=== PATIENT | female | born 1955 | race Caucasian/White ===

== ENCOUNTER → 2016-10-04 | Outpatient (CLI) | payer MEDICARE ==
[~2016-10-04] MED LIST: /LOR25TA OR; CALCTAB22 PO; COLA100C2 OR; ESTR0.5T OR; FERR325T3 PO; FLOV50AE; Fish Oil PO; GABA300C2 PO; K-TA10TA2 PO; MULTIVIT PO; NAPR500T OR; OMEP20TA7 OR; PREG50CA OR; TRAM100T13 PO; TYLE-18 PO; VITA400C OR; VITA400C PO; VITA500C OR; VITA500T53 PO; VITAD1000T PO; melatonin PO
--- NOTE | 2016-10-04 10:42 | REPMRS ---
Patient History The patient states she had a clinical breast exam in 09/2016. Patient is postmenopausal. Family history of breast cancer in niece. Took estrogen for 30 years. Digital Woman Screen Mammo: October 04, 2016 - Exam #: [id number] Bilateral CC and MLO view(s) were taken. Technologist: Estelita Varner, Technologist Prior study comparison: August 27, 2015, digital woman screen mammo performed at [facility]. August 25, 2014, digital woman screen mammo performed at [facility]. August 25, 2013, digital woman screen mammo performed at [facility]. FINDINGS: The breast tissue is heterogeneously dense. This may lower the sensitivity of mammography. There is a moderate amount of heterogeneously dense fibroglandular tissue which is fairly symmetric. There is no interval development of dominant mass, architectural distortion, or clustered microcalcification typical of malignancy. There has been no change in the appearance of the mammogram from the prior studies. ASSESSMENT: BI-RADS/ACR category 1 mammogram. Negative. Recommendation Routine screening mammogram of both breasts in 1 year (for women over age 40). This mammogram was interpreted with the aid of an FDA-approved computer-aided dectection system. Electronically Signed By: Mohamud Jj MD 10/04/16 [id number]
== END ==
LOC: M WHC 09:18
PROVIDERS: ATTEND Nurse Practitioner Family
DX: Z01.419 Encounter for gynecological examination (general) (routine) without abnormal findings (principal); Z12.31 Encounter for screening mammogram for malignant neoplasm of breast; Z78.0 Asymptomatic menopausal state; Z12.12 Encounter for screening for malignant neoplasm of rectum; Z79.818 Long term (current) use of other agents affecting estrogen receptors and estrogen levels
CPT/HCPCS: 82270; G0101; G0202

== ENCOUNTER → 2017-09-25 | Outpatient (CLI) | payer MEDICARE ==
[~2017-09-25] MED LIST changes: -/LOR25TA OR; -CALCTAB22 PO; -COLA100C2 OR; -ESTR0.5T OR; -FERR325T3 PO; -FLOV50AE; -Fish Oil PO; -GABA300C2 PO; +ISOVUE-370 76% 100ML VIAL (Q9967) As Ordered; -K-TA10TA2 PO; -MULTIVIT PO; -NAPR500T OR; -OMEP20TA7 OR; -PREG50CA OR; -TRAM100T13 PO; -TYLE-18 PO; -VITA400C OR; -VITA400C PO; -VITA500C OR; -VITA500T53 PO; -VITAD1000T PO; -melatonin PO
== END ==
LOC: M RAD 17:14
DX: R22.1 Localized swelling, mass and lump, neck (principal)
CPT/HCPCS: Q9967

== ENCOUNTER → 2017-09-27 | Outpatient (REF) | payer MEDICARE | LOC: M SFHCPLAZ 09:29 | DX: Z11.59 Encounter for screening for other viral diseases (principal) ==

== ENCOUNTER → 2017-09-27 | Outpatient (REF) | payer MEDICARE ==
[2017-09-27 11:29] LABS: INR 0.98; PROTHROMBIN TIME 13.1 SECONDS (12.4-14.5)
[2017-09-27 11:30] LABS: PARTIAL THROMBOPLASTIN TIME 28.1 SECONDS (26.8-37.9)
== END ==
LOC: M LABDRWAD 11:11
DX: R22.1 Localized swelling, mass and lump, neck (principal); Z79.01 Long term (current) use of anticoagulants
CPT/HCPCS: 85610

== ENCOUNTER → 2017-09-28 | Outpatient (CLI) | payer MEDICARE | LOC: M RAD 15:57 | DX: R22.1 Localized swelling, mass and lump, neck (principal) | CPT/HCPCS: Q9967 ==

== ENCOUNTER → 2017-10-08 | Outpatient (CLI) | payer MEDICARE ==
[~2017-10-08] MED LIST changes: -ISOVUE-370 76% 100ML VIAL (Q9967) As Ordered; +LIDOCAINE 2% MDV 20 ML VIAL As Ordered
== END ==
LOC: M RADPRO 12:17
DX: R22.1 Localized swelling, mass and lump, neck (principal); Z88.0 Allergy status to penicillin; Z91.018 Allergy to other foods; Z91.011 Allergy to milk products; Z79.899 Other long term (current) drug therapy
CPT/HCPCS: 10022

== ENCOUNTER → 2017-10-15 | Outpatient (REF) | payer MEDICARE ==
[2017-10-15 13:57] LABS: REASON FOR REVIEW COMPREHENSIVE REVIEW; SLIDE REVIEW Report; SOURCE PERIPHERAL SMEAR
[2017-10-15 14:19] LABS: URIC ACID 3.4 MG/DL (2.6-6.0)
[2017-10-15 14:59] LABS: HEPATITIS B SURFACE ANTIGEN NEGATIVE (NEGATIVE)
[2017-10-15 15:26] LABS: HEPATITIS C VIRUS ABY INDEX 0.1 INDEX (<0.8)
[2017-10-15 15:27] LABS: HEPATITIS B CORE ANTIBODY IGM NEGATIVE (NEGATIVE); HIV 1&2 SCREEN CENTAUR NEGATIVE (NEGATIVE)
[2017-10-16 14:15] LABS: BETA 2 MICROGLOBULIN 1.6 mg/L (0.6-2.4)
== END ==
LOC: M LAB REF 13:29
DX: R22.1 Localized swelling, mass and lump, neck (principal); D64.9 Anemia, unspecified
CPT/HCPCS: 84550

== ENCOUNTER → 2017-11-09 | Outpatient (CLI) | payer MEDICARE | LOC: M WHC 09:09 | DX: Z12.31 Encounter for screening mammogram for malignant neoplasm of breast (principal); N95.9 Unspecified menopausal and perimenopausal disorder; Z78.0 Asymptomatic menopausal state; Z92.23 Personal history of estrogen therapy; Z12.12 Encounter for screening for malignant neoplasm of rectum | CPT/HCPCS: 77067 ==

== ENCOUNTER → 2017-12-18 | Outpatient (CLI) | payer MEDICARE | LOC: M EKG 07:54 | DX: Z01.818 Encounter for other preprocedural examination (principal); I45.10 Unspecified right bundle-branch block | CPT/HCPCS: 93005 ==

== ENCOUNTER 2017-12-21 09:25 | Day surgery (SDC) | payer MEDICARE ==
[2017-12-21] MEDS: LR 1,000 ML IV (10:45)
[2017-12-21] MEDS ORDERED: ROCURONIUM BROMIDE 50 MG/5 ML VIAL As Ordered (12:07)
[2017-12-21] MEDS ORDERED: PROPOFOL 200 MG/20 ML VIAL As Ordered (12:07)
[2017-12-21] MEDS ORDERED: LIDOCAINE 2% INJ 100 MG/5 ML SDV (FOR ANES.) As Ordered (12:07)
[2017-12-21] MEDS ORDERED: ONDANSETRON 4MG/2ML VIAL (J2405) As Ordered (12:10)
[2017-12-21] MEDS ORDERED: NEOSTIGMINE 10 MG/10 ML VIAL (J2710) As Ordered (12:10)
[2017-12-21] MEDS ORDERED: KETOROLAC 60 MG/2 ML VIAL (J1885) As Ordered (12:10)
[2017-12-21] MEDS ORDERED: fentaNYL 250 MCG/5 ML INJECTION (J3010) As Ordered (12:10)
[2017-12-21] MEDS ORDERED: dexameTHASONE 4 MG/ML 1ML VIAL (J1100) As Ordered (12:10)
[2017-12-21] MEDS ORDERED: GLYCOPYRROLATE INJ 0.2 MG/ML 2 ML VIAL As Ordered (12:10)
[2017-12-21] MEDS ORDERED: MIDAZOLAM INJ 2 MG/2 ML VIAL (J2250) As Ordered (12:11)
[2017-12-21] MEDS: EPINEPHrine 1MG/ML INJ 30ML MD-VIAL As Ordered (13:06)
[2017-12-21] MEDS: LIDOCAINE W/EPINEPHRINE 1% 20ML VIAL As Ordered (13:06)
[2017-12-21] MEDS: OXYMETAZOLINE NASAL SPRAY (AFRIN) As Ordered (14:00)
[2017-12-21] MEDS: METHYLENE BLUE 0.5% (5MG/ML) 10 ML AMP (PROVAYBLUE)(Q9968 PER 1MG) As Ordered (14:00)
[2017-12-21] MEDS ORDERED: ONDANSETRON 4MG/2ML VIAL (J2405) IV (14:45)
[2017-12-21] MEDS ORDERED: MEPERIDINE INJ 25 MG/ML VIAL (J2175) IV (14:45)
[2017-12-21] MEDS ORDERED: IBUPROFEN 600 MG TAB PO (14:45)
[2017-12-21] MEDS ORDERED: PERCOCET 5MG/325MG TAB PO (14:45)
[2017-12-21] MEDS ORDERED: METOCLOPRAMIDE INJ 10MG/2ML VIAL (J2765) IV (14:45)
[2017-12-21] MEDS ORDERED: fentaNYL 100 MCG/2 ML INJECTION (J3010) IV (14:45)
[2017-12-21] MEDS ORDERED: LR 1,000 ML IV (14:45)
== END 2017-12-21 16:05 | disposition home or self-care (01) ==
LOC: M SDC 09:25
DX: R59.0 Localized enlarged lymph nodes (principal); Z80.7 Family history of other malignant neoplasms of lymphoid, hematopoietic and related tissues; G24.9 Dystonia, unspecified; G47.33 Obstructive sleep apnea (adult) (pediatric); K21.9 Gastro-esophageal reflux disease without esophagitis; M12.9 Arthropathy, unspecified; M54.9 Dorsalgia, unspecified; M79.7 Fibromyalgia; J45.909 Unspecified asthma, uncomplicated; Z88.0 Allergy status to penicillin; Z91.018 Allergy to other foods; Z79.899 Other long term (current) drug therapy; Z90.710 Acquired absence of both cervix and uterus; Z96.1 Presence of intraocular lens; Z96.643 Presence of artificial hip joint, bilateral
CPT/HCPCS: 31575

== ENCOUNTER → 2017-12-27 | Outpatient (REF) | payer MEDICARE ==
[2017-12-28 09:43] LABS: HEPATITIS C VIRUS ABY INDEX 0.1 INDEX (<0.8)
== END ==
LOC: M LABDRWAD 12:44
DX: Z11.59 Encounter for screening for other viral diseases (principal)
CPT/HCPCS: 86803

== ENCOUNTER → 2018-07-22 | Outpatient (REF) | payer MEDICARE ==
[2018-07-22 12:47] LABS: PLATELET COUNT, AUTOMATED 217 10^3/uL (150-450)
[2018-07-22 13:01] LABS: INR 0.98; PROTHROMBIN TIME 13.1 SECONDS (12.1-14.4)
[2018-07-22 13:02] LABS: PARTIAL THROMBOPLASTIN TIME 28.6 SECONDS (25.4-37.6)
== END ==
LOC: M LABDRWAD 12:36
DX: D69.1 Qualitative platelet defects (principal); Z79.01 Long term (current) use of anticoagulants
CPT/HCPCS: 85049

== ENCOUNTER → 2018-08-16 | Outpatient (REF) | payer MEDICARE ==
[2018-08-16 12:46] LABS: BASO % 0.7 % (0.0-1.0); EOS # 0.2 10^3/uL (0.0-0.50); EOS % 4.6 % (0.0-3.0); HEMATOCRIT 33.3 % (36.0-47.0); IMMATURE GRANULOCYTE % 0.5 % (0-3.0); LYMPH # 1.5 10^3/uL (1.5-4.5); LYMPH % 34.7 % (24.0-44.0); MEAN CORPUSCULAR HEMOGLOBIN 30.6 pg (27.0-33.0); MEAN CORPUSCULAR VOLUME 92.8 fl (80.0-96.0); MONO # 0.4 10^3/uL (0.0-0.8); MONO % 8.3 % (0.0-5.0); NEUTROPHILS # 2.2 10^3/uL (1.8-7.7); NEUTROPHILS % 51.2 % (36.0-66.0); PLATELET COUNT, AUTOMATED 258 10^3/uL (150-450); RED BLOOD COUNT 3.59 10^6/uL (4.00-5.40); RED CELL DISTRIBUTION WIDTH 12.6 % (11.5-14.5); WHITE BLOOD COUNT 4.4 10^3/uL (4.0-10.0)
[2018-08-16 12:51] LABS: C REACTIVE PROTEIN QUANTITATIV < 0.30 MG/DL (0.00-0.30); RHEUMATOID FACTOR QUANT 26.6 IU/ML (<15.0)
[2018-08-16 12:51] LABS: URIC ACID 3.3 MG/DL (2.6-6.0)
[2018-08-16 15:02] LABS: ERYTHROCYTE SEDIMENTATION RATE 16 mm/hr (0-30)
[2018-08-21 00:06] LABS: ANTINUCLEAR ANTIBODIES DIRECT Negative (Negative); HLA-B27 Negative (.); Lyme Disease IgG/IgM Antibodie <0.91 ISR (0.00-0.90); Lyme Disease IgM Ab Quantitati <0.80 index (0.00-0.79)
== END ==
LOC: M LABDRAW1 12:03
DX: M50.31 Other cervical disc degeneration, high cervical region (principal)
CPT/HCPCS: 84550

== ENCOUNTER → 2018-11-03 | Outpatient (REF) | payer MEDICARE ==
[~2018-11-03] MED LIST changes: +/LOR25TA OR; +CALCTAB22 PO; +COLA100C2 OR; +ESTR0.5T OR; +FERR325T3 PO; +FERR32TA PO; +FLOV50AE; +Fish Oil PO; +GABA300C2 PO; +K-TA10TA2 PO; +LIDO5DIS41 TD; -LIDOCAINE 2% MDV 20 ML VIAL As Ordered; +MELA10TA3 PO; +MELA3TAB49 PO; +MULTIVIT PO; +NAPR500T OR; +OMEP20TA7 OR; +PREG50CA OR; +TRAM100T13 PO; +TYLE-18 PO; +VITA20008 PO; +VITA400C OR; +VITA400C PO; +VITA500C OR; +VITA500T53 PO; +VITAD1000T PO; +[UNRECOGNIZED DRUG - CODE] SL; +melatonin PO
== END ==
LOC: M LABDRWAD 12:13
PROVIDERS: ATTEND Physician Assistant
DX: R10.13 Epigastric pain (principal)

== ENCOUNTER → 2018-11-04 | Outpatient (REF) | payer MEDICARE ==
[2018-11-04 12:37] LABS: BASO % 0.7 % (0.0-1.0); EOS # 0.3 10^3/uL (0.0-0.50); EOS % 7.1 % (0.0-3.0); HEMATOCRIT 35.6 % (36.0-47.0); HEMOGLOBIN 11.7 g/dl (12.0-15.5); LYMPH # 1.4 10^3/uL (1.5-4.5); LYMPH % 33.1 % (24.0-44.0); MEAN CORPUSCULAR HEMOGLOBIN 29.7 pg (27.0-33.0); MEAN CORPUSCULAR HGB CONC 32.9 g/dl (32.0-36.5); MEAN CORPUSCULAR VOLUME 90.4 fl (80.0-96.0); MONO # 0.4 10^3/uL (0.0-0.8); NEUTROPHILS # 2.1 10^3/uL (1.8-7.7); NEUTROPHILS % 49.6 % (36.0-66.0); PLATELET COUNT, AUTOMATED 293 10^3/uL (150-450); RED BLOOD COUNT 3.94 10^6/uL (4.00-5.40); WHITE BLOOD COUNT 4.2 10^3/uL (4.0-10.0)
[2018-11-04 13:38] LABS: ALBUMIN 3.9 GM/DL (3.2-5.2); ALT/SGPT 32 U/L (12-78); BILIRUBIN,TOTAL 0.4 MG/DL (0.2-1.0); BLOOD UREA NITROGEN 14 MG/DL (7-18); CALCIUM LEVEL 9.1 MG/DL (8.8-10.2); CARBON DIOXIDE LEVEL 29 MEQ/L (21-32); CHLORIDE LEVEL 103 MEQ/L (98-107); CREATININE FOR GFR 0.86 MG/DL (0.55-1.30); GLOMERULAR FILTRATION RATE > 60.0 (>45); GLUCOSE, FASTING 74 MG/DL (70-100); LIPASE 132 U/L (73-393); POTASSIUM SERUM 4.2 MEQ/L (3.5-5.1); SODIUM LEVEL 138 MEQ/L (136-145); TOTAL PROTEIN 7.7 GM/DL (6.4-8.2)
== END ==
LOC: M LABDRWAD 12:12
PROVIDERS: ATTEND Physician Assistant
DX: R10.13 Epigastric pain (principal)

== ENCOUNTER → 2018-11-25 | Outpatient (REF) | payer MEDICARE ==
[2018-11-25 19:27] LABS: CREATININE FOR GFR 1.08 MG/DL (0.55-1.30); GLOMERULAR FILTRATION RATE 54.9 (>45)
== END ==
LOC: M LABDRWAD 18:33
PROVIDERS: ATTEND Physical Medicine & Rehabilitation
DX: Z01.812 Encounter for preprocedural laboratory examination (principal)

== ENCOUNTER → 2019-02-05 | Outpatient (REF) | payer MEDICARE ==
[~2019-02-05] MED LIST changes: +VITA500T17 PO; -VITA500T53 PO
[2019-02-05 10:49] LABS: INR 0.95; PROTHROMBIN TIME 12.8 SECONDS (12.1-14.4)
[2019-02-05 10:50] LABS: PARTIAL THROMBOPLASTIN TIME 30.2 SECONDS (25.4-37.6)
== END ==
LOC: M LABDRWAD 10:25
PROVIDERS: ATTEND Physical Medicine & Rehabilitation
DX: Z01.812 Encounter for preprocedural laboratory examination (principal)

== ENCOUNTER → 2019-04-17 | Outpatient (CLI) | payer MEDICARE ==
--- NOTE | 2019-04-17 13:40 | REP ---
BILATERAL SCREENING DIGITAL MAMMOGRAM WITH 3D TOMOSYNTHESIS: There are no palpable abnormalities or other breast complaints. The the patient states she had a clinical breast examination 05/06 19. The the patient states she performs self-breast examinations three times per year. The Tyrer-Cuzick Score is: 2.9% . Comparisons of 08/25/2014 and 10/04/2016. The breasts are extremely dense, which lowers the sensitivity of mammography. There is no dominant mass, micro calcific cluster or architectural distortion that would indicate malignancy. There are no additional findings on 3D tomosynthesiss. There is no change from the prior study. Impression: BIRADS/ACR category 1 mammogram. Negative. Recommendation: Routine annual screening mammography. Because of the increased breast density, annual adjunctive breast MRI in addition to screening mammography is recommended. This mammogram was interpreted with the aid of a FDA approved computer-aided detection system. A. Negative mammogram reports should not delay biopsy if a dominant or clinically suspicious mass is present. B. Not all breast cancers are identified by mammography or tomosynthesis. C. Adenosis and dense breasts may obscure an underlying neoplasm. Patient letter M1 dense breasts. Electronically Signed by Dillon Hung MD 04/17/2019 01:32 P
== END ==
LOC: M WHC 11:10
PROVIDERS: ATTEND Nurse Practitioner Family
DX: Z12.31 Encounter for screening mammogram for malignant neoplasm of breast (principal)

== ENCOUNTER → 2019-05-28 | Outpatient (REF) | payer MEDICARE ==
[2019-05-28 12:59] LABS: BASO % 0.9 % (0.0-1.0); EOS # 0.3 10^3/uL (0.0-0.5); EOS % 7.5 % (0.0-3.0); HEMATOCRIT 33.7 % (36.0-47.0); LYMPH # 1.5 10^3/uL (1.5-5.0); LYMPH % 32.7 % (24.0-44.0); MEAN CORPUSCULAR HEMOGLOBIN 30.6 pg (27.0-33.0); MEAN CORPUSCULAR HGB CONC 32.6 g/dl (32.0-36.5); MEAN CORPUSCULAR VOLUME 93.6 fl (80.0-96.0); MONO # 0.4 10^3/uL (0.0-0.8); NEUTROPHILS # 2.3 10^3/uL (1.5-8.5); NEUTROPHILS % 50.5 % (36.0-66.0); PLATELET COUNT, AUTOMATED 261 10^3/uL (150-450); WHITE BLOOD COUNT 4.5 10^3/uL (4.0-10.0)
[2019-05-28 13:37] LABS: ERYTHROCYTE SEDIMENTATION RATE 24 mm/hr (0-30)
== END ==
LOC: M LABDRWAD 12:09
PROVIDERS: ATTEND Nurse Practitioner Family
DX: M25.552 Pain in left hip (principal)

== ENCOUNTER → 2019-06-09 | Outpatient (CLI) | payer OTHER ==
--- NOTE | 2019-06-09 15:26 | REP ---
TRIPLE PHASE BONE SCAN OF THE PELVIS AND HIPS: Following the intravenous administration of 21.7 millicuries technetium 99m MDP, patient's pelvis and hips are imaged in multiple projections in the flow phase, immediate blood pool and delayed phases of imaging. Photopenic left hip prosthesis is noted. There is no abnormal blood flow or blood pooling. Delayed images show mild increased uptake along the stem of the prosthesis within the proximal left femur. Therefore, I cannot exclude loosening of the femoral prosthesis. Electronically Signed by Dillon Li MD 06/10/2019 09:58 A
== END ==
LOC: M RAD 10:29
PROVIDERS: ATTEND Anesthesiology Pain Medicine
DX: M25.552 Pain in left hip (principal); Z96.642 Presence of left artificial hip joint
CPT/HCPCS: 78315; A9503

== ENCOUNTER → 2019-07-12 | Outpatient (CLI) | payer MEDICARE, OTHER ==
[2019-07-12 17:32] LABS: HEMATOCRIT 35.5 % (36.0-47.0); HEMOGLOBIN 11.6 g/dl (12.0-15.5); MEAN CORPUSCULAR HEMOGLOBIN 30.9 pg (27.0-33.0); MEAN CORPUSCULAR HGB CONC 32.7 g/dl (32.0-36.5); MEAN CORPUSCULAR VOLUME 94.4 fl (80.0-96.0); PLATELET COUNT, AUTOMATED 250 10^3/uL (150-450); RED BLOOD COUNT 3.76 10^6/uL (4.00-5.40); WHITE BLOOD COUNT 3.7 10^3/uL (4.0-10.0)
[2019-07-12 18:05] LABS: ALT/SGPT 26 U/L (12-78); BILIRUBIN,TOTAL 0.5 MG/DL (0.2-1.0); BLOOD UREA NITROGEN 14 MG/DL (7-18); CALCIUM LEVEL 8.8 MG/DL (8.8-10.2); CARBON DIOXIDE LEVEL 31 MEQ/L (21-32); CHLORIDE LEVEL 107 MEQ/L (98-107); CREATININE FOR GFR 0.91 MG/DL (0.55-1.30); GLOMERULAR FILTRATION RATE > 60.0 (>45); GLUCOSE, FASTING 77 MG/DL (70-100); POTASSIUM SERUM 4.3 MEQ/L (3.5-5.1); SODIUM LEVEL 140 MEQ/L (136-145)
[2019-07-12 18:06] LABS: ALBUMIN 3.8 GM/DL (3.2-5.2); FREE T4 0.95 NG/DL (0.76-1.46); TOTAL PROTEIN 7.2 GM/DL (6.4-8.2)
== END ==
LOC: M LABDRWAD 08:08
PROVIDERS: ATTEND Internal Medicine
DX: Z00.00 Encounter for general adult medical examination without abnormal findings (principal); Z13.1 Encounter for screening for diabetes mellitus; D50.9 Iron deficiency anemia, unspecified; Z79.899 Other long term (current) drug therapy

== ENCOUNTER → 2019-08-08 | Outpatient (CLI) | payer OTHER, MEDICARE ==
--- NOTE | 2019-08-27 04:21 | ECWPNPC ---
PATIENT NAME: ERNA GROVE : 1955 GENDER: FEMALE VISIT DATE: 08/08/2019 DISCHARGE DATE: 08/08/19 1139 VISIT LOCKED DATE TIME: PHYSICIAN: DIANA PRECIADO MD RESOURCE: DIANA PRECIADO MD REASON FOR APPOINTMENT 1. LOW BACK HISTORY OF PRESENT ILLNESS PAIN SCREENING: PATIENT HAS A COMPLAINT OF ACUTE OR CHRONIC PAIN :YES 63 YEAR OLD FEMALE PATIENT WITH A HISTORY OF CHRONIC NECK PAIN. THE PATIENT DESCRIBES THE PAIN ACHING, SORE, TENDER, DAILY, AND INTERMITTENT WITH A PAIN SCORE OF 6-8/10 DEPENDING ON PHYSICAL ACTIVITY. 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 THE PATIENT STATES SHE WAS THROWN INTO A DOOR, AND LATER WENT DOWNSTAIRS TO BE SEEN IN THE ER, AND HAS NOT WORKED SINCE THE INCIDENT. THE PATIENT SAYS HER PAIN IS AFFECTING HER ABILITY TO PERFORM HER DAILY ACTIVITIES SUCH UNABLE TO WORK, UNABLE TO LIFT OBJECTS ABOVE SHOULDERS, CANNOT EXTEND NECK AND HEAD TOO FAR, AND INABILITY TO WALK OR SIT FOR TOO LONG. THE PATIENT MENTIONS SHE HAD A L5-S1 LAMINECTOMY SURGERY IN 1995 AND A TOTAL HIP REPLACEMENT IN MARCH 2017. PATIENT DENIES UNEXPLAINABLE WEIGHT LOSS, FEVER, CHILLS, NEW CHANGES ON HER URINARY OR BOWEL CONTROL. THE PATIENT SAYS SHE HAS A HISTORY OF CONSTIPATION. FALL RISK SCREENING: SCREENING :NO FALLS REPORTED IN THE LAST YEAR CURRENT MEDICATIONS TAKING GABAPENTIN 600 MG TABLET 1 TABLET ORALLY THREE TIMES DAILY TAKING NAPROXEN 500 MG TABLET 1 TABLET NEEDED ORALLY EVERY 12 HRS TAKING TYLENOL 650 MG TABLET 1-2 TABLETS NEEDED ORALLY EVERY 8 HRS TAKING MELATONIN 10 MG CAPSULE 1 CAPSULE AT BEDTIME NEEDED WITH FOOD ORALLY ONCE A DAY TAKING MULTIVITAL TABLET 1 ORALLY DAILY, NOTES: WITH MINERALS TAKING VITAMIN D 2000 UNIT TABLET 1 TABLET ORALLY ONCE A DAY TAKING AMITRIPTYLINE HCL 25 MG TABLET 1 TABLET ORALLY BEFORE BEDTIME TAKING PEPCID 20 MG TABLET 1 TABLET AT BEDTIME NEEDED ORALLY ONCE A DAY TAKING SENOKOT S 8.6-50 MG TABLET 1 TABLET ORALLY BID TAKING TYLENOL PM EXTRA STRENGTH 500-25 MG TABLET 1 TABLET AT BEDTIME NEEDED ORALLY ONCE A DAY NOT-TAKING SENNA S 8.6-50 MG TABLET 1 TABLET IN THE EVENING NEEDED ORALLY ONCE A DAY MEDICATION LIST REVIEWED AND RECONCILED WITH THE PATIENT PAST MEDICAL HISTORY SLEEP APNEA L SHOULDER DYSTONIA CHRONIC NECK/BACK PAIN DUE TO OSTEOARTHRITIS OSTEOPENIA ASTHMA 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 CONSTIPATION PARTIAL COLLAPSED LUNG 2011 1.4% ASCVD 10 YEAR RISK (06/2015) GERD ALLERGIES AMOXICILLIN: SMALL RASH ON TORSO AREA - ALLERGY CAFFEINE: NAUSEA, H/A - SIDE EFFECTS LACTOSE INTOLERATE: NAUSEA/VOMITING - SIDE EFFECTS SURGICAL HISTORY LAMINECTOMY L5-S1 1995 JAVIER & BSO @ 24 YEARS OLD, DUE TO LARGE BENIGN OVARIAN TUMOR 1979 LYMPH NODE REMOVED FROM NECK-BENIGN 2006 COLONOSCOPY AND ENDOSCOPY 06/2010 BX OF COLONIC POLYPS, BENIGN BRANDIN (NEXT ONE 07/2020) 07/2010 LEFT HIP 08/14/2016 HIP REPLACEMENT-LEFT 03/26/17 RIGHT NECK LYMPH NODE BIOPSY 09/2017 LYMPH NODE BIOPSY FAMILY HISTORY FATHER: 52 YRS, NON HODGEKINS LYMPHOMA, DIAGNOSED WITH OTHER MALIGNANT NEOPLASM OF UNSPECIFIED SITE MOTHER: ALIVE 83 YRS, OSTEOPOROSIS, NO FRACTURES; OSTEOARTHRITIS, ANGINA, BORDERLINE HYPERTENSION, DIABETES, OBESE SIBLINGS: ALIVE DAUGHTER(S): ALIVE MATERNAL GRAND MOTHER: COLON POLYPS MANY PATERNAL UNCLE: 2 HAD UNKNOWN CANCER PATERNAL AUNT: BONE TO BRAIN CANCER 6 BROTHER(S) , 1 SISTER(S) - HEALTHY. 2DAUGHTER(S) - HEALTHY. OLDER DAUGHTER WITH DEVELOPMENTAL PROBLEMS, JRC . 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 NO CHEMO, +RADIATION. NO COLON OR OVARIAN CANCER IN FAMILY. NO THYROID PROBLEMS IN FAMILY.\\\\\\\\NDAUGHTER WITH VON WILLEBRANDS. \\\\\\\\NBROTHER BORN WITH \\\\\\\\\\\\\\"HOLE IN HEART\\\\\\\\\\\\\\" AND VALVE REPLACEMENT. HAS HAD MULTIPLE HEART ATTACKS (1ST IN 40S). SOCIAL HISTORY GENERAL: TOBACCO USE ARE YOU A:NONSMOKER NEVER SMOKER HIV / HEP-C SCREENING HIV TEST OFFERED TO PATIENT:YES DATE OFFERED:03/19/2017 TEST ACCEPTED:NO HEP-C TEST OFFERED TO PATIENT:YES DATE OFFERED:03/19/2017 REASON:PATIENT DECLINED TEST ACCEPTED:NO REASON:PATIENT DECLINED OTHERS AT HOME: SPOUSE. 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 UNABLE TO TAKE CA++ SUPPLEMENTS.. LANGUAGE VENEZUELAN. DOMESTIC VIOLENCE NONE, NO SEXUAL ABUSE. BMI CARE GOAL FOLLOW-UP BELOW NORMAL BMI FOLLOW-UPDIETARY EDUCATION FOR WEIGHT GAIN AT GOAL RECREATIONAL DRUG USE DENIES. EXERCISE: NO REGULAR EXERCISE, WALKS TOLERATED. 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?NO LUNG CANCER SCREENING SMOKING STATUS:NON SMOKER PAIN CLINIC PFS, CLERGY, PUBLIC HEALTH REFERRALS HAS THE PATIENT BEEN EDUCATED REGARDING HIS/HER PLAN OF CARE?YES HAS THE PATIENT BEEN EDUCATED REGARDING PAIN, THE RISK FOR PAIN, THE IMPORTANCE OF EFFECTIVE PAIN MANAGEMENT, AND THE PAIN ASSESSMENT PROCESS?YES LATEX QUESTIONNAIRE LATEX ALLERGY : HAVE YOU EVER DEVELOPED ANY TYPE OF REACTION AFTER HANDLING LATEX PRODUCTS SUCH RUBBER GLOVES, CONDOMS, DIAPHRAGMS, BALLOONS, SOCKS, OR UNDERWEAR?NO LATEX ALLERGY : HAVE YOU EVER DEVELOPED ANY TYPE OF REACTION DURING OR AFTER DENTAL APPOINTMENT, VAGINAL/RECTAL EXAMINATION, SURGICAL PROCEDURE, OR ANY OTHER EXPOSURE?NO DATE ASKED : 04/17/2019 LATEX RISK : HAVE YOU EVER HAD ANY DIFFICULTY BREATHING OR HIVES AFTER EATING OR HANDLING ANY FRUITS, OR VEGETABLES; SUCH KIWI, BANANAS, STONE FRUITS, OR CHESTNUTSNO LATEX RISK : DO YOU HAVE A PREVIOUS PERSONAL HISTORY OF MORE THAN NINE SURGERIES, SPINA BIFIDA, OR REPEATED CATHERIZATIONS? NO LATEX RISK : ARE YOU FREQUENTLY EXPOSED TO LATEX PRODUCTS IN YOUR OCCUPATION?NO CAFFEINE CAFFEINE USE?NO ADVANCE DIRECTIVE ADVANCE DIRECTIVE DISCUSSED WITH PATIENT:YES HCP IS [facility] ALEVISM NO [employer] BELIEFS THAT WOULD IMPACT HEALTH CARE. MARITAL STATUS: . 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 SEXUAL HX HAD SEX IN THE LAST 12 MONTHS (VAGINAL, ORAL, OR ANAL)?NO REVIEWED WITH PATIENT 08/08/19 1015 BV. HOSPITALIZATION/MAJOR DIAGNOSTIC PROCEDURE ABOVE SURGERIES REVIEW OF SYSTEMS REVIEWED BY: PROVIDER: DIANA PRECIADO MD . CONSTITUTIONAL: ANY CHANGE IN YOUR MEDICAL CONDITION? NO . CHILLS NO . FEVER NO . INFECTION: DO YOU HAVE NEW INFECTIONS? NO . DO YOU HAVE HISTORY OF MRSA? NO . MUSCULOSKELETAL: ANY NEW PATTERNS OF PAIN OR NUMBNESS? NO . SYTEMIC LUPUS NO . GASTROENTEROLOGY: ANY NEW CHANGE IN BOWEL CONTROL? YES, PT STATES SHE HAS HAD ISSUES WITH INTERMITTENT CONSTIPATION FOR YEARS, DOES TAKE STOOL SOFTENER WHEN NEEDED. DENIES AND NEW CHANGES . BARRETTS ESOPHAGUS NO . CIRRHOSIS NO . HEPATITIS NO . LIVER FAILURE NO . ACID REFLUX NO . UNEXPLAINED WEIGHT LOSS NO . GENITOURINARY: ANY NEW CHANGE IN BLADDER CONTROL? NO . IS THERE A CHANCE YOU COULD BE ? NO . HEMATOLOGY/LYMPH: DO YOU TAKE ANY BLOOD THINNERS? (FOR EXAMPLE- COUMADIN, PLAVIX, AGGRENOX, PLATEL, PRADAXA, OR XARELTO) NO . WHEN WAS YOUR LAST DOSE? DATE: TIME: . LOW PLATELET COUNT NO . SICKLE CELL DISEASE NO . VON WILLIEBRANDS NO . FACTOR V LEIDEN NO . THALLASEMIA NO . ANEMIA YES, PT HAS HISTORY OF ANEMIA, BUT BLOODWORK HAS BEEN WITHIN NORMAL LIMITS LATELY, STATES HER MULTIVITAMIN SHE TAKES HAS IRON IN IT . EASY BRUISING NO . NEUROLOGY: HAVE YOU FALLEN IN THE PAST 12 MONTHS? NO . ANY NEW EXTREMITY NUMBNESS OR WEAKNESS? NO . HEAD INJURY NO . DEMENTIA NO . CEREBRAL PALSY NO . MULTIPLE SCLEROSIS NO . DIZZINESS NO . HEADACHE NO . STROKES NO . VERTIGO NO . CARDIOLOGY: DO YOU HAVE A PACEMAKER OR DEFIBRILLATOR? NO . ANGINA NO . HEART ATTACK NO . HEART SURGERY NO . CONGESTIVE HEART FAILURE/FLUID OVERLOAD NO . CHEST PAIN NO . HIGH BLOOD PRESSURE NO . IRREGULAR HEART BEAT NO . RESPIRATORY: HAVE YOU BEEN SICK IN THE PAST WEEK? NO . FEVER NO . FLU LIKE SYMPTOMS? NO . CPAP YES, USES CPAP NIGHTLY . BYPAP NO . ASTHMA HISTORY OF CHILDHOOD ASTHMA, STATES HAS NOT HAD ISSUES WITH ASTHMA IN YEARS . EMPHYSEMA NO . CHRONIC LUNG DISEASES NO . SHORTNESS OF BREATH ON EXERTION NO . COUGH NO . SNORING NO . INTEGUMENTARY: DO YOU HAVE ANY RASHES OR OPEN SORES? NO . ALLERGIC/IMMUNO: ARE YOU ALLERGIC TO IV DYE? NO . ANY NEW ALLERGIES? NO . PSYCHIATRIC: DO YOU HAVE THOUGHTS OF HURTING YOURSELF OR SOMEONE ELSE? NO . ARE YOU ABUSED, NEGLECTED, OR IN AN UNSAFE ENVIRONMENT? NO . ENDOCRINOLOGY: ARE YOU DIABETIC? NO . THYROID DISORDER NO . OTHER: DO YOU NEED ANY PRESCRIPTIONS? NO . IF YES, PLEASE LIST: ____ . ANY NEW PROBLEMS WITH YOUR MEDICATIONS? NO . WHEN DID YOU LAST EAT? ____ . WHEN DID YOU LAST DRINK? ____ . WHAT DID YOU LAST DRINK? ____ . NAME OF PERSON DRIVING YOU HOME? ____ . DO YOU HAVE ANY OTHER QUESTIONS OR CONCERNS NO . VITAL SIGNS WT 136.6 LBS, HT 63.5 IN, BMI 23.82 INDEX, BP 116/76 MM HG, HR 78 /MIN, RR 18 /MIN, TEMP 97.1 F, OXYGEN SAT % 95%, NA INITIALS SC 10:12, REVIEWED BY: BV. EXAMINATION GENERAL EXAMINATION: PATIENT IS ALERT O X 3 AND COOPERATIVE. LUNGS CLEAR, TO AUSCULTATION. HEART: NO MURMURS OR GALLOPS; FACIAL CRANIAL NERVES ARE GROSSLY NORMAL. GOOD SYMMETRY OF FACIAL MUSCLE MOVEMENT. NORMAL VISUAL CARDOZO. ANTALGIC GAIT. PATIENT IS LIMPING MAINLY FROM THE LEFT LEG. LEFT ARM IS WEAKER AT EXTENSION AND FLEXION. 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 PATIENT CAN ABDUCT BOTH EXTREMITIES, BUT WITH MORE DIFFICULTY ON THE LEFT SIDE. TENDERNESS OVER THE LEFT SHOULDER AND NECK AREAS. PRESENCE OF BANDS OF TISSUE AND TRIGGER POINTS WITH RESTRICTION OF MOVEMENT OF THE LEFT SHOULDER AND NECK. PAIN INCREASES OVER THE CERVICAL FACET JOINTS WITH EXTENSION AND LATERAL ROTATION OF THE NECK. ASSESSMENTS CERVICALGIA - M54.2 (PRIMARY) MYALGIA, OTHER SITE - M79.18 TREATMENT CERVICALGIA CLINICAL NOTES: WE DISCUSSED SEVERAL ISSUES WITH MS. GROVE'S PAIN MANAGEMENT CASE. I WOULD LIKE TO RECEIVE AND REVIEW THE PATIENT'S RECENT CERVICAL MRI BEFORE PROCEEDING WITH ANY INVASIVE INTERVENTIONS. THE PATIENT IS EXPERIENCING SPASTICITY OVER AREAS, THEREFORE I AM PRESCRIBING TIZANIDINE 2 MG TO BE TAKEN 1-2 TABLETS NEEDED DAILY TO HELP WITH ACUTE PAIN AND SPASMS. THE PATIENT WILL FOLLOW UP WITH THE NURSE PRACTITIONER IN SEVERAL WEEKS. INSTRUCTIONS WERE GIVEN, QUESTIONS WERE ANSWERED, PATIENT REPORTS UNDERSTANDING AND AGREES WITH THE PLAN. I, TALA DELUNA, DOCUMENTED THE ABOVE INFORMATION ACTING A SCRIBE FOR DR. PRECIADO. I HAVE REVIEWED THE ABOVE DOCUMENT, WRITTEN BY TALA DELUNA SCRIBPatrick AND I VERIFY THAT IT IS ACCURATE. DEAR JONATHAN MOLINA MD: THANK YOU FOR YOUR KIND REFERRAL OF ERNA GROVE. IF YOU WANT TO DISCUSS HER CASE WITH ME PLEASE CALL ME AT THE PAIN CENTER AT [phone]. SINCERELY, DIANA PRECIADO MD PAIN MEDICINE . OTHERS START TIZANIDINE HCL TABLET, 2 MG, 1 TABLET NEEDED, ORALLY FOR ACUTE SPASMS AND PAIN, EVERY 6 HOURS NEEDED MDD3 ( WORKERS COMP), 30 DAYS, 12, REFILLS 0 PROCEDURES PN WORKMANS' COMP OPINION IN YOUR OPINION, WAS THE INCIDENT THAT THE PATIENT DESCRIBED THE COMPETENT MEDICAL CAUSE OF THIS INJURY/ILLNESS? YES ARE THE PATIENT'S COMPLAINTS CONSISTENT WITH HIS/HER HISTORY OF THE INJURY/ILLNESS? YES IS THE PATIENT'S HISTORY OF THE INJURY/ILLNESS CONSISTENT WITH YOUR OBJECTIVE FINDING? YES WHAT IS THE PERCENTAGE OF TEMPORARY IMPAIRMENT? TOTAL = 100% IS THE PATIENT WORKING? NO DOCTOR ON SITE: DIANA BANEGAS MD PROCEDURE CODES G8427 CURRENT MEDS W/DOSAGES DOCUMENTED G8730 PAIN ASSESS POS TOOL F/U PLAN DOC FA211 ESTABILISHED PATIENT [facility] FACILITY CHARGE DISPOSITION & COMMUNICATION FOLLOW UP REASON: F/UP WITH GROUP CONTROLLER TO GO OVER MRI RESULTS (FROM OTHER CLINIC) ELECTRONICALLY SIGNED BY DIANA PRECIADO MD, MD ON 08/26/2019 AT 04:53 PM EST DISCLAIMER : THIS IS A VISIT SUMMARY EXTRACTED FROM THE [employer] CHART. IT IS NOT A COPY OF THE [employer] PROGRESS NOTE. N[place]EL
== END ==
LOC: M PAIN 10:00
PROVIDERS: ATTEND Anesthesiology
DX: M54.2 Cervicalgia (principal); M79.18 Myalgia, other site; G47.30 Sleep apnea, unspecified; J45.909 Unspecified asthma, uncomplicated; Z96.642 Presence of left artificial hip joint; Z88.1 Allergy status to other antibiotic agents; Z91.011 Allergy to milk products; Z91.018 Allergy to other foods; Z79.899 Other long term (current) drug therapy

== ENCOUNTER → 2019-09-24 | Outpatient (CLI) | payer OTHER, MEDICARE ==
--- NOTE | 2019-10-02 00:15 | ECWPNPC ---
PATIENT NAME: ERNA GROVE : 1955 GENDER: FEMALE VISIT DATE: 09/24/2019 DISCHARGE DATE: 09/24/19 1551 VISIT LOCKED DATE TIME: PHYSICIAN: DIANA PRECIADO MD RESOURCE: DIANA PRECIADO MD REASON FOR APPOINTMENT 1. W/C LOW BACK HISTORY OF PRESENT ILLNESS HISTORY OF PRESENT ILLNESS: PAIN THE PATIENT DESCRIBES THE PAIN... 63 YEAR OLD FEMALE PATIENT WITH A HISTORY OF CHRONIC NECK AND SHOULDER PAIN. THE PATIENT DESCRIBES THE PAIN ACHING, SORE, TENDER, AND DAILY WITH A PAIN SCORE OF 3-9/10 DEPENDING ON PHYSICAL ACTIVITY AND MEDICATION USE. 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 THE PATIENT STATES HER PAIN IS IN HER NECK AND LEFT SHOULDER AREAS. THE PATIENT SAYS HER PAIN IS AFFECTING HER ABILITY TO PERFORM HER DAILY ACTIVITIES SUCH CLEANING, GROCERY SHOPPING, AND SLEEPING. THE PATIENT SAYS SHE IS HAVING DIFFICULTIES LOOKING TO THE SIDE AND BEHIND DUE TO RESTRICTION OF MOVEMENT OF HER NECK AND LEFT SHOULDER. PATIENT DENIES UNEXPLAINABLE WEIGHT LOSS, FEVER, CHILLS, NEW CHANGES ON HER URINARY OR BOWEL CONTROL. FALL RISK SCREENING: SCREENING :NO FALLS REPORTED IN THE LAST YEAR CURRENT MEDICATIONS TAKING GABAPENTIN 600 MG TABLET 1 TABLET ORALLY THREE TIMES DAILY TAKING NAPROXEN 500 MG TABLET 1 TABLET NEEDED ORALLY EVERY 12 HRS TAKING TYLENOL 650 MG TABLET 1-2 TABLETS NEEDED ORALLY EVERY 8 HRS TAKING MELATONIN 10 MG CAPSULE 1 CAPSULE AT BEDTIME NEEDED WITH FOOD ORALLY ONCE A DAY TAKING MULTIVITAL TABLET 1 ORALLY DAILY, NOTES: WITH MINERALS TAKING VITAMIN D 2000 UNIT TABLET 1 TABLET ORALLY ONCE A DAY TAKING TYLENOL PM EXTRA STRENGTH 500-25 MG TABLET 1 TABLET AT BEDTIME NEEDED ORALLY ONCE A DAY TAKING TIZANIDINE HCL 2 MG TABLET 1 TABLET NEEDED ORALLY FOR ACUTE SPASMS AND PAIN EVERY 6 HOURS NEEDED MDD3 ( WORKERS COMP), NOTES: NOT STARTED NOT FILLED YET TAKING SENOKOT S 8.6-50 MG TABLET 1 TABLET ORALLY BID TAKING PEPCID 20 MG TABLET 1 TABLET AT BEDTIME NEEDED ORALLY ONCE A DAY TAKING AMITRIPTYLINE HCL 25 MG TABLET 1 TABLET ORALLY BEFORE BEDTIME NOT-TAKING SENNA S 8.6-50 MG TABLET 1 TABLET IN THE EVENING NEEDED ORALLY ONCE A DAY MEDICATION LIST REVIEWED AND RECONCILED WITH THE PATIENT PAST MEDICAL HISTORY SLEEP APNEA L SHOULDER DYSTONIA CHRONIC NECK/BACK PAIN DUE TO OSTEOARTHRITIS OSTEOPENIA ASTHMA 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 CONSTIPATION PARTIAL COLLAPSED LUNG 2011 1.4% ASCVD 10 YEAR RISK (06/2015) GERD ALLERGIES AMOXICILLIN: SMALL RASH ON TORSO AREA - ALLERGY CAFFEINE: NAUSEA, H/A - SIDE EFFECTS LACTOSE INTOLERATE: NAUSEA/VOMITING - SIDE EFFECTS SURGICAL HISTORY LAMINECTOMY L5-S1 1995 JAVIER & BSO @ 24 YEARS OLD, DUE TO LARGE BENIGN OVARIAN TUMOR 1979 LYMPH NODE REMOVED FROM NECK-BENIGN 2006 COLONOSCOPY AND ENDOSCOPY 06/2010 BX OF COLONIC POLYPS, BENIGN BRANDIN (NEXT ONE 07/2020) 07/2010 LEFT HIP 08/14/2016 HIP REPLACEMENT-LEFT 03/26/17 RIGHT NECK LYMPH NODE BIOPSY 09/2017 LYMPH NODE BIOPSY FAMILY HISTORY FATHER: 52 YRS, NON HODGEKINS LYMPHOMA, DIAGNOSED WITH OTHER MALIGNANT NEOPLASM OF UNSPECIFIED SITE MOTHER: ALIVE 84 YRS, OSTEOPOROSIS, NO FRACTURES; OSTEOARTHRITIS, ANGINA, BORDERLINE HYPERTENSION, DIABETES, OBESE SIBLINGS: ALIVE DAUGHTER(S): ALIVE MATERNAL GRAND MOTHER: COLON POLYPS MANY PATERNAL UNCLE: 2 HAD UNKNOWN CANCER PATERNAL AUNT: BONE TO BRAIN CANCER 6 BROTHER(S) , 1 SISTER(S) - HEALTHY. 2DAUGHTER(S) - HEALTHY. OLDER DAUGHTER WITH DEVELOPMENTAL PROBLEMS, JRC . 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 NO CHEMO, +RADIATION. NO COLON OR OVARIAN CANCER IN FAMILY. NO THYROID PROBLEMS IN FAMILY.\\\\\\\\NDAUGHTER WITH VON WILLEBRANDS. \\\\\\\\NBROTHER BORN WITH \\\\\\\\\\\\\\"HOLE IN HEART\\\\\\\\\\\\\\" AND VALVE REPLACEMENT. HAS HAD MULTIPLE HEART ATTACKS (1ST IN 40S). SOCIAL HISTORY GENERAL: TOBACCO USE ARE YOU A:NONSMOKER NEVER SMOKER HIV / HEP-C SCREENING HIV TEST OFFERED TO PATIENT:YES DATE OFFERED:03/19/2017 TEST ACCEPTED:NO HEP-C TEST OFFERED TO PATIENT:YES DATE OFFERED:03/19/2017 REASON:PATIENT DECLINED TEST ACCEPTED:NO REASON:PATIENT DECLINED OTHERS AT HOME: SPOUSE. 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 UNABLE TO TAKE CA++ SUPPLEMENTS.. LANGUAGE [place]. DOMESTIC VIOLENCE NONE, NO SEXUAL ABUSE. BMI CARE GOAL FOLLOW-UP BELOW NORMAL BMI FOLLOW-UPDIETARY EDUCATION FOR WEIGHT GAIN AT GOAL RECREATIONAL DRUG USE DENIES. EXERCISE: NO REGULAR EXERCISE, WALKS TOLERATED. LEARNING BARRIERS / SPECIAL NEEDS CHANGE FROM LAST VISIT?NO BARRIERS TO LEARNING?NO HEARING IMPAIRED?YES HAS NOTICED SOME CHANGES VISION IMPAIRED?YES COGNITIVELY IMPAIRED?NO :CORRECTIVE LENSES READINESS TO LEARN?YES LEARNING PREFERENCES?NO LEARNING CAPABILITIES PRESENT?YES EMOTIONAL BARRIERS?NO SPECIAL DEVICES?NO CAN TECHNICIAN NEEDED?NO LUNG CANCER SCREENING SMOKING STATUS:NON SMOKER PAIN CLINIC PFS, CLERGY, PUBLIC HEALTH REFERRALS HAS THE PATIENT BEEN EDUCATED REGARDING HIS/HER PLAN OF CARE?YES HAS THE PATIENT BEEN EDUCATED REGARDING PAIN, THE RISK FOR PAIN, THE IMPORTANCE OF EFFECTIVE PAIN MANAGEMENT, AND THE PAIN ASSESSMENT PROCESS?YES LATEX QUESTIONNAIRE LATEX ALLERGY : HAVE YOU EVER DEVELOPED ANY TYPE OF REACTION AFTER HANDLING LATEX PRODUCTS SUCH RUBBER GLOVES, CONDOMS, DIAPHRAGMS, BALLOONS, SOCKS, OR UNDERWEAR?NO LATEX ALLERGY : HAVE YOU EVER DEVELOPED ANY TYPE OF REACTION DURING OR AFTER DENTAL APPOINTMENT, VAGINAL/RECTAL EXAMINATION, SURGICAL PROCEDURE, OR ANY OTHER EXPOSURE?NO DATE ASKED : 04/17/2019 LATEX RISK : HAVE YOU EVER HAD ANY DIFFICULTY BREATHING OR HIVES AFTER EATING OR HANDLING ANY FRUITS, OR VEGETABLES; SUCH KIWI, BANANAS, STONE FRUITS, OR CHESTNUTSNO LATEX RISK : DO YOU HAVE A PREVIOUS PERSONAL HISTORY OF MORE THAN NINE SURGERIES, SPINA BIFIDA, OR REPEATED CATHERIZATIONS? NO LATEX RISK : ARE YOU FREQUENTLY EXPOSED TO LATEX PRODUCTS IN YOUR OCCUPATION?NO CAFFEINE CAFFEINE USE?NO ADVANCE DIRECTIVE ADVANCE DIRECTIVE DISCUSSED WITH PATIENT:YES HCP IS FRANCHESCA GR[facility] MOSQUE NO CHRISTIAN BELIEFS THAT WOULD IMPACT HEALTH CARE. MARITAL STATUS: . ALCOHOL SCREENING DID YOU HAVE A DRINK CONTAINING ALCOHOL IN THE PAST YEAR?NO POINTS0 INTERPRETATIONNEGATIVE OCCUPATION: DISABLED DUE TO [facility]URY [facility] [employer]. SEXUAL HX HAD SEX IN THE LAST 12 MONTHS (VAGINAL, ORAL, OR ANAL)?NO REVIEWED WITH PATIENT 08/08/19 1015 BV. HOSPITALIZATION/MAJOR DIAGNOSTIC PROCEDURE ABOVE SURGERIES REVIEW OF SYSTEMS REVIEWED BY: PROVIDER: DIANA PRECIADO MD . CONSTITUTIONAL: ANY CHANGE IN YOUR MEDICAL CONDITION? NO, NO . CHILLS NO, NO . FEVER NO, NO . INFECTION: DO YOU HAVE NEW INFECTIONS? NO, NO . DO YOU HAVE HISTORY OF MRSA? NO, NO . MUSCULOSKELETAL: ANY NEW PATTERNS OF PAIN OR NUMBNESS? NO, NO . GASTROENTEROLOGY: ANY NEW CHANGE IN BOWEL CONTROL? NO, NO . GENITOURINARY: ANY NEW CHANGE IN BLADDER CONTROL? NO, NO . IS THERE A CHANCE YOU COULD BE ? NO, NO . HEMATOLOGY/LYMPH: DO YOU TAKE ANY BLOOD THINNERS? (FOR EXAMPLE- COUMADIN, PLAVIX, AGGRENOX, PLATEL, PRADAXA, OR XARELTO) NO, NO . WHEN WAS YOUR LAST DOSE? DATE: TIME: , DATE: TIME: . NEUROLOGY: HAVE YOU FALLEN IN THE PAST 12 MONTHS? FELL A COUPLE MONTHS AGON ON ICE...NO URGENT CARE . ANY NEW EXTREMITY NUMBNESS OR WEAKNESS? NO, NO . CARDIOLOGY: DO YOU HAVE A PACEMAKER OR DEFIBRILLATOR? NO, NO . RESPIRATORY: HAVE YOU BEEN SICK IN THE PAST WEEK? NO, NO . FEVER NO, NO . FLU LIKE SYMPTOMS? NO, NO . COUGH NO, NO . INTEGUMENTARY: DO YOU HAVE ANY RASHES OR OPEN SORES? NO, NO . ALLERGIC/IMMUNO: ARE YOU ALLERGIC TO IV DYE? NO, NO . ANY NEW ALLERGIES? NO, NO . PSYCHIATRIC: DO YOU HAVE THOUGHTS OF HURTING YOURSELF OR SOMEONE ELSE? NO, NO . ARE YOU ABUSED, NEGLECTED, OR IN AN UNSAFE ENVIRONMENT? NO, NO . ENDOCRINOLOGY: ARE YOU DIABETIC? NO, NO . OTHER: DO YOU NEED ANY PRESCRIPTIONS? NO, NO . IF YES, PLEASE LIST: ____, ____ . ANY NEW PROBLEMS WITH YOUR MEDICATIONS? NO, NO . WHEN DID YOU LAST EAT? ____, ____ . WHEN DID YOU LAST DRINK? ____, ____ . WHAT DID YOU LAST DRINK? ____, ____ . NAME OF PERSON DRIVING YOU HOME? ____, ____ . DO YOU HAVE ANY OTHER QUESTIONS OR CONCERNS NO, NO . VITAL SIGNS WT 135.2 LBS, HT 63.5 IN, BMI 23.57 INDEX, BP 120/56 MM HG, HR 79 /MIN, RR 18 /MIN, TEMP 97.1 F, OXYGEN SAT % 98%, SAFE IN ENV? (Y/N) YES, REVIEWED BY: KG. EXAMINATION GENERAL EXAMINATION: PATIENT IS ALERT O X 3 AND COOPERATIVE. PRESENCE OF BANDS OF TISSUE AND TRIGGER POINTS WITH RESTRICTION OF MOVEMENT OF THE LEFT NECK AND LEFT SHOULDER AREAS. LEFT ARM IS WEAKER AT EXTENSION AND FLEXION. 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 ASSESSMENTS CERVICALGIA - M54.2 (PRIMARY) MYALGIA, OTHER SITE - M79.18 TREATMENT CERVICALGIA CLINICAL NOTES: WE DISCUSSED SEVERAL ISSUES WITH MS. GROVE'S PAIN MANAGEMENT CASE. DUE TO THE TRIGGER POINTS, BANDS OF TISSUE, AND RESTRICTION OF MOVEMENT, I WOULD LIKE TO MOVE FORWARD WITH A LEFT NECK AND LEFT SHOULDER TRIGGER POINT INJECTION AT THIS TIME. WE DISCUSSED THE BENEFITS, RISKS, AND ALTERNATIVES OF THE INJECTION AND THE PATIENT WOULD LIKE TO PROCEED. I AM LOOKING FOR LONG LASTING PAIN RELIEF FROM THIS INJECTION FOR THE PATIENT. I AM STARTING THE PATIENT ON CYCLOBENZAPRINE HCL TABLET 5 MG EVERY 8 HOURS NEEDED, 18 TABLETS FOR THE MONTH, TO HELP WITH ACUTE PAIN AND SPASTICITY. THE PATIENT WILL FOLLOW UP WITH THE NURSE PRACTITIONER IN 2 MONTHS. INSTRUCTIONS WERE GIVEN, QUESTIONS WERE ANSWERED, PATIENT REPORTS UNDERSTANDING AND AGREES WITH THE PLAN. I, TALA DELUNA, DOCUMENTED THE ABOVE INFORMATION ACTING A SCRIBE FOR DR. PRECIADO. I HAVE REVIEWED THE ABOVE DOCUMENT, WRITTEN BY TALA OSULLIVANIBPatrick AND I VERIFY THAT IT IS ACCURATE. . OTHERS START CYCLOBENZAPRINE HCL TABLET, 5 MG, 1 TABLET NEEDED, ORALLY FOR SPASMS AND PAIN, EVERY 8 HOURS NEEDED MDD2 (WORKERS COMP), 30 DAYS, 18, REFILLS 0 PROCEDURES PN WORKMANS' COMP OPINION IN YOUR OPINION, WAS THE INCIDENT THAT THE PATIENT DESCRIBED THE COMPETENT MEDICAL CAUSE OF THIS INJURY/ILLNESS? YES ARE THE PATIENT'S COMPLAINTS CONSISTENT WITH HIS/HER HISTORY OF THE INJURY/ILLNESS? YES IS THE PATIENT'S HISTORY OF THE INJURY/ILLNESS CONSISTENT WITH YOUR OBJECTIVE FINDING? YES WHAT IS THE PERCENTAGE OF TEMPORARY IMPAIRMENT? TOTAL = 100% IS THE PATIENT WORKING? NO DOCTOR ON SITE: DIANA BANEGAS MD PROCEDURE CODES FA211 ESTABILISHED PATIENT [facility] FACILITY CHARGE G8427 CURRENT MEDS W/DOSAGES DOCUMENTED G8730 PAIN ASSESS POS TOOL F/U PLAN DOC DISPOSITION & COMMUNICATION FOLLOW UP 2 MONTHS ELECTRONICALLY SIGNED BY DIANA PRECIADO MD, MD ON 10/01/2019 AT 12:03 PM EST DISCLAIMER : THIS IS A VISIT SUMMARY EXTRACTED FROM THE [employer] CHART. IT IS NOT A COPY OF THE [employer] PROGRESS NOTE. MTDD
== END ==
LOC: M PAIN 14:00
PROVIDERS: ATTEND Anesthesiology
DX: M54.2 Cervicalgia (principal); M79.18 Myalgia, other site; G47.30 Sleep apnea, unspecified; J45.909 Unspecified asthma, uncomplicated; Z96.642 Presence of left artificial hip joint; Z88.1 Allergy status to other antibiotic agents; Z91.011 Allergy to milk products; Z79.899 Other long term (current) drug therapy

== ENCOUNTER → 2019-10-15 | Outpatient (CLI) | payer OTHER, MEDICARE ==
[~2019-10-15] MED LIST changes: +BUPIVACAINE HCL 0.25% 30 ML VIAL As Ordered ONE; +NORCO, ANEXSIA 5/325MG TABLET (HYDROcodone/ACETAMINOPHEN) As Ordered ONE; +TRIAMCINOLONE ACETONIDE SUSP 40 MG/ML VIAL (J3301) As Ordered ONE
--- NOTE | 2019-10-24 00:30 | ECWPNPC ---
PATIENT NAME: ERNA GROVE : 1955 GENDER: FEMALE VISIT DATE: 10/15/2019 DISCHARGE DATE: 10/15/19 1536 VISIT LOCKED DATE TIME: PHYSICIAN: DIANA PRECIADO MD RESOURCE: DIANA PRECIADO MD REASON FOR APPOINTMENT 1. W/C TPI HISTORY OF PRESENT ILLNESS HISTORY OF PRESENT ILLNESS: PAIN THE PATIENT DESCRIBES THE PAIN... FALL RISK SCREENING: SCREENING :ONE FALL WITH INJURY IN THE PAST YEAR SLIPPED ON ICE, HURT LEFT KNEE GENERAL: -. PAIN SCREENING: PATIENT HAS A COMPLAINT OF ACUTE OR CHRONIC PAIN :YES LOCATION OF PAIN: LOW BACK/LEFT HIP/ NECK/ LEFT SHOULDER INTENSITY OF PAIN (SCALE OF 1 TO 10):6 WHAT DOES YOUR PAIN FEEL LIKE:ACHING, BURNING, SHARP, TENDER, SORE NURSING NOTE: -. CURRENT MEDICATIONS TAKING CYCLOBENZAPRINE HCL 5 MG TABLET 1 TABLET NEEDED ORALLY FOR SPASMS AND PAIN EVERY 8 HOURS NEEDED MDD2 (WORKERS COMP), NOTES: NONE LATELY TAKING GABAPENTIN 600 MG TABLET 1 TABLET ORALLY THREE TIMES DAILY, NOTES: 10/15/19 AM TAKING NAPROXEN 500 MG TABLET 1 TABLET NEEDED ORALLY EVERY 12 HRS, NOTES: 10/15/19 AM TAKING MELATONIN 10 MG CAPSULE 1 CAPSULE AT BEDTIME NEEDED WITH FOOD ORALLY ONCE A DAY, NOTES: 10/14/19 TAKING MULTIVITAL TABLET 1 ORALLY DAILY, NOTES: 10/15/19 AM TAKING VITAMIN D 2000 UNIT TABLET 1 TABLET ORALLY ONCE A DAY, NOTES: 10/15/19 AM TAKING TYLENOL PM EXTRA STRENGTH 500-25 MG TABLET 1 TABLET AT BEDTIME NEEDED ORALLY ONCE A DAY, NOTES: NONE LATELY TAKING SENOKOT S 8.6-50 MG TABLET 1 TABLET ORALLY BID, NOTES: 10/15/19 AM TAKING PEPCID 20 MG TABLET 1 TABLET AT BEDTIME NEEDED ORALLY ONCE A DAY, NOTES: 10/15/19 AM TAKING AMITRIPTYLINE HCL 25 MG TABLET 1 TABLET ORALLY BEFORE BEDTIME, NOTES: 10/14/19 NOT-TAKING SENNA S 8.6-50 MG TABLET 1 TABLET IN THE EVENING NEEDED ORALLY ONCE A DAY MEDICATION LIST REVIEWED AND RECONCILED WITH THE PATIENT PAST MEDICAL HISTORY SLEEP APNEA L SHOULDER DYSTONIA CHRONIC NECK/BACK PAIN DUE TO OSTEOARTHRITIS OSTEOPENIA ASTHMA 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 CONSTIPATION PARTIAL COLLAPSED LUNG 2011 1.4% ASCVD 10 YEAR RISK (06/2015) GERD ALLERGIES AMOXICILLIN: SMALL RASH ON TORSO AREA - ALLERGY CAFFEINE: NAUSEA, H/A - SIDE EFFECTS LACTOSE INTOLERATE: NAUSEA/VOMITING - SIDE EFFECTS SURGICAL HISTORY LAMINECTOMY L5-S1 1995 JAVIER & BSO @ 24 YEARS OLD, DUE TO LARGE BENIGN OVARIAN TUMOR 1979 LYMPH NODE REMOVED FROM NECK-BENIGN 2006 COLONOSCOPY AND ENDOSCOPY 06/2010 BX OF COLONIC POLYPS, BENIGN BRANDIN (NEXT ONE 07/2020) 07/2010 LEFT HIP 08/14/2016 HIP REPLACEMENT-LEFT 03/26/17 RIGHT NECK LYMPH NODE BIOPSY 09/2017 LYMPH NODE BIOPSY FAMILY HISTORY FATHER: 52 YRS, NON HODGEKINS LYMPHOMA, DIAGNOSED WITH OTHER MALIGNANT NEOPLASM OF UNSPECIFIED SITE MOTHER: ALIVE 84 YRS, OSTEOPOROSIS, NO FRACTURES; OSTEOARTHRITIS, ANGINA, BORDERLINE HYPERTENSION, DIABETES, OBESE SIBLINGS: ALIVE DAUGHTER(S): ALIVE MATERNAL GRAND MOTHER: COLON POLYPS MANY PATERNAL UNCLE: 2 HAD UNKNOWN CANCER PATERNAL AUNT: BONE TO BRAIN CANCER 6 BROTHER(S) , 1 SISTER(S) - HEALTHY. 2DAUGHTER(S) - HEALTHY. OLDER DAUGHTER WITH DEVELOPMENTAL PROBLEMS, JRC . 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 NO CHEMO, +RADIATION. NO COLON OR OVARIAN CANCER IN FAMILY. NO THYROID PROBLEMS IN FAMILY.\\\\\\\\NDAUGHTER WITH VON WILLEBRANDS. \\\\\\\\NBROTHER BORN WITH \\\\\\\\\\\\\\"HOLE IN HEART\\\\\\\\\\\\\\" AND VALVE REPLACEMENT. HAS HAD MULTIPLE HEART ATTACKS (1ST IN 40S). SOCIAL HISTORY GENERAL: TOBACCO USE ARE YOU A:NONSMOKER NEVER SMOKER HIV / HEP-C SCREENING HIV TEST OFFERED TO PATIENT:YES DATE OFFERED:03/19/2017 TEST ACCEPTED:NO HEP-C TEST OFFERED TO PATIENT:YES DATE OFFERED:03/19/2017 REASON:PATIENT DECLINED TEST ACCEPTED:NO REASON:PATIENT DECLINED OTHERS AT HOME: SPOUSE. 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 UNABLE TO TAKE CA++ SUPPLEMENTS.. 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 DOMESTIC VIOLENCE NONE, NO SEXUAL ABUSE. BMI CARE GOAL FOLLOW-UP BELOW NORMAL BMI FOLLOW-UPDIETARY EDUCATION FOR WEIGHT GAIN AT GOAL RECREATIONAL DRUG USE DENIES. EXERCISE: NO REGULAR EXERCISE, WALKS TOLERATED. LEARNING BARRIERS / SPECIAL NEEDS CHANGE FROM LAST VISIT?NO BARRIERS TO LEARNING?NO HEARING IMPAIRED?YES HAS NOTICED SOME CHANGES VISION IMPAIRED?YES :CORRECTIVE LENSES COGNITIVELY IMPAIRED?NO READINESS TO LEARN?YES LEARNING PREFERENCES?NO LEARNING CAPABILITIES PRESENT?YES EMOTIONAL BARRIERS?NO SPECIAL DEVICES?NO DIRECTOR OF CAREER SERVICES NEEDED?NO LUNG CANCER SCREENING SMOKING STATUS:NON SMOKER PAIN CLINIC PFS, CLERGY, PUBLIC HEALTH REFERRALS HAS THE PATIENT BEEN EDUCATED REGARDING HIS/HER PLAN OF CARE?YES HAS THE PATIENT BEEN EDUCATED REGARDING PAIN, THE RISK FOR PAIN, THE IMPORTANCE OF EFFECTIVE PAIN MANAGEMENT, AND THE PAIN ASSESSMENT PROCESS?YES LATEX QUESTIONNAIRE LATEX ALLERGY : HAVE YOU EVER DEVELOPED ANY TYPE OF REACTION AFTER HANDLING LATEX PRODUCTS SUCH RUBBER GLOVES, CONDOMS, DIAPHRAGMS, BALLOONS, SOCKS, OR UNDERWEAR?NO LATEX ALLERGY : HAVE YOU EVER DEVELOPED ANY TYPE OF REACTION DURING OR AFTER DENTAL APPOINTMENT, VAGINAL/RECTAL EXAMINATION, SURGICAL PROCEDURE, OR ANY OTHER EXPOSURE?NO DATE ASKED : 04/17/2019 LATEX RISK : HAVE YOU EVER HAD ANY DIFFICULTY BREATHING OR HIVES AFTER EATING OR HANDLING ANY FRUITS, OR VEGETABLES; SUCH KIWI, BANANAS, STONE FRUITS, OR CHESTNUTSNO LATEX RISK : DO YOU HAVE A PREVIOUS PERSONAL HISTORY OF MORE THAN NINE SURGERIES, SPINA BIFIDA, OR REPEATED CATHERIZATIONS? NO LATEX RISK : ARE YOU FREQUENTLY EXPOSED TO LATEX PRODUCTS IN YOUR OCCUPATION?NO CAFFEINE CAFFEINE USE?NO ADVANCE DIRECTIVE ADVANCE DIRECTIVE DISCUSSED WITH PATIENT:YES HCP IS [facility] MU-ISM NO CHEONDOISM BELIEFS THAT WOULD IMPACT HEALTH CARE. MARITAL STATUS: . 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 SEXUAL HX HAD SEX IN THE LAST 12 MONTHS (VAGINAL, ORAL, OR ANAL)?NO REVIEWED WITH PATIENT 08/08/19 1015 BVPRE-PROCEDURE CALL DONE 10/14/19 EM. HOSPITALIZATION/MAJOR DIAGNOSTIC PROCEDURE ABOVE SURGERIES REVIEW OF SYSTEMS REVIEWED BY: PROVIDER: . CONSTITUTIONAL: ANY CHANGE IN YOUR MEDICAL CONDITION? NO . CHILLS NO . FEVER NO . INFECTION: DO YOU HAVE NEW INFECTIONS? NO . DO YOU HAVE HISTORY OF MRSA? NO . MUSCULOSKELETAL: ANY NEW PATTERNS OF PAIN OR NUMBNESS? NO . GASTROENTEROLOGY: ANY NEW CHANGE IN BOWEL CONTROL? NO . GENITOURINARY: ANY NEW CHANGE IN BLADDER CONTROL? NO . IS THERE A CHANCE YOU COULD BE ? NO . HEMATOLOGY/LYMPH: DO YOU TAKE ANY BLOOD THINNERS? (FOR EXAMPLE- COUMADIN, PLAVIX, AGGRENOX, PLATEL, PRADAXA, OR XARELTO) NO . WHEN WAS YOUR LAST DOSE? DATE: TIME: . NEUROLOGY: HAVE YOU FALLEN IN THE PAST 12 MONTHS? YES . ANY NEW EXTREMITY NUMBNESS OR WEAKNESS? NO . CARDIOLOGY: DO YOU HAVE A PACEMAKER OR DEFIBRILLATOR? NO . RESPIRATORY: HAVE YOU BEEN SICK IN THE PAST WEEK? NO . FEVER NO . FLU LIKE SYMPTOMS? NO . COUGH NO . INTEGUMENTARY: DO YOU HAVE ANY RASHES OR OPEN SORES? NO . ALLERGIC/IMMUNO: ARE YOU ALLERGIC TO IV DYE? NO . ANY NEW ALLERGIES? NO . PSYCHIATRIC: DO YOU HAVE THOUGHTS OF HURTING YOURSELF OR SOMEONE ELSE? NO . ARE YOU ABUSED, NEGLECTED, OR IN AN UNSAFE ENVIRONMENT? NO . ENDOCRINOLOGY: ARE YOU DIABETIC? NO . OTHER: DO YOU NEED ANY PRESCRIPTIONS? NO . IF YES, PLEASE LIST: ____ . ANY NEW PROBLEMS WITH YOUR MEDICATIONS? NO . WHEN DID YOU LAST EAT? 10/15/19 0700, YES . WHEN DID YOU LAST DRINK? 10/15/19 10AM . WHAT DID YOU LAST DRINK? HOT BLACK TEA . NAME OF PERSON DRIVING YOU HOME? CINDI . DO YOU HAVE ANY OTHER QUESTIONS OR CONCERNS NO . VITAL SIGNS WT 136.6 LBS, HT 63.5 IN, BMI 23.82 INDEX, BP 144/70 MM HG, HR 73 /MIN, RR 17 /MIN, TEMP 97.0 F, OXYGEN SAT % 98, SAFE IN ENV? (Y/N) Y, LMP: HYSTERM. RICCO NICHOLAS LPN II @ 1327. ASSESSMENTS MYALGIA, OTHER SITE - M79.18 (PRIMARY) PROCEDURES PN WORKMANS' COMP OPINION IN YOUR OPINION, WAS THE INCIDENT THAT THE PATIENT DESCRIBED THE COMPETENT MEDICAL CAUSE OF THIS INJURY/ILLNESS? YES ARE THE PATIENT'S COMPLAINTS CONSISTENT WITH HIS/HER HISTORY OF THE INJURY/ILLNESS? YES IS THE PATIENT'S HISTORY OF THE INJURY/ILLNESS CONSISTENT WITH YOUR OBJECTIVE FINDING? YES WHAT IS THE PERCENTAGE OF TEMPORARY IMPAIRMENT? TOTAL = 100% IS THE PATIENT WORKING? NO DOCTOR ON SITE: DIANA BANEGAS MD PN TRIGGER POINT INJECTION WITH STEROIDS PRE PROCEDURE DIAGNOSIS 1. MYALGIA 2. PAIN AT LEFT NECK AREA AND LEFT SHOULDER AREA. POST PROCEDURE DIAGNOSIS 1. MYALGIA 2. PAIN AT LEFT NECK AREA AND LEFT SHOULDER AREA. PROCEDURE TRIGGER POINT INJECTION AT LEFT NECK AREA AND LEFT SHOULDER AREA. SURGEON DR. DIANA PRECIADO CUTTING AND CREASING PRESS OPERATOR NONE ANESTHESIA LOCAL PRE PROCEDURE NOTE THE PATIENT HAS A HISTORY OF CHRONIC PAIN AT THE LEFT NECK AREA AND LEFT SHOULDER AREA. I EVALUATED THE PATIENT AND REVIEWED THE CHART. THERE IS EVIDENCE OF BANDS OF TISSUE WITH RESTRICTION OF MOVEMENT AND PRESENCE OF TRIGGER POINT AT THE AFFECTED AREA. I WENT OVER THE RISKS, ALTERNATIVES, AND BENEFITS ASSOCIATED WITH THIS PROCEDURE. THE PATIENT WOULD LIKE TO PROCEED AND GIVES CONSENT TO PERFORM THE PROCEDURE. THE PATIENT DENIES UNEXPLAINABLE WEIGHT LOSS, FEVER, CHILLS, OR NEW CHANGES IN URINARY OR BOWEL CONTROL DESCRIPTION OF PROCEDURE THE PATIENT WAS BROUGHT TO THE PROCEDURE ROOM AND PLACED IN THE SITTING POSITION. THE AREA WAS CLEANED WITH ALCOHOL. THE PROCEDURE WAS DONE USING ASEPTIC STERILE TECHNIQUE. I CHECKED LATERALITY AND THE LEVEL WHERE THE PROCEDURE WAS GOING TO BE PERFORMED WITH THE PATIENT AND THE SUPPORTING STAFF AT THE MOMENT OF THE TIME OUT IN THE PROCEDURE ROOM. USING A 25-GAUGE NEEDLE, TRIGGER POINTS WERE INJECTED AT THE LEFT NECK AREA AND LEFT SHOULDER AREA WITH A TOTAL OF 40 ML OF BUPIVACAINE 0.25% AND KENALOG 40 MG. THERE WAS NO EVIDENCE OF BLOOD, PARESTHESIA OR CEREBROSPINAL FLUID DURING THE PROCEDURE. THE PATIENT WAS SENT TO THE RECOVERY ROOM. THE PATIENT WAS MOVING THE EXTREMITIES AND DOING WELL. THERE WAS NO COMPLICATION DURING THE PROCEDURE POST PROCEDURE NOTE THE PATIENT WILL BE SEEN IN A FOLLOW UP IN THE NEXT FEW WEEKS. I AM LOOKING FOR LONG LASTING PAIN RELIEF WITH THIS INJECTION. INSTRUCTIONS WERE GIVEN, QUESTIONS WERE ANSWERED, AND THE PATIENT EXPRESSED UNDERSTANDING AND AGREES WITH THE PLAN. I, TALA DELUNA, DOCUMENTED THE ABOVE INFORMATION ACTING A SCRIBE FOR DR. PRECIADO. I HAVE REVIEWED THE ABOVE DOCUMENT, WRITTEN BY TALA DELUNA SCRIBPatrick AND I VERIFY THAT IT IS ACCURATE. PROCEDURE CODES 78860 INJ TRIGGER POINT / MUSC DISPOSITION & COMMUNICATION FOLLOW UP 3 WEEKS ELECTRONICALLY SIGNED BY DIANA PRECIADO MD, MD ON 10/23/2019 AT 05:43 PM EST DISCLAIMER : THIS IS A VISIT SUMMARY EXTRACTED FROM THE [facility] CHART. IT IS NOT A COPY OF THE [facility] PROGRESS NOTE. [facility]
== END ==
LOC: M PAIN 13:15
PROVIDERS: ATTEND Anesthesiology
DX: M79.18 Myalgia, other site (principal)
CPT/HCPCS: 20552; J3301

== ENCOUNTER → 2019-12-22 | Outpatient (CLI) | payer OTHER, MEDICARE ==
[~2019-12-22] MED LIST changes: -BUPIVACAINE HCL 0.25% 30 ML VIAL As Ordered ONE; -NORCO, ANEXSIA 5/325MG TABLET (HYDROcodone/ACETAMINOPHEN) As Ordered ONE; -TRIAMCINOLONE ACETONIDE SUSP 40 MG/ML VIAL (J3301) As Ordered ONE
--- NOTE | 2019-12-23 01:57 | ECWPNPC ---
PATIENT NAME: ERNA GROVE : 1955 GENDER: FEMALE VISIT DATE: 12/22/2019 DISCHARGE DATE: 12/22/19 0951 VISIT LOCKED DATE TIME: PHYSICIAN: JOSE GUTIÉRREZ RESOURCE: JOSE GUTIÉRREZ REASON FOR APPOINTMENT 1. W/C, 2 MONTHS HISTORY OF PRESENT ILLNESS HISTORY OF PRESENT ILLNESS: HERE FOR POST PROCEDURE F/U.HAD TPI TO LEFT NECK ON 10/15/2019.REPORTING MARKED REDUCTION IN PAIN AND IMPROVED ROJM NECK X 1 MOS POST PROCEDURE THEN PAIN GRAUALLY RETURNED TO BASELINE.RATING PAIN VAS 5/10.DESCRIBES PAIN SHARP.PAIN IS AGGREVATED WHEN USING ARMS ABOVE HEAD AND ROJM NECK.THIS IS A WORK RELATED INJURY WITH DOI:10/11/1994. PAIN THE PATIENT DESCRIBES THE PAIN... FALL RISK SCREENING: SCREENING :NO FALLS REPORTED IN THE LAST YEAR CURRENT MEDICATIONS TAKING SENOKOT S 8.6-50 MG TABLET 1 TABLET ORALLY BID TAKING AMITRIPTYLINE HCL 25 MG TABLET 1 TABLET ORALLY BEFORE BEDTIME TAKING CYCLOBENZAPRINE HCL 5 MG TABLET 1 TABLET NEEDED ORALLY FOR SPASMS AND PAIN EVERY 8 HOURS NEEDED MDD2 (WORKERS COMP) TAKING GABAPENTIN 600 MG TABLET 1 TABLET ORALLY THREE TIMES DAILY TAKING NAPROXEN 500 MG TABLET 1 TABLET NEEDED ORALLY EVERY 12 HRS TAKING MELATONIN 10 MG CAPSULE 1 CAPSULE AT BEDTIME NEEDED WITH FOOD ORALLY ONCE A DAY TAKING MULTIVITAL TABLET 1 ORALLY DAILY TAKING VITAMIN D 2000 UNIT TABLET 1 TABLET ORALLY ONCE A DAY TAKING TYLENOL PM EXTRA STRENGTH 500-25 MG TABLET 1 TABLET AT BEDTIME NEEDED ORALLY ONCE A DAY TAKING PEPCID 20 MG TABLET 1 TABLET ORALLY ONCE A DAY NOT-TAKING OMEPRAZOLE 20 MG CAPSULE DELAYED RELEASE 1 CAPSULE 30 MINUTES BEFORE MORNING MEAL ORALLY ONCE A DAY MEDICATION LIST REVIEWED AND RECONCILED WITH THE PATIENT PAST MEDICAL HISTORY SLEEP APNEA L SHOULDER DYSTONIA CHRONIC NECK/BACK PAIN DUE TO OSTEOARTHRITIS OSTEOPENIA ASTHMA 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 CONSTIPATION PARTIAL COLLAPSED LUNG 2011 1.4% ASCVD 10 YEAR RISK (06/2015) GERD ALLERGIES AMOXICILLIN: SMALL RASH ON TORSO AREA - ALLERGY CAFFEINE: NAUSEA, H/A - SIDE EFFECTS LACTOSE INTOLERATE: NAUSEA/VOMITING - SIDE EFFECTS SURGICAL HISTORY LAMINECTOMY L5-S1 1995 JAVIER & BSO @ 24 YEARS OLD, DUE TO LARGE BENIGN OVARIAN TUMOR 1979 LYMPH NODE REMOVED FROM NECK-BENIGN 2006 COLONOSCOPY AND ENDOSCOPY 06/2010 BX OF COLONIC POLYPS, BENIGN BRANDIN (NEXT ONE 07/2020) 07/2010 LEFT HIP 08/14/2016 HIP REPLACEMENT-LEFT 03/26/17 RIGHT NECK LYMPH NODE BIOPSY 09/2017 LYMPH NODE BIOPSY FAMILY HISTORY FATHER: 52 YRS, NON HODGEKINS LYMPHOMA, DIAGNOSED WITH OTHER MALIGNANT NEOPLASM OF UNSPECIFIED SITE MOTHER: ALIVE 84 YRS, OSTEOPOROSIS, NO FRACTURES; OSTEOARTHRITIS, ANGINA, BORDERLINE HYPERTENSION, DIABETES, OBESE, OTHER MALIGNANT NEOPLASM OF UNSPECIFIED SITE SIBLINGS: ALIVE DAUGHTER(S): ALIVE MATERNAL GRAND MOTHER: COLON POLYPS MANY PATERNAL UNCLE: 2 HAD UNKNOWN CANCER PATERNAL AUNT: BONE TO BRAIN CANCER 6 BROTHER(S) , 1 SISTER(S) - HEALTHY. 2DAUGHTER(S) - HEALTHY. OLDER DAUGHTER WITH DEVELOPMENTAL PROBLEMS, JRC . 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 NO CHEMO, +RADIATION. NO COLON OR OVARIAN CANCER IN FAMILY. NO THYROID PROBLEMS IN FAMILY.\\\\\\\\NDAUGHTER WITH VON WILLEBRANDS. \\\\\\\\NBROTHER BORN WITH \\\\\\\\\\\\\\"HOLE IN HEART\\\\\\\\\\\\\\" AND VALVE REPLACEMENT. HAS HAD MULTIPLE HEART ATTACKS (1ST IN 40S)MOTHER - BREAST CANCER. SOCIAL HISTORY GENERAL: TOBACCO USE ARE YOU A:NONSMOKER NEVER SMOKER HIV / HEP-C SCREENING HIV TEST OFFERED TO PATIENT:YES DATE OFFERED:03/19/2017 TEST ACCEPTED:NO HEP-C TEST OFFERED TO PATIENT:YES DATE OFFERED:03/19/2017 REASON:PATIENT DECLINED TEST ACCEPTED:NO REASON:PATIENT DECLINED OTHERS AT HOME: SPOUSE. 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 UNABLE TO TAKE CA++ SUPPLEMENTS.. LANGUAGE SUDANESE. DOMESTIC VIOLENCE NONE, NO SEXUAL ABUSE. NEW PATIENT PAIN DIARY TODAY'S VISITNOTES 12/22/2019 PATIENT DESCRIBES PAIN :IT COMES AND GOES, SHARP FROM 0-10, WHAT LEVEL IS YOUR PAIN TODAY?5 BMI CARE GOAL FOLLOW-UP BELOW NORMAL BMI FOLLOW-UPDIETARY EDUCATION FOR WEIGHT GAIN AT GOAL RECREATIONAL DRUG USE DENIES. EXERCISE: NO REGULAR EXERCISE, WALKS TOLERATED. LEARNING BARRIERS / SPECIAL NEEDS CHANGE FROM LAST VISIT?NO BARRIERS TO LEARNING?NO HEARING IMPAIRED?YES HAS NOTICED SOME CHANGES VISION IMPAIRED?YES COGNITIVELY IMPAIRED?NO :CORRECTIVE LENSES READINESS TO LEARN?YES LEARNING PREFERENCES?NO LEARNING CAPABILITIES PRESENT?YES EMOTIONAL BARRIERS?NO SPECIAL DEVICES?NO SCHOOL PHYSICAL THERAPIST NEEDED?NO LUNG CANCER SCREENING SMOKING STATUS:NON SMOKER PAIN CLINIC PFS, CLERGY, PUBLIC HEALTH REFERRALS HAS THE PATIENT BEEN EDUCATED REGARDING HIS/HER PLAN OF CARE?YES HAS THE PATIENT BEEN EDUCATED REGARDING PAIN, THE RISK FOR PAIN, THE IMPORTANCE OF EFFECTIVE PAIN MANAGEMENT, AND THE PAIN ASSESSMENT PROCESS?YES LATEX QUESTIONNAIRE LATEX ALLERGY : HAVE YOU EVER DEVELOPED ANY TYPE OF REACTION AFTER HANDLING LATEX PRODUCTS SUCH RUBBER GLOVES, CONDOMS, DIAPHRAGMS, BALLOONS, SOCKS, OR UNDERWEAR?NO LATEX ALLERGY : HAVE YOU EVER DEVELOPED ANY TYPE OF REACTION DURING OR AFTER DENTAL APPOINTMENT, VAGINAL/RECTAL EXAMINATION, SURGICAL PROCEDURE, OR ANY OTHER EXPOSURE?NO LATEX RISK : HAVE YOU EVER HAD ANY DIFFICULTY BREATHING OR HIVES AFTER EATING OR HANDLING ANY FRUITS, OR VEGETABLES; SUCH KIWI, BANANAS, STONE FRUITS, OR CHESTNUTSNO LATEX RISK : DO YOU HAVE A PREVIOUS PERSONAL HISTORY OF MORE THAN NINE SURGERIES, SPINA BIFIDA, OR REPEATED CATHERIZATIONS? NO LATEX RISK : ARE YOU FREQUENTLY EXPOSED TO LATEX PRODUCTS IN YOUR OCCUPATION?NO DATE ASKED : 04/17/2019 CAFFEINE CAFFEINE USE?NO ADVANCE DIRECTIVE ADVANCE DIRECTIVE DISCUSSED WITH PATIENT:YES HCP IS [facility] NO EPISCOPAL BELIEFS THAT WOULD IMPACT HEALTH CARE. MARITAL STATUS: . 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 SEXUAL HX HAD SEX IN THE LAST 12 MONTHS (VAGINAL, ORAL, OR ANAL)?NO HOSPITALIZATION/MAJOR DIAGNOSTIC PROCEDURE ABOVE SURGERIES REVIEW OF SYSTEMS REVIEWED BY: PROVIDER: JOSE DIAZ . CONSTITUTIONAL: ANY CHANGE IN YOUR MEDICAL CONDITION? NO . CHILLS NO . FEVER NO . INFECTION: DO YOU HAVE NEW INFECTIONS? NO . DO YOU HAVE HISTORY OF MRSA? NO . MUSCULOSKELETAL: ANY NEW PATTERNS OF PAIN OR NUMBNESS? NO . GASTROENTEROLOGY: ANY NEW CHANGE IN BOWEL CONTROL? NO . GENITOURINARY: ANY NEW CHANGE IN BLADDER CONTROL? NO . IS THERE A CHANCE YOU COULD BE ? NO . HEMATOLOGY/LYMPH: DO YOU TAKE ANY BLOOD THINNERS? (FOR EXAMPLE- COUMADIN, PLAVIX, AGGRENOX, PLATEL, PRADAXA, OR XARELTO) NO . WHEN WAS YOUR LAST DOSE? DATE: TIME: . NEUROLOGY: HAVE YOU FALLEN IN THE PAST 12 MONTHS? NO . ANY NEW EXTREMITY NUMBNESS OR WEAKNESS? NO . CARDIOLOGY: DO YOU HAVE A PACEMAKER OR DEFIBRILLATOR? NO . RESPIRATORY: HAVE YOU BEEN SICK IN THE PAST WEEK? NO . FEVER NO . FLU LIKE SYMPTOMS? NO . COUGH NO . INTEGUMENTARY: DO YOU HAVE ANY RASHES OR OPEN SORES? NO . ALLERGIC/IMMUNO: ARE YOU ALLERGIC TO IV DYE? NO . ANY NEW ALLERGIES? NO . PSYCHIATRIC: DO YOU HAVE THOUGHTS OF HURTING YOURSELF OR SOMEONE ELSE? NO . ARE YOU ABUSED, NEGLECTED, OR IN AN UNSAFE ENVIRONMENT? NO . ENDOCRINOLOGY: ARE YOU DIABETIC? NO . OTHER: DO YOU NEED ANY PRESCRIPTIONS? NO . IF YES, PLEASE LIST: ____ . ANY NEW PROBLEMS WITH YOUR MEDICATIONS? NO . WHEN DID YOU LAST EAT? ____ . WHEN DID YOU LAST DRINK? ____ . WHAT DID YOU LAST DRINK? ____ . NAME OF PERSON DRIVING YOU HOME? ____ . DO YOU HAVE ANY OTHER QUESTIONS OR CONCERNS NO . VITAL SIGNS WT 134.0 LBS, HT 63.5 IN, BMI 23.36 INDEX, BP 108/63 MM HG, HR 80 /MIN, RR 18 /MIN, TEMP 97.2 F, OXYGEN SAT % 98%, SAFE IN ENV? (Y/N) YES, NA INITIALS AW 0901, REVIEWED BY: TROY. EXAMINATION GENERAL EXAMINATION: GENERAL AWAKE,ALERT ,PLEAASANT . PSYCH AFFECT NORMAL . LUNGS: LUNG CARDOZO ARE CLEAR TO AUSCULTATION BILATERALLY. GOOD MOVEMENT OF AIR . HEART: S1, S2 IN A REGULAR RATE AND RHYTHM. NO SIGNIFICANT MURMURS, RUBS OR GALLOPS NOTED . CERVICAL: TRIGGER POINTS:LEFT CERVICAL / TRAPEZIUS .PAIN IS AGGREVATED WITH ROJM NECK. ASSESSMENTS MYALGIA, OTHER SITE - M79.18 (PRIMARY) CERVICALGIA - M54.2 TREATMENT MYALGIA, OTHER SITE NOTES: W/C REQUEST TPI LEFT NECKHOME NECK EXCERSISES/INSTRUCTION SHEET REVIEWED DO 2X DAILY. PROCEDURES PN WORKMANS' COMP OPINION IN YOUR OPINION, WAS THE INCIDENT THAT THE PATIENT DESCRIBED THE COMPETENT MEDICAL CAUSE OF THIS INJURY/ILLNESS? YES ARE THE PATIENT'S COMPLAINTS CONSISTENT WITH HIS/HER HISTORY OF THE INJURY/ILLNESS? YES IS THE PATIENT'S HISTORY OF THE INJURY/ILLNESS CONSISTENT WITH YOUR OBJECTIVE FINDING? YES WHAT IS THE PERCENTAGE OF TEMPORARY IMPAIRMENT? MODERATE TO MARKED = 66.7% IS THE PATIENT WORKING? NO DOCTOR ON SITE: DIANA BANEGAS MD [facility]ICINE PAIN CLINIC TEACHING: STRETCHES PATIENT GIVEN INSTRUCTION SHEET ON STRETCHES/EXERCISES AND REVIEWED EXERCISES WITH PATIENT. PATIENT VERBALIZED AN UNDERSTANDING. ANASTACIA MOORE 12/22/2019 9:52:55 AM > . PROCEDURE TEACHING REVIEWED INFORMATION ON TRIGGER POINT INJECTIONS WITH PATIENT. ALSO REVIEWED PRE-PROCEDURE INSTRUCTIONS. PATIENT VERBALIZED AN UNDERSTANDING. ANASTACIA MOORE 12/22/2019 9:51:55 AM > . PROCEDURE CODES FA211 ESTABILISHED PATIENT [facility] CHARGE DISPOSITION & COMMUNICATION FOLLOW UP POST (REASON: W/C REQUEST TPI LEFT NECK) ELECTRONICALLY SIGNED BY EMILY HOLLINGSWORTH ON 12/22/2019 AT 10:02 AM EDT DISCLAIMER : THIS IS A VISIT SUMMARY EXTRACTED FROM THE [employer] CHART. IT IS NOT A COPY OF THE [employer] PROGRESS NOTE. NATANAEL
== END ==
LOC: M PAIN 08:45
PROVIDERS: ATTEND Nurse Practitioner Family
DX: M79.18 Myalgia, other site (principal); M54.2 Cervicalgia; G47.30 Sleep apnea, unspecified; J45.909 Unspecified asthma, uncomplicated; K21.9 Gastro-esophageal reflux disease without esophagitis; Z96.642 Presence of left artificial hip joint; Z88.1 Allergy status to other antibiotic agents; Z91.011 Allergy to milk products; Z91.018 Allergy to other foods; Z79.899 Other long term (current) drug therapy

== ENCOUNTER → 2020-01-23 | Outpatient (CLI) | payer MEDICARE, OTHER | LOC: M LABSMTC 10:44 | PROVIDERS: ATTEND Family Medicine | DX: Z11.59 Encounter for screening for other viral diseases (principal) ==

== ENCOUNTER → 2020-01-26 | Outpatient (CLI) | payer OTHER, MEDICARE ==
[~2020-01-26] MED LIST changes: +BUPIVACAINE HCL 0.25% 10ML VIAL As Ordered ONE; +BUPIVACAINE HCL 0.25% 30ML VIAL As Ordered ONE; +NORCO, ANEXSIA 5/325MG TABLET (HYDROcodone/ACETAMINOPHEN) As Ordered ONE; +TRIAMCINOLONE ACETONIDE SUSP 40 MG/ML VIAL (J3301) As Ordered ONE
--- NOTE | 2020-01-28 01:24 | ECWPNPC ---
PATIENT NAME: ERNA GROVE : 1955 GENDER: FEMALE VISIT DATE: 01/26/2020 DISCHARGE DATE: 01/26/20 1326 VISIT LOCKED DATE TIME: PHYSICIAN: DIANA PRECIADO MD RESOURCE: DIANA PRECIADO MD REASON FOR APPOINTMENT 1. W/C TPI LEFT NECK PAT DONE HISTORY OF PRESENT ILLNESS HISTORY OF PRESENT ILLNESS: PAIN THE PATIENT DESCRIBES THE PAIN... FALL RISK SCREENING: SCREENING :NO FALLS REPORTED IN THE LAST YEAR CURRENT MEDICATIONS TAKING SENOKOT S 8.6-50 MG TABLET 1 TABLET ORALLY BID, NOTES: 01/24 1600 TAKING AMITRIPTYLINE HCL 25 MG TABLET 1 TABLET ORALLY BEFORE BEDTIME, NOTES: 01/24 2200 TAKING GABAPENTIN 600 MG TABLET 1 TABLET ORALLY THREE TIMES DAILY, NOTES: 01/25 545 TAKING NAPROXEN 500 MG TABLET 1 TABLET NEEDED ORALLY EVERY 12 HRS, NOTES: 01/25 545 TAKING MELATONIN 10 MG CAPSULE 1 CAPSULE AT BEDTIME NEEDED WITH FOOD ORALLY ONCE A DAY, NOTES: 01/24 2200 TAKING MULTIVITAL TABLET 1 ORALLY DAILY, NOTES: 01/24 1400 TAKING VITAMIN D 2000 UNIT TABLET 1 TABLET ORALLY ONCE A DAY, NOTES: 01/25 545 TAKING TYLENOL PM EXTRA STRENGTH 500-25 MG TABLET 1 TABLET AT BEDTIME NEEDED ORALLY ONCE A DAY, NOTES: NONE RECENT TAKING PEPCID 20 MG TABLET 1 TABLET ORALLY ONCE A DAY, NOTES: 01/25 430 NOT-TAKING CYCLOBENZAPRINE HCL 5 MG TABLET 1 TABLET NEEDED ORALLY FOR SPASMS AND PAIN EVERY 8 HOURS NEEDED MDD2 (WORKERS COMP) NOT-TAKING OMEPRAZOLE 20 MG CAPSULE DELAYED RELEASE 1 CAPSULE 30 MINUTES BEFORE MORNING MEAL ORALLY ONCE A DAY MEDICATION LIST REVIEWED AND RECONCILED WITH THE PATIENT PAST MEDICAL HISTORY SLEEP APNEA L SHOULDER DYSTONIA CHRONIC NECK/BACK PAIN DUE TO OSTEOARTHRITIS OSTEOPENIA ASTHMA 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 CONSTIPATION PARTIAL COLLAPSED LUNG 2011 1.4% ASCVD 10 YEAR RISK (06/2015) GERD ALLERGIES AMOXICILLIN: SMALL RASH ON TORSO AREA - ALLERGY CAFFEINE: NAUSEA, H/A - SIDE EFFECTS LACTOSE INTOLERATE: NAUSEA/VOMITING - SIDE EFFECTS SURGICAL HISTORY LAMINECTOMY L5-S1 1995 JAVIER & BSO @ 24 YEARS OLD, DUE TO LARGE BENIGN OVARIAN TUMOR 1979 LYMPH NODE REMOVED FROM NECK-BENIGN 2006 COLONOSCOPY AND ENDOSCOPY 06/2010 BX OF COLONIC POLYPS, BENIGN BRANDIN (NEXT ONE 07/2020) 07/2010 LEFT HIP 08/14/2016 HIP REPLACEMENT-LEFT 03/26/17 RIGHT NECK LYMPH NODE BIOPSY 09/2017 LYMPH NODE BIOPSY FAMILY HISTORY FATHER: 52 YRS, NON HODGEKINS LYMPHOMA, DIAGNOSED WITH OTHER MALIGNANT NEOPLASM OF UNSPECIFIED SITE MOTHER: ALIVE 84 YRS, OSTEOPOROSIS, NO FRACTURES; OSTEOARTHRITIS, ANGINA, BORDERLINE HYPERTENSION, DIABETES, OBESE, OTHER MALIGNANT NEOPLASM OF UNSPECIFIED SITE SIBLINGS: ALIVE DAUGHTER(S): ALIVE MATERNAL GRAND MOTHER: COLON POLYPS MANY PATERNAL UNCLE: 2 HAD UNKNOWN CANCER PATERNAL AUNT: BONE TO BRAIN CANCER 6 BROTHER(S) , 1 SISTER(S) - HEALTHY. 2DAUGHTER(S) - HEALTHY. OLDER DAUGHTER WITH DEVELOPMENTAL PROBLEMS, JRC . 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 NO CHEMO, +RADIATION. NO COLON OR OVARIAN CANCER IN FAMILY. NO THYROID PROBLEMS IN FAMILY.\\\\\\\\NDAUGHTER WITH VON WILLEBRANDS. \\\\\\\\NBROTHER BORN WITH \\\\\\\\\\\\\\"HOLE IN HEART\\\\\\\\\\\\\\" AND VALVE REPLACEMENT. HAS HAD MULTIPLE HEART ATTACKS (1ST IN 40S)MOTHER - BREAST CANCER. SOCIAL HISTORY GENERAL: TOBACCO USE ARE YOU A:NONSMOKER NEVER SMOKER LATEX QUESTIONNAIRE LATEX ALLERGY : HAVE YOU EVER DEVELOPED ANY TYPE OF REACTION AFTER HANDLING LATEX PRODUCTS SUCH RUBBER GLOVES, CONDOMS, DIAPHRAGMS, BALLOONS, SOCKS, OR UNDERWEAR?NO LATEX ALLERGY : HAVE YOU EVER DEVELOPED ANY TYPE OF REACTION DURING OR AFTER DENTAL APPOINTMENT, VAGINAL/RECTAL EXAMINATION, SURGICAL PROCEDURE, OR ANY OTHER EXPOSURE?NO LATEX RISK : HAVE YOU EVER HAD ANY DIFFICULTY BREATHING OR HIVES AFTER EATING OR HANDLING ANY FRUITS, OR VEGETABLES; SUCH KIWI, BANANAS, STONE FRUITS, OR CHESTNUTSNO LATEX RISK : DO YOU HAVE A PREVIOUS PERSONAL HISTORY OF MORE THAN NINE SURGERIES, SPINA BIFIDA, OR REPEATED CATHERIZATIONS? NO LATEX RISK : ARE YOU FREQUENTLY EXPOSED TO LATEX PRODUCTS IN YOUR OCCUPATION?NO DATE ASKED : 01/26/2020 LUNG CANCER SCREENING SMOKING STATUS:NON SMOKER BMI CARE GOAL FOLLOW-UP BELOW NORMAL BMI FOLLOW-UPDIETARY EDUCATION FOR WEIGHT GAIN AT GOAL ALCOHOL SCREENING DID YOU HAVE A DRINK CONTAINING ALCOHOL IN THE PAST YEAR?NO POINTS0 INTERPRETATIONNEGATIVE RECREATIONAL DRUG USE DENIES. CAFFEINE CAFFEINE USE?NO SEXUAL HX HAD SEX IN THE LAST 12 MONTHS (VAGINAL, ORAL, OR ANAL)?NO HIV / HEP-C SCREENING HIV TEST OFFERED TO PATIENT:YES DATE OFFERED:03/19/2017 TEST ACCEPTED:NO HEP-C TEST OFFERED TO PATIENT:YES DATE OFFERED:03/19/2017 REASON:PATIENT DECLINED TEST ACCEPTED:NO REASON:PATIENT DECLINED BAHAI NO CONGREGATION BELIEFS THAT WOULD IMPACT HEALTH CARE. LANGUAGE AZERI. 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 DIET: WELL BALANCED DIET, HIGH IN CALCIUM. UNABLE TO TAKE CA++ SUPPLEMENTS.. EXERCISE: NO REGULAR EXERCISE, WALKS TOLERATED. MARITAL STATUS: . OTHERS AT HOME: SPOUSE. NEW PATIENT PAIN DIARY TODAY'S VISITNOTES 01/26/2020 PATIENT DESCRIBES PAIN :IT COMES AND GOES, SHARP FROM 0-10, WHAT LEVEL IS YOUR PAIN TODAY?6 PRECIPITATING FACTORS MOVEMENT, USING ARMS FOR LIKE CARRYING GROCERIES OR REACHING ABOVE HER HEAD ALLEVIATING FACTORS TENS UNIT, HEAT, ICE IMPACT ON FUNCTION LIMITS HER ON WHAT SHE IS ABLE TO DO SUCH MOPPING, OR LIFTING ANYTHING HEAVY. PAIN CLINIC PFS, CLERGY, PUBLIC HEALTH REFERRALS HAS THE PATIENT BEEN EDUCATED REGARDING HIS/HER PLAN OF CARE?YES HAS THE PATIENT BEEN EDUCATED REGARDING PAIN, THE RISK FOR PAIN, THE IMPORTANCE OF EFFECTIVE PAIN MANAGEMENT, AND THE PAIN ASSESSMENT PROCESS?YES ADVANCE DIRECTIVE ADVANCE DIRECTIVE DISCUSSED WITH PATIENT:YES 01/26/20 HCP IS [facility] HOSPITALIZATION/MAJOR DIAGNOSTIC PROCEDURE ABOVE SURGERIES REVIEW OF SYSTEMS REVIEWED BY: PROVIDER: DIANA PRECIADO MD . CONSTITUTIONAL: ANY CHANGE IN YOUR MEDICAL CONDITION? NO . CHILLS NO . FEVER NO . INFECTION: DO YOU HAVE NEW INFECTIONS? NO . DO YOU HAVE HISTORY OF MRSA? NO . MUSCULOSKELETAL: ANY NEW PATTERNS OF PAIN OR NUMBNESS? NO . GASTROENTEROLOGY: ANY NEW CHANGE IN BOWEL CONTROL? NO . GENITOURINARY: ANY NEW CHANGE IN BLADDER CONTROL? NO . IS THERE A CHANCE YOU COULD BE ? NO . HEMATOLOGY/LYMPH: DO YOU TAKE ANY BLOOD THINNERS? (FOR EXAMPLE- COUMADIN, PLAVIX, AGGRENOX, PLATEL, PRADAXA, OR XARELTO) NO . WHEN WAS YOUR LAST DOSE? DATE: TIME: . NEUROLOGY: HAVE YOU FALLEN IN THE PAST 12 MONTHS? NO . ANY NEW EXTREMITY NUMBNESS OR WEAKNESS? NO . CARDIOLOGY: DO YOU HAVE A PACEMAKER OR DEFIBRILLATOR? NO . RESPIRATORY: HAVE YOU BEEN SICK IN THE PAST WEEK? NO . FEVER NO . FLU LIKE SYMPTOMS? NO . COUGH NO . INTEGUMENTARY: DO YOU HAVE ANY RASHES OR OPEN SORES? NO . ALLERGIC/IMMUNO: ARE YOU ALLERGIC TO IV DYE? NO . ANY NEW ALLERGIES? NO . PSYCHIATRIC: DO YOU HAVE THOUGHTS OF HURTING YOURSELF OR SOMEONE ELSE? NO . ARE YOU ABUSED, NEGLECTED, OR IN AN UNSAFE ENVIRONMENT? NO . ENDOCRINOLOGY: ARE YOU DIABETIC? NO . OTHER: DO YOU NEED ANY PRESCRIPTIONS? NO . IF YES, PLEASE LIST: ____ . ANY NEW PROBLEMS WITH YOUR MEDICATIONS? NO . WHEN DID YOU LAST EAT? 0600 . WHEN DID YOU LAST DRINK? 01/25 0900 . WHAT DID YOU LAST DRINK? SIP OF WATER . NAME OF PERSON DRIVING YOU HOME? -CINDI . DO YOU HAVE ANY OTHER QUESTIONS OR CONCERNS NO . VITAL SIGNS WT 136.6 LBS, HT 63.5 IN, BMI 23.82 INDEX, BP 151/64 MM HG, HR 69 /MIN, RR 18 /MIN, TEMP 96.8 F, OXYGEN SAT % 98%, SAFE IN ENV? (Y/N) Y, NA INITIALS AW 1151, REVIEWED BY: AD. ASSESSMENTS MYALGIA, OTHER SITE - M79.18 (PRIMARY) CERVICALGIA - M54.2 PROCEDURES PN WORKMANS' COMP OPINION IN YOUR OPINION, WAS THE INCIDENT THAT THE PATIENT DESCRIBED THE COMPETENT MEDICAL CAUSE OF THIS INJURY/ILLNESS? YES ARE THE PATIENT'S COMPLAINTS CONSISTENT WITH HIS/HER HISTORY OF THE INJURY/ILLNESS? YES IS THE PATIENT'S HISTORY OF THE INJURY/ILLNESS CONSISTENT WITH YOUR OBJECTIVE FINDING? YES WHAT IS THE PERCENTAGE OF TEMPORARY IMPAIRMENT? MODERATE TO MARKED = 66.7% IS THE PATIENT WORKING? NO DOCTOR ON SITE: DIANA BANEGAS MD PN TRIGGER POINT INJECTION NO STEROIDS DATE OF PROCEDURE : PRE PROCEDURE DIAGNOSIS 1. MYALGIA 2. PAIN AT LEFT NECK AREA POST PROCEDURE DIAGNOSIS 1. MYALGIA 2. PAIN AT LEFT NECK AREA PROCEDURE TRIGGER POINT INJECTION AT LEFT NECK AREA SURGEON DR. DIANA PRECIADO YOUTH MANAGER NONE ANESTHESIA LOCAL PRE PROCEDURE NOTE 64-YEAR-OLD PATIENT WITH HISTORY OF CHRONIC PAIN AT THE LEFT NECK AREA. I EVALUATED THE PATIENT AND REVIEWED THE CHART. THERE IS EVIDENCE OF BANDS OF TISSUE WITH RESTRICTION OF MOVEMENT AND PRESENCE OF TRIGGER POINT AT THE LEFT NECK AREA. I WENT OVER THE RISKS, ALTERNATIVES, AND BENEFITS ASSOCIATED WITH THIS PROCEDURE. THE PATIENT WOULD LIKE TO PROCEED AND GAVE CONSENT TO PERFORM THE PROCEDURE. THE PATIENT DENIES UNEXPLAINABLE WEIGHT LOSS, FEVER, CHILLS, OR NEW CHANGES IN URINARY OR BOWEL CONTROL. THE PATIENT IS COVID-19 NEGATIVE DESCRIPTION OF PROCEDURE THE PATIENT WAS BROUGHT TO THE PROCEDURE ROOM AND PLACED IN THE SITTING POSITION. THE AREA WAS CLEANED WITH ALCOHOL. THE PROCEDURE WAS DONE USING ASEPTIC STERILE TECHNIQUES. I CHECKED LATERALITY AND THE LEVEL WHERE THE PROCEDURE WAS GOING TO BE PERFORMED WITH THE PATIENT AND THE SUPPORTING STAFF AT THE MOMENT OF THE TIME OUT IN THE PROCEDURE ROOM. USING A 25-GAUGE NEEDLE, TRIGGER POINTS WERE INJECTED INTO THE LEFT NECK AREA WITH A TOTAL OF 40 ML OF BUPIVACAINE 0.25%. AGREED WITH THE PATIENT THE PROCEDURE WAS DONE WITHOUT STEROIDS. THERE WAS NO EVIDENCE OF BLOOD, PARESTHESIA OR CEREBROSPINAL FLUID DURING THE PROCEDURE. THE PATIENT WAS SENT TO THE RECOVERY ROOM. THE PATIENT WAS MOVING THE EXTREMITIES AND DOING WELL. THERE WAS NO COMPLICATION DURING THE PROCEDURE POST PROCEDURE NOTE THE PATIENT WILL BE SEEN IN A FOLLOW UP IN THE NEXT FEW WEEKS. I AM LOOKING FOR LONG LASTING PAIN RELIEF FOR THE PATIENT WITH THIS INJECTION. INSTRUCTIONS WERE GIVEN, QUESTIONS WERE ANSWERED, AND THE PATIENT EXPRESSED UNDERSTANDING AND AGREED WITH THE PLAN. I, NEVIN FRAZIER, DOCUMENTED THE ABOVE INFORMATION ACTING A SCRIBE FOR DR. PRECIADO. I HAVE REVIEWED THE ABOVE DOCUMENT, WRITTEN BY VARSHA MONTOYA, AND I VERIFY THAT IT IS ACCURATE PROCEDURE CODES 42366 INJ TRIGGER POINT /2 MUSCL DISPOSITION & COMMUNICATION FOLLOW UP F/UP WITH TERADATA ARCHITECT (REASON: POST-PROCEDURE F/UP-W/C LEFT NECK PAIN) ELECTRONICALLY SIGNED BY DIANA PRECIADO MD, MD ON 01/27/2020 AT 06:01 PM EDT DISCLAIMER : THIS IS A VISIT SUMMARY EXTRACTED FROM THE [employer] CHART. IT IS NOT A COPY OF THE [employer] PROGRESS NOTE. NATANAEL
== END ==
LOC: M PAIN 11:45
PROVIDERS: ATTEND Anesthesiology
DX: M79.18 Myalgia, other site (principal); M54.2 Cervicalgia; E73.9 Lactose intolerance, unspecified; Z79.899 Other long term (current) drug therapy; Z88.0 Allergy status to penicillin; Z91.018 Allergy to other foods

== ENCOUNTER → 2020-02-10 | Outpatient (CLI) | payer OTHER, MEDICARE ==
[~2020-02-10] MED LIST changes: -BUPIVACAINE HCL 0.25% 10ML VIAL As Ordered ONE; -BUPIVACAINE HCL 0.25% 30ML VIAL As Ordered ONE; -NORCO, ANEXSIA 5/325MG TABLET (HYDROcodone/ACETAMINOPHEN) As Ordered ONE; -TRIAMCINOLONE ACETONIDE SUSP 40 MG/ML VIAL (J3301) As Ordered ONE
--- NOTE | 2020-02-13 02:06 | ECWPNPC ---
PATIENT NAME: ERNA GROVE : 1955 GENDER: FEMALE VISIT DATE: 02/10/2020 DISCHARGE DATE: 02/10/20 09 VISIT LOCKED DATE TIME: PHYSICIAN: JOSE GUTIÉRREZ RESOURCE: JOSE GUTIÉRREZ REASON FOR APPOINTMENT 1. [id number] PROC PAT DONE HISTORY OF PRESENT ILLNESS HISTORY OF PRESENT ILLNESS: PATIENT IS AGREEABLE TO TELEMED VISIT VIA ZOOM. THIS IS A POST PROCEDURE F/U.HAD TPI TO LEFT NECK ON 01/26/2020. REPORTING NO IMPROVEMENT POST PROCEDURE.RATING PAIN VAS 4/10.DESCRIBES PAIN SHARP.PAIN IS AGGREVATED WHEN USING ARMS ABOVE HEAD AND ROJM NECK.THIS IS A WORK RELATED INJURY WITH DOI:10/11/1994. PAIN THE PATIENT DESCRIBES THE PAIN... FALL RISK SCREENING: SCREENING :NO FALLS REPORTED IN THE LAST YEAR CURRENT MEDICATIONS TAKING SENOKOT S 8.6-50 MG TABLET 1 TABLET ORALLY BID TAKING AMITRIPTYLINE HCL 25 MG TABLET 1 TABLET ORALLY BEFORE BEDTIME TAKING GABAPENTIN 600 MG TABLET 1 TABLET ORALLY THREE TIMES DAILY TAKING NAPROXEN 500 MG TABLET 1 TABLET NEEDED ORALLY EVERY 12 HRS TAKING MELATONIN 10 MG CAPSULE 1 CAPSULE AT BEDTIME NEEDED WITH FOOD ORALLY ONCE A DAY TAKING MULTIVITAL TABLET 1 ORALLY DAILY TAKING VITAMIN D 2000 UNIT TABLET 1 TABLET ORALLY ONCE A DAY TAKING TYLENOL PM EXTRA STRENGTH 500-25 MG TABLET 1 TABLET AT BEDTIME NEEDED ORALLY ONCE A DAY TAKING PEPCID 20 MG TABLET 1 TABLET ORALLY ONCE A DAY NOT-TAKING CYCLOBENZAPRINE HCL 5 MG TABLET 1 TABLET NEEDED ORALLY FOR SPASMS AND PAIN EVERY 8 HOURS NEEDED MDD2 (WORKERS COMP) NOT-TAKING OMEPRAZOLE 20 MG CAPSULE DELAYED RELEASE 1 CAPSULE 30 MINUTES BEFORE MORNING MEAL ORALLY ONCE A DAY MEDICATION LIST REVIEWED AND RECONCILED WITH THE PATIENT PAST MEDICAL HISTORY SLEEP APNEA L SHOULDER DYSTONIA CHRONIC NECK/BACK PAIN DUE TO OSTEOARTHRITIS OSTEOPENIA ASTHMA 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 CONSTIPATION PARTIAL COLLAPSED LUNG 2011 1.4% ASCVD 10 YEAR RISK (06/2015) GERD ALLERGIES AMOXICILLIN: SMALL RASH ON TORSO AREA - ALLERGY CAFFEINE: NAUSEA, H/A - SIDE EFFECTS LACTOSE INTOLERATE: NAUSEA/VOMITING - SIDE EFFECTS SURGICAL HISTORY LAMINECTOMY L5-S1 1995 JAVIER & BSO @ 24 YEARS OLD, DUE TO LARGE BENIGN OVARIAN TUMOR 1979 LYMPH NODE REMOVED FROM NECK-BENIGN 2006 COLONOSCOPY AND ENDOSCOPY 06/2010 BX OF COLONIC POLYPS, BENIGN BRANDIN (NEXT ONE 07/2020) 07/2010 LEFT HIP 08/14/2016 HIP REPLACEMENT-LEFT 03/26/17 RIGHT NECK LYMPH NODE BIOPSY 09/2017 LYMPH NODE BIOPSY FAMILY HISTORY FATHER: 52 YRS, NON [place]GE[place]INS LYMPHOMA, DIAGNOSED WITH OTHER MALIGNANT NEOPLASM OF UNSPECIFIED SITE MOTHER: ALIVE 84 YRS, OSTEOPOROSIS, NO FRACTURES; OSTEOARTHRITIS, ANGINA, BORDERLINE HYPERTENSION, DIABETES, OBESE, OTHER MALIGNANT NEOPLASM OF UNSPECIFIED SITE SIBLINGS: ALIVE DAUGHTER(S): ALIVE MATERNAL GRAND MOTHER: COLON POLYPS MANY PATERNAL UNCLE: 2 HAD UNKNOWN CANCER PATERNAL AUNT: BONE TO BRAIN CANCER 6 BROTHER(S) , 1 SISTER(S) - HEALTHY. 2DAUGHTER(S) - HEALTHY. OLDER DAUGHTER WITH DEVELOPMENTAL PROBLEMS, JRC . 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 NO CHEMO, +RADIATION. NO COLON OR OVARIAN CANCER IN FAMILY. NO THYROID PROBLEMS IN FAMILY.\\\\\\\\NDAUGHTER WITH [employer]. \\\\\\\\NBROTHER BORN WITH \\\\\\\\\\\\\\"HOLE IN HEART\\\\\\\\\\\\\\" AND VALVE REPLACEMENT. HAS HAD MULTIPLE HEART ATTACKS (1ST IN 40S)MOTHER - BREAST CANCER. SOCIAL HISTORY GENERAL: TOBACCO USE ARE YOU A:NONSMOKER NEVER SMOKER LATEX QUESTIONNAIRE LATEX ALLERGY : HAVE YOU EVER DEVELOPED ANY TYPE OF REACTION AFTER HANDLING LATEX PRODUCTS SUCH RUBBER GLOVES, CONDOMS, DIAPHRAGMS, BALLOONS, SOCKS, OR UNDERWEAR?NO LATEX ALLERGY : HAVE YOU EVER DEVELOPED ANY TYPE OF REACTION DURING OR AFTER DENTAL APPOINTMENT, VAGINAL/RECTAL EXAMINATION, SURGICAL PROCEDURE, OR ANY OTHER EXPOSURE?NO LATEX RISK : HAVE YOU EVER HAD ANY DIFFICULTY BREATHING OR HIVES AFTER EATING OR HANDLING ANY FRUITS, OR VEGETABLES; SUCH KIWI, BANANAS, STONE FRUITS, OR CHESTNUTSNO LATEX RISK : DO YOU HAVE A PREVIOUS PERSONAL HISTORY OF MORE THAN NINE SURGERIES, SPINA BIFIDA, OR REPEATED CATHERIZATIONS? NO LATEX RISK : ARE YOU FREQUENTLY EXPOSED TO LATEX PRODUCTS IN YOUR OCCUPATION?NO DATE ASKED : 02/06/2020 LUNG CANCER SCREENING SMOKING STATUS:NON SMOKER BMI CARE GOAL FOLLOW-UP BELOW NORMAL BMI FOLLOW-UPDIETARY EDUCATION FOR WEIGHT GAIN AT GOAL ALCOHOL SCREENING DID YOU HAVE A DRINK CONTAINING ALCOHOL IN THE PAST YEAR?NO POINTS0 INTERPRETATIONNEGATIVE RECREATIONAL DRUG USE DENIES. CAFFEINE CAFFEINE USE?NO SEXUAL HX HAD SEX IN THE LAST 12 MONTHS (VAGINAL, ORAL, OR ANAL)?NO HIV / HEP-C SCREENING HIV TEST OFFERED TO PATIENT:YES DATE OFFERED:03/19/2017 TEST ACCEPTED:NO HEP-C TEST OFFERED TO PATIENT:YES DATE OFFERED:03/19/2017 REASON:PATIENT DECLINED TEST ACCEPTED:NO REASON:PATIENT DECLINED RESTORATIONIST NO ANABAPTIST BELIEFS THAT WOULD IMPACT HEALTH CARE. LANGUAGE [facility]. EDUCATION LEVEL OF EDUCATION:PROFESSIONAL SCHOOLS/MASTERS/PHD NURSING SCHOOL LEARNING BARRIERS / SPECIAL NEEDS CHANGE FROM LAST VISIT?NO BARRIERS TO LEARNING?NO HEARING IMPAIRED?YES HAS NOTICED SOME CHANGES VISION IMPAIRED?YES COGNITIVELY IMPAIRED?NO :CORRECTIVE LENSES READINESS TO LEARN?YES LEARNING PREFERENCES?NO LEARNING CAPABILITIES PRESENT?YES EMOTIONAL BARRIERS?NO SPECIAL DEVICES?NO DIET SUPERVISOR NEEDED?NO DOMESTIC VIOLENCE NONE, NO SEXUAL ABUSE. 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 DIET: WELL BALANCED DIET, HIGH IN CALCIUM. UNABLE TO TAKE CA++ SUPPLEMENTS.. EXERCISE: NO REGULAR EXERCISE, WALKS TOLERATED. MARITAL STATUS: . OTHERS AT HOME: SPOUSE. NEW PATIENT PAIN DIARY TODAY'S VISITNOTES 02/06/2020 PATIENT DESCRIBES PAIN :IT COMES AND GOES, SHARP FROM 0-10, WHAT LEVEL IS YOUR PAIN TODAY?4 PRECIPITATING FACTORS MOVEMENT, USING ARMS FOR LIKE CARRYING GROCERIES OR REACHING ABOVE HER HEAD ALLEVIATING FACTORS TENS UNIT, HEAT, ICE IMPACT ON FUNCTION LIMITS HER ON WHAT SHE IS ABLE TO DO SUCH MOPPING, OR LIFTING ANYTHING HEAVY. PAIN CLINIC PFS, CLERGY, PUBLIC HEALTH REFERRALS HAS THE PATIENT BEEN EDUCATED REGARDING HIS/HER PLAN OF CARE?YES HAS THE PATIENT BEEN EDUCATED REGARDING PAIN, THE RISK FOR PAIN, THE IMPORTANCE OF EFFECTIVE PAIN MANAGEMENT, AND THE PAIN ASSESSMENT PROCESS?YES ADVANCE DIRECTIVE ADVANCE DIRECTIVE DISCUSSED WITH PATIENT:YES HCP IS [facility]PITALIZATION/MAJOR DIAGNOSTIC PROCEDURE ABOVE SURGERIES REVIEW OF SYSTEMS REVIEWED BY: PROVIDER: JOSE DIAZ . CONSTITUTIONAL: ANY CHANGE IN YOUR MEDICAL CONDITION? NO . CHILLS NO . FEVER NO . INFECTION: DO YOU HAVE NEW INFECTIONS? NO . DO YOU HAVE HISTORY OF MRSA? NO . MUSCULOSKELETAL: ANY NEW PATTERNS OF PAIN OR NUMBNESS? NO . GASTROENTEROLOGY: ANY NEW CHANGE IN BOWEL CONTROL? NO . GENITOURINARY: ANY NEW CHANGE IN BLADDER CONTROL? NO . IS THERE A CHANCE YOU COULD BE ? NO . HEMATOLOGY/LYMPH: DO YOU TAKE ANY BLOOD THINNERS? (FOR EXAMPLE- COUMADIN, PLAVIX, AGGRENOX, PLATEL, PRADAXA, OR XARELTO) NO . WHEN WAS YOUR LAST DOSE? DATE: TIME: . NEUROLOGY: HAVE YOU FALLEN IN THE PAST 12 MONTHS? NO . ANY NEW EXTREMITY NUMBNESS OR WEAKNESS? NO . CARDIOLOGY: DO YOU HAVE A PACEMAKER OR DEFIBRILLATOR? NO . RESPIRATORY: HAVE YOU BEEN SICK IN THE PAST WEEK? NO . FEVER NO . FLU LIKE SYMPTOMS? NO . COUGH NO . INTEGUMENTARY: DO YOU HAVE ANY RASHES OR OPEN SORES? NO . ALLERGIC/IMMUNO: ARE YOU ALLERGIC TO IV DYE? NO . ANY NEW ALLERGIES? NO . PSYCHIATRIC: DO YOU HAVE THOUGHTS OF HURTING YOURSELF OR SOMEONE ELSE? NO . ARE YOU ABUSED, NEGLECTED, OR IN AN UNSAFE ENVIRONMENT? NO . ENDOCRINOLOGY: ARE YOU DIABETIC? NO . OTHER: DO YOU NEED ANY PRESCRIPTIONS? NO . IF YES, PLEASE LIST: ____ . ANY NEW PROBLEMS WITH YOUR MEDICATIONS? NO . WHEN DID YOU LAST EAT? ____ . WHEN DID YOU LAST DRINK? ____ . WHAT DID YOU LAST DRINK? ____ . NAME OF PERSON DRIVING YOU HOME? ____ . DO YOU HAVE ANY OTHER QUESTIONS OR CONCERNS NO . EXAMINATION GENERAL EXAMINATION: GENERALNO ACUTE DISTRESS, WELL NOURISHED AND HYDRATED. PSYCHAPPROPRIATE MOOD AND AFFECT . FACE:UNREMARKABLE. ASSESSMENTS MYALGIA, OTHER SITE - M79.18 (PRIMARY) CERVICALGIA - M54.2 TREATMENT MYALGIA, OTHER SITE NOTES: REVIEWED MRI OF THE CERVICAL SPINE AND DISCUSSED TREATMENT OPTIONS. DR. PRECIADO HAD NOTED THAT HE WOULD LIKE TO CONSIDER CERVICAL FACET BLOCKS. SHE WILL RETURN TO CLINIC IN 3-4 WEEKS FOR PHYSICAL EXAM AND TREATMENT PLAN. TOTAL TIME SPENT DURING TELEMED VISIT WAS APPROXIMATELY 12 MINUTES. OTHERS NOTES: UNABLE TO OBTAIN VITAL SIGNS DUE TO VIRTUAL VISIT, PT GIVES CONSENT FOR ACCESS TO RECORDS. DS. PROCEDURES PN WORKMANS' COMP OPINION IN YOUR OPINION, WAS THE INCIDENT THAT THE PATIENT DESCRIBED THE COMPETENT MEDICAL CAUSE OF THIS INJURY/ILLNESS? YES ARE THE PATIENT'S COMPLAINTS CONSISTENT WITH HIS/HER HISTORY OF THE INJURY/ILLNESS? YES IS THE PATIENT'S HISTORY OF THE INJURY/ILLNESS CONSISTENT WITH YOUR OBJECTIVE FINDING? YES WHAT IS THE PERCENTAGE OF TEMPORARY IMPAIRMENT? MODERATE TO MARKED = 66.7% IS THE PATIENT WORKING? NO DOCTOR ON SITE: DIANA BANEGAS MD DISPOSITION & COMMUNICATION FOLLOW UP 4-6WKS DISWCUSS CERVICAL FACET/WORKMANS COMP (REASON: LEFT NECK PAIN /WORKMANS COMP) ELECTRONICALLY SIGNED BY EMILY HOLLINGSWORTH ON 02/12/2020 AT 03:41 PM EDT DISCLAIMER : THIS IS A VISIT SUMMARY EXTRACTED FROM THE [employer] CHART. IT IS NOT A COPY OF THE [employer] PROGRESS NOTE. NATANAEL
== END ==
LOC: M PAIN 14:30 → M TMPAIN 14:30
PROVIDERS: ATTEND Nurse Practitioner Family
DX: M79.18 Myalgia, other site (principal); M54.2 Cervicalgia; Z79.899 Other long term (current) drug therapy; Z88.0 Allergy status to penicillin; Z91.011 Allergy to milk products; Z91.018 Allergy to other foods

== ENCOUNTER → 2020-03-30 | Outpatient (CLI) | payer OTHER, MEDICARE ==
--- NOTE | 2020-03-31 04:38 | ECWPNPC ---
PATIENT NAME: ERNA GROVE : 1955 GENDER: FEMALE VISIT DATE: 03/30/2020 DISCHARGE DATE: 03/30/20 1012 VISIT LOCKED DATE TIME: PHYSICIAN: JOSE GUTIÉRREZ RESOURCE: JOSE GUTIÉRREZ REASON FOR APPOINTMENT 1. W/C LEFT NECK PAIN HISTORY OF PRESENT ILLNESS PAIN CENTER INTAKE QUESTIONS: DO YOU HAVE A HISTORY OF MRSA? :NO DO YOU TAKE A BLOOD THINNERS? :NO DO YOU HAVE ANY BLEEDING DISORDERS? :NO ANY NEW NUMBNESS OR WEAKNESS IN YOUR LEGS OR ARMS? :NO ANY PACEMAKER,DEFIBRILLATOR, OR DORSAL COLUMN STIMULATOR? :NO DO YOU HAVE ANY RASHES OR OPEN SORES? :NO ARE YOU ALLERGIC TO IV DYE? :NO ARE YOU DIABETIC? :NO ANY NEW PROBLEMS WITH YOUR MEDICATIONS? :NO HAVE YOU RECEIVED A VACCINE IN THE PAST 30 DAYS? :NO DO YOU PLAN TO RECEIVE A VACCINE IN THE NEXT 21 DAYS? :NO DO YOU NEED ANY PRESCRIPTION? :NO DO YOU TAKE ANY IMMUNOSUPPRESSIVE MEDICATIONS? :NO IS THERE A CHANCE YOU COULD BE ? :NO ARE YOU BREAST FEEDING? :NO GENERAL: PATIENT IS HERE FOR A FOLLOW-UP OF CHRONIC LEFT NECK PAIN. HAS HAD TRIGGER POINT INJECTIONS DONE IN THE RECENT PAST THAT WERE HELPFUL BUT UNFORTUNATELY, THE LAST TIME ON 01/26/2020 SHE DID NOT GET MUCH IMPROVEMENT. DR. PRECIADO HAS EVALUATED HER MRI OF THE CERVICAL SPINE AND IS RECOMMENDING TRYING CERVICAL THERAPEUTIC BLOCK. CONTINUES TO HAVE HIGH LEVELS OF LEFT SIDED NECK PAIN THAT MAKE IT DIFFICULT FOR HER TO TOLERATE ACTIVITIES OF DAILY LIVING. DISCUSSED PROCEDURE WITH PATIENT AND SHE IS AGREEABLE. THIS IS A WORK RELATED INJURY WITH DATE OF INJURY 10/11/1994. -. FALL RISK SCREENING: SCREENING :NO FALLS REPORTED IN THE LAST YEAR PAIN SCREENING: PATIENT HAS A COMPLAINT OF ACUTE OR CHRONIC PAIN :YES LOCATION OF PAIN:LEFT SHOULDER INTENSITY OF PAIN (SCALE OF 1 TO 10):[address] IS CONSTANT AND WITH ACTIVITY IT INCRASES WHAT DOES YOUR PAIN FEEL LIKE:ACHING, CONTINOUS, TENDER, SORE PAIN IS DECREASED BY:OTHERS POSITIONAL ALSO TENS UNIT HELPS PT ALSO USES HEAT AND ICE NURSING NOTE: -. CURRENT MEDICATIONS TAKING SENOKOT S 8.6-50 MG TABLET 1 TABLET ORALLY BID TAKING GABAPENTIN 600 MG TABLET 1 TABLET ORALLY THREE TIMES DAILY, NOTES: TAKES 2 X A DAY TAKING NAPROXEN 500 MG TABLET 1 TABLET NEEDED ORALLY EVERY 12 HRS TAKING MELATONIN 10 MG CAPSULE 1 CAPSULE AT BEDTIME NEEDED WITH FOOD ORALLY ONCE A DAY TAKING MULTIVITAL TABLET 1 ORALLY DAILY TAKING VITAMIN D 2000 UNIT TABLET 1 TABLET ORALLY ONCE A DAY TAKING TYLENOL PM EXTRA STRENGTH 500-25 MG TABLET 1 TABLET AT BEDTIME NEEDED ORALLY ONCE A DAY TAKING PEPCID 20 MG TABLET 1 TABLET ORALLY ONCE A DAY TAKING AMITRIPTYLINE HCL 25 MG TABLET 1 TABLET ORALLY BEFORE BEDTIME NOT-TAKING CYCLOBENZAPRINE HCL 5 MG TABLET 1 TABLET NEEDED ORALLY FOR SPASMS AND PAIN EVERY 8 HOURS NEEDED MDD2 (WORKERS COMP) NOT-TAKING OMEPRAZOLE 20 MG CAPSULE DELAYED RELEASE 1 CAPSULE 30 MINUTES BEFORE MORNING MEAL ORALLY ONCE A DAY MEDICATION LIST REVIEWED AND RECONCILED WITH THE PATIENT PAST MEDICAL HISTORY SLEEP APNEA L SHOULDER DYSTONIA CHRONIC NECK/BACK PAIN DUE TO OSTEOARTHRITIS OSTEOPENIA ASTHMA 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 CONSTIPATION PARTIAL COLLAPSED LUNG 2011 1.4% ASCVD 10 YEAR RISK (06/2015) GERD ALLERGIES AMOXICILLIN: SMALL RASH ON TORSO AREA - ALLERGY CAFFEINE: NAUSEA, H/A - SIDE EFFECTS LACTOSE INTOLERATE: NAUSEA/VOMITING - SIDE EFFECTS SURGICAL HISTORY LAMINECTOMY L5-S1 1995 JAVIER & BSO @ 24 YEARS OLD, DUE TO LARGE BENIGN OVARIAN TUMOR 1979 LYMPH NODE REMOVED FROM NECK-BENIGN 2006 COLONOSCOPY AND ENDOSCOPY 06/2010 BX OF COLONIC POLYPS, BENIGN BRANDIN (NEXT ONE 07/2020) 07/2010 LEFT HIP 08/14/2016 HIP REPLACEMENT-LEFT 03/26/17 RIGHT NECK LYMPH NODE BIOPSY 09/2017 LYMPH NODE BIOPSY HOSPITALIZATION/MAJOR DIAGNOSTIC PROCEDURE ABOVE SURGERIES REVIEW OF SYSTEMS CONSTITUTIONAL: ANY RECENT FEVER NO . CHILLS NO . WEIGHT CHANGE OF UNKNOWN REASONS NO . GASTROENTEROLOGY: NEW UNEXPLAINABLE CHANGES IN BOWEL CONTROL NO . CONSTIPATION NO . GENITOURINARY: ANY NEW CHANGE IN BLADDER CONTROL? NO . NEUROLOGY: NEW ONSET DIZZINESS OR NEUROLOGICAL CHANGES NOT MENTIONED NO . NEW NUMBNESS OR PAIN PATTERNS NOT MENTIONED AND PERTINENT TO TODAY'S VISIT NO . CARDIOLOGY: NEW CHEST PRESSURE NO . NEW CHEST PAIN NO . RESPIRATORY: UNEXPLAINABLE COUGH NO . NEW SHORTNESS OF BREATH NO . VITAL SIGNS WT 136.8 LBS, HT 63.5 IN, BMI 23.85 INDEX, BP 123/56 MM HG, HR 73 /MIN, RR 18 /MIN, TEMP 97.3 F, OXYGEN SAT % 97%, NA INITIALS AW 0928. EXAMINATION GENERAL EXAMINATION: GENERAL AWAKE,ALERT ,PLEAASANT . PSYCH AFFECT NORMAL . LUNGS: LUNG CARDOZO ARE CLEAR TO AUSCULTATION BILATERALLY. GOOD MOVEMENT OF AIR . HEART: S1, S2 IN A REGULAR RATE AND RHYTHM. NO SIGNIFICANT MURMURS, RUBS OR GALLOPS NOTED . CERVICAL:TRIGGER POINTS:LEFT CERVICAL / TRAPEZIUS .PAIN IS AGGREVATED WITH ROJM NECK SPECIFIC POINT TENDERNESS OVER LEFT C3-4, C5 FOR 5, C5-6 WITH FACET LOADING.. DIAGNOSTIC TESTS REVIEWEDCERVICAL MRI 2018 . ASSESSMENTS CERVICAL SPONDYLOSIS - M47.812 (PRIMARY) TREATMENT CERVICAL SPONDYLOSIS NOTES: WORKMEN'S COMP REQUEST LEFT C3-4, C4-5, C5-6, THERAPEUTIC CERVICAL FACET BLOCK. PROCEDURES PN WORKMANS' COMP OPINION IN YOUR OPINION, WAS THE INCIDENT THAT THE PATIENT DESCRIBED THE COMPETENT MEDICAL CAUSE OF THIS INJURY/ILLNESS? YES ARE THE PATIENT'S COMPLAINTS CONSISTENT WITH HIS/HER HISTORY OF THE INJURY/ILLNESS? YES IS THE PATIENT'S HISTORY OF THE INJURY/ILLNESS CONSISTENT WITH YOUR OBJECTIVE FINDING? YES WHAT IS THE PERCENTAGE OF TEMPORARY IMPAIRMENT? MODERATE TO MARKED = 66.7% IS THE PATIENT WORKING? NO DOCTOR ON SITE: DIANA BANEGAS MD PROCEDURE CODES FA211 ESTABILISHED PATIENT [facility] CHARGE DISPOSITION & COMMUNICATION FOLLOW UP POST PROCEDURE (REASON: WORKMEN'S COMP REQUEST LEFT C3-4, C4-5, C5-6, THERAPEUTIC CERVICAL FACET BLOCK) ELECTRONICALLY SIGNED BY EMILY HOLLINGSWORTH ON 03/30/2020 AT 10:26 AM EDT DISCLAIMER : THIS IS A VISIT SUMMARY EXTRACTED FROM THE [employer] CHART. IT IS NOT A COPY OF THE [employer] PROGRESS NOTE. NATANAEL
== END ==
LOC: M PAIN 09:30
PROVIDERS: ATTEND Nurse Practitioner Family
DX: M47.812 Spondylosis without myelopathy or radiculopathy, cervical region (principal)

== ENCOUNTER → 2020-04-06 | Outpatient (REF) | payer MEDICARE, OTHER | LOC: M LAB REF 08:49 | PROVIDERS: ATTEND Physician Assistant | DX: C44.311 Basal cell carcinoma of skin of nose (principal) ==

== ENCOUNTER → 2020-04-27 | Outpatient (POV) | payer OTHER, MEDICARE ==
[~2020-04-27] MED LIST changes: +BUPIVACAINE HCL 0.25% 30ML VIAL ONE; +ISOVUE-M 300 61% 15ML VIAL ONE; +LIDOCAINE 1% SDV 30ML VIAL ONE; +NORCO, ANEXSIA 5/325MG TABLET (HYDROcodone/ACETAMINOPHEN) ONE; +TRIAMCINOLONE ACETONIDE SUSP 40 MG/ML VIAL (J3301) ONE; +diazePAM 5 MG TAB ONE
--- NOTE | 2020-06-11 14:27 | REP ---
C-ARM VIEW CERVICAL SPINE: HISTORY: Pain. FINDINGS: Single C-arm view cervical spine performed during cervical facet injections performed by Dr. Gtz. Three needles are seen along the posterior cervical facet joints and a small amount of contrast is injected. 24 seconds of fluoroscopy time utilized. MTDD
== END ==
LOC: M PAIN 09:30
PROVIDERS: ATTEND Anesthesiology
DX: M47.812 Spondylosis without myelopathy or radiculopathy, cervical region (principal)
CPT/HCPCS: 64490; 64491; 64492; 76000; J3301; Q9967

== ENCOUNTER → 2020-04-29 | Outpatient (CLI) | payer MEDICARE ==
[~2020-04-29] MED LIST changes: -BUPIVACAINE HCL 0.25% 30ML VIAL ONE; -ISOVUE-M 300 61% 15ML VIAL ONE; -LIDOCAINE 1% SDV 30ML VIAL ONE; -NORCO, ANEXSIA 5/325MG TABLET (HYDROcodone/ACETAMINOPHEN) ONE; -TRIAMCINOLONE ACETONIDE SUSP 40 MG/ML VIAL (J3301) ONE; -diazePAM 5 MG TAB ONE
--- NOTE | 2020-05-17 17:29 | REPMRS ---
Patient History The patient states she had a clinical breast exam in 04/2020. Patient is postmenopausal and has history of skin cancer at age 64. Family history of breast cancer at age 84 in niece, breast cancer at age 30 in mother. Took estrogen for 30 years. Digital Woman Screen Mammo: April 29, 2020 - Exam #: [id number] Bilateral CC and MLO view(s) were taken. Technologist: Omayra Wright, Technologist Prior study comparison: April 17, 2019, bilateral digital woman screen mammo performed at [facility]. November 09, 2017, digital woman screen mammo performed at [facility]. October 04, 2016, digital woman screen mammo performed at [facility]. FINDINGS: The breast tissue is extremely dense which could obscure a lesion on mammography. The Volpara volumetric breast density category is: D. There is an extremely dense symmetrical pattern of residual fibroglandular tissue. There has been no change in the appearance of the mammogram from the previous studies. There is no interval development of dominant mass, archetectural distortion, or grouped microcalcifications suggestive of malignancy. 3-D tomosynthesis shows no additional findings. Assessment: BI-RADS/ACR category 1 mammogram. Negative Mammogram. Recommendation Routine screening mammogram of both breasts in 1 year (for women over age 40). This patient's Lifetime Breast Cancer RIsk is estimated at 6.1 %. This mammogram was interpreted with the aid of an FDA-approved computer-aided dectection system. Electronically Signed By: Mohamud Jj MD 05/17/20 [id number]
--- NOTE | 2020-06-10 15:06 | DEXA ---
AP SPINE L1 - L4 1.168 -0.2 1.2 LT FEMUR TOTAL Left hip replacement. LT NECK RT FEMUR TOTAL 0.817 -1.5 -0.5 RT NECK 0.813 -1.6 -0.3 TOTAL BODY TOTAL OTHER COMMENTS: Normal bone densitometry of the spine. There is low bone density of the right hip. Lumbar scoliosis. The density of the spine has decreased 2.9% since the initial exam on 12/07/2000. The increased 4.2% since the most recent exam on 11/09/2017. The density of the left hip is N/A. The density of the right hip has decreased 3.0% since the initial exam on 12/07/2000. The density of the right hip has increased 5.3% since the most recent exam on 11/09/2017. FOLLOW-UP: Recommendation for the next bone density exam: 2 years. NATANAEL
== END ==
LOC: M WHC 05:58
PROVIDERS: ATTEND Nurse Practitioner Family
DX: Z12.31 Encounter for screening mammogram for malignant neoplasm of breast (principal); Z78.0 Asymptomatic menopausal state; Z85.828 Personal history of other malignant neoplasm of skin; Z80.3 Family history of malignant neoplasm of breast; Z92.23 Personal history of estrogen therapy

== ENCOUNTER → 2020-05-13 | Outpatient (CLI) | payer MEDICARE ==
[~2020-05-13] MED LIST changes: +ISOVUE-370 76% 100ML VIAL As Ordered ONE
--- NOTE | 2020-05-13 10:26 | REPVR ---
PROCEDURE INFORMATION: Exam: CT Neck With Contrast Exam date and time: 05/13/2020 9:49 AM Age: 64 years old Clinical indication: Mass, lump, or swelling in neck; Additional info: R22.1 loc swelling mass/lump neck TECHNIQUE: Imaging protocol: Computed tomography images of the neck with intravenous contrast. Radiation optimization: All CT scans at this facility use at least one of these dose optimization techniques: automated exposure control; mA and/or kV adjustment per patient size (includes targeted exams where dose is matched to clinical indication); or iterative reconstruction. Contrast material: ISOVUE 370; Contrast volume: 75 ml; Contrast route: INTRAVENOUS (IV); COMPARISON: CT Neck with contrast 09/25/2017 5:38 PM FINDINGS: Nasopharynx: Unremarkable. Oropharynx: Unremarkable. No significant tonsillar enlargement. Hypopharynx: Unremarkable. Larynx: Unremarkable. Normal epiglottis. Retropharyngeal space: Unremarkable. Submandibular/Parotid glands: Normal. Glands are normal in size. Thyroid: Normal. No enlarged or calcified nodules. Lymph nodes: Unremarkable. No lymphadenopathy. Trachea: Visualized trachea is unremarkable. Lungs: Unremarkable as visualized. Bones/joints: Unremarkable. No acute fracture. Soft tissues: Unremarkable. No significant soft tissue swelling. IMPRESSION: No acute findings. Electronically signed by: Zaria Reed On 05/13/2020 10:26:40 AM
== END ==
LOC: M RAD 09:16
PROVIDERS: ATTEND Otolaryngology
DX: R22.1 Localized swelling, mass and lump, neck (principal)
CPT/HCPCS: 70491; Q9967

== ENCOUNTER → 2020-06-09 | Outpatient (REF) | payer MEDICARE, OTHER ==
[~2020-06-09] MED LIST changes: -ISOVUE-370 76% 100ML VIAL As Ordered ONE
== END ==
LOC: M LAB REF 19:18
PROVIDERS: ATTEND Dermatology
DX: C44.311 Basal cell carcinoma of skin of nose (principal)

== ENCOUNTER → 2020-06-10 | Outpatient (REF) | payer MEDICARE, OTHER | LOC: M LAB REF 11:55 | PROVIDERS: ATTEND Dermatology | DX: D23.39 Other benign neoplasm of skin of other parts of face (principal) ==

== ENCOUNTER → 2020-08-11 | Outpatient (CLI) | payer OTHER | LOC: M LABSMTC 11:51 | PROVIDERS: ATTEND Physical Medicine & Rehabilitation | DX: Z01.812 Encounter for preprocedural laboratory examination (principal); Z20.828 Contact with and (suspected) exposure to other viral communicable diseases ==

== ENCOUNTER → 2020-08-20 | Outpatient (CLI) | payer OTHER, MEDICARE | LOC: M LABSMTC 10:34 | PROVIDERS: ATTEND Physical Medicine & Rehabilitation | DX: Z20.828 Contact with and (suspected) exposure to other viral communicable diseases (principal) ==

== ENCOUNTER → 2020-09-03 | Outpatient (REF) | payer MEDICARE, OTHER | LOC: M LAB REF 14:09 | PROVIDERS: ATTEND Dermatology | DX: T14.90XD Injury, unspecified, subsequent encounter (principal) ==

== ENCOUNTER → 2020-10-07 | Outpatient (CLI) | payer OTHER, MEDICARE ==
[~2020-10-07] MED LIST changes: +AMIT25TA17 PO; +BACL10TA2 PO; +DOK1CAP7 PO; +FAMO1TAB11 PO; +FAMO40TA3 PO; +GABA600T4 PO; +NAPR500T6 PO; +NOXI1TAB PO
--- NOTE | 2020-10-08 00:05 | ECWPNPC ---
PATIENT NAME: ERNA GROVE : 1955 GENDER: FEMALE VISIT DATE: 10/07/2020 DISCHARGE DATE: 10/07/20 1039 VISIT LOCKED DATE TIME: PHYSICIAN: JOSE GUTIÉRREZ PHYSICIAN PAGER NO: ACTIVE RESOURCE: JOSE GUTIÉRREZ REASON FOR APPOINTMENT 1. POST THERAPEUTIC CERVICAL FACET BLOCK HISTORY OF PRESENT ILLNESS GENERAL: THIS IS A F/U OF CHRONIC NECK PAIN.REPORTING >80 REDUCTION IN NECK PAIN AND IMPROVED ACTIVITY TOLERANCE FOR APPROXIMATLE 5 MONTHS POST PROCEURE THEN PAIN GRADUALLY RETURNED TO BASELINE. HAD LEFT C3-4, C4-5, C5-6 CERVICAL THERAPEUTIC FACET BLOCK IN MARCH 2020 AREA REVIEWED MRI OF CERVICAL SPINE AND DISCUSSED TREATMENT PLAN. THIS IS A WORK RELATED INJURY.-. FALL RISK SCREENING: SCREENING :NO FALLS REPORTED IN THE LAST YEAR PAIN SCREENING: PATIENT HAS A COMPLAINT OF ACUTE OR CHRONIC PAIN :YES LOCATION OF PAIN:NECK, LEFT SHOULDER, LOW BACK, LEFT HIP INTENSITY OF PAIN (SCALE OF 1 TO 10):5 WHAT DOES YOUR PAIN FEEL LIKE:ACHING, BURNING, INTERMITTENT, SHARP DURATION:INTERMITTENT, AWAKENS FROM SLEEP PAIN IS INCREASED BY:ACTIVITIES REACHING, LIFTING, POSITIONAL, OVERUSE OF ARMS PAIN IS DECREASED BY:USE OF PAIN MEDICATIONS, OTHERS NURSING NOTE: -. PAIN CENTER INTAKE QUESTIONS: DO YOU HAVE A HISTORY OF MRSA? :NO DO YOU TAKE A BLOOD THINNERS? :NO DO YOU HAVE ANY BLEEDING DISORDERS? :NO ANY NEW NUMBNESS OR WEAKNESS IN YOUR LEGS OR ARMS? :NO ANY PACEMAKER,DEFIBRILLATOR, OR DORSAL COLUMN STIMULATOR? :NO DO YOU HAVE ANY RASHES OR OPEN SORES? :NO ARE YOU ALLERGIC TO IV DYE? :NO ARE YOU DIABETIC? :NO ANY NEW PROBLEMS WITH YOUR MEDICATIONS? :NO HAVE YOU RECEIVED A VACCINE IN THE PAST 30 DAYS? :NO DO YOU PLAN TO RECEIVE A VACCINE IN THE NEXT 21 DAYS? :NO DO YOU NEED ANY PRESCRIPTION? :NO DO YOU TAKE ANY IMMUNOSUPPRESSIVE MEDICATIONS? :NO IS THERE A CHANCE YOU COULD BE ? :NO ARE YOU BREAST FEEDING? :NO CURRENT MEDICATIONS TAKING GABAPENTIN 600 MG TABLET ORALLY TWICE DAILY TAKING AMITRIPTYLINE HCL 25 MG TABLET ORALLY BEFORE BEDTIME TAKING COLACE CAPSULE 2 CAPSULE NEEDED ORALLY DIRECTED TAKING VITAMIN D 50 MCG (2000 UT) TABLET 1 TABLET ORALLY DAILY TAKING COMPLETE MULTIVITAMIN/MINERAL 1 CAP ORALLY DAILY TAKING PEPCID 40 MG TABLET 1 TABLET AT BEDTIME ORALLY ONCE A DAY NOT-TAKING SULFAMETHOXAZOLE-TRIMETHOPRIM 400-80 MG TABLET 1 TABLET ORALLY BID NOT-TAKING BACTRIM DS 800-160 MG TABLET 1 TABLET ORALLY TWICE A DAY NOT-TAKING NAPROXEN NOT-TAKING CIPROFLOXACIN HCL 500 MG TABLET 1 TABLET ORALLY EVERY 12 HRS MEDICATION LIST REVIEWED AND RECONCILED WITH THE PATIENT PAST MEDICAL HISTORY SLEEP APNEA L SHOULDER DYSTONIA CHRONIC NECK/BACK PAIN DUE TO OSTEOARTHRITIS OSTEOPENIA ASTHMA 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 CONSTIPATION PARTIAL COLLAPSED LUNG 2011 1.4% ASCVD 10 YEAR RISK (06/2015) GERD 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 ALLERGIES AMOXICILLIN: SMALL RASH ON TORSO AREA - ALLERGY CAFFEINE: NAUSEA, H/A - SIDE EFFECTS LACTOSE INTOLERATE: NAUSEA/VOMITING - SIDE EFFECTS SULFA (FOR ALLERGY USE ONLY): HIVES, RASH - ALLERGY SOCIAL HISTORY GENERAL: TOBACCO USE ARE YOU A:NONSMOKER NEVER SMOKER LATEX QUESTIONNAIRE LATEX ALLERGY : HAVE YOU EVER DEVELOPED ANY TYPE OF REACTION AFTER HANDLING LATEX PRODUCTS SUCH RUBBER GLOVES, CONDOMS, DIAPHRAGMS, BALLOONS, SOCKS, OR UNDERWEAR?NO LATEX ALLERGY : HAVE YOU EVER DEVELOPED ANY TYPE OF REACTION DURING OR AFTER DENTAL APPOINTMENT, VAGINAL/RECTAL EXAMINATION, SURGICAL PROCEDURE, OR ANY OTHER EXPOSURE?NO LATEX RISK : HAVE YOU EVER HAD ANY DIFFICULTY BREATHING OR HIVES AFTER EATING OR HANDLING ANY FRUITS, OR VEGETABLES; SUCH KIWI, BANANAS, STONE FRUITS, OR CHESTNUTSNO LATEX RISK : DO YOU HAVE A PREVIOUS PERSONAL HISTORY OF MORE THAN NINE SURGERIES, SPINA BIFIDA, OR REPEATED CATHERIZATIONS? NO LATEX RISK : ARE YOU FREQUENTLY EXPOSED TO LATEX PRODUCTS IN YOUR OCCUPATION?NO DATE ASKED : 10/07/2020 LUNG CANCER SCREENING SMOKING STATUS:NON SMOKER BMI CARE GOAL FOLLOW-UP BELOW NORMAL BMI FOLLOW-UPDIETARY EDUCATION FOR WEIGHT GAIN AT GOAL ALCOHOL SCREENING DID YOU HAVE A DRINK CONTAINING ALCOHOL IN THE PAST YEAR?NO POINTS0 INTERPRETATIONNEGATIVE RECREATIONAL DRUG USE DENIES. CAFFEINE CAFFEINE USE?NO SEXUAL HX HAD SEX IN THE LAST 12 MONTHS (VAGINAL, ORAL, OR ANAL)?NO HIV / HEP-C SCREENING HIV TEST OFFERED TO PATIENT:YES DATE OFFERED:03/19/2017 TEST ACCEPTED:NO HEP-C TEST OFFERED TO PATIENT:YES DATE OFFERED:03/19/2017 REASON:PATIENT DECLINED TEST ACCEPTED:NO REASON:PATIENT DECLINED FAITH NO GNOSTICIST BELIEFS THAT WOULD IMPACT HEALTH CARE. LANGUAGE UZBEK. EDUCATION LEVEL OF EDUCATION:PROFESSIONAL SCHOOLS/MASTERS/PHD NURSING SCHOOL LEARNING BARRIERS / SPECIAL NEEDS CHANGE FROM LAST VISIT?NO BARRIERS TO LEARNING?NO HEARING IMPAIRED?NO VISION IMPAIRED?YES :CORRECTIVE LENSES COGNITIVELY IMPAIRED?NO READINESS TO LEARN?YES LEARNING PREFERENCES?NO LEARNING CAPABILITIES PRESENT?YES EMOTIONAL BARRIERS?NO SPECIAL DEVICES?NO TALENT DEVELOPMENT CONSULTANT NEEDED?NO DOMESTIC VIOLENCE NONE, NO SEXUAL ABUSE. 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 DIET: WELL BALANCED DIET, HIGH IN CALCIUM. UNABLE TO TAKE CA++ SUPPLEMENTS.. EXERCISE: NO REGULAR EXERCISE, WALKS TOLERATED. MARITAL STATUS: . OTHERS AT HOME: SPOUSE. TODAY'S VISITNOTES 02/06/2020 PATIENT DESCRIBES PAIN :IT COMES AND GOES, SHARP FROM 0-10, WHAT LEVEL IS YOUR PAIN TODAY?4 PRECIPITATING FACTORS MOVEMENT, USING ARMS FOR LIKE CARRYING GROCERIES OR REACHING ABOVE HER HEAD ALLEVIATING FACTORS TENS UNIT, HEAT, ICE IMPACT ON FUNCTION LIMITS HER ON WHAT SHE IS ABLE TO DO SUCH MOPPING, OR LIFTING ANYTHING HEAVY. - HAS THE PATIENT BEEN EDUCATED REGARDING HIS/HER PLAN OF CARE?YES HAS THE PATIENT BEEN EDUCATED REGARDING PAIN, THE RISK FOR PAIN, THE IMPORTANCE OF EFFECTIVE PAIN MANAGEMENT, AND THE PAIN ASSESSMENT PROCESS?YES ADVANCE DIRECTIVE ADVANCE DIRECTIVE DISCUSSED WITH PATIENT:YES HCP IS FRANCHESCA GROVE REVIEW OF SYSTEMS CONSTITUTIONAL: ANY RECENT FEVER NO . CHILLS NO . WEIGHT CHANGE OF UNKNOWN REASONS NO . GASTROENTEROLOGY: NEW UNEXPLAINABLE CHANGES IN BOWEL CONTROL NO . CONSTIPATION NO . GENITOURINARY: ANY NEW CHANGE IN BLADDER CONTROL? NO . NEUROLOGY: NEW ONSET DIZZINESS OR NEUROLOGICAL CHANGES NOT MENTIONED NO . NEW NUMBNESS OR PAIN PATTERNS NOT MENTIONED AND PERTINENT TO TODAY'S VISIT NO . CARDIOLOGY: NEW CHEST PRESSURE NO . NEW CHEST PAIN NO . RESPIRATORY: UNEXPLAINABLE COUGH NO . NEW SHORTNESS OF BREATH NO . EXAMINATION GENERAL EXAMINATION: GENERAL AWAKE,ALERT ,PLEAASANT . PSYCH AFFECT NORMAL . LUNGS: LUNG CARDOZO ARE CLEAR TO AUSCULTATION BILATERALLY. GOOD MOVEMENT OF AIR . HEART: S1, S2 IN A REGULAR RATE AND RHYTHM. NO SIGNIFICANT MURMURS, RUBS OR GALLOPS NOTED . CERVICAL:TRIGGER POINTS:LEFT CERVICAL / TRAPEZIUS .PAIN IS AGGREVATED WITH ROJM NECK SPECIFIC POINT TENDERNESS OVER LEFT C3-4, C5 FOR 5, C5-6 WITH FACET LOADING.. DIAGNOSTIC TESTS REVIEWEDCERVICAL MRI 2018 . ASSESSMENTS CERVICAL SPONDYLOSIS - M47.812 (PRIMARY) TREATMENT CERVICAL SPONDYLOSIS NOTES: LEFT CERVICAL FACET THERAPEUTIC BLOCK C3/4,C4/5,C5/6-W/C REQUEST PATIENT GIVEN EDUCATIONAL MATERAILS ON PROCEDURE. REVIEWED PRE-PROCEDURE INSTRUCTIONS WITH PATIENT. PATIENT VERBALIZED AN UNDERSTANDING. Carmelita KATHLEEN RN. PROCEDURES PN WORKMANS' COMP OPINION IN YOUR OPINION, WAS THE INCIDENT THAT THE PATIENT DESCRIBED THE COMPETENT MEDICAL CAUSE OF THIS INJURY/ILLNESS? YES ARE THE PATIENT'S COMPLAINTS CONSISTENT WITH HIS/HER HISTORY OF THE INJURY/ILLNESS? YES IS THE PATIENT'S HISTORY OF THE INJURY/ILLNESS CONSISTENT WITH YOUR OBJECTIVE FINDING? YES WHAT IS THE PERCENTAGE OF TEMPORARY IMPAIRMENT? MODERATE TO MARKED = 66.7% IS THE PATIENT WORKING? NO DOCTOR ON SITE: DIANA BANEGAS MD PROCEDURE CODES FA211 ESTABILISHED PATIENT [facility] FACILITY CHARGE DISPOSITION & COMMUNICATION FOLLOW UP POST PROC (REASON: LEFT CERVICAL FACET THERAPEUTIC BLOCK C3/4,C4/5,C5/6-W/C REQUEST) ELECTRONICALLY SIGNED BY EMILY HOLLINGSWORTH ON 10/07/2020 AT 11:09 AM EST DISCLAIMER : THIS IS A VISIT SUMMARY EXTRACTED FROM THE [employer] CHART. IT IS NOT A COPY OF THE [employer] PROGRESS NOTE. NATANAEL
== END ==
LOC: M PAIN 09:45
PROVIDERS: ATTEND Nurse Practitioner Family
DX: M47.812 Spondylosis without myelopathy or radiculopathy, cervical region (principal); G47.30 Sleep apnea, unspecified; J45.909 Unspecified asthma, uncomplicated; M85.80 Other specified disorders of bone density and structure, unspecified site; M79.7 Fibromyalgia; K59.00 Constipation, unspecified; E73.9 Lactose intolerance, unspecified; K21.9 Gastro-esophageal reflux disease without esophagitis; Z85.828 Personal history of other malignant neoplasm of skin; Z79.899 Other long term (current) drug therapy; Z88.0 Allergy status to penicillin; Z88.2 Allergy status to sulfonamides; Z91.048 Other nonmedicinal substance allergy status

== ENCOUNTER → 2020-10-10 | Outpatient (CLI) | payer MEDICARE, OTHER | LOC: M LABSMTC 08:52 | PROVIDERS: ATTEND Anesthesiology | DX: Z01.812 Encounter for preprocedural laboratory examination (principal); Z20.822 Contact with and (suspected) exposure to COVID-19 ==

== ENCOUNTER 2020-10-15 08:27 | Day surgery (SDC) | payer MEDICARE ==
[~2020-10-15] VITALS: Ht 160 cm; Wt 59.9 kg
[~2020-10-15 08:27] MED LIST changes: +LIDOCAINE 2% 100MG/5ML SDV (FOR ANES.) As Ordered ONE; +NS 1,000 ML IV ONE; +propofoL 200 MG/20 ML VIAL As Ordered ONE
--- OUTSIDE RECORDS SUMMARY | 2020-10-15 08:30 | CCD ---
Author Author [facility] Organization [facility] Address Unknown Phone Unavailable Care Team Providers Care Video Surveillance Technician Name Role Phone Adry Velasquez Unavailable PROBLEMS Type Condition ICD9-CM Code [id number] Code Onset Dates Condition S tatus SNOMED Code Notes Problem Fibromyalgia M79.7 Active 21963415 Problem Vitamin D deficiency E55.9 Active 15801200 Problem Chronic constipation K59.00 Active 023308676 Problem Obstructive sleep apnea G47.33 Active 23184180 Problem Dyslipidemia E78.5 Active 944917728 Problem Osteopenia M85.80 Active 889494989 Problem Arthralgia of right temporomandibular joint M26.621 Active 78892271 Problem Tear of left acetabular labrum, sequela S73.192S Active 217885549 Problem Cataract H26.9 Active 567373747 Problem Dystonia G24.9 Active 64536102 Problem Iron deficiency anemia, unspecified iron deficiency an emia type D50.9 Active 21703974 Problem Vaginal atrophy N95.2 Active 692450003 Problem Gastroesophageal reflux disease without esophagitis K21.9 Active 712365735 Problem Primary osteoarthritis of left hip M16.12 Activ e 673475596 Problem Other osteoarthritis involving multiple joints M15 .8 Active 174894670 Problem Basal cell carcinoma of nose C44.311 Active 402 834360 Problem Labral tear of left hip joint S73.192A Active 2 15250205 Problem Gastroesophageal reflux disease, esophagitis pre sence not specified K21.9 Active 782069693 Problem 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 128 841418 Problem Menopausal disorder N95.9 Active 868797895 Problem Myalgia, other site M79.18 Active 60350037 Problem Cervicalgia M54.2 Active 44869734 Problem Cervical spondylosis M47.812 Active 101029100 ALLERGIES Allergen (clinical drug ingredient) Drug/Non Drug Allergy do cumented on EMR Reaction Allergy Type Onset Date Status caffeine nausea, h/a Non Drug Allergy Active Sulfa (for allergy use only) Hives, rash Drug Allergy Active amoxicillin Amoxicillin([facility] Code:[address]-56) small rash o n torso area Drug Allergy Active lactose intolerate Nausea/Vomiting Non Drug Allergy Active ENCOUNTERS from 1955 to 2020-10-09 Encounter Location Date Provider Diagnosis [facility] [address] [place] [address] Sep, Adry Velasquez Cervical spondylosis M47.812 IMMUNIZATIONS Vaccine Route Administration Date Status Influenza (18 yrs & older) Flublok IM Intramuscular Jun 21, 2018 Administered Pneumococcal Adult 0.5mL (Pneumovax 23) IM Intramuscular Jul 27, 2017 Administered Influenza (6mo & up) Fluzone Unknown Jul 02, 2017 Adm inistered Influenza (6mo & up) Fluzone Unknown Jul 02, 2017 Adm inistered Influenza (6mo & up) Fluzone IM Intramuscular Jun 22, 2016 Ad ministered Influenza (6mo & up) Fluzone IM Intramuscular Jul 01, 2015 Ad ministered Influenza (6mo & up) Fluzone Unknown Jun 25, 2014 Adm inistered SOCIAL HISTORY Tobacco Use: Social History Observation Description Date Details (start date - stop date) Never Smoker Sex Assigned At : Social History Observation Description Sex Assigned At Unknown Education: Question Answer Notes Level of Education: 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 No Drug and Alcohol Question Answer Notes Total Score: 0 Interpretation: No problems reported Alcohol Screening: Question Answer Notes Did you have a drink containing alcohol in the past year? No Points 0 Interpretation Negative BMI Care Goal Follow-Up Question Answer Notes Below Normal BMI Follow-Up Dietary education for weight gain at goal Tobacco Use: Question Answer Notes Are you a: never smoker never smoker REASON FOR REFERRAL No Information VITAL SIGNS No information MEDICATIONS Medication SIG (Take, Route, Frequency, Duration) Notes Start Da te End Date Status Ciprofloxacin HCl 500 MG 1 tablet Orally every 12 hrs for 21 day(s) Not-Taking Complete Multivitamin/Mineral 1 cap Orally Daily Active Pepcid 40 MG 1 tablet at bedtime Orally Once a day for 30 day(s) Aug, Active Colace 2 capsule as needed Orally as directed Active Amitriptyline HCl 25 MG Orally before bedtime Active Vitamin D 50 MCG (1999) 1 tablet Orally Daily Active Sulfamethoxazole-Trimethoprim 400-80 MG 1 tablet Orally bid for 21 day(s) Aug, Not-Taking Naproxen Not-Taking Gabapentin 600 MG Orally twice daily Active Bactrim DS 800-160 MG 1 tablet Orally Twice a day for 10 day(s) Not-Taking PROCEDURES No Information RESULTS No Results REASON FOR VISIT Post therapeutic cervical facet block MEDICAL (GENERAL) HISTORY Type Description Date Medical History sleep apnea Medical History L shoulder dystonia Medical History chronic neck/back pain due to osteoarthr itis Medical History osteopenia Medical History asthma Medical History polyps in colon benign Medical History fibromyalgia Medical History constipation Medical History partial collapsed lung 2011 Medical History 1.4% ASCVD 10 year risk (06/2015) Medical History GERD Medical History Skin cancer on nose Surgical History laminectomy L5-S1 1995 Surgical History JAVIER & BSO @ 24 years old, due to large b enign ovarian tumor 1979 Surgical History lymph node removed from neck-benign 2006 Surgical History colonoscopy and endoscopy 06/2010 Surgical History bx of colonic polyps, benign yanique ( Next one 07/2020) 07/2010 Surgical History left hip 08/14/2016 Surgical History hip replacement-Left 03/26/17 Surgical History Right neck lymph node biopsy 09/2017 Surgical History lymph node biopsy Surgical History skin graph Hospitalization History Above surgeries Goals Section No Information Health Concerns No Information MEDICAL EQUIPMENT No Information MENTAL STATUS No Information FUNCTIONAL STATUS No Information ASSESSMENTS Encounter Date Diagnosis Assessment Notes Treatment Notes Treatm ent Clinical Notes Sep, Cervical spondylosis (ICD-10 - M47.812) LEFT CERVICAL FACET THERAPEUTIC BLOCK C3/4,C4/5,C5/6-W/C REQUEST Patient given educational materails on procedure. Reviewed pre-procedure instructions with patient. Patient verbalized an understanding. Carmelita Klein RN PLAN OF TREATMENT Treatment Notes Assessment Notes Clinical Notes Cervical spondylosis LEFT CERVICAL FACET THERAPEU TIC BLOCK C3/4,C4/5,C5/6-W/C REQUESTPatient given educational materails on procedure. Reviewed pre-procedure instructions with patient. Patient verbalized an understanding. Carmelita Klein RN Next Appt Details POST PROC Reason:LEFT CERVICAL FACET THE RAPEUTIC BLOCK C3/4,C4/5,C5/6-W/C REQUEST Provider Name:Warren Agosto, 10-27 04:15:00 PM, [address] [facility], [address], [place], [address], Follow Up:POST PROCLEFT CERVICAL FACET THERAPEUTIC BLOCK C3/4,C4/5,C5/6-W/C REQUEST Insurance Providers Payer Name Payer Address Payer Phone Insured Name Patient Relati onship to Insured Coverage Start Date Coverage End Date AETNA MEDICARE AETNA [employer] [facility] [address] [facility] [phone] ERNA BOO [facility] INSURANCE FUND [id number] [place] [id number] ERNA BOO 1992
--- OUTSIDE RECORDS SUMMARY | 2020-10-15 08:30 | CCD ---
Author Author [facility] Organization [facility] Address Unknown Phone Unavailable Care Team Providers Care Unit Supervisor Name Role Phone Adry Velasquez Unavailable PROBLEMS Type Condition ICD9-CM Code DIK62-YD Code Onset Dates Condition S tatus SNOMED Code Notes Problem Fibromyalgia M79.7 Active 20778110 Problem Vitamin D deficiency E55.9 Active 97836012 Problem Chronic constipation K59.00 Active 824700284 Problem Obstructive sleep apnea G47.33 Active 23322099 Problem Dyslipidemia E78.5 Active 123931639 Problem Osteopenia M85.80 Active 171404334 Problem Arthralgia of right temporomandibular joint M26.621 Active 35948672 Problem Tear of left acetabular labrum, sequela S73.192S Active 726435576 Problem Cataract H26.9 Active 163349200 Problem Dystonia G24.9 Active 83981879 Problem Iron deficiency anemia, unspecified iron deficiency an emia type D50.9 Active 71746409 Problem Vaginal atrophy N95.2 Active 272600357 Problem Gastroesophageal reflux disease without esophagitis K21.9 Active 217800440 Problem Primary osteoarthritis of left hip M16.12 Activ e 817003832 Problem Other osteoarthritis involving multiple joints M15 .8 Active 796712886 Problem Basal cell carcinoma of nose C44.311 Active 402 316130 Problem Labral tear of left hip joint S73.192A Active 2 93181909 Problem Gastroesophageal reflux disease, esophagitis pre sence not specified K21.9 Active 606079128 Problem 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 128 367708 Problem Menopausal disorder N95.9 Active 893431183 Problem Myalgia, other site M79.18 Active 80191498 Problem Cervicalgia M54.2 Active 89281179 Problem Cervical spondylosis M47.812 Active 598190510 ALLERGIES Allergen (clinical drug ingredient) Drug/Non Drug Allergy do cumented on EMR Reaction Allergy Type Onset Date Status caffeine nausea, h/a Non Drug Allergy Active Sulfa (for allergy use only) Hives, rash Drug Allergy Active amoxicillin Amoxicillin([facility] Code:[address]-54) small rash o n torso area Drug Allergy Active lactose intolerate Nausea/Vomiting Non Drug Allergy Active ENCOUNTERS from 1955 to 2020-10-10 Encounter Location Date Provider Diagnosis [facility] [address] [place] [address] Sep, Adry Velasquez IMMUNIZATIONS Vaccine Route Administration Date Status Influenza [...] Information RESULTS No Results REASON FOR VISIT OFFICE NOTES MEDICAL (GENERAL) HISTORY Type Description Date Medical [...] No Information FUNCTIONAL STATUS No Information ASSESSMENTS No Information PLAN OF TREATMENT Next Appt Details Provider Name:Warren Agosto, 10-27 04:15:00 PM, [address] [facility], [address], [place], [address], Insurance Providers Payer Name Payer Address Payer Phone Insured Name Patient Relati onship to Insured Coverage Start Date Coverage End Date AETNA MEDICARE AETNA [employer] INSURANCE [employer] [address] [facility] [phone] ERNA BOO [facility] INSURANCE FUND [address] [place] [address] ERNA BOO 1992
--- OUTSIDE RECORDS SUMMARY | 2020-10-15 08:31 | CCD | Continuity of Care Document ---
Author Author [facility] Organization Unknown Address [address] [facility], [address] [place] [address] Phone [phone] Care Team Providers Care Biofuels Plant Operations Engineer Name Role Phone Humble Henson M.D. AUTM [phone] AUTM Unavailable Problems Active Problems Provider Date Neoplasm of uncertain behavior of lip, oral cavity and pharynx Shlomo Mcneal MD Onset: 10/11/2017 Lymphadenopathy Shlomo Mcneal MD Onset: 10/11/2017 Dyspnea Alona Quinn, A.N.P. Onset: 2014 Underweight Alona Quinn, A.N.P. Onset: 2010 Obstructive sleep apnea syndrome Alona Quinn, A.N.P. Onset: 09/02/2010 Allergic rhinitis Alona Quinn, A.N.P. Onset: 2009 Asthma without status asthmaticus Alona Quinn, A.N.P. Onset: 09/02/2010 Social History Type Date Description Comments Sex Unknown Smokeless Tobacco Never Used Smokeless Tobacco ETOH Use Denies alcohol use Tobacco Use Start: Unknown Non Smoker Recreational Drug Use Denies Drug Use Smoking Status Reviewed: 02/10/20 Non Smoker Allergies, Adverse Reactions, Alerts Active Allergies Reaction Severity Comments Date Amoxicillin rash 04/20/2010 Caffeine nausea, h/a 09/25/2017 Medications Active Medications SIG Qnty Indications Ordering Provide r Date Suprep Bowel Prep Kit 17.5-3.13-1.6GM/177ML Solution take per doctor's bowel prep instructions. 354ml Z12.1 1 Benito López MD 07/30/2020 Magnesium Citrate 1.745GM/30ML Diamond ution take one 10 ounce bottle prior to procedure for additional bowel prep per instructions. 296ml Z12.11 Benito López MD 07/30/2020 CPAP Device 10cm KAMARI Valdez 01/14/2020 Multi-Vitamin Tablets Daily Unknown Neurontin 600mg Tablets 1 po tid 60tabs Unknown Melatonin 5mg Capsules 1 capsule at bedtime as needed with food Unknown Tylenol PM Extra Strength 500-25mg Tablets 2 po every night prn Unknown 000 Vitamin D 2000Unit Tablets 1 po qd Unknown Pepcid 20mg Tablets 1 tab by mouth daily Unknown Amitriptyline HCL 25mg Tablets 1 at hs Unknown Naproxen 500mg Tablets 1 by mouth twice a day Unknown Colace 100mg Capsules 1 tab by mouth twice a day before meal. avoid if having diarrhea. Unk nown Immunizations CPT Code Status Date Vaccine Lot # 33610 Given 07/01/2014 Influenza Virus Split 3 Yrs And Above For Intramuscular Use Q2036 Given 06/25/2013 Influenza Vaccine 3 Years Of Age Or Older (Flulaval) Q2036 Given 06/29/2012 Influenza Vaccine 3 Years Of Age Or Older (Flulaval) Q2036 Given 05/31/2011 Influenza Vaccine 3 Years Of Age Or Older (Flulaval) 46584 Given 07/16/2008 Influenza Vaccine 09871 Given Unknown Influenza Vaccine 19386 Given Unknown Influenza Virus Split 3 Yrs And Above For Intramuscular Use Vital Signs Date Vital Result Comment 07/30/2020 10:50am BP Systolic 108 mmHg BP Diastolic 64 mmHg Height 63.75 inches 5'3.75" Weight 133.00 lb BMI (Body Mass Index) 23.0 kg/m2 [place] Body Weight 115 lb Weight 60.329 kg 06/15/2020 9:45am Height 64 inches 5'4" Weight 130.00 lb BMI (Body Mass Index) 22.3 kg/m2 [place]on Body Weight 120 lb Weight 58.968 kg Results Description No Information Available Procedures Description No Information Available Medical Devices Description No Information Available Encounters Type Date Location Provider Dx Diagnosis Office Visit 06/15/2020 9:45a [facility] Linus Cha MD R22.1 Localized swelling, mass and lump, neck Office Visit 04/26/2020 9:30a [facility] Linus Cha MD R22.1 Localized swelling, mass and lump, neck Office Visit 02/10/2020 2:00p [facility] KAMARI Taylor G47.33 Obstructive sleep apnea (adult) (pediatr ic) R06.02 Shortness of breath Assessments Date Code Description Provider 07/30/2020 Z12.11 Encounter for screening for benjamín gnant neoplasm of colon BIENVENIDO Davis 07/30/2020 K21.9 Gastro-esophageal reflux disease without esophagitis BIENVENIDO Davis 07/30/2020 K59.04 Chronic idiopathic constipation BIENVENIDO Davis 06/15/2020 R22.1 Localized swelling, mass and lum p, neck Linus Cha MD 04/26/2020 R22.1 Localized swelling, mass and lum p, neck Linus Cha MD 02/10/2020 G47.33 Obstructive sleep apnea (adult) (pediatric) KAMARI Almanza 02/10/2020 R06.02 Shortness of breath KAMARI Almanza Plan of Treatment Future Appointment(s):* 02/08/2021 8:30 am - KAMARI Almanza at [facility] 07/30/2020 - BIENVENIDO Davis* Z12.11 Encounter for screening for malignant neoplasm of colon * K21.9 Gastro-esophageal reflux disease without esophagitis * K59.04 Chronic idiopathic constipation * * New Medication:* Suprep Bowel Prep Kit 17.5-3.13-1.6 GM/177ML * Magnesium Citrate 1.745 GM/30ML * New Orders:* Colonoscopy, Ordered: 07/30/20 * Comments:* Will arrange for colonoscopy. Reviewed risks and benefits of the procedure, as well as other options, with the patient. Bowel prep procedure was discussed with patient, as well as risks and side effects associated with the bowel prep. Patient verbalized understanding of all of the above and is in agreement to proceed. Patient will seek medical attention for any acute changes. Will monitor. * Follow up:* As scheduled, sooner if needed. Functional Status Description No Information Available Mental Status Description No Information Available Referrals Description No Information Available
--- OUTSIDE RECORDS SUMMARY | 2020-10-15 08:31 | CCD ---
Author Author [facility] Organization [facility] Address Unknown Phone Unavailable Care Team Providers Care Silk Finisher Name Role Phone Warren Agosto Unavailable PROBLEMS Type Condition ICD9-CM Code [id number] Code Onset Dates Condition S tatus SNOMED Code Notes Problem Fibromyalgia M79.7 Active 89527949 Problem Vitamin D deficiency E55.9 Active 63614463 Problem Chronic constipation K59.00 Active 768037984 Problem Obstructive sleep apnea G47.33 Active 44926552 Problem Dyslipidemia E78.5 Active 622526109 Problem Osteopenia M85.80 Active 766121527 Problem Arthralgia of right temporomandibular joint M26.621 Active 65845032 Problem Tear of left acetabular labrum, sequela S73.192S Active 129966349 Problem Cataract H26.9 Active 579222308 Problem Dystonia G24.9 Active 51898623 Problem Iron deficiency anemia, unspecified iron deficiency an emia type D50.9 Active 67551836 Problem Vaginal atrophy N95.2 Active 002648696 Problem Gastroesophageal reflux disease without esophagitis K21.9 Active 945362813 Problem Primary osteoarthritis of left hip M16.12 Activ e 007858713 Problem Other osteoarthritis involving multiple joints M15 .8 Active 876080697 Problem Basal cell carcinoma of nose C44.311 Active 402 506227 Problem Labral tear of left hip joint S73.192A Active 2 98326057 Problem Gastroesophageal reflux disease, esophagitis pre sence not specified K21.9 Active 128609199 Problem 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 Code:[address]-95) small rash o n torso area Drug Allergy Active ENCOUNTERS from 1957 to 2020-09-03 Encounter Location Date Provider Diagnosis [facility] Dermatology [address] [address] Aug, Warren Miletta Healing wound T14.90XD IMMUNIZATIONS Vaccine Route Administration Date Status Influenza [...] REASON FOR REFERRAL No Information VITAL SIGNS Weight 136.6 lbs Aug, Height 63.5 in Aug, BMI 23.82 kg/m2 Aug, Blood pressure systolic 116 mm Hg Aug, Blood pressure diastolic 70 mm Hg Aug, MEDICATIONS Medication SIG (Take, Route, Frequency, Duration) Notes Start Da te End Date Status Complete Multivitamin/Mineral Active Gabapentin Active Naproxen Active Sulfamethoxazole-Trimethoprim 400-80 MG 1 tablet Orally bid for 21 day(s) Aug, Active Vitamin D Active Ciprofloxacin HCl 500 MG 1 tablet Orally every 12 hrs for 21 day(s) Not-Taking Colace Active Pepcid 40 MG 1 tablet at bedtime Orally Once a day for 30 day(s) Aug, Active Amitriptyline HCl Active Bactrim DS 800-160 MG 1 tablet Orally Twice a day for 10 day(s) Active PROCEDURES No Information RESULTS No Results REASON FOR VISIT nose wound check up MEDICAL (GENERAL) HISTORY Type Description Date Medical History sleep apnea Medical History L shoulder dystonia Medical History chronic neck/back pain due to osteoarthr itis Medical History osteopenia Medical History asthma Medical History polyps in colon benign Medical History fibromyalgia Medical History constipation Medical History partial collapsed lung 2011 Medical History 1.4% ASCVD 10 year risk (06/2015) Medical History GERD Surgical History laminectomy L5-S1 1995 Surgical History [...] Notes Treatment Notes Treatm ent Clinical Notes Aug, Healing wound (ICD-10 - T14.90XD) Given the uneven nature of the scar at the aforementioned site, we opted for dermabrasion to improve clinical appearance. No charge was made for this service. The area was numbed with 1% lidocaine with epinephrine and a sterile bovie scratch pad was used to treat the entire cosmetic subunit of the area. Careful attention was made to feather the edges and a styptic pencil was used to achieve hemostasis. Patient was instructed to apply vaseline to the area until completely healed. PLAN OF TREATMENT Medication Medication Name Sig Start Date Stop Date Complete Multivitamin/Mineral Pepcid 40 MG 1 tablet at bedtime Orally Once a day for 30 day (s) Aug, Vitamin D Treatment Notes Assessment Notes Clinical Notes Healing wound Given the uneven grabiel ure of the scar at the aforementioned site, we opted for dermabrasion to improve clinical appearance. No charge was made for this service. The area was numbed with 1% lidocaine with epinephrine and a sterile bovie scratch pad was used to treat the entire cosmetic subunit of the area. Careful attention was made to feather the edges and a styptic pencil was used to achieve hemostasis. Patient was instructed to apply vaseline to the area until completely healed. Next Appt Details 8 Weeks Reason: Provider Name:Warren Rufino Rghugo, 10-27 04:15:00 PM, 826 [facility], [address] [place] [address], [place], [address], Insurance Providers Payer Name Payer Address Payer Phone Insured Name Patient Relati onship to Insured Coverage Start Date Coverage End Date AETNA MEDICARE AETNA [employer] INSURANCE [employer] [address] [facility] [id number] ERNA BOO self
--- OUTSIDE RECORDS SUMMARY | 2020-10-15 08:31 | CCD ---
Author Author [facility] Organization [facility] Address Unknown Phone Unavailable Care Team Providers Care Bag Washer Name Role Phone Warren Agosto Unavailable PROBLEMS Type Condition ICD9-CM Code YJA18-PS Code Onset Dates Condition S tatus SNOMED Code Notes Problem Fibromyalgia M79.7 Active 32193713 Problem Vitamin D deficiency E55.9 Active 26190434 Problem Chronic constipation K59.00 Active 688799484 Problem Obstructive sleep apnea G47.33 Active 77063966 Problem Dyslipidemia E78.5 Active 073166048 Problem Osteopenia M85.80 Active 358131218 Problem Arthralgia of right temporomandibular joint M26.621 Active 61512254 Problem Tear of left acetabular labrum, sequela S73.192S Active 996562473 Problem Cataract H26.9 Active 221704515 Problem Dystonia G24.9 Active 92905757 Problem Iron deficiency anemia, unspecified iron deficiency an emia type D50.9 Active 35459050 Problem Vaginal atrophy N95.2 Active 735710547 Problem Gastroesophageal reflux disease without esophagitis K21.9 Active 534194761 Problem Primary osteoarthritis of left hip M16.12 Activ e 672705008 Problem Other osteoarthritis involving multiple joints M15 .8 Active 479559064 Problem Basal cell carcinoma of nose C44.311 Active 402 240271 Problem Labral tear of left hip joint S73.192A Active 2 50032022 Problem Gastroesophageal reflux disease, esophagitis pre sence not specified K21.9 Active 624056538 Problem 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 128 574708 Problem Menopausal disorder N95.9 Active 866066808 Problem Myalgia, other site M79.18 Active 73489303 Problem Cervicalgia M54.2 Active 81393777 Problem Cervical spondylosis M47.812 Active 789028810 ALLERGIES Allergen (clinical drug ingredient) Drug/Non Drug Allergy do cumented on EMR Reaction Allergy Type Onset Date Status lactose intolerate Nausea/Vomiting Non Drug Allergy Active caffeine nausea, h/a Non Drug Allergy Active amoxicillin Amoxicillin([facility] Code:[address]-12) small rash o n torso area Drug Allergy Active ENCOUNTERS from 1957 to 2020-09-13 Encounter Location Date Provider Diagnosis [facility] Dermatology [address] [address] Aug, Warren Miletta Healing wound T14.90XD IMMUNIZATIONS [...] Information RESULTS No Results REASON FOR VISIT spot check MEDICAL (GENERAL) HISTORY Type Description Date Medical [...] Notes Aug, Healing wound (ICD-10 - T14.90XD) Site on the nose scaly and crusty s/p dermabrasion. Appears most consistent with superficial skin infection given that it extends beyond the area of dermabrasion. Culture performed, vaseline placed and patient start on broad spectrum abx. PLAN OF TREATMENT Medication Medication Name Sig Start Date Stop Date Complete Multivitamin/Mineral Pepcid 40 MG 1 tablet at bedtime Orally Once a day for 30 day (s) Aug, Vitamin D Treatment Notes Assessment Notes Clinical Notes Healing wound Site on the nose sca ly and crusty s/p dermabrasion. Appears most consistent with superficial skin infection given that it extends beyond the area of dermabrasion. Culture performed, vaseline placed and patient start on broad spectrum abx. Future Test Test Name Order Date WOUND CULTURE AND GRAM ST [id number] Next Appt Details Provider Name:Warren Agosto, 10-27 04:15:00 PM, 826 [facility], [address]st Floor, [place], [address], Insurance Providers Payer Name Payer Address Payer Phone Insured Name Patient Relati onship to Insured Coverage Start Date Coverage End Date AETNA MEDICARE AETNA [employer] INSURANCE [employer] [address] [facility] [id number] ERNA BOO self
--- OUTSIDE RECORDS SUMMARY | 2020-10-15 08:31 | CCD ---
Author Author [facility] Organization [facility] Address Unknown Phone Unavailable Care Team Providers Care Dry House Worker Name Role Phone Yamilex Prather Unavailable PROBLEMS Type Condition ICD9-CM Code CQA63-XB Code Onset Dates Condition S tatus SNOMED Code Notes Problem Fibromyalgia M79.7 Active 22042352 Problem Vitamin D deficiency E55.9 Active 87476212 Problem Chronic constipation K59.00 Active 920523380 Problem Obstructive sleep apnea G47.33 Active 77421750 Problem Dyslipidemia E78.5 Active 490078405 Problem Osteopenia M85.80 Active 001338827 Problem Arthralgia of right temporomandibular joint M26.621 Active 32620756 Problem Tear of left acetabular labrum, sequela S73.192S Active 710835263 Problem Cataract H26.9 Active 266304922 Problem Dystonia G24.9 Active 02692958 Problem Iron deficiency anemia, unspecified iron deficiency an emia type D50.9 Active 51494953 Problem Vaginal atrophy N95.2 Active 329781203 Problem Gastroesophageal reflux disease without esophagitis K21.9 Active 432303882 Problem Primary osteoarthritis of left hip M16.12 Activ e 783681668 Problem Other osteoarthritis involving multiple joints M15 .8 Active 106321356 Problem Basal cell carcinoma of nose C44.311 Active 402 308472 Problem Labral tear of left hip joint S73.192A Active 2 64191926 Problem Gastroesophageal reflux disease, esophagitis pre sence not specified K21.9 Active 474849699 Problem 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 128 463212 Problem Menopausal disorder N95.9 Active 616285171 Problem Myalgia, other site M79.18 Active 82407122 Problem Cervicalgia M54.2 Active 65697884 Problem Cervical spondylosis M47.812 Active 469869464 ALLERGIES Allergen (clinical drug ingredient) Drug/Non Drug Allergy do cumented on EMR Reaction Allergy Type Onset Date Status lactose intolerate Nausea/Vomiting Non Drug Allergy Active caffeine nausea, h/a Non Drug Allergy Active amoxicillin Amoxicillin([facility] Code:[address]-37) small rash o n torso area Drug Allergy Active ENCOUNTERS from 1957 to 2020-09-28 Encounter Location Date Provider Diagnosis [address] [address] Sep, Mernanhan Crescencio Gastroesophageal reflux disease without esophagitis K21.9 IMMUNIZATIONS Vaccine Route Administration Date Status Influenza [...] Notes Start Da te End Date Status Pepcid 40 MG 1 tablet at bedtime Orally Once a day for 30 day(s) Aug, Active Gabapentin Active Naproxen Active Sulfamethoxazole-Trimethoprim 400-80 MG 1 tablet Orally bid for 21 day(s) Aug, Active Vitamin D Active Ciprofloxacin HCl 500 MG 1 tablet Orally every 12 hrs for 21 day(s) Not-Taking Colace Active Complete Multivitamin/Mineral Active Amitriptyline HCl Active Bactrim DS 800-160 MG 1 tablet Orally Twice a day for 10 day(s) Active PROCEDURES No Information RESULTS No Results REASON FOR VISIT famotidine MEDICAL (GENERAL) HISTORY Type Description Date Medical [...] Treatment Notes Treatm ent Clinical Notes Sep, Gastroesophageal reflux dise ase without esophagitis (ICD-10 - K21.9) PLAN OF TREATMENT Medication Medication Name Sig Start Date Stop Date Pepcid 40 MG 1 tablet at bedtime Orally Once a day for 30 day (s) Aug, Complete Multivitamin/Mineral Vitamin D Next Appt Details Provider Name:Warren Agosto, 10-27 04:15:00 PM, 826 [facility], [address]st Floor, [place], [address], Insurance Providers Payer Name Payer Address Payer Phone Insured Name Patient Relati onship to Insured Coverage Start Date Coverage End Date AETNA MEDICARE AETNA [email or web address] INSURANCE [employer] [address] [facility] [id number] ERNA BOO self
--- OUTSIDE RECORDS SUMMARY | 2020-10-15 08:31 | CCD ---
Author Author [facility] Organization [facility] Address Unknown Phone Unavailable Care Team Providers Care Licensed Tax Consultant Name Role Phone Yamilex Prather Unavailable PROBLEMS Type Condition ICD9-CM Code [id number] Code Onset Dates Condition S tatus SNOMED Code Notes Problem Fibromyalgia M79.7 Active 57128335 Problem Vitamin D deficiency E55.9 Active 80612290 Problem Chronic constipation K59.00 Active 422239468 Problem Obstructive sleep apnea G47.33 Active 84788909 Problem Dyslipidemia E78.5 Active 434563795 Problem Osteopenia M85.80 Active 548724425 Problem Arthralgia of right temporomandibular joint M26.621 Active 06762937 Problem Tear of left acetabular labrum, sequela S73.192S Active 106565287 Problem Cataract H26.9 Active 741742322 Problem Dystonia G24.9 Active 39910114 Problem Iron deficiency anemia, unspecified iron deficiency an emia type D50.9 Active 29930819 Problem Vaginal atrophy N95.2 Active 608914412 Problem Gastroesophageal reflux disease without esophagitis K21.9 Active 331380667 Problem Primary osteoarthritis of left hip M16.12 Activ e 080510432 Problem Other osteoarthritis involving multiple joints M15 .8 Active 110235992 Problem Basal cell carcinoma of nose C44.311 Active 402 684176 Problem Labral tear of left hip joint S73.192A Active 2 15577426 Problem Gastroesophageal reflux disease, esophagitis pre sence not specified K21.9 Active 555889557 Problem 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 128 641110 Problem Menopausal disorder N95.9 Active 285889789 Problem Myalgia, other site M79.18 Active 77720912 Problem Cervicalgia M54.2 Active 69397098 Problem Cervical spondylosis M47.812 Active 250569797 ALLERGIES Allergen (clinical drug ingredient) Drug/Non Drug Allergy do cumented on EMR Reaction Allergy Type Onset Date Status lactose intolerate Nausea/Vomiting Non Drug Allergy Active caffeine nausea, h/a Non Drug Allergy Active amoxicillin Amoxicillin([facility] Code:[address]-37) small rash o n torso area Drug Allergy Active ENCOUNTERS from 1957 to 2020-09-04 Encounter Location Date Provider Diagnosis [facility] Resident [address] [place] [address] 18 Aug, 2020 Yamilex Prather Dizziness R42 ; Gastroesopha geal reflux disease without esophagitis K21.9 ; Obstructive sleep apnea G47.33 ; Fibromyalgia M79.7 ; Vitamin D deficiency E55.9 ; Cervicalgia M54.2 ; Basal cell carcinoma of nose C44.311 and Preventative health care Z00.00 IMMUNIZATIONS Vaccine Route Administration Date Status Influenza [...] FOR REFERRAL No Information VITAL SIGNS Weight 135 lbs Aug, Height 63.5 in Aug, BMI 23.54 kg/m2 Aug, Heart Rate 85 /min Aug, Respiratory Rate 17 /min Aug, Temperature 97.4 degrees Fahrenheit Aug, Oximetry 97 Aug, Blood pressure systolic 118 mm Hg Aug, Blood pressure diastolic 64 mm Hg Aug, MEDICATIONS Medication SIG (Take, [...] Information RESULTS No Results REASON FOR VISIT FOLLOW UP (REQUESTED EARLIER APPT THAN SEP) MEDICAL (GENERAL) HISTORY Type Description Date Medical [...] Treatment Notes Treatm ent Clinical Notes Aug, Dizziness (ICD-10 - R42) Pt states that about 2 months ago, she started feeling dizzy when she gets up from a sitting to standing position suddenly. Pt denies loss of consciousness or headaches or vision changes. orthostatics attained and unimpressive. Encouraged to keep hydrated with fluids. Pt also states that she feels ringin in her ears and buzzing sounds that started a month ago- will refer to glued wood tester for a workup of the dizziness possibly 2/2 to inner ear disease Aug, Gastroesophageal reflux dise ase without esophagitis (ICD-10 - K21.9) Aug, Obstructive sleep apnea (ICD-10 - G47.33) compliant wiith CPAP however, since her basal cell carcinoma surgery on her nose per derm, she's been unable to wear it. Aug, Fibromyalgia (ICD-10 - M79.7) Pain is currently somewhat controlled on current regimen Continue Gabapentin Tablet, 600 MG, 1 tablet, Orally, three times daily, Notes: takes 2 x a day Continue Naproxen Tablet, 500 MG, 1 tablet as needed, Orally, every 12 hrs Continue Tylenol PM Extra Strength Tablet, 500-25 MG, 1 tablet at bedtime as needed, Orally, Once a day Continue Amitriptyline HCl Tablet, 25 MG, 1 tablet, Orally, before bedtime Aug, Vitamin D deficiency (ICD-10 - E55.9) Aug, Cervicalgia (ICD-10 - M54.2) Continue current regimen Aug, Basal cell carcinoma of nose (ICD-10 - C44.311) just had basal cell carcinoma on nose surgery per derm. Derm is following. given bactrim by derm for infection of the wound. Aug, Preventative health care (ICD-10 - Z00.00) [place] due next month pt had a complete hysterectomy- no more paps mammo done in jun 2020- wnl PLAN OF TREATMENT Medication Medication Name Sig Start Date Stop Date Complete Multivitamin/Mineral Pepcid 40 MG 1 tablet at bedtime Orally Once a day for 30 day (s) Aug, Vitamin D Treatment Notes Assessment Notes Clinical Notes Dizziness Pt states that about 2 months ago, she started feeling dizzy when she gets up from a sitting to standing position suddenly. Pt denies loss of consciousness or headaches or vision changes.orthostatics attained and unimpressive. Encouraged to keep hydrated with fluids.Pt also states that she feels ringin in her ears and buzzing sounds that started a month ago- will refer to glued wood tester for a workup of the dizziness possibly 2/2 to inner ear disease Obstructive sleep apnea compliant withor CPAP however, since her basal cell carcinoma surgery on her nose per derm, she's been unable to wear it. Fibromyalgia Pain is currently so mewhat controlled on current regimenContinue Gabapentin Tablet, 600 MG, 1 tablet, Orally, three times daily, Notes: takes 2 x a dayContinue Naproxen Tablet, 500 MG, 1 tablet as needed, Orally, every 12 hrsContinue Tylenol PM Extra Strength Tablet, 500-25 MG, 1 tablet at bedtime as needed, Orally, Once a dayContinue Amitriptyline HCl Tablet, 25 MG, 1 tablet, Orally, before bedtime Cervicalgia Continue current reg imen Basal cell carcinoma of nose just had ba luis cell carcinoma on nose surgery per derm. Derm is following. given bactrim by derm for infection of the wound. Preventative health care [place] due next m onthpt had a complete hysterectomy- no more papsmammo done in jun 2020- wnl Next Appt Details 6 Months Reason: Provider Name:Warren Agosto, 10-27 04:15:00 PM, 826 [facility] [place] [facility], 1st Floor, [place], [place], [address], Insurance Providers Payer Name Payer Address Payer Phone Insured Name Patient Relati onship to Insured Coverage Start Date Coverage End Date AETNA MEDICARE AETNA [employer] INSURANCE [employer] [address] [facility] [id number] ERNA BOO self
--- OUTSIDE RECORDS SUMMARY | 2020-10-15 08:32 | CCD ---
Author Author [facility] Organization [facility] Address Unknown Phone Unavailable Care Team Providers Care Board Certified Orthodontist Name Role Phone Hill, A Anahy HOUSE RN Unavailable Unavailable Hill, A Anahy HOUSE RN Unavailable Unavailable Hill, A Anahy HOUSE RN Unavailable Unavailable Hill, A Anahy HOUSE RN Unavailable Unavailable Hill, A Anahy HOUSE RN Unavailable Unavailable Hill, A Anahy HOUSE RN Unavailable Unavailable Hill, A Anahy HOUSE RN Unavailable Unavailable Hill, A Anahy HOUSE RN Unavailable Unavailable Hill, A Anahy HOUSE RN Unavailable Unavailable Hill, A Anahy HOUSE RN Unavailable Unavailable Hill, A Anahy HOUSE RN Unavailable Unavailable Hill, A Anahy HOUSE RN Unavailable Unavailable Hill, A Anahy HOUSE RN Unavailable Unavailable Hill, A Anahy HOUSE RN Unavailable Unavailable Hill, A Anahy HOUSE RN Unavailable Unavailable Hill, A Anahy HOUSE RN Unavailable Unavailable Hill, A Anahy HOUSE RN Unavailable Unavailable Hill, A Anahy HOUSE RN Unavailable Unavailable Hill, A Anahy HOUSE RN Unavailable Unavailable Hill, A Anahy HOUSE RN Unavailable Unavailable Hill, A Anahy HOUSE RN Unavailable Unavailable Ogunsede, Skye HOUSE RN Unavailable Unavailable Ogunsede, Skye HOUSE RN Unavailable Unavailable Ogunsede, Skye HOUSE RN Unavailable Unavailable Ogunsede, Skye HOUSE RN Unavailable Unavailable Ogunsede, Skye HOUSE RN Unavailable Unavailable Ogunsede, Skye HOUSE RN Unavailable Unavailable Ogunsede, Skye HOUSE RN Unavailable Unavailable Ogunsede, Skye HOUSE RN Unavailable Unavailable Ogunsede, Skye HOUSE RN Unavailable Unavailable Ogunsede, Skye HOUSE RN Unavailable Unavailable Ogunsede, Skye HOUSE RN Unavailable Unavailable Ogunsede, Skye HOUSE RN Unavailable Unavailable Ogunsede, Skye HOUSE RN Unavailable Unavailable Ogunsede, Skye HOUSE RN Unavailable Unavailable Ogunsede, Skye HOUSE RN Unavailable Unavailable Ogunsede, Skye HOUSE RN Unavailable Unavailable Ogunsede, Skye HOUSE RN Unavailable Unavailable Ogunsede, Skye HOUSE RN Unavailable Unavailable Ogunsede, Skye HOUSE RN Unavailable Unavailable Ogunsede, Skye HOUSE RN Unavailable Unavailable Ogunsede, Skye HOUSE RN Unavailable Unavailable Ogunsede, Skye HOUSE RN Unavailable Unavailable Ogunsede, Skye HOUSE RN Unavailable Unavailable Maddy CHA MD Unavailable Unavailable MIRIANMaddy CARTER MD Unavailable Unavailable MIRIANMaddy MD Unavailable Unavailable MIRIANMaddy CARTER MD Unavailable Unavailable MIRIANMaddy MD Unavailable Unavailable MIRIANMaddy MD Unavailable Unavailable MIRIANMaddy MD Unavailable Unavailable MIRIANMaddy MD Unavailable Unavailable MIRIANMaddy MD Unavailable Unavailable MIRIANMaddy MD Unavailable Unavailable MIRIANMaddy MD Unavailable Unavailable MIRIANMaddy MD Unavailable Unavailable MIRIANMaddy MD Unavailable Unavailable MIRIANMaddy MD Unavailable Unavailable MIRIANMaddy CARTER MD Unavailable Unavailable MIRIANMaddy CARTER MD Unavailable Unavailable MIRIANMaddy CARTER MD Unavailable Unavailable MIRIANMaddy CARTER MD Unavailable Unavailable MIRIANMaddy CARTER MD Unavailable Unavailable Maddy CHA MD Unavailable Unavailable Maddy CHA MD Unavailable Unavailable Maddy CHA MD Unavailable Unavailable MIRIANMaddy CARTER MD Unavailable Unavailable Maddy CHA MD Unavailable Unavailable MIRIANMaddy CARTER MD Unavailable Unavailable Maddy CHA MD Unavailable Unavailable Maddy CHA MD Unavailable Unavailable Maddy CHA MD Unavailable Unavailable Maddy CHA MD Unavailable Unavailable Maddy CHA MD Unavailable Unavailable Maddy CHA MD Unavailable Unavailable Maddy CHA MD Unavailable Unavailable Maddy CHA MD Unavailable Unavailable Maddy CHA MD Unavailable Unavailable Maddy CHA MD Unavailable Unavailable Tiffany AguilarC Unavailable Unavailable Tiffany AguilarC Unavailable Unavailable Tiffany AguilarC Unavailable Unavailable Tiffany Aguilar-C Unavailable Unavailable Tiffany Aguilar-C Unavailable Unavailable Tiffany Aguilar-C Unavailable Unavailable JeffTiffany torres-C Unavailable Unavailable Jeff, J Rod PA-C Unavailable Unavailable Jeff, Tiffany Velasco PA-C Unavailable Unavailable Jeff, Tiffany Velasco PA-C Unavailable Unavailable Jeff, Tiffany Velasco PA-C Unavailable Unavailable Wetterhahn, Samir MACIAS Unavailable Unavailable Wetterhahn, Samir MACIAS Unavailable Unavailable Wetterhahn, Samir MACIAS Unavailable Unavailable Wetterhahn, Samir MACIAS Unavailable Unavailable Wetterhahn, Samir MACIAS Unavailable Unavailable Wetterhahn, Samir MACIAS Unavailable Unavailable Wetterhahn, Samir MACIAS Unavailable Unavailable Wetterhahn, Samir MACIAS Unavailable Unavailable Wetterhahn, Samir MACIAS Unavailable Unavailable Wetterhahn, Samir MACIAS Unavailable Unavailable Wetterhahn, Samir MACIAS Unavailable Unavailable Wetterhahn, Samir MACIAS Unavailable Unavailable Wetterhahn, Samir MACIAS Unavailable Unavailable Wetterhahn, Samir MACIAS Unavailable Unavailable Wetterhahn, Samir MACIAS Unavailable Unavailable Wetterhahn, Samir MACIAS Unavailable Unavailable Wetterhahn, Samir MACIAS Unavailable Unavailable Wetterhahn, Samir MACIAS Unavailable Unavailable Wetterhahn, Samir MACIAS Unavailable Unavailable Wetterhahn, Samir MACIAS Unavailable Unavailable Wetterhahn, Samir MACIAS Unavailable Unavailable Wetterhahn, Samir MACIAS Unavailable Unavailable Wetterhahn, Samir MACIAS Unavailable Unavailable Wetterhahn, Samir MACIAS Unavailable Unavailable Wetterhahn, Samir MACIAS Unavailable Unavailable Wetterhahn, Samir MACIAS Unavailable Unavailable Wetterhahn, Samir MACIAS Unavailable Unavailable Wetterhahn, Samir MACIAS Unavailable Unavailable Wetterhahn, Samir MACIAS Unavailable Unavailable Wetterhahn, Samir MACIAS Unavailable Unavailable Wetterhahn, Samir MACIAS Unavailable Unavailable WetterhahnSamir MD Unavailable Unavailable Wetterhahn, Samir MACIAS Unavailable Unavailable Wetterhahn, Samir MACIAS Unavailable Unavailable Wetterhahn, Samir MACIAS Unavailable Unavailable Wetterhahn, Samir MACIAS Unavailable Unavailable Wetterhahn, Samir MACIAS Unavailable Unavailable Wetterhahn, Samir MACIAS Unavailable Unavailable Wetterhahn, Samir MACIAS Unavailable Unavailable Wetterhahn, Smair MACIAS Unavailable Unavailable Wetterhahn, Samir MACIAS Unavailable Unavailable Wetterhahn, Samir MACIAS Unavailable Unavailable Wetterhahn, Samir MACIAS Unavailable Unavailable Wetterhahn, Samir MACIAS Unavailable Unavailable Wetterhahn, Samir MACIAS Unavailable Unavailable Wetterhahn, Samir MACIAS Unavailable Unavailable WetterhahnSamir MD Unavailable Unavailable Wetterhahn, Samir MACIAS Unavailable Unavailable Wetterhahn, Samir MACIAS Unavailable Unavailable Wetterhahn, Samir MACIAS Unavailable Unavailable Wetterhahn, Samir MACIAS Unavailable Unavailable WetterhahnSamir MD Unavailable Unavailable WetterhahnSamir MD Unavailable Unavailable Samir Pittman MD Unavailable Unavailable MileyterSamir che MD Unavailable Unavailable MileyterSamir che MD Unavailable Unavailable MileyterSamir che MD Unavailable Unavailable MileyterSamir che MD Unavailable Unavailable Samir Pittman MD Unavailable Unavailable MileyterSamir che MD Unavailable Unavailable Samir Pittman MD Unavailable Unavailable MileyterSamir che MD Unavailable Unavailable Samir Pittman MD Unavailable Unavailable Samir Pittman MD Unavailable Unavailable Samir Pittman MD Unavailable Unavailable Samir Pittman MD Unavailable Unavailable MileyterSamir che MD Unavailable Unavailable Samir Pittman MD Unavailable Unavailable MileyterSamir che MD Unavailable Unavailable Samir Pittman MD Unavailable Unavailable Samir Pittman MD Unavailable Unavailable Bell, Krystyna HOUSE RN Unavailable Unavailable Bell, Krystyna HOUSE RN Unavailable Unavailable Bell, Krystyna HOUSE RN Unavailable Unavailable Bell, Krystyna HOUSE RN Unavailable Unavailable Bell, Krystyna HOUSE RN Unavailable Unavailable Bell, Krystyna HOUSE RN Unavailable Unavailable Bell, Krystyna HOUSE RN Unavailable Unavailable Bell, Krystyna HOUSE RN Unavailable Unavailable Bell, Kyrstyna HOUSE RN Unavailable Unavailable Bell, Krystyna HOUSE RN Unavailable Unavailable Bell, Krystyna HOUSE RN Unavailable Unavailable Vilcant, Viliane Unavailable Unavailable Vilcant, Viliane Unavailable Unavailable Vilcant, Viliane Unavailable Unavailable Vilcant, Viliane Unavailable Unavailable Vilcant, Viliane Unavailable Unavailable Vilcant, Viliane Unavailable Unavailable Vilcant, Viliane Unavailable Unavailable Vilcant, Viliane Unavailable Unavailable Vilcant, Viliane Unavailable Unavailable Vilcant, Viliane Unavailable Unavailable Vilcant, Viliane Unavailable Unavailable Vilcant, Viliane Unavailable Unavailable SAM, M NEELAM PA Unavailable Unavailable SAM, M NEELAM PA Unavailable Unavailable SAM, M NEELAM PA Unavailable Unavailable SAM, M NEELAM PA Unavailable Unavailable SAM, M NEELAM PA Unavailable Unavailable SAM, M NEELAM PA Unavailable Unavailable SAM, M NEELAM PA Unavailable Unavailable SAM, M NEELAM PA Unavailable Unavailable SAM, M NEELAM PA Unavailable Unavailable SAM, M NEELAM PA Unavailable Unavailable SAM, M NEELAM PA Unavailable Unavailable SAM, M NEELAM PA Unavailable Unavailable SAM, M NEELAM PA Unavailable Unavailable SAM, M NEELAM PA Unavailable Unavailable SAM, M NEELAM PA Unavailable Unavailable SAM, M NEELAM PA Unavailable Unavailable SAM, M NEELAM PA Unavailable Unavailable SAM, M NEELAM PA Unavailable Unavailable SAM, M NEELAM PA Unavailable Unavailable SAM, M NEELAM PA Unavailable Unavailable SAM, M NEELAM PA Unavailable Unavailable SAM, M NEELAM PA Unavailable Unavailable SAM, M NEELAM PA Unavailable Unavailable SAM, M NEELAM PA Unavailable Unavailable PRESTON, Jojo CONTRERAS MD Unavailable Unavailable PRESTON, Jojo CONTRERAS MD Unavailable Unavailable PRESTON, Jojo CONTRERAS MD Unavailable Unavailable PRESTON, Jojo CONTRERAS MD Unavailable Unavailable PRESTON, Jojo CONTRERAS MD Unavailable Unavailable PRESTON, Jojo CONTRERAS MD Unavailable Unavailable PRESTON, Jojo CONTRERAS MD Unavailable Unavailable PRESTON, Jojo CONTRERAS MD Unavailable Unavailable PRESTON, Jojo CONTRERAS MD Unavailable Unavailable PRESTON, Jojo CONTRERAS MD Unavailable Unavailable PRESTON, Jojo CONTRERAS MD Unavailable Unavailable PRESTON, Jojo CONTRERAS MD Unavailable Unavailable PRESTON, Jojo CONTRERAS MD Unavailable Unavailable PRESTON, Jojo CONTRERAS MD Unavailable Unavailable PRESTON, Jojo CONTRERAS MD Unavailable Unavailable PRESTON, Jojo CONTRERAS MD Unavailable Unavailable PRESTON, Jojo CONTRERAS MD Unavailable Unavailable PRESTON, Jojo CONTRERAS MD Unavailable Unavailable PRESTONJojo MD Unavailable Unavailable PRESTON, Jojo CONTRERAS MD Unavailable Unavailable PRESTON, Jojo CONTRERAS MD Unavailable Unavailable PRESTON, Jojo CONTRERAS MD Unavailable Unavailable PRESTON, Jojo CONTRERAS MD Unavailable Unavailable PRESTON, Jojo CONTRERAS MD Unavailable Unavailable PRESTON, Jojo CONTRERAS MD Unavailable Unavailable PRESTON, Jojo CONTRERAS MD Unavailable Unavailable PRESTONJojo MD Unavailable Unavailable PRESTON, Jojo CONTRERAS MD Unavailable Unavailable PRESTONJojo MD Unavailable Unavailable PRESTONJojo MD Unavailable Unavailable PRESTON, Jojo CONTRERAS MD Unavailable Unavailable PRESTON, Jojo CONTRERAS MD Unavailable Unavailable PRESTON, Jojo CONTRERAS MD Unavailable Unavailable PRESTONJojo MD Unavailable Unavailable PRESTONJojo MD Unavailable Unavailable PRESTONJojo MD Unavailable Unavailable PRESTONJojo MD Unavailable Unavailable PRESTONJojo MD Unavailable Unavailable PRESTON, Jojo CONTRERAS MD Unavailable Unavailable PRESTON, Jojo CONTRERAS MD Unavailable Unavailable PRESTON, Jojo CONTRERAS MD Unavailable Unavailable PRESTON, Jojo CONTRERAS MD Unavailable Unavailable PRESTON, Jojo CONTRERAS MD Unavailable Unavailable PRESTON, Jojo CONTRERAS MD Unavailable Unavailable PRESTON, Jojo CONTRERAS MD Unavailable Unavailable PRESTON, Jojo CONTRERAS MD Unavailable Unavailable PRESTON, Jojo CONTRERAS MD Unavailable Unavailable PRESTON, Jojo CONTRERAS MD Unavailable Unavailable PRESTON, Jojo CONTRERAS MD Unavailable Unavailable PRESTON, Jojo CONTRERAS MD Unavailable Unavailable PRESTON, Jojo CONTRERAS MD Unavailable Unavailable PRESTON, T DIANE MACIAS Unavailable Unavailable PRESTON, Jojo CONTRERAS MD Unavailable Unavailable PRESTON, Jojo CONTRERAS MD Unavailable Unavailable PRESTON, Jojo CONTRERAS MD Unavailable Unavailable PRESTON, Jojo CONTRERAS MD Unavailable Unavailable PRESTON, Jojo CONTRERAS MD Unavailable Unavailable PRESTON, Jojo CONTRERAS MD Unavailable Unavailable PRESTON, Jojo CONTRERAS MD Unavailable Unavailable PRESTON, Jojo CONTREARS MD Unavailable Unavailable PRESTON, Jojo CONTRERAS MD Unavailable Unavailable PRESTON, Jojo CONTRERAS MD Unavailable Unavailable PRESTON, Jojo CONTRERAS MD Unavailable Unavailable PRESTON, Jojo CONTRERAS MD Unavailable Unavailable PRESTON, Jojo CONTRERAS MD Unavailable Unavailable PRSETON, T DIANE MACIAS Unavailable Unavailable PRESTON, T DIANE MACIAS Unavailable Unavailable PRESTON, T DIANE MACIAS Unavailable Unavailable PRESTON, Jojo CONTRERAS MD Unavailable Unavailable PRESTON, Jojo CONTRERAS MD Unavailable Unavailable PRESTON, Jojo CONTRERAS MD Unavailable Unavailable PRESTON, Jojo CONTRERAS MD Unavailable Unavailable PRESTON, Jojo CONTRERAS MD Unavailable Unavailable PRESTON, Jojo CONTRERAS MD Unavailable Unavailable PRESTON, Jojo CONTRERAS MD Unavailable Unavailable PRESTON, Jojo CONTRERAS MD Unavailable Unavailable PRESTON, Jojo CONTRERAS MD Unavailable Unavailable PRESTON, Jojo CONTRERAS MD Unavailable Unavailable RPESTON, Jojo CONTRERAS MD Unavailable Unavailable PRESTON, Jojo CONTRERAS MD Unavailable Unavailable PRESTON, Jojo CONTRERAS MD Unavailable Unavailable PRESTON, Jojo CONTRERAS MD Unavailable Unavailable PRESTON, Jojo CONTRERAS MD Unavailable Unavailable PRESTON, Jojo CONTRERAS MD Unavailable Unavailable PRESTON, Jojo CONTRERAS MD Unavailable Unavailable PRESTON, Jojo CONTRERAS MD Unavailable Unavailable PRESTON, Jojo CONTRERAS MD Unavailable Unavailable PRESTON, Jojo CONTRERAS MD Unavailable Unavailable PRESTON, Jojo CONTRERAS MD Unavailable Unavailable PRESTON, Jojo CONTRERAS MD Unavailable Unavailable PRESTON, Jojo CONTRERAS MD Unavailable Unavailable PRESTON, Jojo CONTRERAS MD Unavailable Unavailable PRESTON, Jojo CONTRERAS MD Unavailable Unavailable PRESTON, Jojo CONTRERAS MD Unavailable Unavailable PRESTON, Jojo CONTRERAS MD Unavailable Unavailable PRESTON, Jojo CONTRERAS MD Unavailable Unavailable PRESTON, Jojo CONTRERAS MD Unavailable Unavailable PRESTON, Jojo CONTRERAS MD Unavailable Unavailable PRESTON, Jojo CONTRERAS MD Unavailable Unavailable PRESTON, Jojo CONTRERAS MD Unavailable Unavailable PRESTON, Jojo CONTRERAS MD Unavailable Unavailable PRESTON, Jojo CONTRERAS MD Unavailable Unavailable PRESTON, Jojo CONTRERAS MD Unavailable Unavailable PRESTON, Jojo CONTRERAS MD Unavailable Unavailable PRESTON, Jojo CONTRERAS MD Unavailable Unavailable PRESTON, Jojo COTNRERAS MD Unavailable Unavailable PRESTON, Jojo CONTRERAS MD Unavailable Unavailable PRESTON, Jojo CONTRERAS MD Unavailable Unavailable PRESTON, Jojo CONTRERAS MD Unavailable Unavailable PRESTON, Jojo CONTRERAS MD Unavailable Unavailable PRESTON, Jojo CONTRERAS MD Unavailable Unavailable PRESTON, Jojo CONTRERAS MD Unavailable Unavailable PRESTON, Jojo CONTRERAS MD Unavailable Unavailable PRESTON, Jojo CONTRERAS MD Unavailable Unavailable PRESTON, T DIANE MACIAS Unavailable Unavailable Reuben, L Zora HOUSE RN Unavailable Unavailable Reuben, L Zora HOUSE RN Unavailable Unavailable Reuben, L Zora HOUSE RN Unavailable Unavailable Reuben, L Zora HOUSE RN Unavailable Unavailable Reuben, L Zora HOUSE RN Unavailable Unavailable Reuben, L Zora HOUSE RN Unavailable Unavailable Reuben, L Zora HOUSE RN Unavailable Unavailable Reuben, L Zora HOUSE RN Unavailable Unavailable Reuben, L Zora HOUSE RN Unavailable Unavailable Reuben, L Zora HOUSE RN Unavailable Unavailable Reuben, L Zora HOUSE RN Unavailable Unavailable Reuben, L Zora HOUSE RN Unavailable Unavailable Reuben, L Zora HOUSE RN Unavailable Unavailable Reuben, L Zora HOUSE RN Unavailable Unavailable Reuben, L Zora HOUSE RN Unavailable Unavailable Reuben, L Zora HOUSE RN Unavailable Unavailable Reuben, L Zora HOUSE RN Unavailable Unavailable Reuben, L Zora HOUSE RN Unavailable Unavailable Reuben, L Zora HOUSE RN Unavailable Unavailable Reuben, L Zora HOUSE RN Unavailable Unavailable Reuben, L Zora HOUSE RN Unavailable Unavailable Reuben, L Zora HOUSE RN Unavailable Unavailable Re-disclosure Warning The records that you are about to access may contain information from federally-assisted alcohol or drug abuse programs. If such information is present, then the following federally mandated warning applies: This information has been disclosed to you from records protected by federal confidentiality rules (42 CFR part 2). The federal rules prohibit you from making any further disclosure of this information unless further disclosure is expressly permitted by the written consent of the person to whom it pertains or as otherwise permitted by 42 CFR part 2. A general authorization for the release of medical or other information is NOT sufficient for this purpose. The Federal rules restrict any use of the information to criminally investigate or prosecute any alcohol or drug abuse patient.The records that you are about to access may contain highly sensitive health information, the redisclosure of which is protected by Article 27-F of the [facility] Public Health law. If you continue you may have access to information: Regarding HIV / AIDS; Provided by facilities licensed or operated by the [facility] Office of Mental Health; or Provided by the [facility] Office for People With Developmental Disabilities. If such information is present, then the following [facility] mandated warning applies: This information has been disclosed to you from confidential records which are protected by state law. State law prohibits you from making any further disclosure of this information without the specific written consent of the person to whom it pertains, or as otherwise permitted by law. Any unauthorized further disclosure in violation of state law may result in a fine or care home sentence or both. A general authorization for the release of medical or other information is NOT sufficient authorization for further disc losure. Allergies and Adverse Reactions Type Description Substance Reaction Status Data Source(s ) Food allergy COFFEE COFFEE NAUSEA VOMITING [facility] Food allergy milk milk NAUSEA [place] [facility] ENVIRONMENTAL POLLEN POLLEN [place] [facility] ENVIRONMENTAL DUST DUST [facility] Drug allergy AMOXICILLIN AMOXICILLIN RASH [place] [facility] Drug allergy Amoxicillin Amoxicillin small rash on torso area Active eCW1 ([facility]) caffeine caffeine caffeine nausea, h/a Active eCW1 ([facility]) lactose intolerate lactose intolerate lactose intolerate Nausea/Vom iting Active eCW1 ([facility]) caffeine caffeine caffeine nausea, h/a Active eCW1 ([facility]) lactose intolerate lactose intolerate lactose intolerate Nausea/Vom iting Active eCW1 ([facility]) caffeine caffeine caffeine nausea, h/a Active eCW1 ([facility]) lactose intolerate lactose intolerate lactose intolerate Nausea/Vom iting Active eCW1 ([facility]) caffeine caffeine caffeine nausea, h/a Active eCW1 ([facility]) lactose intolerate lactose intolerate lactose intolerate Nausea/Vom iting Active eCW1 ([facility]) caffeine caffeine caffeine nausea, h/a Active eCW1 ([facility]) lactose intolerate lactose intolerate lactose intolerate Nausea/Vom iting Active eCW1 ([facility]) caffeine caffeine caffeine nausea, h/a Active eCW1 ([facility]) lactose intolerate lactose intolerate lactose intolerate Nausea/Vom iting Active eCW1 ([facility]) caffeine caffeine caffeine nausea, h/a Active eCW1 ([facility]) lactose intolerate lactose intolerate lactose intolerate Nausea/Vom iting Active eCW1 ([facility]) Family History Family Member Name Family Member Gender Family Member Status Date o f Status Description Data Source(s) Unknown Unknown Problem [facility] ([facility]) father Unknown Unknown Problem MEDENT ([facility]) father [place] Unknown Male Problem MEDENT ([facility] () Unknown Female Problem MEDENT ([facility]) Unknown Female Problem MEDENT ([facility]) Unknown Female Problem MEDENT ([facility]) Unknown Male Problem MEDENT ([facility]) Unknown Unknown Encounters Encounter Providers Location Date Indications Data Source(s ) Unknown [address] [facility] [place] [id number] 10/07/2020 12:00:00 AM EST eCW1 ([facility]) Outpatient [address] [facility] [place] [id number] 10/07/2020 12:00:00 AM EST eCW1 [facility]) Unknown [address] [place] [id number] 09/27/2020 12:00:00 AM EST eCW1 ([facility]) Outpatient Attender: Anahy Pierce NPReferrer: Samir elder MD 09/21/2020 09:41:00 AM EST [facility] Postop visit [address] [place] [address] Y [id number] 09/03/2020 12:00:00 AM EST eCW1 [facility]) Outpatient [address] [facility] [place] [id number] 09/03/2020 12:00:00 AM EST eCW1 ([facility]) Outpatient [address] [facility] [place] [id number] 08/31/2020 12:00:00 AM EST eCW1 ([facility]) Outpatient Attender: Anahy Pierce NPReferrer: Samir elder MD 08/04/2020 12:09:42 PM EST [facility] Postop visit [address] [place] [address] Y [id number] 07/07/2020 12:00:00 AM EDT eCW1 ([facility]) Postop visit [address] [place] [address] Y [id number] 06/29/2020 12:00:00 AM EDT eCW1 ([facility]) Emergency Attender: Rod WOODALLCConsultant: Nav uDnn 06/28/2020 05:24:00 PM EDT - 06/28/2020 08:32:00 PM EDT [facility] Patient discharged. Unknown [address] [facility] [id number] 06/28/2020 12:00:00 AM EDT eCW1 ([facility]) Recurring Patient Attender: Anahy Pierce NPReferrer: DIANE Nguyen MD 06/25/2020 02:15:45 PM EDT [facility] Outpatient [address] [facility] [id number] 06/21/2020 12:00:00 AM EDT eCW1 ([facility]) Outpatient Attender: Anahy Pierce NPReferrer: Samir elder MD 06/18/2020 08:54:36 AM EDT [facility] Outpatient Attender: YUMI Cha/Elinor/Rui/Reind l 06/15/2020 09:45:00 AM EDT MEDENT ([facility]) Postop visit [address] [facility], [facility] [id number] 06/15/2020 12:00:00 AM EDT eCW1 ([facility]) Outpatient Attender: YUMI Cha/Elinor/Rui/Reind l 04/26/2020 09:30:00 AM EDT [facility] ([facility]) Recurring Patient Attender: Anahy Pierce NPReferrer: DIANE Nguyen MD 04/21/2020 10:48:27 AM EDT [facility] Office Visit, Est Pt., Level 3 PC [address] [place] [address] 04/09/2020 12:00:00 AM EDT eCW1 ([facility]) Recurring Patient Attender: Anahy Pierce NPReferrer: DIANE Nguyen MD 04/08/2020 02:54:37 PM EDT [facility] Outpatient [address] [facility] [place] [address] 04/06/2020 12:00:00 AM EDT eCW1 [facility] [facility]) Outpatient Attender: Anahy Pierce NPReferrer: Samir elder MD 04/02/2020 02:23:06 PM EDT [facility] [place] [address] [facility] [place] [address] 03/30/2020 12:00:00 AM EDT eCW1 ([facility]) Outpatient [address] [facility] [place] [address] 03/30/2020 12:00:00 AM EDT eCW1 ([facility]) Outpatient Attender: NEELAM MONTGOMERY Physical Therapy 02/15 09:00:00 AM EDT MEDENT ([facility]) Unknown [address] [facility] [phone] 02/23/2020 12:00:00 AM EDT eCW1 ([facility]) Outpatient Attender: Skye Valladares NPReferrer: Samir malhotra MD 02/18/2020 08:53:15 AM EDT [facility] Outpatient Attender: Zora Cha/Elinor/Rui/Rene 02/10/2020 02:00:00 PM EDT MEDENT ([facility]) [facility] [address] [place] [phone] 02/10/2020 12:00:00 AM EDT eCW1 ([facility]) [facility] [address] [place] [phone] 01/26/2020 12:00:00 AM EDT eCW1 ([facility]) [facility] [address] [place] [phone] 01/23/2020 12:00:00 AM EDT eCW1 ([facility]) [facility] [address] [place] [phone] 12/22/2019 12:00:00 AM EDT eCW1 ([facility]) [facility] [place] [address] [place] [phone] 12/12/2019 12:00:00 AM EDT eCW1 ([facility]) [facility] [address] [place] [phone] 11/24/2019 12:00:00 AM EDT eCW1 ([facility]) Outpatient Attender: Anahy Pierce NPReferrer: Samir elder MD 11/17/2019 12:15:35 PM EST [facility] Outpatient Attender: Krystyna patel 10/28/2019 08:00:00 AM EST MEDENT ([facility]) [facility] GME Resident [address] [place] [phone] 10/17/2019 12:00:00 AM EST eCW1 ([facility]) [facility] [address] [place] [phone] 10/15/2019 12:00:00 AM EST eCW1 ([facility]) [facility] [address] [place] [address] 10/14/2019 12:00:00 AM EST eCW1 ([facility]) Outpatient Attender: Anahy Pierce NPReferrer: Samir elder MD 09/30/2019 01:51:00 PM EST [facility] GME Resident [address] [place] [phone] 09/26/2019 12:00:00 AM EST eCW1 ([facility]) [facility] [address] [place] [phone] 09/24/2019 12:00:00 AM EST eCW1 ([facility]) [facility] [place] [address] [place] [phone] 09/09/2019 12:00:00 AM EST eCW1 ([facility]) [facility] [address] [place] [phone] 08/29/2019 12:00:00 AM EST eCW1 ([facility]) [facility] [address] [place] [phone] 08/19/2019 12:00:00 AM EST eCW1 ([facility]) Medications Medication Brand Name Start Date Product Form Dose Route Admi nistrative Instructions Pharmacy Instructions Status Indications Reaction Description Data Source(s) 500 mg 09/04/2020 12:00:00 AM EST tablet 20 TAKE ONE TABLET BY MOUTH TWICE A DAY FOR 10 DAYS TAKE ONE TABLET BY MOUTH TWICE A DAY FOR 10 DAYS SOLD: 09/04/2020 [facility] Famotidine 40 MG Oral Tablet [Pepcid] Pepcid 40 MG Pepcid 40 MG 09/03/2020 12:00:00 AM EST 1.0 {tablet_at_bedtime} active Pepcid 40 MG eCW1 ([facility]) Famotidine 40 MG Oral Tablet [Pepcid] Pepcid 40 MG Pepcid 40 MG 09/03/2020 12:00:00 AM EST 1.0 {tablet_at_bedtime} active Pepcid 40 MG eCW1 ([facility]) Famotidine 40 MG Oral Tablet [Pepcid] Pepcid 40 MG Pepcid 40 MG 09/03/2020 12:00:00 AM EST 1.0 {tablet_at_bedtime} active Pepcid 40 MG eCW1 ([facility]) Sulfamethoxazole 400 MG / Trimethoprim 8 0 MG Oral Tablet Sulfamethoxazole- Trimethoprim 400-80 MG Sulfamethoxazole-Trimethoprim 400-80 MG 09/03/2020 12:00:00 AM EST 1.0 {tablet} active Sulfamethoxazole-Trimethoprim 400-80 MG eCW1 ([facility]) Sulfamethoxazole 400 MG / Trimethoprim 8 0 MG Oral Tablet Sulfamethoxazole- Trimethoprim 400-80 MG Sulfamethoxazole-Trimethoprim 400-80 MG 09/03/2020 12:00:00 AM EST 1.0 {tablet} active Sulfamethoxazole-Trimethoprim 400-80 MG eCW1 ([facility]) Sulfamethoxazole 400 MG / Trimethoprim 8 0 MG Oral Tablet Sulfamethoxazole- Trimethoprim 400-80 MG Sulfamethoxazole-Trimethoprim 400-80 MG 09/03/2020 12:00:00 AM EST 1.0 {tablet} active Sulfamethoxazole-Trimethoprim 400-80 MG eCW1 ([facility]) Sulfamethoxazole 400 MG / Trimethoprim 8 0 MG Oral Tablet Sulfamethoxazole- Trimethoprim 400-80 MG Sulfamethoxazole-Trimethoprim 400-80 MG 09/03/2020 12:00:00 AM EST 1.0 {tablet} suspended Sulfamethoxazole-Trimethoprim 400-80 MG eCW1 ([facility]) Sulfamethoxazole 400 MG / Trimethoprim 8 0 MG Oral Tablet Sulfamethoxazole- Trimethoprim 400-80 MG Sulfamethoxazole-Trimethoprim 400-80 MG 09/03/2020 12:00:00 AM EST 1.0 {tablet} active Sulfamethoxazole-Trimethoprim 400-80 MG eCW1 ([facility]) Famotidine 40 MG Oral Tablet [Pepcid] Pepcid 40 MG Pepcid 40 MG 09/03/2020 12:00:00 AM EST 1.0 {tablet_at_bedtime} active Pepcid 40 MG eCW1 ([facility]) Famotidine 40 MG Oral Tablet [Pepcid] Pepcid 40 MG Pepcid 40 MG 09/03/2020 12:00:00 AM EST 1.0 {tablet_at_bedtime} active Pepcid 40 MG eCW1 ([facility]) Sulfamethoxazole 400 MG / Trimethoprim 8 0 MG Oral Tablet Sulfamethoxazole- Trimethoprim 400-80 MG Sulfamethoxazole-Trimethoprim 400-80 MG 09/03/2020 12:00:00 AM EST 1.0 {tablet} suspended Sulfamethoxazole-Trimethoprim 400-80 MG eCW1 ([facility]) Famotidine 40 MG Oral Tablet [Pepcid] Pepcid 40 MG Pepcid 40 MG 09/03/2020 12:00:00 AM EST 1.0 {tablet_at_bedtime} active Pepcid 40 MG eCW1 ([facility]) Suprep Bowel Prep Kit Suprep Bowel Prep Kit 07/30/2020 12:00:00 AM EST active MEDENT ([facility], ) magnesium citrate 58.2 MG/ML Oral Solution Magnesium Citrate 07/30/2020 12:00:00 AM EST active [facility] ([facility] ) Ciprofloxacin 500 MG Oral Tablet Ciprofloxacin HCl 500 MG Ciprofloxacin HCl 500 MG 07/07/2020 12:00:00 AM EDT 1.0 {tablet} activ e Ciprofloxacin HCl 500 MG eCW1 ([facility]) Ciprofloxacin 500 MG Oral Tablet Ciprofloxacin HCl 500 MG Ciprofloxacin HCl 500 MG 07/07/2020 12:00:00 AM EDT 1.0 {tablet} activ e Ciprofloxacin HCl 500 MG eCW1 ([facility]) Oxycodone HCl 5 MG UNK 06/22/2020 12:00:00 AM EDT 1.0 {table t_as_needed} active Oxycodone HCl 5 MG eCW1 ([facility]) Oxycodone HCl 5 MG UNK 06/22/2020 12:00:00 AM EDT 1.0 {table t_as_needed} active Oxycodone HCl 5 MG eCW1 ([facility]) Acetaminophen 325 MG / Oxycodone Hydroch loride 5 MG Oral Tablet Oxycodone- Acetaminophen 5-325 MG Oxycodone-Acetaminophen 5-325 MG 06/22/2020 12:00:00 A M EDT 1.0 {tablet_as_needed} active O xycodone-Acetaminophen 5-325 MG eCW1 ([facility]) 5-325 mg 06/22/2020 12:00:00 AM EDT tablet 28 TAKE 1 TABLET BY MOUTH EVERY 6 HOURS NEEDED, MAXIMUM DAILY DOSE = 4 TABLETS TAKE 1 TABLET BY MOUTH EVERY 6 HOURS NEEDED, MAXIMUM DAILY DOSE = 4 TABLETS SOLD: 06/22/2020 [facility] Oxycodone HCl 5 MG UNK 06/22/2020 12:00:00 AM EDT 1.0 {table t_as_needed} active Oxycodone HCl 5 MG eCW1 ([facility]) Oxycodone HCl 5 MG UNK 06/22/2020 12:00:00 AM EDT 1.0 {table t_as_needed} active Oxycodone HCl 5 MG eCW1 ([facility]) Acetaminophen 325 MG / Oxycodone Hydroch loride 5 MG Oral Tablet Oxycodone- Acetaminophen 5-325 MG Oxycodone-Acetaminophen 5-325 MG 06/22/2020 12:00:00 A M EDT 1.0 {tablet_as_needed} active O xycodone-Acetaminophen 5-325 MG eCW1 ([facility]) Acetaminophen 325 MG / Oxycodone Hydroch loride 5 MG Oral Tablet Oxycodone- Acetaminophen 5-325 MG Oxycodone-Acetaminophen 5-325 MG 06/22/2020 12:00:00 A M EDT 1.0 {tablet_as_needed} active O xycodone-Acetaminophen 5-325 MG eCW1 ([facility]) Acetaminophen 325 MG / Oxycodone Hydroch loride 5 MG Oral Tablet Oxycodone- Acetaminophen 5-325 MG Oxycodone-Acetaminophen 5-325 MG 06/22/2020 12:00:00 A M EDT 1.0 {tablet_as_needed} active O xycodone-Acetaminophen 5-325 MG eCW1 ([facility]) Sulfamethoxazole 800 MG / Trimethoprim 1 60 MG Oral Tablet Sulfamethoxazole- Trimethoprim 800-160 MG Sulfamethoxazole-Trimethoprim 800-160 MG 06/21/2020 12:00:00 AM EDT 1.0 {tablet} active Sulfamethoxazole-Trimethoprim 800-160 MG eCW1 ([facility]) Sulfamethoxazole 800 MG / Trimethoprim 1 60 MG Oral Tablet Sulfamethoxazole- Trimethoprim 800-160 MG Sulfamethoxazole-Trimethoprim 800-160 MG 06/21/2020 12:00:00 AM EDT 1.0 {tablet} active Sulfamethoxazole-Trimethoprim 800-160 MG eCW1 ([facility]) Sulfamethoxazole 800 MG / Trimethoprim 160 MG Oral Tab let 800-160 mg SULFAMETHOXAZOLE/TRIMETHOPRIM 06/21/2020 12:00:00 AM EDT tablet 20 TAKE ONE TABLET BY MOUTH TWICE A DAY FOR 10 DAYS TAKE ONE TABLET BY MOUTH TWICE A DAY FOR 10 DAYS SOLD: 06/21/2020 [facility] Sulfamethoxazole 800 MG / Trimethoprim 1 60 MG Oral Tablet Sulfamethoxazole- Trimethoprim 800-160 MG Sulfamethoxazole-Trimethoprim 800-160 MG 06/21/2020 12:00:00 AM EDT 1.0 {tablet} active Sulfamethoxazole-Trimethoprim 800-160 MG eCW1 ([facility]) Sulfamethoxazole 800 MG / Trimethoprim 1 60 MG Oral Tablet Sulfamethoxazole- Trimethoprim 800-160 MG Sulfamethoxazole-Trimethoprim 800-160 MG 06/21/2020 12:00:00 AM EDT 1.0 {tablet} active Sulfamethoxazole-Trimethoprim 800-160 MG eCW1 ([facility]) doxycycline hyclate 100 MG Oral Capsule DOXYCYCLINE HYCLATE 06/10/2020 12:00:00 AM EDT capsule 28 TAKE ONE CAPSULE BY MOUTH TW ICE A DAY TAKE ONE CAPSULE BY MOUTH TWICE A DAY SOLD: 06/11/2020 [facility] 4 mg 06/10/2020 12:00:00 AM EDT tablet,disintegrating 2 0 DISSOLVE ONE TABLET ON TONGUE EVERY 8 HOURS NEEDED DISSOLVE ONE TABLET ON TONGUE EVERY 8 HO URS NEEDED SOLD: 06/11/2020 [facility] duloxetine 20 MG Delayed Release Oral Capsule Duloxetine HCL 03/09/2020 12:00:00 AM EDT active MEDENT ([facility]) duloxetine 20 MG Delayed Release Oral Capsule Duloxetine HCL 02/25/2020 12:00:00 AM EDT ORAL completed MEDENT ([facility]) CPAP 01/14/2020 12:00:00 AM EDT active MEDENT ([facility]) Omeprazole 20 MG Delayed Release Oral Capsule Omeprazole 20 MG 12/12/2019 12:00:00 AM EDT suspended Omepr azole 20 MG eCW1 ([facility]) Omeprazole 20 MG Delayed Release Oral Capsule Omeprazole 20 MG 12/12/2019 12:00:00 AM EDT suspended Omepr azole 20 MG eCW1 ([facility]) Omeprazole 20 MG Delayed Release Oral Capsule Omeprazole 20 MG 12/12/2019 12:00:00 AM EDT suspended Omepr azole 20 MG eCW1 ([facility]) Omeprazole 20 MG Delayed Release Oral Capsule Omeprazole 20 MG 12/12/2019 12:00:00 AM EDT suspended 1 capsule 30 minutes before morning meal eCW1 ([facility]) Omeprazole 20 MG Delayed Release Oral Capsule Omeprazole 20 MG 12/12/2019 12:00:00 AM EDT suspended 1 capsule 30 minutes before morning meal eC ([facility]) Omeprazole 20 MG Delayed Release Oral Capsule Omeprazole 20 MG 12/12/2019 12:00:00 AM EDT suspended Omepr azole 20 MG eCW1 ([facility]) Omeprazole 20 MG Delayed Release Oral Capsule Omeprazole 20 MG 12/12/2019 12:00:00 AM EDT suspended Omepr azole 20 MG eCW1 ([facility]) Omeprazole 20 MG Delayed Release Oral Capsule Omeprazole 20 MG 12/12/2019 12:00:00 AM EDT active 1 capsul e 30 minutes before morning meal eCW1 ([facility]) Omeprazole 20 MG Delayed Release Oral Capsule Omeprazole 20 MG 12/12/2019 12:00:00 AM EDT suspended Omepr azole 20 MG eCW1 ([facility]) Omeprazole 20 MG Delayed Release Oral Capsule Omeprazole 20 MG 12/12/2019 12:00:00 AM EDT suspended Omepr azole 20 MG eCW1 ([facility]) Omeprazole 20 MG Delayed Release Oral Capsule Omeprazole 20 MG 12/12/2019 12:00:00 AM EDT suspended 1 capsule 30 minutes before morning meal eCW1 ([facility]) Omeprazole 20 MG Delayed Release Oral Capsule Omeprazole 20 MG 12/12/2019 12:00:00 AM EDT suspended 1 capsule 30 minutes before morning meal eCW1 ([facility]) Omeprazole 20 MG Delayed Release Oral Capsule Omeprazole 20 MG 12/12/2019 12:00:00 AM EDT suspended Omepr azole 20 MG eCW1 ([facility]) 60 ACTUAT Albuterol 0.09 MG/ACTUAT Metered Dose Inhaler Albu terol Sulfate HFA 10/28/2019 12:00:00 AM EST RESPIRATORY active MEDENT ([facility]) Cyclobenzaprine hydrochloride 5 MG Oral Tablet Cyclobe nzaprine HCl 5 MG Cyclobenzaprine HCl 5 MG 09/24/2019 12:00:00 AM EST suspended 1 tablet as needed eCW1 ([facility]) Cyclobenzaprine hydrochloride 5 MG Oral Tablet Cyclobe nzaprine HCl 5 MG Cyclobenzaprine HCl 5 MG 09/24/2019 12:00:00 AM EST 1.0 {tablet_as_ needed} suspended Cyclobenzaprine HCl 5 MG eCW1 ([facility]) Cyclobenzaprine hydrochloride 5 MG Oral Tablet Cyclobe nzaprine HCl 5 MG Cyclobenzaprine HCl 5 MG 09/24/2019 12:00:00 AM EST 1.0 {tablet_as_ needed} suspended Cyclobenzaprine HCl 5 MG eCW1 ([facility]) Cyclobenzaprine hydrochloride 5 MG Oral Tablet Cyclobe nzaprine HCl 5 MG Cyclobenzaprine HCl 5 MG 09/24/2019 12:00:00 AM EST 1.0 {tablet_as_ needed} suspended Cyclobenzaprine HCl 5 MG eCW1 ([facility]) Cyclobenzaprine hydrochloride 5 MG Oral Tablet Cyclobe nzaprine HCl 5 MG Cyclobenzaprine HCl 5 MG 09/24/2019 12:00:00 AM EST 1.0 {tablet_as_ needed} suspended Cyclobenzaprine HCl 5 MG eCW1 ([facility]) Cyclobenzaprine hydrochloride 5 MG Oral Tablet Cyclobe nzaprine HCl 5 MG Cyclobenzaprine HCl 5 MG 09/24/2019 12:00:00 AM EST suspended 1 tablet as needed eCW1 ([facility]) Cyclobenzaprine hydrochloride 5 MG Oral Tablet Cyclobe nzaprine HCl 5 MG Cyclobenzaprine HCl 5 MG 09/24/2019 12:00:00 AM EST 1.0 {tablet_as_ needed} suspended Cyclobenzaprine HCl 5 MG eCW1 ([facility]) Cyclobenzaprine hydrochloride 5 MG Oral Tablet Cyclobe nzaprine HCl 5 MG Cyclobenzaprine HCl 5 MG 09/24/2019 12:00:00 AM EST active 1 tablet as needed eCW1 ([facility]) Cyclobenzaprine hydrochloride 5 MG Oral Tablet Cyclobe nzaprine HCl 5 MG Cyclobenzaprine HCl 5 MG 09/24/2019 12:00:00 AM EST 1.0 {tablet_as_ needed} suspended Cyclobenzaprine HCl 5 MG eCW1 ([facility]) Cyclobenzaprine hydrochloride 5 MG Oral Tablet Cyclobe nzaprine HCl 5 MG Cyclobenzaprine HCl 5 MG 09/24/2019 12:00:00 AM EST active 1 tablet as needed eCW1 ([facility]) Cyclobenzaprine hydrochloride 5 MG Oral Tablet Cyclobe nzaprine HCl 5 MG Cyclobenzaprine HCl 5 MG 09/24/2019 12:00:00 AM EST active 1 tablet as needed eCW1 ([facility]) Cyclobenzaprine hydrochloride 5 MG Oral Tablet Cyclobe nzaprine HCl 5 MG Cyclobenzaprine HCl 5 MG 09/24/2019 12:00:00 AM EST 1.0 {tablet_as_ needed} suspended Cyclobenzaprine HCl 5 MG eCW1 ([facility]) Cyclobenzaprine hydrochloride 5 MG Oral Tablet Cyclobe nzaprine HCl 5 MG Cyclobenzaprine HCl 5 MG 09/24/2019 12:00:00 AM EST suspended 1 tablet as needed eCW1 ([facility]) Cyclobenzaprine hydrochloride 5 MG Oral Tablet Cyclobe nzaprine HCl 5 MG Cyclobenzaprine HCl 5 MG 09/24/2019 12:00:00 AM EST 1.0 {tablet_as_ needed} suspended Cyclobenzaprine HCl 5 MG eCW1 ([facility]) Cyclobenzaprine hydrochloride 5 MG Oral Tablet Cyclobe nzaprine HCl 5 MG Cyclobenzaprine HCl 5 MG 09/24/2019 12:00:00 AM EST active 1 tablet as needed eCW1 ([facility]) Cyclobenzaprine hydrochloride 5 MG Oral Tablet Cyclobe nzaprine HCl 5 MG Cyclobenzaprine HCl 5 MG 09/24/2019 12:00:00 AM EST active 1 tablet as needed eCW1 ([facility]) Insurance Providers Payer name Policy type / Coverage type Policy ID Covered republican ID Covered republican's relationship to thompson Policy Thompson Plan Information AETNA MEDICARE [id number] SP [id number] STATE INSURANCE FUND [id number] SP [id number] AETNA MEDICARE [id number] SP [id number] STATE INSURANCE FUND [id number] SP [id number] WORKMENS COMP AND NO FAULT OTHER -O/P PERFECTO Ledezma 18 PERFECTO Ledezma [facility] INS FUND -PHYSICIAN UNAVAILABLE 20 UNAVAILABLE STATE INS FUND -O/P [id number] 20 [id number] [facility] INS FUND -O/P [id number] 20 [id number] AETNA MEDICARE [id number] SP [id number] AETNA MEDICARE O [id number] S [id number] STATE INSURANCE FUND [id number] SP [id number] AETNA MEDICARE [id number] SP [id number] STATE INSURANCE FUND [id number] SP [id number] STATE INSURANCE FUND [id number] SP [id number] STATE INSURANCE FUND [id number] SP [id number] STATE INSURANCE FUND [id number] SP [id number] STATE INSURANCE FUND O [id number] O [id number] AETNA MEDICARE O [id number] S [id number] STATE INSURANCE FUND [id number] SP [id number] [place] [id number] SP [id number] ANSI-Medicare Part B [id number] ANSI-Medicare Part B [id number] ANSI-Commercial [id number] AETNA MEDICARE [id number] SP [id number] AETNA MEDICARE [id number] SP [id number] ANSI-Medicare Part B [id number] ANSI-Medicare Part B [id number] ANSI-Commercial [id number] [employer] [facility] Part B [id number] Self [id number] State Ins Fund () Workers Compensation [id number] Self [id number] ANSI-Medicare Part B [id number] ANSI-Medicare Part B [id number] ANSI-Commercial [id number] [place] [facility] Part B [id number] Self [id number] Medicare - NGS Medicare Primary [id number] Self [id number] [employer] Commercial [id number] Self [id number] Aetna Medicare Commercial [id number] Self [id number] [id number] [place] Commercial [id number] Self [id number] ANSI-Medicare Part B [id number] ANSI-Commercial [id number] ANSI-Medicare Part B [id number] ANSI-Commercial [id number] ANSI-Medicare Part B [id number] ANSI-Medicare Part B [id number] United HLCR/Medicare Solu Commercial [id number] Self [id number] [facility] INSURANCE [facility] O [id number] S [id number] ANSI-Commercial [id number] ANSI-Medicare Part B [id number] ANSI-Medicare Part B [id number] ANSI-Medicare Part B [id number] ANSI-Commercial [id number] ANSI-Medicare Part B [id number] WORKMENS COMP AND NO FAULT OTHER -O/P [id number] 18 [id number] ANSI-Medicare Part B [id number] ANSI-Medicare Part B [id number] ANSI-Commercial [id number] [place] Medigap Part B [id number] Self [id number] Medicare - NGS Medicare Primary [id number] Self [id number] AETNA MEDICARE [id number] SP [id number] [facility] Medicare Commercial [id number] Self [id number] Aetna Medicare Commercial [id number] Self MEBN [id number] MEDICARE [id number] SP [id number] A AETNA MEDICARE [id number] SP [id number] [facility] Medicare Commercial [id number] Self [id number] [facility] Medicare Commercial [id number] Self [id number] [place] [facility] Medicare Primary [id number] Self [id number] AETNA MEDICARE O [id number] S [id number] AETNA MEDICARE COMPLETE G [id number] Self [id number] MEDICARE COMPLETE [id number] SP [id number] United CR/Medicare Solu Commercial [id number] Self [id number] WORKERS COMPENSATION [place] [id number] S [id number] BC/BS [place] Medigap Part B [id number] Self [id number] Medicare - NGS Medicare Primary [id number] Self [id number] [employer] Commercial [id number] Self [id number] [employer] Medigap Part B Self State Ins Fund ([place]) Workers Compensation Self WORKERS COMPENSATION [place] [id number] [place] Workers Compensation Self United HLCR/Medicare Solu Commercial Self [employer] UNHC MEDICARE -O/P [id number] 18 [id number] STATE INSURANCE FUND [id number] SP [id number] STATE INSURANCE FUND [id number] SP [id number] [place] Medigap Part B [place] Primary Self State Ins Fund ([place]) Workers Compensation Self STATE INSURANCE FUND P [id number] S [id number] MEDICARE COMPLETE [id number] SP [id number] STATE INSURANCE FUND [id number] SP [id number] Problems, Conditions, and Diagnoses Code Display Name Description Problem Type Effective Dates Data Source(s) C44.311 [id number] Basal cell carcinoma of nose Problem 06/21/2020 12:00:00 AM EDT eCW1 ([facility]) K21.9 [id number] Gastroesophageal reflux disease without e sophagitis Problem 04/09/2020 12:00:00 AM EDT eCW1 ([facility]) M47.812 [id number] Cervical spondylosis Problem 03/30/2020 12:0 0:00 AM EDT eCW1 ([facility]) M54.2 88909896 Cervicalgia Problem 08/18/2019 12:00:[address] eCW1 ([facility]) M79.18 47689304 Myalgia, other site Problem 08/18/2019 12:00 :00 AM EST eCW1 ([facility]) M54.2 46856804 Cervicalgia Problem 08/18/2019 12:00:[address] eCW1 ([facility]) M79.18 [id number] Myalgia, other site Problem 08/18/2019 12:00 :00 AM EST eCW1 ([facility]) G8929 Other chronic pain Other chronic pain Diagnosis 08/2020 05:24:00 PM EDT [facility] M545 Low back pain Low back pain Diagnosis 06/28/2020 05:24:00 PM EDT [facility] Surgeries/Procedures Procedure Description Date Indications Data Source(s) RADEX SPINE CRV COMPL W/OBLQ&FLEX&/XTN STDS 02/25/2020 12:00:00 AM EDT MEDDAKSHA ([facility] ) TeleMedicine Est. Pt. Level 3 02/10/2020 12:00:00 AM E DT eCW1 ([facility]) INJ TRIGGER POINT 09/18 MUSCL 01/26/2020 12:00:00 AM EDT eCW1 ([facility]) ESTABILISHED PATIENT [facility] CHARGE 020 12:00:00 AM EDT eCW1 ([facility]) Eligible professional attests to samuel armstrong in the medical record they obtained, updated, or reviewed the patient's current medications 09/24/2019 12:00:00 AM EST eCW1 ([facility]) Pain assessment documented as positive u sing a standardized tool and a follow-up plan is documented 09/24/2019 12:00:00 AM EST radha CARR1 ([facility]) Results ID Date Data Source [id number] 10/10/2020 09:00:00 AM EST [facility] Name Value Range Interpretation Code Description Data Marisel rce(s) Supporting Document(s) SARS coronavirus 2 RNA Not Detected [facility] [place] This lab was ordered by [facility] and reported by [facility]. ID Date Data Source [id number] 09/21/2020 09:41:00 AM EST [facility] PC[facility]: Sylvie You: 1955Provider: Sania Pierce: 09/20/2020 Chief ComplaintLeft hip, back, and cervical spine pain resulting from a Worker's Comp. injury Chief Complaint 2NYSW VAS PAIN Established: MA completing section: TODUME History of Present IllnessRecent test/procedures: Patient was asked and denies having any tests since their last visit. Patient was asked and denies being seen by any Physicians since their last visit. The patient was last seen by a [facility] provider on 08/03/2020. At today's visit patient presents with their Self Implanted Devices The patient does not have any implanted devices. The patient does not have a glucose monitoring device. Patient is not currently working. The patient is being seen for a post block examination. The workers compensation date of injury is 10/11/1994. - Nerve Block: Pertinent Information on a BILATERAL, LUMBAR, MEDIAL BRANCH NERVE BLOCK. Targeting the L3 L4 level, L4 L5 level and L5 S1 level . -06-06 [place]. 80-100 % of pain relief was provided lasting for 1-28 day(s). Allows patient to increase activity and functionality Including the following activities for longer periods of time with less pain: activities of daily living, sleeping, walking, standing, sitting and grocery shopping. INTERVAL EVENTS: include . Patient here today to follow-up on left hip, back, and neck pain resulting from a Worker's Comp. injury that occurred on 10/11/1994. Patient here today for follow-up of bilateral lumbar diagnostic medial branch block injections completed on 08/16/2020 and 08/25/2020 targeting L3-S1 with sedation with Dr. Parkinson. At the time she reported between 80 and 100% relief. This pain relief lasted between 1(1st injection) and 28 days(2nd injection) Has been utilizing amitriptyline, gabapentin, naproxen and Tylenol PM for pain control. Review of SystemsConstitutional: Normal. Eyes: Normal. ENT: normal. Cardiovascular: Normal. Respiratory: Normal. Gastrointestinal: Normal. Genitourinary: Normal. Musculoskeletal: neck pain, lower back pain and joint pain. Integumentary: Normal. Neurological: Normal. Psychiatric: Normal. Endocrine: Normal. Hematologic/Lymphatic: Normal. Active Problems 1. Chronic pain (338.29) (G89.29) 2. Degenerative disc disease, lumbar (722.52) (M51.36) 3. Encounter for preprocedure screening laboratory testing for COVID-19 (V72.63,V01.79) (Z01.812,Z20.828) 4. Left hip pain (719.45) (M25.552) 5. Lumbar radiculopathy (724.4) (M54.16) 6. 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 Trochanteric bursitis (726.5) (M70.60) Allergies Amoxicillin TABS Rash; Recorded By: Jean Montano; 01/23/2019 2:37:50 PMDenied Adhesive Tape Recorded By: Jean Montano; 01/23/2019 2:37:50 PM Iodinated Contrast Media Recorded By: Jean Montano; 01/23/2019 2:37:50 PM Latex Recorded By: Jean Montano; 01/23/2019 2:37:50 PM Current Meds Amitriptyline HCl TABS;Therapy: (Recorded:23Jan2019) to Recorded Gabapentin 600 MG Oral Tablet; TAKE 1 TABLET TWICE DAILY;Therapy: 23Jan2019 to (Evaluate:[id number]) Requested for: 17Jun2020; LastRx:17Jun2020 Ordered Melatonin TABS;Therapy: (Recorded:23Jan2019) to Recorded Multi-Vitamin TABS;Therapy: (Recorded:) to Recorded Naproxen 500 MG Oral Tablet;Therapy: (Recorded:23Jan2019) to Recorded Pepcid 20 MG Oral Tablet;Therapy: 28Jul2019 to Recorded Senokot TABS;Therapy: (Recorded:26Sep2019) to Recorded Tylenol PM Extra Strength 1000- 50 MG/30ML Oral Liquid;Therapy: (Recorded:23Jan2019) to Recorded Vitamin D CAPS;Therapy: (Recorded:23Jan2019) to Recorded Past Medical History History of anemia (V12.3) (Z86.2) Denied: History of anticoagulant therapy History of arthritis (V13.4) (Z87.39) History of asthma (V12.69) (Z87.09) Denied: History of coagulation defect History of herpes zoster (V12.09) (Z86.19) History of hypotension (V12.59) (Z86.79) History of neck pain (V13.59) (Z87.39) Surgical History Denied: History of Cardioverter defibrillator insertion History of Cataract surgery History of Hip replacement History of Hysterectomy History of Knee surgery History of Lumbar laminectomy History of Nose surgery Denied: History of Permanent pacemaker insertion Family History Family history of arthritis (V17.7) (Z82.61) Family history of cardiac disorder (V17.49) (Z82.49) Family history of diabetes mellitus (V18.0) (Z83.3) Family history of hypertension (V17.49) (Z82.49) Family history of malignant neoplasm (V16.9) (Z80.9) Family history of cardiac disorder (V17.49) (Z82.49) Family history of hypertension (V17.49) (Z82.49) Family history of arthritis (V17.7) (Z82.61) Family history of arthritis (V17.7) (Z82.61) Social History Current non-drinker of alcohol (V49.89) (Z78.9) Disabled Never a smoker No illicit drug use VitalsVital Signs Recorded: 20Sep2020 11:25AM Height: 5 ft 3 inWeight: 134 lb BMI Calculated: 23.74BSA Calculated: 1.63Systolic: 114, SittingDiastolic: 59, SittingHeart Rate: 63Respiration: 16Temperature: 97.9 FHeight measured w/wo shoes: w/shoesPain Scale: 3-4 Physical ExamGeneral: The patient is a well nourished/well developed, female, with a medium build, who is in mild distress, appears stated age and Patient is utilizing a cane at this visit. Eyes: Lids are atraumatic, no lesions, sclerae are anicteric. currently wearing eyeglasses. Ears, Nose, Mouth, Throat: Patient wearing a mask due to COVID-19. Respiratory: Normal chest expansion and respiratory effort. Gait and Station: Gait was antalgic. Skin: Warm, dry, acyanotic. Psychological: Alert and oriented to person, place and time. Mood and affect are pleasant and appropriate. Judgement intact. Insight normal without delusions or hallucinations. Denies suicidal/homicidal ideation. Verified ResultsCT scan at the hospital completed which did show moderate to severe arthritis at L2-L3 and L5-S1. Assessment 1. Chronic pain (338.29) (G89.29) 2. Osteoarthritis of lumbar spine (721.3) (M47.816) Plan 1. Renew: Gabapentin 600 MG Oral Tablet; TAKE 1 TABLET TWICE DAILY 2. Follow-up in 6 weeks Follow Up Follow-up Status: Hold For - Scheduling Requested for: [id number] Appointment for 15 or 30 minutes : Schedule 15 minute appointment Medication:. There are no changes in current medications at this visit. Patient instructed to continue current regimen. Treatment includes: PROCEDURE(S): The patient defers blocks/procedures at this time THERAPIES: Therapy Treatment Plan: Deferred: All Therapies: Deferred: per patient request. FOLLOW UP: The patient should have a follow up visit in 6 weeks. CONTINUE TREATMENT: La will continue with the following:. La is participating in a home exercise program and is encouraged to continue. - CLOSET ORGANIZER: The patient was counseled on the following: treatment plan and future treatment options. Discussion/SummaryPatient here today to follow-up on left hip, back, and neck pain resulting from a Worker's Comp. injury that occurred on 10/11/1994. The skin cancer that she had removed from the bridge of her nose had to have subsequent surgery which then became infected. Patient here today for follow-up of bilateral lumbar diagnostic medial branch block injections completed on 08/16/2020 and 08/25/2020 targeting L3-S1 with sedation with Dr. Parkinson. At the time she reported between 80 and 100% relief. This pain relief lasted between 1(1st injection) and 28 days(2nd injection) Has been utilizing amitriptyline, gabapentin, naproxen and Tylenol PM for pain control. Refills were provided for the gabapentin at today's visit. We did discuss the possibility of moving forward with RFA but she wishes to wait on this. Her pain is only a 4. She will follow up in 6 weeks at which point we will decide whether or not therapeutic facet blocks versus RFA is warranted. Work / School NotePATIENT: if you submit this to your employer as an out of work note please be aware this includes PHI (Protected Health Information). The incident described by the patient is a competent medical cause of this injury. The patient's complaints are consistent with the history of the injury/illness. The patient's history of the injury/illness is consistent with my objective findings. The patient is not working at this time. The incident described by the patient is a competent medical cause of this injury. The patient's complaints are consistent with the history of the injury/illness. The patient's history of the injury/illness is consistent with my objective findings. Patient is on permanent disability. Disability rating is 33 %. [facility] Medical DisclaimerN[place]WC [employer] Medical Disclaimer: This document was dictated and electronically signed using [employer] software. A reasonable attempt at proof reading has been made to minimize errors. Please call with any questions. Signatures Electronically signed by : Anahy Pierce NP; Sep 20 2020 12:02PM EST (Author) Electronically signed by : Emerson Malone MD; Sep 21 2020 9:40AM EST Name Value Range Interpretation Code Description Data Marisel rce(s) Supporting Document(s) ID Date Data Source [id number] 08/20/2020 10:00:00 AM EST [facility] Name Value Range Interpretation Code Description Data Marisel rce(s) Supporting Document(s) SARS coronavirus 2 RNA [facility] This lab was ordered by [facility] and reported by [facility]. ID Date Data Source [id number] 08/11/2020 12:00:00 PM EST [facility] Name Value Range Interpretation Code Description Data Marisel rce(s) Supporting Document(s) SARS coronavirus 2 RNA [facility] This lab was ordered by [facility] and reported by [facility]. ID Date Data Source [id number] 08/04/2020 12:09:42 PM EST [facility], PCName: Sylvie GroveLAVELLE: 1955Provider: Sania Pierce: 08/03/2020 Chief ComplaintLeft hip, back, neck pain resulting from Worker's Comp. injury that occurred on 10/11/1994 status post block follow-up Chief Complaint 2NYSW VAS PAIN Established: 6 MA completing section: Jose Harkins CMA History of Present IllnessRecent test/procedures: Patient has had the following tests/procedures since their last visit: CT- lumbar. Date of test/procedure: 06/2020. Patient has been seen by the following physician since their last visit: [facility]- The patient was last seen by a [facility] provider on 06/17/2020. At today's visit patient presents with their Self Implanted Devices The patient does not have any implanted devices. The patient does not have a glucose monitoring device. The patient is being seen for a post block examination. The workers compensation date of injury is 10/11/94. - Nerve Block: Pertinent Information JOINT INJECTION: (07/05/2020 May[place]) ON a LEFT, TROCHANTERIC BURSA INJECTION.. 50 % of pain relief was provided which is ongoing. Allows patient to increase activity and functionality Including the following activities for longer periods of time with less pain: better sleep. INTERVAL EVENTS: include . Patient here today to follow-up on left hip, back, and neck pain resulting from a Worker's Comp. injury that occurred on 10/11/1994. She underwent a left hip bursa injection on 07/05/2020 for which she reports a 50% reduction of pain and symptoms. Today her back is most troublesome to her. She reports that she was recently in the ER. Patient underwent an EMG which showed a chronic left S1 radiculopathy. Has been utilizing amitriptyline, gabapentin, naproxen and Tylenol PM for pain control. Review of SystemsConstitutional: Normal. Eyes: Normal. ENT: normal. Cardiovascular: Normal. Respiratory: Normal. Gastrointestinal: Normal. Genitourinary: Normal. Musculoskeletal: lower back pain, neck pain and joint pain. Integumentary: Normal. Neurological: Normal. Psychiatric: Normal. Endocrine: Normal. Hematologic/Lymphatic: Normal. Active Problems 1. Chronic pain (338.29) (G89.29) 2. Left hip pain (719.45) (M25.552) 3. Lumbar rad iculopathy (724.4) (M54.16) 4. Trochanteric bursitis (726.5) (M70.60) Allergies Amoxicillin TABS Rash; Recorded By: Jean Montano; 01/23/2019 2:37:50 PMDenied Adhesive Tape Recorded By: Jean Montano; 01/23/2019 2:37:50 PM Iodinated Contrast Media Recorded By: Jean Montano; 01/23/2019 2:37:50 PM Latex Recorded By: Jean Montano; 01/23/2019 2:37:50 PM Current Meds Amitriptyline HCl TABS;Therapy: (Recorded:23Jan2019) to Recorded Gabapentin 600 MG Oral Tablet; TAKE 1 TABLET TWICE DAILY;Therapy: 23Jan2019 to (Evaluate:15Oct2020) Requested for: 17Jun2020; LastRx:17Jun2020 Ordered Melatonin TABS;Therapy: (Recorded:23Jan2019) to Recorded Multi-Vitamin TABS;Therapy: (Recorded:23Jan2019) to Recorded Naproxen 500 MG Oral Tablet;Therapy: (Recorded:23Jan2019) to Recorded Pepcid 20 MG Oral Tablet;Therapy: 28Jul2019 to Recorded Senokot TABS;Therapy: (Recorded:26Sep2019) to Recorded Tylenol PM Extra Strength 1000-50 MG/30ML Oral Liquid;Therapy: (Recorded:23Jan2019) to Recorded Vitamin D CAPS;Therapy: (Recorded:23Jan2019) to Recorded Past Medical History History of anemia (V12.3) (Z86.2) Denied: History of anticoagulant therapy History of arthritis (V13.4) (Z87.39) History of asthma (V12.69) (Z8 7.09) Denied: History of coagulation defect History of herpes zoster (V12.09) (Z86.19) History of hypotension (V12.59) (Z86.79) History of neck pain (V13.59) (Z87.39) Surgical History Denied: History of Cardioverter defibrillator insertion History of Cataract surgery History of Hip replacement History of Hysterectomy History of Knee surgery History of Lumbar laminectomy History of Nose surgery Denied: History of Permanent pacemaker insertion Family History Family history of arthritis (V17.7) (Z82.61) Family history of cardiac disorder (V17.49) (Z82.49) Family history of diabetes melli tus (V18.0) (Z83.3) Family history of hypertension (V17.49) (Z82.49) Family history of malignant neoplasm (V16.9) (Z80.9) Family history of cardiac disorder (V17.49) (Z82.49) Family history of hypertension (V17.49) (Z82.49) Family history of arthritis (V17.7) (Z82.61) Family history of arthritis (V17.7) (Z82.61) Social History Current non-drinker of alcohol (V49.89) (Z78.9) Disabled Never a smoker No illicit drug use VitalsVital Signs Recorded: 03Aug2020 11:33AM Height: 5 ft 3 inWeight: 133 lb BMI Calculated: 23.56BSA Calculated: 1.63Systolic: 130, SittingDiastolic: 74, SittingHeart Rate: 72Respiration: 16Temperature: 97.5 FHeight measured w/wo shoes: w/shoesPain Scale: 6 Physical ExamGeneral: The patient is a well nourished/well developed, female, with a medium build, who is in moderate distress, appears stated age and Patient is utilizing a cane at this visit. Eyes: Lids are atraumatic, no lesions, sclerae are anicteric. currently wearing eyeglasses. Ears, Nose, Mouth, Throat: Patient wearing a mask due to COVID-19. Respiratory: Normal chest expansion and respiratory effort. Gait and Station: Gait was antalgic. Lungs are clear to auscultation bilaterally Cardiovascular: Extremities without peripheral edema, auscultation of heart reveals S1, S2 regular rate and rhythm, without murmur.Lumbosacral Spine:- Inspection: normal appearance. No deformity, ecchymosis, erythema or swelling noted. Normal Lordosis..- Palpation/Tenderness: No SI, paraspinous, or sciatic notch tenderness. - ROM Flexion: was restricted, was painful. - ROM Extension: was not restricted, was painful.Right Lower Extremity Motor:- Hip: 5/5 flexion, 5/5 extension- Knee: 5/5 flexion, 5/5 extension- Foot: 5/5 Plantar , 5/5 DorsiFlexionSpecial Tests: flip test was negative and positive facet challenge Left Lower Extremity Motor:- Hip: 5/5 flexion, 5/5 extension- Knee: 5/5 flexion, 5/5 extension- Foot: 5/5 Plantar , 5/5 DorsiFlexionSpecial Tests: flip test was negative and positive facet challenge Neurological:Sensation Left Lower: normalSensation Right Lower: normal. Skin: Warm, dry, acyanotic. Psychological: Alert and oriented to person, place and time. Mood and affect are pleasant and appropriate. Judgement intact. Insight normal without delusions or hallucinations. Denies suicidal/homicidal ideation. Assessment 1. Chronic pain (338.29) (G89.29) 2. Left hip pain (719.45) (M25.552) 3. Trochanteric bursitis (726.5) (M70.60) 4. Osteoarthritis of lumbar spine (721.3) (M47.816) 5. Degenerative disc disease, lumbar (722.52) (M51.36) Plan 1. Block (Diagnostic Facet 2 wks apart) ([facility]) Referral Procedure Procedure Status: Hold For - Scheduling Requested for: [id number] Type : WC Within GuidelinesIs patient currently on a biologic? : NoIs patient taking Aspirin 325 mg or greater...? : NoIs your patient on an Anticoagulant -OR- have Coagulopathy...? : NoSedation : YesArea : LumbarProfessional Meat And Poultry Inspector needed for block? : NoFront Desk Reminder: : Schedule the Status Post BlockBlock should be booked with: : _First Available ProviderPt weight: SODS: </= 450 lbs. HODS: </= 400 lbs. ENTER WEIGHT: : 133Diagnostic Facet Block Order : book 2 weeks apart and book follow up 4-6 weeksIF PT has Thrombocytopenia are platelets > /= 100,000 ? : NAAre you ordering pyhsical therapy...? : NoDoes patient require a Sergey lift? : NoIs this an urgent request? : No - This is not an urgent requestCovid Risk : Low Risk Medication:. There are no changes in current medications at this visit. Patient instructed to continue current regimen. Treatment includes: PROCEDURE(S): - Nerve Block Plan: I am ordering a, BILATERAL, LUMBAR, FACET JOINT MEDIAL BRANCH NERVE BLOCK. Definitive levels to be determined by the interventional physician based on fluoroscopic imaging and symptomatology at the time of the procedure. This procedure is , targeting the L2 L3 level, L3 L4 level, L4 L5 level and under fluoroscopy with SEDATION. NERVE BLOCK: The material risks, benefits, alternatives have been discussed with the patient, including no treatment. They include, but are not limited to, bleeding, bruising, infection, damage to targeted and non-targeted tissue, increased pain, nerve injury or other reaction, if severe, could lead to CVA, arrhythmias or . The patient was given procedure instructions and educational material for this specific procedure at the time of the visit.- Bleeding Disorder: Patient denies having a bleeding disorder. - Anticoagulation therapy:. Patient denies current treatment with anti-coagulation therapy. THERAPIES: Therapy Treatment Plan: Deferred: All Therapies: Deferred: per patient request. FOLLOW UP: The patient should have a follow up visit 4 weeks post block. CONTINUE TREATMENT: La will continue with the following:. La is participating in a home exercise program and is encouraged to continue. - CLOSET ORGANIZER: The patient was counseled on the following: treatment plan and future treatment options. Discussion/SummaryPatient here today to follow-up on left hip, back, and neck pain resulting from a Worker's Comp. injury that occurred on 10/11/1994. She underwent a left hip bursa injection on 07/05/2020 for which she reports a 50% reduction of pain and symptoms. Today her back is most troublesome to her. She reports that she was recently in the ER due to severe right-sided lumbar spine pain where she received a morphine injection which was helpful to her pain. When she went to the ER she was having difficulty ambulating. Patient underwent an EMG which showed a chronic left S1 radiculopathy. Has been utilizing amitriptyline, gabapentin, naproxen and Tylenol PM for pain control. She did have a CT scan at the hospital completed which did show moderate to severe arthritis at L2-L3 and L5-S1. Based on subjective and objective findings at today's visit and the fact that her pain is mostly axial in nature I do believe that she would benefit from diagnostic facet blocks which I placed an order for today's visit. Risks and benefits reviewed. Education material provided. We will target L2-S1. She screens as low risk on the coronavirus screening tool and was made aware of this and wishes to proceed with injection. If these are successful we will likely move forward with a rhizotomy. We will see her back in the office 4 weeks after this has been completed. Work / School NotePATIENT: if you submit this to your employer as an out of work note please be aware this includes PHI (Protected Health Information). The incident described by the patient is a competent medical cause of this injury. The patient's complaints are consistent with the history of the injury/illness. The patient's history of the injury/illness is consistent with my objective findings. The patient is not working at this time. The incident described by the patient is a competent medical cause of this injury. The patient's complaints are consistent with the history of the injury/illness. The patient's history of the injury/illness is consistent with my objective findings. Patient is on permanent disability. Disability rating is 33 %. [facility] Medical DisclaimerN[facility]WC [employer] Medical Disclaimer: This document was dictated and electronically signed using [employer] software. A reasonable attempt at proof reading has been made to minimize errors. Please call with any questions. Signatures Electronically signed by : Anahy Pierce NP; Aug 03 2020 12:29PM EST (Author) Electronically signed by : Jean Rao MD; Aug 04 2020 12:09PM EST Name Value Range Interpretation Code Description Data Marisel rce(s) Supporting Document(s) ID Date Data Source [id number] 07/01/2020 12:30:00 PM EDT [facility] Name Value Range Interpretation Code Description Data Marisel rce(s) Supporting Document(s) SARS coronavirus 2 RNA [Presence] in Res piratory specimen by KAM with probe detection [facility] This lab was ordered by [facility] and reported by [facility]. ID Date Data Source [id number] 06/29/2020 12:42:00 PM EDT [facility] [address] [address] PHONE: [phone] FAX: [phone] Name .................. : PERFECTO Ledezma Acct Number.................. : [id number] ROOM. ................. : TR-02 MR Number ................... : [id number] Stay type ............. : E/R Discharge Date......... ... : 06/28/20 Admit Date ......... : 06/28/20 Admit Phys .................... : JEFF OFELIA Date of ....... : 1955 Family Phys ................... : BINGCANJojo Phone .................. : [phone] Age ................................ : 64 Film# .................. .:[id number] Sex ................................. : F Unsigned transcriptions are preliminary reports and do not represent a medical or legal document CT LUMBAR SP W/O CONT [id number] COMPLETE:06/28/20 18:45 29073 Reason(s): REFORMAT CT OF THE LUMBAR SPINE WITHOUT CONTRAST: INDICATION: Atraumatic low back pain. FINDINGS: Alignment is maintained. Anterior vertebral body heights are maintained. There is no evidence of fracture or dislocation. At L2-3, there is moderate to severe loss of disc space height with a small degenerative disc osteophyte complex causing moderate left neuroforaminal narrowing and moderate to severe right neuroforaminal narrowing. There is a small to moderate disc bulge at L3-4 causing moderate bilateral neuroforaminal narrowing. At L4-5, there is a small to moderate degenerative disc bulge causing mild right neuroforaminal narrowing and moderate to severe left neuroforaminal narrowing. At L5-S1, there is mild loss of disc space height, a moderate disc bulge and vacuum disc phenomenon. This causes no significant right neuroforaminal narrowing and moderate to severe left neuroforaminal narrowing. There is mild apex left scoliosis centered at L3. IMPRESSION: 1. Multiple disc bulges causing neuroforaminal narrowing at L2-3, L3-4, L4-5 and L5-S1. 2. No acute osseous abnormality of the lumbar spine. While performing the above CT examination, radiation dose reduction was accomplished utilizing automated exposure control, adjusting of the mA and kV based on the patient's body size and/or the use of imperative reconstructive techniques. CT dose: 506.6 mGycm [address] [place] [address] PHONE: [phone] FAX: [phone] Name .................. : PERFECTO Ledezma Acct Number.................. : [id number] ROOM. ................. : TR-02 MR Number ................... : [id number] Stay type ............. : E/R Discharge Date......... ... : 06/28/20 Admit Date ......... : 06/28/20 Admit Phys .................... : JEFF OFELIA Date of ....... : 1955 Family Phys ................... : SILVA BANUELOS Phone .................. : [phone] Age ................................ : 64 Film# .................. .:[id number] Sex ................................. : F Unsigned transcriptions are preliminary reports and do not represent a medical or legal document CT LUMBAR SP W/O CONT [id number] COMPLETE:06/28/20 18:45 [id number] Reason(s): REFORMAT Electronically Reviewed and Signed By Neville Murilol M.D. , 1 12:42, [place] Transcribe Initials: DZ , Transcribe Date: 06/29/20 00:36, Dictation Date: Copy for: GENO FARRIS via fax Copy for: JEFF Allen via fax Copy for: 710 MED REC DISCHARGED Page 2 of 2 Name Value Range Interpretation Code Description Data Marisel rce(s) Supporting Document(s) ID Date Data Source [id number] 06/29/2020 12:41:00 [place] [address] PHONE: [phone] FAX: [phone] Name .................. : PERFECTO MCCANNFRANCESCA Ledezma Acct Number.................. : [id number] ROOM. ................. : TR-02 MR Number ................... : [id number] Stay type ............. : E/R Discharge Date......... ... : 06/28/20 Admit Date ......... : 06/28/20 Admit Phys .................... : JEFF OFELIA Date of ....... : 1955 Family Phys ................... : SILVA BANUELOS Phone .................. : [phone] Age ................................ : 64 Film# .................. .:[id number] Sex ................................. : F Unsigned transcriptions are preliminary reports and do not represent a medical or legal document CT ABD & PELV W/[place] [address] COMPLETE:06/28/20 18:45 35101 Reason(s): LBP with transient urinary complaints. CT OF THE ABDOMEN AND PELVIS WITHOUT CONTRAST: INDICATION: Low back pain with transient urinary complaints. FINDINGS: The chest base is clear. There is normal noncontrast appearance of the liver, spleen, pancreas, adrenal glands and kidneys. No gallbladder wall thickening or biliary duct dilatation. There is a small hiatal hernia. The visualized bowel is normal in caliber. The appendix is not definitely visualized, but there are no right lower quadrant inflammatory changes. No bowel wall thickening. The bladder appears normal. The patient appears to be status post hysterectomy. No acute osseous abnormality. The patient is status post total left hip replacement. No lymphadenopathy. IMPRESSION: No acute intra-abdominal process. No evidence of renal stones or hydronephrosis. While performing the above CT examination, radiation dose reduction was accomplished utilizing automated exposure control, adjusting of the mA and kV based on the patient's body size and/or the use of imperative reconstructive techniques. CT dose: 506.6 mGycm Page 1 of 2 [place] [address] PHONE: [phone] FAX: [phone] Name .................. : PERFECTO Ledezma Acct Number.................. : [id number] ROOM. ................. : TR-02 MR Number ................... : [id number] Stay type ............. : E/R Discharge Date......... ... : 06/28/20 Admit Date ......... : 06/28/20 Admit Phys .................... : JEFF OFELIA Date of ....... : 1955 Family Phys ................... : Setup Phone .................. : [phone] Age ................................ : 64 Film# .................. .:[id number] Sex ................................. : F Unsigned transcriptions are preliminary reports and do not represent a medical or legal document CT ABD & PELV W/[place] W/[place] [address] COMPLETE:06/28/20 18:45 [id number] Reason(s): LBP with transient urinary complaints. Electronically Reviewed and Signed By Neville Murillo M.D. , 06/29/20 12:42, [place] Transcribe Initials: ABILIO , Transcribe Date: 06/29/20 00:32, Dictation Date: Copy for: GENO FARRIS via fax Copy for: JEFF Allen via fax Copy for: 710 MED REC DISCHARGED Page 2 of 2 Name Value Range Interpretation Code Description Data Marisel rce(s) Supporting Document(s) ID Date Data Source [id number] 06/28/2020 05:24:00 PM EDT [facility] 1 OrderSheet [facility] Emergency Department [address] [place] [address] Phone #: ext- [phone] 06/28/2020 17:11 Patient: AL GROVE Sex: F : 1955 Age: 64yWEIGHT:58.9 kg (S) HEIGHT:63 inches (S) BMI:23.0ALLERGIES: AmoxicillinCHIEF COMPLAINT: back pain, chronic back painDIAGNOSIS: Lumbar sprainLAB ORDERSOrder Description Priority Entered Acknowledged InitialedUrinalysis (Clean STAT 18:31 06/28/2020 18:36 Lv Regalado) Delfino Lora R.N. P.A.- C;DIAGNOSTIC STUDY ORDERSOrder Description Priority Entered Acknowledged InitialedCT LUMBAR SP STAT 18:31 06/28/2020 Initialed: 18:33 Danyell Regalado R.N.W/O CONT Delfino Lora Cancelled: Other 18:44 Delfino(Oxygen?(No)) P.A.-C; Geno P.A.-C(IV?(No)) Reason for Study: LBPCT ABD PEL W/O STAT 18:45 06/28/2020 18:50 Angela Regalado W/O IV Delfino Lora R.N.Contrast P.A.-C;(Oxygen?(No))(IV?(No)) Reason for Study: LBP with transient urinary compalints.CT LUMBAR SP STAT 18:45 06/28/2020 18:50 Danyell RegaladoW/O CONT Delfino Lora R.N.(Oxygen?(No)) P.A.-C;(IV?(No)) Reason for Study: REFORMATMEDICATION/IV/DRIP/FLUID ORDERSOrder Description Priority Entered Acknowledged InitialedLidocaine Patch 18:31 06/28/2020 19:11 Robinson Wellington (Patch 5 %) Delfino Louise R.N.1 Patch (On for 12 P.A.-C;hours, off for 12hours.)Morphine IM 4 mg 18:31 06/28/2020 18:39 Danyell Regalado 2 OrderSheet [facility] Emergency Department [address] [place] [address] Phone #: [phone]- [phone] 06/28/2020 17:11 Patient: LA GROVE Sex: F : 1955 Age: 64y(HIGH ALERT Delfino Loar R.N.MEDICATION) P.A.-C;Tylenol 1 g PO X1 18:31 06/28/2020 18:39 Sharon Regalado: 1000 mg Delfino Lora R.N.(NOW x1) P.A.-C;GENERAL ORDERSOrder Description Priority Entered Acknowledged Initialed[Electronically signed by Aspen Wellington R.N. (20:06/28/2020)][Electronically signed by Delfino Lora.ARey-Maddy (21:24 06/28/2020)][Electronically locked by Aspen Wellington R.N. (06/28/2020)] Name Value Range Interpretation Code Description Data Marisel rce(s) Supporting Document(s) ID Date Data Source [id number] 06/28/2020 05:24:00 PM EDT [facility] 1 Medication Reconciliation Report [facility] Emergency Department [address] [place] [address] Phone #: ext- [phone] 06/28/2020 17:11 Patient: LA GROVE Sex: F : 1955 Age: 64yWeight: 58.9 kgHeight/Length: 63 in.BMI: 23.0ALLERGIES: AmoxicillinThe patient's Home Medications are listed below:CONTINUE TAKING THE FOLLOWING MEDICATIONS: Amitriptyline HCl Oral (25 mg), daily Melatonin Oral (10 mg), daily Multivitamin Oral Pepcid Oral (20 mg), daily Vitamin D-3 Oral (1000 unit) 2 capsules, dailyCONTINUE TAKING THE FOLLOWING MEDICATIONS UNTIL YOU CHECK WITH YOUR PHYSICIAN: Gabapentin Oral (600 mg), 2x a day Tylenol PM Extra Strength Oral (500-25 mg), daily, at bedtimeThe source(s) of the original Home Medication information:Not obtained.The following Medications were given to the patient in the Emergency Department:Morphine [IM] IM 4 mg, adm inistered: 06/28/2020 6:39:00 PMTylenol [PO] PO 1000 mg, administered: 06/28/2020 6:39:00 PMLidocaine Patch Transdermal 1 patch, administered: 06/28/2020 7:11:00 PMThe following Medications were prescribed to the patient: 2 Medication Reconciliation Report [facility] Emergency Department [address] [place] [address] Phone #: ext- [phone] 06/28/2020 17:11 Patient: LA GROVE Sex: F : 1955 Age: 64yprednisone 50 mg tablet Take 1 tablet once a day with meals for 5 days -- Dispense 5 tablet. Refills: 0.Substitution permitted.Pharmacy - [facility] [id number] ; [place] [address]. FaxNumber: .baclofen 10 mg tablet Take 1 tablet three times a day for 3 days -- Dispense 9 tablet. Refills: 0.Substitution permitted.Pharmacy - [facility] [address] ; [place] [address]. .Lidoderm 5 % topical patch Apply 1 patch single dose for 3 days -- Apply patch to area of pain and leaveon no more than 12hrs and remove. You are able to cut to size. Dispense 3 patch. Refills: 0. Substitutionper mitted.Pharmacy - [facility] [address] ; [place] [address]. . -- Delfino Lora P.A.-C Name Value Range Interpretation Code Description Data Marisel rce(s) Supporting Document(s) ID Date Data Source [id number] 06/28/2020 05:24:00 PM EDT [facility] 1 Medication Administration Record [facility] Emergency Department [address] [place] [address] Phone #: ext- [phone] 06/28/2020 17:11 Patient: LA GROVE Sex: F : 1955 Age: 64yWeight: 58.9 kgHeight/Length: 63 inBMI: 23ALLERGIES: Amoxicillin Date/Time Medication Administered Medication OrderedGiven LIDOCAINE PATCH Lidocaine Patch Topical (Patch 519:11 06/28/2020 Dose: 1 patch Ointment Transdermal %) 1 Patch (On for 12 hours, offAspen Wellington R.N. for 12 hours.)Given MORPHINE [IM] Morphine IM 4 mg (HIGH ALERT18:39 06/28/2020 Dose: 4 mg IM MEDICATION)Danyell Regalado R.N.Given TYLENOL [PO] (APAP) Tylenol 1 g PO X1 dose: 1000 mg18:39 06/28/2020 Dose: 1000 mg Tablets PO (NOW x1)Danyell Regalado R.N. Name Value Range Interpretation Code Description Data Marisel rce(s) Supporting Document(s) ID Date Data Source [id number] 06/28/2020 05:24:00 PM EDT [facility] 1 General Instructions [facility] Emergency Department [address] [place] [address] Phone #: ext- [phone] 06/28/2020 17:11 Patient: LA GROVE Sex: F : 1955 Age: 64y Chronic lumbar strain.INSTRUCTIONS Apply ice for 10 minutes three times a day for one followed by dry heat 10 minutes three times a day for one weeks. Don't apply ice directly to skin, don't use while asleep and don't use high setting on heating pad. No lifting greater than 5 lbs, no bending or stooping or no prolonged sitting for- 1- weeks. No dietary restrictions. (Recommend to defer the gabapentin and Tylenol as you are taking the Hydrocodone that was rx'ed.). Warnings: SEDATIVE MEDICATION: You were given sedative medication during your visit. Do not drive or operate dangerous machinery. GENERAL WARNINGS: Return or contact your physician immediately if your condition worsens or changes unexpectedly, if not improving as expected, or if other problems arise. Your Current Medications: Your current home medications have been reviewed. CONTINUE TAKING THE FOLLOWING MEDICATIONS: Amitriptyline HCl Oral : Tablet 25 mg, daily. Melatonin Oral : Tablet 10 mg, daily. Multivitamin Oral. Pepcid Oral : Tablet 20 mg, daily. Vitamin D-3 Oral : Capsule 1000 unit, 2 capsules daily. CONTINUE TAKING THE FOLLOWING MEDICATIONS UNTIL YOU CHECK WITH YOUR PHYSICIAN: Gabapentin Oral : Tablet 600 mg, 2x a day. Tylenol PM Extra Strength Oral : Tablet 500-25 mg, daily, at bedtime. Prescription Medications: prednisone 50 mg tablet Take 1 tablet once a day with meals for 5 days -- Dispense 5 tablet. Refills: 0. Substitution permitted. Pharmacy - Setup [address] ; [place] [address]. . baclofen 10 mg tablet Take 1 tablet three times a day for 3 days -- Dispense 9 tablet. Refills: 0. Substitution permitted. Pharmacy - [facility] [address] ; [place] [address]. Phone: . Lidoderm 5 % topical patch Apply 1 patch single dose for 3 days -- Apply patch to area of pain and leave 2 General Instructions [facility] Emergency Department [address] [place] [address] Phone #: ext- [phone] 06/28/2020 17:11 Patient: LA GROVE Sex: F : 1955 Age: 64yon no more than 12hrs and remove. You are able to cut to size. Dispense 3 patch. Refills: 0. Substitutionpermitted.Pharmacy - [facility] [address] [address] ; [place] [address]. .Follo w-up:Return to the emergency department as needed. Follow up with your healthcare provider in two dayseven if well. Call for an appointment. Follow up with an orthopedic surgeon Orhtopedics as scheduled.Understanding of the discharge instructions verbalized by patient. ADDITIONAL INFORMATIONBack Pain (Acute or Chronic) 3 General Instructions [facility] Emergency Department [address] [place] [address] Phone #: ext- [phone] 06/28/2020 17:11 Patient: LA GROVE Sex: F : 1955 Age: 64yBack pain is one of the most common problems. The good news is that most people feel better in 1 to2 weeks, and most of the rest in 1 to 2 months. Most people can remain active.People who have pain describe it differently--not everyone is the same. The pain can be sharp, stabbing, shooting, aching, cramping or burning. Movement, standing, bending, lifting, sitting, or walking may worsen pain. It can be localized to one spot or area, or it can be more generalized. It can spread or radiate upwards, to the front, or go down your arms or legs (sciatica). It can cause muscle spasm.Most of the time, mechanical problems with the muscles or spine cause the pain. Mechanicalproblems are usually caused by an injury to the muscles or ligaments. While illness can cause backpain, it is usually not caused by a serious illness. Mechanical problems include: Physical activity such as sports, exercise, work, or normal activity Overexertion, lifting, pushing, pulling incorrectly or too aggressively Sudden twisting, bending, or stretching from an accident, or accidental movement Poor posture Stretching or moving wrong, without noticing pain at the time Poor coordination, lack of regular exercise (check with your doctor about this) Spinal disc disease or arthritis StressPain can also be related to , or illness like appendicitis, bladder or kidney infections, pelvicinfections, and many other things.Acute back pain usually gets better in 1 to 2 weeks. Back pain related to disk disease, arthritis in thespinal joints or spinal stenosis (narrowing of the spinal canal) can become chronic and last for monthsor years.Unless you had a physical injury (for example, a car accident or fall) X-rays are usually not needed forthe initial evaluation of back pain. If pain continues and does not respond to medical treatment,X-rays and other tests may be needed.Home careTry these home care recommendations: 4 General Instructions [facility] Emergency Department [address] [place] [address] Phone #: ext- [phone] 06/28/2020 17:11 Patient: LA GROVE Sex: F : 1955 Age: 64y When in bed, try to find a position of comfort. A firm mattress is best. Try lying flat on your back with pillows under your knees. You can also try lying on your side with your knees bent up towards your chest and a pillow between your knees. At first, do not try to stretch out the sore spots. If there is a strain, it is not like the good soreness you get after exercising without an injury. In this case, stretching may make it worse. Don't sit for long periods, as in a long car ride or during other travel. This puts more stress on the lower back than standing or walking. During the first 24 to 72 hours after an acute injury or flare up of chronic back pain, apply an ice pack to the painful area for 20 minutes and then remove it for 20 minutes. Do this over a period of 60 to 90 minutes or several times a day. This will reduce swelling and pain. Wrap the ice pack in a thin towel or plastic to protect your skin. You can start with ice, then switch to heat. Heat (hot shower, hot bath, or heating pad) reduces pain and works well for muscle spasms. Heat can be applied to the painful area for 20 minutes then remove it for 20 minutes. Do this over a period of 60 to 90 minutes or several time s a day. Do not sleep on a heating pad. It can lead to skin butler or tissue damage. You can alternate ice and heat therapy. Talk with your doctor about the best treatment for your back pain. Therapeutic massage can help relax the back muscles without stretching them. Be aware of safe lifting methods and do not lift anything without stretching first.MedicinesTalk to your doctor before using medicine, especially if you have other medical problems or are takingother medicines. You may use [id number] medicine as directed on the bottle to control pain, unless another pain medicine was prescribed. If you have chronic conditions like diabetes, liver or kidney disease, stomach ulcers, or gastrointestinal bleeding, or are taking blood thinners, talk to your doctor before taking any medicine. Be careful if you are given a prescription medicines, narcotics, or medicine for muscle spasms. They can cause drowsiness, affect your coordination, reflexes, and judgement. Do not drive or operate heavy machinery.Follow-up careFollow up with your healthcare provider, or as advised.A radiologist will review any X-rays that were taken. Your provide will notify you of any new findings 5 General Instructions [facility] Emergency Department [address] [place] [address] Phone #: ext- [phone] 06/28/2020 17:11 Patient: LA GROVE Sex: F : 1955 Age: 64ythat may affect your care.Call [phone] if any of the following occur: Trouble breathing Confusion Graciela y drowsy or trouble awakening Fainting or loss of consciousness Rapid or very slow heart rate Loss of bowel or bladder controlWhen to seek medical adviceCall your healthcare provider right away if any of these occur: Pain becomes worse or spreads to your legs Weakness or numbness in one or both legs Numbness in the groin or genital area 1999- [address] [employer] [place] [address]. All rights reserved. This information is not intended as asubstitute for professional medical care. Always follow your healthcare professional's in structions.SciaticaSciatica is a condition that causes pain in the lower back that spreads down into the buttock, hip, andleg. Sometimes the leg pain can happen without any back pain. Sciatica happens when a spinalnerve is irritated or has pressure put on it as comes out of the spinal canal in the lower back. Thismost often happens when a bulge or rupture of a nearby spinal disk presses on the nerve. Sciaticacan also be caused by a narrowing of the spinal canal (spinal stenosis) or spasm of the muscle in thebuttocks that the sciatic nerve passes through (pyriform muscle). Sciatica is also called lum barradiculopathy.Sciatica may begin after a sudden twisting or bending force, such as in a car accident. Or it canhappen after a simple awkward movement. In either case, muscle spasm often also happens. Musclespasm makes the pain worse.A healthcare provider makes a diagnosis of sciatica from your symptoms and a physical exam.Unless you had an injury from a car accident or fall, you usually won't have X-rays taken at this time. 6 General Instructions [facility] Emergency Department [address] [place] [address] Phone #: ext- [phone] 06/28/2020 17:11 Patient: LA GROVE Sex: F : 1955 Age: 64yThis is because the nerves and disks in your back can't be seen on an X-ray. If the provider seessigns of a compressed nerve, you will need to schedule an MRI scan as an outpatient. Signs of acompressed nerve include loss of strength in a leg.Most sciatica gets better with medicine, exercise, and physical therapy. If your symptoms continueafter at least 3 months of medical treatment, you may need surgery or injections to your lower back.Home careFollow these tips when caring for yourself at home: You may need to stay in bed the first few days. But as soon as possible, begin sitting up or walking. This will help you avoid problems that come from staying in bed for long periods. When in bed, try to find a position that is comfortable. A firm mattress is best. Try lying flat on your back with pillows under your knees. You can also try lying on your side with your knees bent up toward your chest and a pillow between your knees. Avoid sitting for long periods. This puts more stress on your lower back than standing or walking. Use heat from a hot shower, hot bath, or heating pad to help ease pain. Massage can also help. You can also try using an ice pack. You can make your own ice pack by putting ice cubes in a plastic bag. Wrap the bag in a thin towel. Try both heat and cold to see which works best. Use the method that feels best for 20 minutes several times a day. 7 General Instructions [facility] Emergency Department [address] [place] [address] Phone #: ext- [phone] 06/28/2020 17:11 Patient: LA GROVE Sex: F : 1955 Age: 64y You may use acetaminophen or ibuprofen to ease pain, unless another pain medicine was prescribed. Note: If you have chronic liver or kidney disease, talk with your healthcare provider before taking these medicines. Also talk with your provider if you've had a stomach ulcer or gastrointestinal bleeding. Use safe lifting methods. Don't lift anything heavier than 15 pounds until all of the pain is gone.Follow- up careFollow up with your healthcare provider, or as advised. You may need physical therapy or additionaltests.If X-rays were taken, a radiologist will look at them. You will be told of any new findings that mayaffect your care.When to seek medical adviceCall your healthcare provider right away if any of these occur: Pain gets worse even after taking prescribed medicine Weakness or numbness in 1 or both legs or hips Numbness in your groin or genital area You can't control your bowel or bladder Fever Redness or swelling over your back or spine [id number] [employer]. [address] [place] [address]. All rights reserved. This information is not intended as asubstitute for professional medical care. Always follow your healthcare professional's instructions. You have been given the following additional information: Back Pain (Acute or Chronic) Sciatica No lifting greater than 5 lbs, no bending or stooping or no prolonged sitting for- 1- weeks. 8 General Instructions [facility] Emergency Department [address] [place] [address] Phone #: ext- [phone] 06/28/2020 17:11 Patient: LA GROVE Sex: F : 1955 Age: 64y(Electronically signed by Delfino Lora P.A.-C 06/28/2020 21:24) Name Value Range Interpretation Code Description Data Marisel rce(s) Supporting Document(s) ID Date Data Source [id number] 06/28/2020 05:24:00 PM EDT [facility] 1 Clinical Report - Nurses [facility] Emergency Department [address] [place] [address] Phone #: ext- [phone] 06/28/2020 17:11 Patient: LA GROVE Sex: F : 1955 Age: 64yTRIAGEArrived by private vehicle. Historian: patient. Accompanied by family. ( has had back problems formany years worse in last 2 weeks, scheduled for block in [place] on Sunday but pain is too bad).Acuity: LEVEL 4.Chief Complaint: BACK PAIN.Alert.Onset. (2 weeks). She has had tingling, (bilateral legs tingling and weakness). She has had troublewalking. No history of recent trauma.Pre-hospital notification of patient arrival was not received.Treatment DIPPER OPERATOR:None.SEPSIS SCREEN: SIRS Screen negative. --17:14 06/28/20 Danyell Regalado R.N.17:11 06/28/20. BP: 135/71. MAP: 92. HR: 96. RR: 16. O2 saturation: 98%. Temp: 97.8 F. Pain level now:06/26. --17:14 06/28/20 Danyell Regalado R.N.Weight: 58.9 kg stated. Height/Length: 63 inches Per Patient. BMI: 23. --17:10 06/28/20 Daneyll Regalado R.N.MedicationsAmitriptyline HCl Oral (Tablet 25 mg), daily. --17:16 06/28/20 Danyell Regalado R.N. Gabapentin Oral (Tablet 600 mg), 2x a day. --17:16 06/28/20 Danyell Regalado R.N. Vitamin D-3 Oral (Capsule 1000 unit) 2 capsules, daily. --17:16 06/28/20 Danyell Regalado R.N. Multivitamin Oral. --17:16 06/28/20 Danyell Regalado R.N. Melatonin Oral (Tablet 10 mg), daily. --17:16 06/28/20 Danyell Regalado R.N. Tylenol PM Extra Strength Oral (Tablet 500-25 mg), daily at bedtime. --17:17 06/28/20 Danyell Regalado R.N. Pepcid Oral (Tablet 20 mg), daily. --17:17 06/28/20 Danyell Regalado R.N.AllergiesAmoxicillin.(rash) --17:15 06/28/20 Danyell Regalado R.N.PROBLEMS:Basal cell carcinoma of face.Hip pain.Shoulder pain.Neck Pain.Back Pain. --17:18 06/28/20 Danyell Regalado R.N. 2 Clinical Report - Nurses [facility] Emergency Department [address] [place] [address] Phone #: ext- [phone] 06/28/2020 17:11 Patient: LA GROVE [facility]#: [id number] Sex: F : 1955 Age: 64y ADDITIONAL SURGERIES: Laminectomy. Skin cancer removed. Total Hip Replacement. --17:06/28/20 Danyell Regalado R.N. Hysterectomy. --:06/28/20 Danyell Regalado R.N. History PAST MEDICAL HX: Immunizations: up-to-date. The patient is post-menopausal. SOCIAL HX: Never smoker. No alcohol use or drug use. She was offered HIV testing but declined and hepatitis C testing but declined. She has not traveled outside the [place] Infectious disease exposure: No infectious disease exposure. Patient is not a known carrier of tuberculosis, hepatitis, HIV, MRSA or VRE. Patient is not a known carrier of CRE. SELF HARM ASSESSMENT: Self harm assessment was performed. The patient answered "no" to the question(s) "Have you recently felt down, depressed, or hopeless?", "Do you have thoughts of harming or killing yourself?", "Do you have a plan for harming or killing yourself?", "Have you recently had thoughts about harming or killing others?", "Do you have any dangerous items in your possession?", "Have you noticed less interest or pleasure in doing things?", "Are you here because you tried to hurt yourself?" and "Have you ever tried to hurt yourself before today?". ABUSE A SSESSMENT: Abuse assessment. Abuse denied. No suspicion of abuse. No report of abuse. NUTRITIONAL RISK ASSESSMENT: The nutritional risk assessment revealed no deficiencies. LEARNING NEEDS ASSESSMENT: The learning needs assessment revealed no barriers. FALL RISK ASSESSMENT: Fall risk assessment completed. No risk factors identified. FUNCTIONAL ASSESSMENT: Functional assessment performed: uses cane. SKIN INTEGRITY ASSESSMENT: Skin integrity risk assessment completed. No skin integrity risk identified. --17:06/28/20 Danyell Regalado R.N. Interventions Identification band on patient. To treatment room. --17:06/28/20 Danyell Regalado R.N.PHYSICAL ASSESSMENTGENERAL / NEURO / PSYCH: Alert. Oriented X 4.RESPIRATORY: Respirations not labored. Chest nontender. Breath sounds within normal limits.CVS: Normal heart rate and rhythm. Capillary refill less than 2 seconds.GI / : Abdomen soft and nontender. Bowel sounds within normal limits.EXTREMITIES: Sensation intact in extremities. ROM of extremities within n ormal limits.BACK: Normal inspection of the neck and back. Limited ROM of the back. Soft tissue tenderness in the 3 Clinical Report - Nurses [facility] Emergency Department [address] [place] [address] Phone #: ext- [phone] 06/28/2020 17:11 Patient: LA GROVE Sex: F : 1955 Age: 64y right mid and left mid lumbar paraspinous region. --17:29 06/28/20 Danyell Regalado R.N.NURSING PROGRESS NOTESReassurance given. Two patient identifiers checked. Call light placed in reach. Side rails up x 2. Bedplaced in lowest position. Brakes of bed on. Patient ready for evaluation- PA notified. --17:18 06/28/20Danyell Regalado R.N. ( pt made aware that this underwriter mortgage loan can not give any medication for pain until it is ordered and it should be ordered soon). --18:02 06/28/20 Danyell Regalado R.N. 18:23 06/28/20. BP: 136/74. MAP: 94. HR: 84. RR: 16. O2 saturation: 98%. --18:24 06/28/20 Leland ZUNIGA TechMargarette ER Tech1 18:39 06/28/2020 Morphine IM 4 mg given. Given in the left deltoid. Allergies verified and confirmed 5 rights. Information reviewed with patient including reason for taking this medication, signs of allergic reaction, precautions and sedative warning. Verbalizes understanding. --18:39 06/28/20 Danyell Regalado R.N. 18:39 06/28/2020 Tylenol (APAP) PO Tablets 1000 mg given. Allergies verified and confirmed 5 rights. Information reviewed with patient including reason for taking this medication, signs of allergic reaction and precautions. Verbalizes u nderstanding. --18:39 06/28/20 Danyell Regalado R.N. Patient transported to [place] by wheelchair with tech. --18:51 06/28/20 Danyell Regalado R.N. Care transferred and report given (aspen). --18:58 06/28/20 Danyell Regalado R.N. 19:11 06/28/2020 Lidocaine Patch Transdermal Ointment 1 patch given. Applied to the affected area. Allergies verified and confirmed 5 rights. Information reviewed with patient including reason for taking this medication. Verbalizes understanding. --19:11 06/28/20 Aspen Wellington R.N. 19:17 06/28/20. BP: 128/85. MAP: 99. HR: 79. RR: 16. O2 saturation: 99%. Temp: 98.1 F. --19:18 06/28/20 [facility] Tech, [facility] Tech1 20:03 06/28/20. BP: 126/78. MAP: 94. HR: 75. RR: 16. O2 saturation: 98%. Temp: 98.1 F. --20:03 06/28/20 [facility] Tech, Margarette, ER Tech1.DISPOSITION / DISCHARGE 20:08 06/28/20. BP: 126/78. MAP: 94. HR: 76. RR: 16. O2 saturation: 98%. Temp: 98.1 F. Pain level now: 12/25. --20:08 06/28/20 [facility] Tech, Margarette, ER Tech1 Departure time: 20:31 06/28/2020. Condition at departure: improved. No learning barriers present. Discharge instructions provided and reviewed with the patient. Reviewed medication(s). Reviewed referrals. Patient verbalized understanding. Written instructions provided in Malaysian. The patient was discharged by the physician teachers assistant. She was discharged home and accompanied by spouse. She left ambulatory and via private vehicle. Spouse driving. --20:31 06/28/20 Aspen Wellington R.N. 4 Clinical Report - Nurses [facility] Emergency Department [address] [place] [address] Phone #: ext- [phone] 06/28/2020 17:11 Patient: LA GROVE Sex: F : 1955 Age: 64yLocked/Released at 06/28/2020 20:31 by Aspen Wellington R.N. Name Value Range Interpretation Code Description Data Marisel rce(s) Supporting Document(s) ID Date Data Source [id number] 06/28/2020 05:24:00 PM EDT [facility] 1 Clinical Report - Physicians/Mid Levels [facility] Emergency Department [address] [place] [address] Phone #: ext- [phone] 06/28/2020 17:11 Patient: LA GROVE Sex: F : 1955 Age: 64y Time Seen: 17:56 06/28/2020; initial patient contact, initial documentation. Arrived- By private vehicle. Historian- patient.HISTORY OF PRESENT ILLNESS Chief Complaint: BACK PAIN and CHRONIC BACK PAIN. Onset- about 2 weeks ago and it is still present. It is described as being severe and in the area of the lower lumbar spine and right lower lumbar spine. The quality is noted to be sharp, dull, burning, aching and "pain". No radiation. No bladder dysfunction, bowel dysfunction, sensory loss or motor loss. Additional history - Pt is a 64 yo F presenting with a CC of lower back pain. Pain is rated as a 10/10. Central lumbar spine with radiation to the R side. She has a hx of chronic low back pain, however, pain worsened suddenly 2 weeks ago, unprovoked, denies trauma or injury. No relief with NSAIDs/Tylenol/heat/ice. Recently dx with BCC and underwent resection on nose. Seen by [facility] in [place]. Has appt for nerve block on Sunday, but unable to wait that long. Patient denies an injury. No injury to the head or neck or other injury. Similar symptoms previously. Patient has had similar symptoms chronically. Recent medical care: Not recently seen/assessed.REVIEW OF SYSTEMS No fever, chills, eye irritation, difficulty with urination or urinary frequency. No hematuria, skin rash, headache, depression or sore throat. No cough, difficulty breathing, chest pain, abdominal pain or nausea. No vomiting, diarrhea, black stools or bloody stools. All other systems reviewed and are negative.PAST HISTORY See nurses notes. The patient has had prior back pain. Has had intervertebral disc disease. Problems: Back Injury. Arthritis. Fibromyalgia. Asthma. Sleep Apnea. Basal cell carcinoma of face. Hip pain. Shoulder pain. Neck Pain. 2 Clinical Report - Physicians/Mid Levels [facility] Emergency Department [address] [place] [address] Phone #: ext- [phone] 06/28/2020 17:11 Patient: LA GROVE Sex: F : 1955 Age: 64y Additional Surgeries: Back Surgery. DEVIATED SEPTUM. Hip Surgery. Hysterectomy. Knee Surgery. Laminectomy. Skin cancer removed. Total Hip Replacement. Medications: Pepcid Oral (Tablet 20 mg), daily. Tylenol PM Extra Strength Oral (Tablet 500-25 mg), daily at bedtime. Melatonin Oral (Tablet 10 mg), daily. Multivitamin Oral. Vitamin D-3 Oral (Capsule 1000 unit) 2 capsules, daily. Gabapentin Oral (Tablet 600 mg), 2x a day. Amitriptyline HCl Oral (Tablet 25 mg), daily. Allergies: Lobito xicillin.(rash).SOCIAL HISTORY Never smoker. No alcohol use or drug use.ADDITIONAL NOTES The nursing notes have been reviewed.PHYSICAL EXAM Vital Signs: 06/28/2020 17:11 BP: 135/71. MAP: 92. HR: 96. RR: 16. O2 saturation: 98%. Temp: 97.8 F. Pain level now: 06/26. Have been reviewed as normal. Oxygen saturation normal. Appearance: Alert. Appears to be in pain. Patient in mild distress. ENT: Voice normal. CVS: Normal heart rate and rhythm. No JVD present. Pulses normal. Capillary refill normal. Strong peripheral pulses. Heart sounds normal. Pulses: right radial 2+; left radial 2+; right dorsalis pedis 2+; left dorsalis pedis 2+; right posterior tibial 2+; left posterior tibial 2+. Respiratory: Chest normal on inspection. No respiratory distress. Unlabored respirations. Lungs clear. Good chest movement. Breath sounds normal and equal. Chest nontender. Abdomen: Normal inspection. Soft and nontender. Bowel sounds normal. No organomegaly. Back: Normal inspection and inspection. No ecchymosis, lacerations or abrasions. No rash. Mild vertebral point tenderness over the lower lumbar spine. Moderate vertebral point tenderness over the lower lumbar spine. Moderate soft tissue tenderness in the right lower and lower central lumbar area. Moderate tenderness in the right lower and left lower lumbar area. No costovertebral angle tenderness. No painless ROM. No CVA tenderness or tenderness or limitation in ROM. 3 Clinical Report - Physicians/Mid Levels [facility] Emergency Department [address] [place] [address] Phone #: ext- [phone] 06/28/2020 17:11 Patient: LA GROVE Sex: F : 1955 Age: 64y Skin: Normal skin color. Normal skin turgor. Extremities: Extremities exhibit normal ROM. No lower extremity edema. Extremities nontender. No calf tenderness. Extremities atraumatic. Extremities nontender. Neuro: Awake. Alert. Oriented X 3. Mood/affect normal. Speech normal. Reflexes normal. Reflex exam: right patellar 2+, left patellar 2+, right Achilles 2+ and left Achilles 2+. No Babinski reflex. No clonus present. Psych: Cognition normal. Thought process and content normal. Insight and judgement normal.LABS, X-RAYS, AND EKG CT L- Spine: Note- Chidi hough Neal - 06/28/2020 7:33:01 PM mulitple disc buldges causing Nf narroiwing at L23, L34, L45, L5S1. The study was interpreted by the radiologist. CT Abdomen - Pelvis: Chidi hough Neal - 06/28/2020 7:30:36 PM nad. The study was interpreted by the radiologist.PROGRESS AND PROCEDURES Course of Care: VSS, NAD, AOx3, interacting well and appropriately, no use of accessory muscle, able to speak full sentences, stable, non-toxic looking, but appearss uncomformtable. Enter room and pt lying peacefully in bed in NAD. Patient stable. Denies any new issues, concerns, or complaints. PE demos NV itnact b/l UE and LE. No neuro deficits. Pt able to ambulate. Noted TTP of the central nad R paraspinal region. No dysuria. No bladder/bowel dysfuntion or retention. Reviewed previous imaging (2yrs ago) ////////////////////////// FINDINGS: Levoscoliosis with the apex at L2-3. Moderate to severe osteoarthritis present at L2-3 and at L5-S1. No acute fracture, dislocation, paraspinal hematoma. Mild posterior right foraminal to left foraminal disc herniations are present at L2-3, L3-4, L4-5. At L5-S1, there is mild to moderate stenosis of the left neural foramen. There is impingement on the left L5 nerve. At L4-5, there is mild to moderate stenosis of the left neural foramen. Significant spinal canal stenosis not seen at any level. IMPRESSION: Levoscoliosis. Moderate to severe osteoarthritis L2-3, L5- S1. 4 Clinical Report - Physicians/Mid Levels [facility] Emergency Department [address] [place] [address] Phone #: ext- [phone] 06/28/2020 17:11 Patient: LA GROVE Sex: F : 1955 Age: 64y Mild posterior disc herniation at multiple levels. Mild to moderate stenosis of the left neural foramen L5-S1. Mild to moderate stenosis of the left neural foramen L4- 5./////////////////////////////Pt states that she is prescribed Gabapentin and Naproxen by ortho. Hx of recent dermatologic surgery forBCC. She states that rn provider relations requested she hold Naproxen for concern of bleeding until 06/29/20. Ptstates rn provider relations prescribed Tylenol with codeine post-op with which she found minimal relief. 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 Pending resultsl.Reviewed results.Enter room and patient lying peacefully in bed in NAD. Patient stable. Denies any new issues, concerns,or complaints.Discussed results with pt. Discussed tx plan with pt. Discussed and counseled on stable condition.Discussed importance of a f/u with PCP. Discussed return to ER criteria. Answered their questions.Indicates and verbalizes that they understand, agree, and will comply with above. Denies any newquestions or concerns. Patient has capacity to understand.Pt sts that she does feel better than when she arrived. Pt sts that she still has left over rx'ed controlledmeds. St that she only took 2-3 days and still has 3 days worth. infomred to take as rx'ed as this will helpand technically she has a open rx via CUT OUT AND MARKING MACHINE OPERATOR. Pt sts she understands and agrees.Discharge decision based on the following: patient's condition is stable; patient's exam is stable; socialsupport is adequate; transportation is available; follow-up is available. 5 Clinical Report - Physicians/Mid Levels [facility] Emergency Department [address] [place] [address] Phone #: ext- [phone] 06/28/2020 17:11 Patient: LA GROVE Sex: F : 1955 Age: 64y Discussed of OTC Motrin and Tylenol to control inflammation and pain management. Informed to follow directions on bottle that are appropriate for age and/or weight. Disposition: Discharged home in good and improved condition. Condition: good and stable.CLINICAL IMPRESSION Chronic lumbar strain.INSTRUCTIONS Apply ice for 10 minutes three times a day for one followed by dry heat 10 minutes three times a day for one weeks. Don't apply ice directly to skin, don't use while asleep and don't use high setting on heating pad. No lifting greater than 5 lbs, no bending or stooping or no prolonged sitting for- 1- weeks. No dietary restrictions. (Recommend to defer the gabapentin and Tylenol as you are taking the Hydrocodone that was rx'ed.). Warnings: SEDATIVE MEDICATION: You were given sedative medication during your visit. Do not drive or operate dangerous machinery. GENERAL WARNINGS: Return or contact your physician immediately if your condition worsens or changes unexpectedly, if not improving as expected, or if other problems arise. Your Current Medications: Your current home medications have been reviewed. CONTINUE TAKING THE FOLLOWING MEDICATIONS: Amitriptyline HCl Oral : Tablet 25 mg, daily. Melatonin Oral : Tablet 10 mg, daily. Multivitamin Oral. Pepcid Oral : Tablet 20 mg, daily. Vitamin D-3 Oral : Capsule 1000 unit, 2 capsules daily. CONTINUE TAKING THE FOLLOWING MEDICATIONS UNTIL YOU CHECK WITH YOUR PHYSICIAN: Gabapentin Oral : Tablet 600 mg, 2x a day. Tylenol PM Extra Strength Oral : Tablet 500-25 mg, daily, at bedtime. Prescription Medications: prednisone 50 mg tablet Take 1 tablet once a day with meals for 5 days -- Dispense 5 tablet. Refills: 0. Substitution permitted. [facility] [address] ; [place] [address]. FaxNumber: . baclofen 10 mg tablet Take 1 tablet three times a day for 3 days -- Dispense 9 tablet. Refills: 0. Substitution permitted. [facility] [phone] ; [place] [address]. Phone: [phone] Clinical Report - Physicians/Mid Levels [facility] Emergency Department [address] [place] [address] Phone #: ext- [phone] 06/28/2020 17:11 Patient: LA GROVE Sex: F : 1955 Age: 64y [phone] . Lidoderm 5 % topical patch Apply 1 patch single dose for 3 days -- Apply patch to area of pain and leave on no more than 12hrs and remove. You are able to cut to size. Dispense 3 patch. Refills: 0. Substitution permitted. [facility] [phone] ; [place] [address]. . Follow-up: Return to the emergency department as needed. Follow up with your healthcare provider in two days even if well. Call for an appointment. Follow up with an orthopedic surgeon Orhtopedics as scheduled. Understanding of the discharge instructions verbalized by patient.(Electronically signed by Delfino Lora P.A.-C 06/28/2020 21:24) Name Value Range Interpretation Code Description Data Marisel rce(s) Supporting Document(s) ID Date Data Source [id number] 06/28/2020 06:40:00 PM EDT [facility] Name Value Range Interpretation Code Description Data Marisel rce(s) Supporting Document(s) [facility] yellow NORMAL: Yellow [facility] ospital CLARITY clear NORMAL: Clear [facility] spital Specific gravity of Urine by Test strip 1.010 1.001 - 1.030 [facility] pH 8 5 - 9 [facility] al Glucose [Mass/volume] in Urine by Test strip NORM NORMAL: Negat [facility] Bilirubin.total [Presence] in Urine by Test strip NEG NORMAL: Negative [facility] Ketones [Presence] in Urine by Test strip NEG NORMAL: Negative [facility] Protein [Mass/volume] in Urine by Test strip NEG NORMAL: Negat [facility] Nitrite [Presence] in Urine by Test strip NEG NORMAL: Negative [facility] BLOOD NEG NORMAL: Negative [facility] Leukocyte esterase [Presence] in Urine by Test strip NEG MICHEAL L: Negative [facility] Urobilinogen [Mass/volume] in Urine by Test strip NOR less peter n 1.0 mg/dL [facility] MICROSCOPIC Not Indicate [facility] ospital ID Date Data Source [id number] 06/18/2020 08:54:36 AM EDT [facility] PCName: Sylvie You: 1955Provider: Sania Pierce: 06/17/2020 Chief ComplaintLeft hip, low back, and cervical pain resulting from a Worker's Comp. 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 Patient was asked and denies being seen by any Physicians since their last visit. The patient was last seen by a [facility] provider on 04/02/2020. At today's visit patient presents with their Self Patient is not currently working. The patient is being seen for a workers compensation follow-up. The workers compensation date of injury is 10/11/1994. Pain Quality: (Neuropathic) burning and numbness Pain Quality: (Nociceptive) dull and sharp Timing: constant Palliation: changing position, heat, ice and TENS Unit Exacerbating: No exacerbating factors are noted Pain Score: a current pain level of 8/10, a minimum pain level of 5/10 and a maximum pain level of 9/10. Condition type: The patient is being seen for a chronic condition. Dr. Diane Mckeon. PAIN LOCATION: the pain is located in the neck, radiates to the right shoulder, the pain is located in the low back and radiates to the left buttock and right hip. The etiology of this injury/condition is unknown. INJURY MECHANISM: The injury resulted from no known physical event. PAST EVALUATION: The patient has been previously evaluated by the following specialty: Orthopedic evaluation by Diane Preston MD. REVIEW OF PAST DIAGNOSTICS: have included: MRI. PAST TREATMENT has included: CORTICOSTEROIDS (not effective), MUSCLE RELAXANTS (not effective), NON-OPIOID ANALGESICS (not effective) Includes Tylenol., NONSTEROIDAL ANTI-INFLAMMATORY drugs (not effective) Includes Ibuprofen and Naproxen., hip steroid injections (not effective), MANIPULATION/CHIROPRACTIC treatment (not effective), PHYSICAL T HERAPY/HOME EXERCISE exercise (not effective), but ANTICONVULSANTS (effective) Includes Gabapentin., TENS unit (effective) . L5/S1 laminectomy- failed (effective). INTERVAL EVENTS: include . Patient here today to follow-up on left hip, back, and cervical neck pain resulting from a Worker's Comp. injury that occurred on 10/11/1994. Recently underwent a nerve conduction study of the lower extremities completed on 05/04/2020 which was found to be abnormal. There was a chronic left S1 radiculopathy and it was suggested that a right L5-S1 and S1 injection be completed for diagnostic and therapeutic purposes. ASSOCIATED SYMPTOMS: include headache, muscle pain/spasm, radiating and mood affected, but no difficulty sleeping, no difficulty walking, no sexual dysfunction, no fecal incontinence, no extremity weakness, no urinary incontinence and no change in behavior. Review of SystemsConstitutional: Normal. Eyes: Normal. ENT: normal. Cardiovascular: Normal. Respiratory: Normal. Gastrointestinal: Normal. Winter tourinary: Normal. Musculoskeletal: neck pain, lower back pain and joint pain, but Normal. Integumentary: Normal. Neurological: Normal. Psychiatric: Normal. Endocrine: Normal. Hematologic/Lymphatic: Normal. Patient maintains at today's visit there has been no change in his/her hematologic history. Active Problems 1. Chronic pain (338.29) (G89.29) 2. Left hip pain (719.45) (M25.552) 3. Lumbar radiculopathy (724.4) (M54.16) Allergies Amoxicillin TABS Rash; Recorded By: Jean Montano; 01/23/2019 2:37:50 PMDenied Adhesive Tape Recorded By: Jean Montano; 01/23/2019 2:37:50 PM Iodinated Contrast Media Recorded By: Jean Montano; 01/23/2019 2:37:50 PM Latex Recorded By: Jean Montano; 01/23/2019 2:37:50 PM Current Meds Amitriptyline HCl TABS;Therapy: (Recorded:23Jan2019) to Recorded Gabapentin 600 MG Oral Tablet; TAKE 1 TABLET TWICE DAILY;Therapy: 23Jan2019 to (Evaluate:31Jul2020) Requested for: [id number]; LastRx:[id number] Ordered Melatonin TABS;Therapy: (Recorded:23Jan2019) to Recorded Multi-Vitamin TABS;Therapy: (Recorded:23Jan2019) to Recorded Naproxen 500 MG Oral Tablet;Therapy: (Recorded:23Jan2019) to Recorded Pepcid 20 MG Oral Tablet;Therapy: 28Jul2019 to Recorded Senokot TABS;Therapy: (Recorded:26Sep2019) to Recorded Tylenol PM Extra Strength 1000-50 MG/30ML Oral Liquid;Therapy: (Recorded:23Jan2019) to Recorded Vitamin D CAPS;Therapy: (Recorded:23Jan2019) to Recorded Past Medical History History of anemia (V12.3) (Z86.2) Denied: History of anticoagulant therapy History of arthritis (V13.4) (Z87.39) History of asthma (V12.69) (Z87.09) Denied: History of coagulation defect History of herpes zoster (V12.09) (Z86.19) History of hypotension (V12.59) (Z86.79) History of neck pain (V13.59) (Z87.39) Surgical History Denied: History of Cardioverter defibrillator insertion History of Cataract surgery History of Hip replacement History of Hysterectomy History of Knee surgery History of Lumbar laminectomy History of Nose surgery Denied: History of Permanent pacemaker insertion Family History Family history of arthritis (V17.7) (Z82.61) Family history of cardiac disorder (V17.49) (Z82.49) Family history of diabetes mellitus (V18.0) (Z83.3) Family history of hypertension (V17.49) (Z82.49) Family history of malignant neoplasm (V16.9) (Z80.9) Family history of cardiac disorder (V17.49) (Z82.49) Family history of hypertension (V17.49) (Z82.49) Family history of arthritis (V17.7) (Z82.61) Family history of arthritis (V17.7) (Z82.61) Social History Current non-drinker of alcohol (V49.89) (Z78.9) Disabled Never a smoker No illicit drug use Adrianna lsVital Signs Recorded: 17Jun2020 10:03AM Height: 5 ft 3 inWeight: 133 lb BMI Calculated: 23.56BSA Calculated: 1.63Systolic: 120, SittingDiastolic: 75, SittingHeart Rate: 78Respiration: 18Temperature: 97.4 FHeight measured w/wo shoes: w/shoesPain Scale: 8 Physical ExamGeneral: The patient is a well nourished/well developed, female, with a medium build, who is in mild distress, appears stated age and Patient is utilizing a cane at this visit. Eyes: Lids are atraumatic, no lesions, sclerae are anicteric. currently wearing eyeglasses. Ears, Nose, Mouth, Throat: external ears and nose without trauma. Patient wearing a mask due to COVID-19. Respiratory: Normal chest expansion and respiratory effort. Gait and Station: Gait was antalgic. Lungs are clear to auscultation bilaterally Cardiovascular: Extremities without peripheral edema, auscultation of heart reveals S1, S2 regular rate and rhythm, without murmur.Lumbosacral Spine:- Inspection: normal appearance. No deformity, ecchymosis, erythema or swelling noted. Normal Lordosis..- Palpation/Tenderness: No SI, paraspinous, or sciatic notch tenderness. - ROM Flexion: was restricted, was painful. - ROM Extension: was not restricted, was painful.Right Lower Extremity Motor:- Hip: 5/5 flexion, 5/5 extension- Knee: 5/5 flexion, 5/5 extension- Foot: 5/5 Plantar , 5/5 DorsiFlexionSpecial Tests: flip test was positive and positive facet challenge Left Lower Extremity Motor:- Hip: 5/5 flexion, 5/5 extension- Knee: 5/5 flexion, 5/5 extension- Foot: 5/5 Plantar , 5/5 DorsiFlexionSpecial Tests: flip test was negative and positive facet challenge Neurological:Sensation Left Lower: normalSensation Right Lower: normal. Pain w /palpation over left hip trochanteric bursa. Skin: Warm, dry, acyanotic. Psychological: Alert and oriented to person, place and time. Mood and affect are pleasant and appropriate. Judgement intact. Insight normal without delusions or hallucinations. Denies suicidal/homicidal ideation. Assessment 1. Chronic pain (338.29) (G89.29) 2. Lumbar radiculopathy (724.4) (M54.16) 3. Trochanteric bursitis (726.5) (M70.60) 4. Left hip pain (719.45) (M25.552) Plan 1. Renew: Gabapentin 600 MG Oral Tablet; TAKE 1 TABLET TWICE DAILY 2. JI Hip Bur sa Minor Room HODS ([facility]) Referral Procedure Procedure Status: Hold For - Scheduling Requested for: [id number] Type : Authorization ( C4)Laterality : LeftReminder : Schedule at Minor Room HODSSchedule : Do not schedule within 7 days of any blockIs patient currently on a biologic? : Adan Hip Bursa Providers : __First Available ProviderAre you booking this with Mayi and fluoro...? : NoPatient must weigh 400 lbs or less. Enter weight : 133Covid Risk : Low Risk Medication:. There are no changes in current medications at this visit. Patient instructed to continue current regimen. The prescribed medications are medically necessary for pain management and rehabilitation. Treatment includes: PROCEDURE(S): ASIPP Risk Stratification of Patients presenting for Interventional Pain Procedures: Decreasing Morbidity of COVID-19 Comments: 1Comments: 3Comments: 0Comments: 0Comments: 0Comments: 0Comments: 0Comments: HAS BASAL CELL CA- had sx for this but not taking any meds or getting treatment beyond that. 0Total Points: 4 According to the Covid-19 ASIPP guidelines and the medical history as relayed to me by the patient, the Covid-19 risk stratification is low . JOINT INJECTION: I am ordering a Joint Injection , a LEFT, TROCHANTERIC BURSA INJECTION. The material risks, benefits, alternatives have been discussed with the patient, including no treatment. They include, but are not limited to, bleeding, bruising, infection, damage to targeted and non-targeted tissue, increased pain, nerve injury or other reaction, if severe, could lead to CVA, arrhythmias or . The patient was given educational materials at the time of the visit. THERAPIES: Therapy Treatment Plan: Deferred: All Therapies: Deferred: per patient request. FOLLOW UP: The patient should have a follow up visit Injection/Procedure. CONTINUE TREATMENT: La will continue with the following:. La is participating in a home exercise program and is encouraged to continue. - FALL PRECAUTIONS: La is encouraged to use necessary assistive devices including cane. - CLOSET ORGANIZER: The patient was counseled on the following: treatment plan and future treatment options. Discussion/SummaryPatient here today for follow-up of left hip, back, and cervical neck pain resulting from a Worker's Comp. injury that occurred on 10/11/1994. Underwent an MRI of the lumbar spine in 2019 which showed a right laminectomy at L5-S1. Recently underwent a nerve conduction study on 05/04/2020 which was abnormal and suggested a left S1 radiculopathy and potential left hip trochanteric bursitis. She does report since the last time she saw me she was diagnosed with basal cell carcinoma of her nose and she has had a biopsy and further surgery on her nose which will now require reconstructive surgery which will be completed on Sunday. She states she has had a rough year as her stepson 2 months ago from brain cancer and her mother was diagnosed with breast cancer in October. At this point I am ordering a left hip trochanteric bursa injection. Education material was provided. Risks and benefits reviewed. She screens is low risk on the covid screening tool and was made aware of this and wishes to move forward with the injection. She states she cannot sleep on her left hip and she is adjusting her gait and using a cane to ambulate at this point due to the amount of pain that she is having. In the event that her pain is not adequately controlled we will move forward with a left-sided L5-S1 and S1 lumbar transforaminal injection at the next visit. She is not interested in any pain medications at this time. Refills were provided for her gabapentin. We will see her back in the office 4 weeks after injections to evaluate treatment plan. Work / School NotePATIENT: if you submit this to your employer as an out of work note please be aware this includes PHI (Protected Health Information). The incident described by the patient is a competent medical cause of this injury. The patient's complaints are consistent with the history of the injury/illness. The patient's history of the injury/illness is consistent with my objective findings. The patient is not working at this time. The incident described by the patient is a competent medical cause of this injury. The patient's complaints are consistent with the history of the injury/illness. The patient's history of the injury/illness is consistent with my objective findings. Patient is on permanent disability. Disability rating is 33 %. [facility] Disclaimer[facility] Disclaimer: This document was dictated and electronically signed using Story[employer] Speaking software. A reasonable attempt at proof reading has been made to minimize errors. Please call with any questions. Signatures Electronically signed by : Anahy Pierce NP; Jun 17 2020 10:27AM EST (Author) Electronically signed by : Samir Finn MD; Jun 18 2020 8:54AM EST Name Value Range Interpretation Code Description Data Marisel rce(s) Supporting Document(s) ID Date Data Source [id number] 04/02/2020 02:23:06 PM EDT [facility] PC[facility]: [facility] You: 1955Provider: Sania Pierce: 04/02/2020 Chief ComplaintLeft hip pain, back pain, and cervical pain resulting from a Worker's Comp. injury that occurred on 10/11/1994. Chief Complaint 2NYSW VAS PAIN Established: DOMINGA completing section: nir History of Present IllnessRecent test/procedures: Patient was asked and denies having any tests since their last visit. Patient was asked and denies being seen by any Physicians since their last visit. The patient was last seen by a [facility] provider on 02/17/2020. At today's visit patient presents with their Self Patient is not currently working. The patient is being seen for a follow-up. The workers compensation date of injury is 10/11/1994. Pain Quality: (Neuropathic) burning and numbness Pain Quality: (Nociceptive) dull and sharp Timing: constant Palliation: changing position, heat, injection treatments and TENS Unit Exacerbating: No exacerbating factors are noted Pain Score: a current pain level of 6/10, a minimum pain level of 3/10 and a maximum pain level of 8/10. Condition type: The patient is being seen for a chronic condition. Dr. Diane Mckeon. PAIN LOCATION: the pain is located in the neck, radiates to the right shoulder, the pain is located in the low back and radiates to the left buttock and right hip. The etiology of this injury/condition is unknown. INJURY MECHANISM: The injury resulted from no known physical event. PAST EVALUATION: The patient has been previously evaluated by the following specialty: Orthopedic evaluation by Diane Preston MD. REVIEW OF PAST DIAGNOSTICS: have included: MRI. PAST TREATMENT has included: CORTICOSTEROIDS (not effective), MUSCLE RELAXANTS (not effective), NON-OPIOID ANALGESICS (not effective) Includes Tylenol., NONSTEROIDAL ANTI-INFLAMMATORY drugs (not effective) Includes Ibuprofen and Naproxen., hip steroid injections (not effective), MANIPULATION/CHIROPRACTIC treatment (not effective), PHYSICAL THERAPY/HOME EXERCISE exercise (not effective), but ANTICONVULSANTS (effective) Includes Gabapentin., TENS unit (effective) . L5/S1 laminectomy- failed (effective). INTERVAL EVENTS: include . Here today to follow-up on left hip, back, and cervical neck pain resulting from a Worker's Comp. injury that occurred on 10/11/1994. Recently had trigger point injections at the [facility] and orthopedic group and she will be undergoing cervical facet injections as she is waiting for authorization from her insurance company at this time. Utilizes gabapentin and is requesting a refill. Continues to decline a nerve conduction study. ASSOCIATED SYMPTOMS: include headache, muscle pain/spasm, radiating and mood affected, but no difficulty sleeping, no difficulty walking, no sexual dysfunction, no fecal incontinence, no extremity weakness, no urinary incontinence and no change in behavior. Review of SystemsConstitutional: Normal. Eyes: Normal. ENT: normal. Cardiovascular: Normal. Respiratory: Normal. Gastrointestinal: Normal. Genitourinary: Normal. Musculoskeletal: lower back pain, neck pain and joint pain. Integumentary: Normal. Neurological: Normal. Psychiatric: Normal. Endocrine: Normal. Hematolo gic/Lymphatic: Normal. Active Problems 1. Chronic pain (338.29) (G89.29) 2. Left hip pain (719.45) (M25.552) 3. Lumbar radiculopathy (724.4) (M54.16) Allergies Amoxicillin TABS Rash; Recorded By: Jean Montano; 01/23/2019 2:37:50 PMDenied Adhesive Tape Recorded By: Jean Montano; 01/23/2019 2:37:50 PM Iodinated Contrast Media Recorded By: Jean Montano; 01/23/2019 2:37:50 PM Latex Recorded By: Jean Montano; 01/23/2019 2:37:50 PM Current Meds Amitriptyline HCl TABS;Therapy: (Recorded:23Jan2019) to Recorded Gabapentin 600 MG Oral Tablet; TAKE 1 TABLET TWICE DAILY;Therapy: 23Jan2019 to (Evaluate:16Mar2020) Requested for: 17Nov2019; LastRx:17Nov2019 Ordered Melatonin TABS;Therapy: (Recorded:23Jan2019) to Recorded Multi-Vitamin TABS;Therapy: (Recorded:23Jan2019) to Recorded Naproxen 500 MG Oral Tablet;Therapy: (Recorded:23Jan2019) to Recorded Pepcid 20 MG Oral Tablet;Therapy: 28Jul2019 to Recorded Senokot TABS;Therapy: (Recorded:26Sep2019) to Recorded Tylenol PM Extra Strength 1000-50 MG/30ML Oral Liquid;Therapy: (Recorded:23Jan2019) to Recorded Vitamin D CAPS;Therapy: (Recorded:[id number]) to Recorded Past Medical History History of anemia (V12.3) (Z86.2) Denied: History of anticoagulant therapy History of arthritis (V13.4) (Z87.39) History of asthma (V12.69) (Z87.09) Denied: History of coagulation defect History of herpes zoster (V12.09) (Z86.19) History of hypotension (V12.59) (Z86.79) History of neck pain (V13.59) (Z87.39) Surgical History Denied: History of Cardioverter defibrillator insertion History of Cataract surgery History of Hip replacement History of Hysterectomy History of Knee surgery History of Lumbar laminectomy History of Nose surgery Denied: History of Permanent pacemaker insertion Family History Family history of arthritis (V17.7) (Z82.61) Family history of cardiac disorder (V17.49) (Z82.49) Family history of diabetes mellitus (V18.0) (Z83.3) Family history of hypertension (V17.49) (Z82.49) Family history of malignant neoplasm (V16.9) (Z80.9) Family history of cardiac disorder (V17.49) (Z82.49) Family history of hypertension (V17.49) (Z82.49) Family history of arthritis (V17.7) (Z82.61) Family history of arthritis (V17.7) (Z82.61) Social History Current non-drinker of alcohol (V49.89) (Z78.9) Disabled Never a smoker No illicit drug use VitalsVital Signs Recorded: [id number] 10:47AM Height: 5 ft 4 inWeight: 130 lb BMI Calculated: 22.31BSA Calculated: 1.63Systolic: 120, SittingDiastolic: 76, SittingHeart Rate: 61Respiration: 16Temperature: 97 F, TympanicHeight measured w/wo shoes: w/shoesPain Scale: 6 Physical ExamGeneral: The patient is a well nourished/well developed, female, with a medium build, who is in mild distress and appears stated age. Eyes: Lids are atraumatic, no lesions, sclerae are anicteric. curre ntly wearing eyeglasses. Ears, Nose, Mouth, Throat: external ears and nose without trauma. Respiratory: Normal chest expansion and respiratory effort. Gait and Station: Gait was normal. Skin: Warm, dry, acyanotic. Psychological: Alert and oriented to person, place and time. Mood and affect are pleasant and appropriate. Judgement intact. Insight normal without delusions or hallucinations. Denies suicidal/homicidal ideation. Assessment 1. Chronic pain (338.29) (G89.29) 2. Left hip pain (719.45) (M25.552) 3. Lumbar radiculopathy (724.4) (M54.16) Plan 1. Renew: Gabapentin 600 MG Oral Tablet; TAKE 1 TABLET TWICE DAILY 2. EMG ([facility]) Referral Diagnostic Diagnostic Status: Hold For - Scheduling Requested for: [id number] - Schedule FUP : Schedule FUP 2 weeks after EMGSide : LeftEMG Extremity : Lower ExtremityRequest Type : Authorization (WC C4) Medication:. There are no changes in current medications at this visit. Patient instructed to continue current regimen. The prescribed medications are medically necessary for pain management and rehabilitation. Treatment includes: PROCEDURE(S): The patient defers blocks/procedures at this time THERAPIES: Therapy Treatment Plan: Deferred: All Therapies: Deferred: per patient request. EMG-NERVE CONDUCTION STUDY LOWER EXTREMITY: (L> R) BILATERAL. This test is being ordered due to patient experiencing pain, weakness and lose balance. FOLLOW UP: The patient should have a follow up visit in 2 months. CONTINUE TREATMENT: La will continue with the following:. La is participating in a home exercise program and is encouraged to continue. - CLOSET ORGANIZER: The patient was counseled on the following: treatment plan and future treatment options. Discussion/SummaryPatient here today to follow-up on left hip, back, and cervical neck pain resulting from a Worker's Comp. injury that occurred on 10/11/1994. Gabapentin is mildly helpful to her pain and then I have refilled this medication for her. Over the last few visits we have discussed the possibility of obtaining a nerve conduction study and I have placed the order for left-sided lower extremity nerve conduction study as she is complaining of buttocks, left hip, and reports pain, weakness, and balance issues lately. She will follow up 2 weeks after the nerve conduction study has been done to review and develop a treatment plan at that time. She is awaiting cervical facets with a different pain management group closer to her house that she will likely have soon. Consider epidural steroid injection in the future versus a different anti-inflammatory medication. Work / School NotePATIENT: if you submit this to your employer as an out of work note please be aware this includes PHI (Protected Health Information). The incident described by the patient is a competent medical cause of this injury. The patient's complaints are consistent with the history of the injury/illness. The patient's history of the injury/illness is consistent with my objective findings. The patient is not working at this time. The incident described by the patient is a competent medical cause of this injury. The patient's complaints are consistent with the history of the injury/illness. The patient's history of the injury/illness is consistent with my objective findings. Patient is on permanent disability. Disability rating is 33 %. [facility] DisclaimerNYH[facility] Medical Disclaimer: This document was dictated and electronically signed using [employer] Pty software. A reasonable attempt at proof reading has been made to minimize errors. Please call with any questions. Signatures Elect ronically signed by : Anahy Pierce NP; Apr 02 2020 11:27AM EST (Author) Electronically signed by : Sarah Elise MD; Apr 02 2020 2:23PM EST Name Value Range Interpretation Code Description Data Marisel rce(s) Supporting Document(s) ID Date Data Source [id number] 02/18/2020 08:53:15 AM EDT [facility] PCName: [facility]vie You: 1955Provider: Braulio Valladares: 02/17/2020 Chief ComplaintLeft hip, back, and cervical pain Chief Complaint 2NYSW VAS PAIN Established: DOMINGA completing section: Blanca [facility] Telemedicine - Explanation to patient regarding Telemedicine: Explanation to patient regarding telemedicine Patient initiated contact with the office via phone call or via patient portal to schedule a Telehealth visit. I explained to the patient that telemedicine is the practice of using telecommunications technology to evaluate, diagnose and care for patients at a distance. Telehealth visits are a way for [facility] to continue providing quality care to our patients while still practicing mandated social distancing, in emergency effort to keep both the patient and myself safe throughout the COVID-19 pandemic. During this emergent initiation of Telemedicine, the office of civil rights has loosened the laws on HIPAA compliance to accommodate the continuation of medical care across the [place] throughout the COVID-19 pandemic. [facility] Telemedicine - TP Consent Established: Telehealth Consent [place] is an established patient of [facility], and was made aware co-pays and co-insurance may be waived by their insurer due to COVID-19, as well as, the potential privacy risks with the use of third-republican applications as a result of this Telehealth visit. The patient has verbalized consent to proceed with a Telehealth visit via audio only due to the patient was unable to establish video calling. Location of Provider and Patient for this telehealth visit: Provider is located at my residence in [facility] Patient is located at home, in [place], [place] The following were present during this visit: History of Present IllnessAt today's visit patient presents with their Spouse and Self Patient is not currently working. What was patient's previous occupation? Disabled. The patient is being seen for Telehealth TP FUP The workers compensation date of injury is 10/11/94. Progression: unchanged Palliation: changing position, heat and TENS Unit Pain Score: a current pain level of 5/10, a minimum pain level of 3/10 and a maximum pain level of 8/10. Condition type: The patient is being seen for a chronic condition. Dr. Diane Mckeon. PAIN LOCATION: the pain is located in the neck, radiates to the right shoulder, the pain is located in the low back and radiates to the left buttock and right hip. The etiology of this injury/condition is unknown. INJURY MECHANISM: The injury resulted from no known physical event. PAST EVALUATION: The patient has been previously evaluated by the following specialty: Orthopedic evaluation by Diane Preston MD. REVIEW OF PAST DIAGNOSTICS: have included: MRI. PAST TREATMENT has included: CORTICOSTEROIDS (not effective), MUSCLE RELAXANTS (not effective), NON-OPIOID ANALGESICS (not effective) Includes Tylenol., NONSTEROIDAL ANTI-INFLAMMATORY drugs (not effective) Includes Ibuprofen and Naproxen., hip steroid injections (not effective), MANIPULATION/CHIROPRACTIC treatment (not effective), PHYSICAL THERAPY/HOME EXERCISE exercise (not effective), but ANTICONVULSANTS (effective) Includes Gabapentin., TENS unit (effective) . L5/S1 laminectomy- failed (effective). INTERVAL EVENTS: include . Reports she had TPI in the cervical region last month, January 25 at [facility]. She was tested for Co-vid 19 in Jan, 2020 (negative) prior to the trigger point injections. Continues to utilize Gabapentin for her chronic complaints. ASSOCIATED SYMPTOMS: include headache, muscle pain/spasm, radiating and mood affected, but no difficulty sleeping, no difficulty walking, no sexual dysfunction, no fecal incontinence, no extremity weakness, no urinary incontinence and no change in behavior. Review of SystemsROS was reviewed with patient; I feel the ROS to be negative/normal other than Musculoskeletal. Patient maintains at today's visit there has been no change in his/her hematologic history. Active Problems 1. Chronic pain (338.29) (G89.29) 2. Left hip pain (719.45) (M25.552) 3. Lumbar radiculopathy (724.4) (M54.16) Allergies Amoxicillin TABS Rash; Recorded By: Jean Montano; 01/23/2019 2:37:50 PMDenied Adhesive Tape Recorded By: Jean Montano; 01/23/2019 2:37:50 PM Iodinated Contrast Media Recorded By: Jean Montano; 01/23/2019 2:37:50 PM Latex Recorded By: Jean Montano; 01/23/2019 2:37:50 PM Current Meds Amitriptyline HCl TABS;Therapy: (Recorded:23Jan2019) to Recorded Gabapentin 600 MG Oral Tablet; TAKE 1 TABLET TWICE DAILY;Therapy: 23Jan2019 to (Evaluate:16Mar2020) Requested for: 17Nov2019; LastRx:17Nov2019 Ordered Melatonin TABS;Therapy: (Recorded:23Jan2019) to Recorded Multi-Vitamin TABS;Therapy: (Recorded:23Jan2019) to Recorded Naproxen 500 MG Oral Tablet;Therapy: (Recorded:23Jan2019) to Recorded Pepcid 20 MG Oral Tablet;Therapy: 28Jul2019 to Recorded Senokot TABS;Therapy: (Recorded:26Sep2019) to Recorded Tylenol PM Extra Strength 1000-50 MG/30ML Oral Liquid;Therapy: (Recorded:23Jan2019) to Recorded Vitamin D CAPS;Therapy: (Recorded:[id number]) to Recorded Past Medical History History of anemia (V12.3) (Z86.2) Denied: History of anticoagulant therapy History of arthritis (V13.4) (Z87.39) History of asthma (V12.69) (Z87.09) Denied: History of coagulation defect History of herpes zoster (V12.09) (Z86.19) History of hypotension (V12.59) (Z86.79) History of neck pain (V13.59) (Z87.39) Surgical History Denied: History of Cardioverter defibrillator insertion History of Cataract surgery History of Hip replacement History of Hysterectomy History of Knee surgery History of Lumbar laminectomy History of Nose surgery Denied: History of Permanent pacemaker insertion Family History Family history of arthritis (V17.7) (Z82.61) Family history of cardiac disorder (V17.49) (Z82.49) Family history of diabetes mellitus (V18.0) (Z83.3) Family history of hypertension (V17.49) (Z82.49) Family history of malignant neoplasm (V16.9) (Z80.9) Family history of cardiac disorder (V17.49) (Z82.49) Family history of hypertension (V17.49) (Z82.49) Family history of arthritis (V17.7) (Z82.61) Family history of arthritis (V17.7) (Z82.61) Social History Current non-drinker of alcohol (V49.89) (Z78.9) Disabled Never a smoker No illicit drug use VitalsDenies fevers or SOB Physical ExamGeneral: female. Psychological:. Alert and oriented to person, place and time. Assessment 1. Left hip pain (719.45) (M25.552) 2. Lumbar radiculopathy (724.4) (M54.16) Plan 1. Follow-Up with Original Provider Follow Up Follow-up Status: Hold For - Scheduling Requested for: [id number] Appointment for 15 or 30 minutes : Schedule 15 minute appointmentSchedule With: : Anahy Pierce NPSchedule : Follow-up in 1 month Medication:. Medication list was reviewed with the patient, and updates were m any to reflect her current medication regimen. Allergy list was reviewed with patient, and any necessary changes were made. [facility] CUT OUT AND MARKING MACHINE OPERATOR Information: CUT OUT AND MARKING MACHINE OPERATOR was consulted by my designee and I have reviewed the information presented to me and find no aberrant compliance issues. Patient has been informed. General Medications Prescribed: Gabapentin . GENERAL MEDICATIONS: I advised the patient today/previously regarding treatment with the above medication(s). The risks, benefits, common side effects and alternative treatments were discussed with the patient. The provider verbalized with the patient. The patient verbalized understanding and was told to call if there were any untoward effects. The prescribed medications are medically necessary for pain management and rehabilitation. Treatment includes: PROCEDURE(S): The patient defers blocks/procedures at this time FOLLOW UP: The patient should have a follow up visit in 1 month. CONTINUE TREATMENT: La will continue with the following:. Patient will follow up with their PCP. La is participating in a home exercise program and is encouraged to continue. Miscellaneous: - ACTIVITY COUNSELING: Discussed use of stationary/recumbent bike and/or continue exercises and stretches patient may have learned at PT. Patient encouraged to increase daily physical activity including ergonomics and aerobic activity. - CLOSET ORGANIZER: The patient was counseled on the following: treatment plan and future treatment options. TIme:. Time: Start time: 11.00 A.M. End time: 11.09 A.M. Discussion/[id number] female with left hip, cervical, back pain sust ained after a work-related injury on 10/11/94. Patient reports that she had recent trigger point injections with her Orthopedist (different facility) in her cervical spine. They are looking to working up diagnostic facets there at this time. She continues to utilize Gabapentin for chronic left hip, cervical and back pain which allows her to be to engage in ADLs easily. She will continue Gabapentin as prescribed with no changes. She does not need a refill today. At this point she does not want to trial a nerve conduction study which was recommended at her last appointment. She was encouraged to engage in a home exercise program. She will be set up in 1 month with her original provider Heidi Pierce NP at her request. She is agreeable. Work / School NotePATIENT: if you submit this to your employer as an out of work note please be aware this includes PHI (Protected Health Information). The incident described by the patient is a competent medical cause of this injury. The patient's complaints are consistent with the history of the injury/illness. The patient's history of the injury/illness is consistent with my objective findings. The patient is not working at this time. The incident described by the patient is a competent medical cause of this injury. The patient's complaints are consistent with the history of the injury/illness. The patient's history of the injury/illness is consistent with my objective findings. Patient is on permanent disability. Disability rating is 33 %. Signatures Electronically signed by : Skye Valladares NP; Feb 17 2020 1:01PM EST (Author) El ectronically signed by : Grady Dudley MD; Feb 18 2020 8:53AM EST Name Value Range Interpretation Code Description Data Marisel rce(s) Supporting Document(s) ID Date Data Source [id number] 02/02/2020 08:50:00 AM EDT [place] ([facility]) Name Value Range Interpretation Code Description Data Marisel rce(s) Supporting Document(s) Creatinine For GFR 0.92 mg/dL 0.55-1.30 [facility] ([facility]) Glomerular Filtration Rate Laboratory test result [facility]) <content>Units are mL/min/1.73 m2</content>
<content></content>
<content>Chronic Kidney Disease Staging per NKF:</content>
<content></content>
<content>Stage I & II GFR >=60 Normal to Mildly Decreased</content>
<content>Stage III GFR 30- 59 Moderately Decreased</content>
<content>Stage IV GFR 15-29 Severely Decreased</content>
<content>Stage V GFR <15 Very Little GFR Left</content>
<content>ESRD GFR <15 on [employer]</content>
<content></content> ID Date Data Source [id number] 02/02/2020 08:50:[facility] AM [facility] Name Value Range Interpretation Code Description Data Marisel rce(s) Supporting Document(s) Urea nitrogen [Mass/volume] in Serum or Plasma 13 mg/dL 7-18 [facility] ([facility]) ID Date Data Source [id number] 01/23/2020 11:00:00 AM EDT [facility] Name Value Range Interpretation Code Description Data Marisel rce(s) Supporting Document(s) SARS CORONAVIRUS 2 RNA [facility] This lab was ordered by [facility] and reported by [facility]. ID Date Data Source [id number] 11/17/2019 12:15:35 PM EST [facility], PCName: Sylvie RouseParesh: 1955Provider: Sania Pierce: 11/17/2019 Chief ComplaintLeft hip, back, and cervical pain resulting from a worker's comp injury that occurred on 10/11/1991. Chief Complaint 2NYSW VAS PAIN Established: DOMINGA completing section: Vcrouse CLINICAL TRIAL SPECIALIST History of Present IllnessDo you have a Brace for your condition? Patient does not have a brace for their condition. Recent test/procedures: Patient has had the following tests/procedures since their last visit: . Patient has been seen by the following physician since their last visit: The patient was last seen by a [facility] provider on 09/26/2019. At today's visit patient presents with their Spouse and Self Patient is not currently working. The patient is being seen for a workers compensation follow-up. The workers compensation date of injury is 10/11/1994. Pain Quality: (Neuropathic) burning and pins and needles Pain Quality: (Nociceptive) stabbing Timing: constant Palliation: changing position, heat, ice and TENS Unit Exacerbating: sitting, standing and position Pain Score: a current pain level of 4/10, a minimum pain level of 3/10 and a maximum pain level of 8/10. Condition type: The patient is being seen for a chronic condition. Dr. Diane Mckeon. PAIN LOCATION: the pain is located in the neck, radiates to the right shoulder, the pain is located in the low back and radiates to the left buttock and right hip. The etiology of this injury/condition is unknown. INJURY MECHANISM: The injury resulted from no known physical event. PAST EVALUATION: The patient has been previously evaluated by the following specialty: Orthopedic evaluation by Diane Preston MD. REVIEW OF PAST DIAGNOSTICS: have included: MRI. PAST TREATMENT has included: CORTICOSTEROIDS (not effective), MUSCLE RELAXANTS (not effective), NON-OPIOID ANALGESICS (not effective) Includes Tylenol., NONSTEROIDAL ANTI-INFLAMMATORY drugs (not effective) Includes Ibuprofen and Naproxen., hip steroid injections (not effective), MANIPULATION/CHIROPRACTIC treatment (not effective), PHYSICAL THERAPY/HOME EXERCISE exercise (not effective), but ANTICONVULSANTS (effective) Includes Gabapentin., TENS unit (effective) . L5/S1 laminectomy- failed (effective). - Nerve Block: Pertinent Information on a LEFT, LUMBAR, TRANSFORAMINAL EPIDURAL STEROID INJECTION. Targeting the L4 L5 level . 10/07/2019 Dr. Rao. 85 % of pain relief was provided lasting for 1 month(s). Allows patient to increase activity and functionality Including the following activities for longer periods of time with less pain: activities of daily living, sleeping, walking, standing, sitting and grocery shopping and babysit grandson. INTERVAL EVENTS: include . Patient here today to follow-up on left hip, back, and cervical pain resulting from a worker's comp injury that occurred on 10/11/1991. Has been utilizing gabapentin. Underwent an L4-L5 left-sided lumbar transforaminal injection completed on 10/07/2019. Had 85% reduction of sym ptoms for a little over one month. At that time Dr. Rao suggested a nerve conduction study. ASSOCIATED SYMPTOMS: include headache, muscle pain/spasm, radiating and mood affected, but no difficulty sleeping, no difficulty walking, no sexual dysfunction, no fecal incontinence, no extremity weakness, no urinary incontinence and no change in behavior. Review of SystemsROS was reviewed with patient; documented on established patient questionnaire dated 11/17/2019. I feel the ROS to be negative/normal other than Musculoskeletal. Patient maintains at today's visit there has been no change in his/her hematologic history. Active Problems 1. Chronic pain (338.29) (G89.29) 2. Left hip pain (719.45) (M25.552) 3. Lumbar radiculopathy (724.4) (M54.16) Allergies Amoxicillin TABS Rash; Recorded By: Jean Montano; 01/23/2019 2:37:50 PMDenied Adhesive Tape Recorded By: Jena Montano; 01/23/2019 2:37:50 PM Iodinated Contrast Media Recorded By: Jean Montano; 01/23/2019 2:37:50 PM Latex Recorded By: Jean Montano; 01/23/2019 2:37:50 PM Current Meds Amitriptyline HCl TABS;Therapy: (Recorded:23Jan2019) to Recorded Flexeril TABS;Therapy: (Recorded:26Sep2019) to Recorded Gabapentin 600 MG Oral Tablet; TAKE 1 TABLET 3 TIMES DAILY. MDD:3;Therapy: 23Jan2019 to (Evaluate:25Nov2019) Requested for: 26Sep2019; LastRx:26Sep2019 Ordered Melatonin TABS;Therapy: (Recorded:23Jan2019) to Recorded Multi-Vitamin TABS;Therapy: (Recorded:23Jan2019) to Recorded Naproxen 500 MG Oral Tablet;Therapy: (Recorded:23Jan2019) to Recorded Pepcid 20 MG Oral Tablet;Therapy: 28Jul2019 to Recorded Senokot TABS;Therapy: (Re corded:26Sep2019) to Recorded Tylenol PM Extra Strength 1000-50 MG/30ML Oral Liquid;Therapy: (Recorded:23Jan2019) to Recorded Vitamin D CAPS;Therapy: (Recorded:23Jan2019) to Recorded Past Medical History History of anemia (V12.3) (Z86.2) Denied: History of anticoagulant therapy History of arthritis (V13.4) (Z87.39) History of asthma (V12.69) (Z87.09) Denied: History of coagulation defect History of herpes zoster (V12.09) (Z86.19) History of hypotension (V12.59) (Z86.79) History of neck pain (V13.59) (Z87.39) Surgical History Denied: History of Cardioverter defibrillator insertion History of Cataract surgery History of Hip replacement History of Hysterectomy History of Knee surgery History of Lumbar laminectomy History of Nose surgery Denied: History of Permanent pacemaker insertion Family History Family history of arthritis (V17.7) (Z82.61) Family history of cardiac disorder (V17.49) (Z82.49) Family history of diabetes mellitus (V18.0) (Z83.3) Family history of hypertension (V17.49) (Z82.49) Family history of malignant neoplasm (V16.9) (Z80.9) Family history of cardiac disorder (V17.49) (Z82.49) Family history of hypertension (V17.49) (Z82.49) Family history of arthritis (V17.7) (Z82.61) Family history of arthritis (V17.7) (Z82.61) Social History Current non-drinker of alcohol (V49.89) (Z78.9) Disabled Never a smoker No illicit drug use VitalsVital Signs Recorded: 17Nov2019 10:49AM Height: 5 ft 4 inWeight: 135 lb BMI Calculated: 23.17BSA Calculated: 1.66Systolic: 117, SittingDiastolic: 68, SittingHeart Rate: 67Respiration: 16Temperature: 97.5 F, TympanicHeight measured w/wo shoes: w/shoesPain Scale: 4 Physical ExamGeneral: The patient is a well nourished/well developed, female, with a medium build, who is in mild distress and appears stated age. Eyes: Lids are atraumatic, no lesions, sclerae are anicteric. currently wearing eyeglasses. Ears, Nose, Mouth, Throat: external ears and nose without trauma. Gait and Station: Gait was normal. Respiratory: Normal chest expansion and respiratory effort. Skin: Warm, dry, acyanotic. Psychological: Alert and oriented to person, place and time. Mood and affect are pleasant and appropriate. Judgement intact. Insight normal without delusions or hallucinations. Denies suicidal/homicidal ideation. Assessment 1. Lumbar radiculopathy (724.4) (M54.16) 2. Left hip pain (719.45) (M25.552) 3. Chronic pain (338.29) (G89.29) Plan 1. Renew: Gabapentin 600 MG Oral Tablet; TAKE 1 TABLET TWICE DAILY 2. Follow-up in 3 months Follow Up Follow-up Status: Hold For - Scheduling Requested for: [id number] Appointment for 15 or 30 minutes : Schedule 15 minute appointment Medication:. There are no changes in current medications at this visit. Patient instructed to continue current regimen. The prescribed medications are medically necessary for pain management and rehabilitation. Treatment includes: PROCEDURE(S): the patient defers blocks/procedures at this time THERAPIES: Therapy Treatment Plan: Deferred: All Therapies: Deferred: per patient request. FOLLOW UP: The patient should have a follow up visit in 3 months. CONTINUE TREATMENT: La will continue with the following:. La is participating in a home exercise program and is encouraged to continue. - CLOSET ORGANIZER: The patient was counseled on the following: treatment plan and future treatment options. Discussion/SummaryPatient here today to follow-up on left hip, back, and cervical neck pain resulting from a worker's comp injury that occurred on 10/11/1991. Has been utilizing gabapentin but recently has reduced her dose to twice a day dosing due to the weight gain. We did discuss the possibility of changing her from gabapentin to duloxetine after reducing her to 300mg BID which will likely do the next office visit. We also discussed the possibility of nerve conduction study based on Dr. Rao's recommendation however she defers at this time as her stepson was diagnosed with brain cancer and recently had one tumor removed and he has one that is inoperable in terminal. She also reports that her mother was just diagnosed with breast cancer and will be undergoing surgery soon. At this point she'll follow-up in 3 months time. I provided her a refill of her gabapentin. Work / School NotePATIENT: if you submit this to your employer as an out of work note please be aware this includes PHI (Protected Health Information). The incident described by the patient is a competent medical cause of this injury. The patient's complaints are consistent with the history of the injury/illness. The patient's history of the injury/illness is consistent with my objective findings. The patient is not working at this time. The incident described by the patient is a competent medical cause of this injury. The patient's complaints are consistent with the history of the injury/illness. The patient's history of the injury/illness is consistent with my objective findings. Patient is on permanent disability. Disability rating is 33 %. [employer] Medical DisclaimerNYSWC [employer] Medical Disclaimer: This document was dictated and electronically signed using [employer] Speaking software. A reasonable attempt at proof reading has been made to minimize errors. Please call with any questions. Signatures Electronically signed by : Anahy Pierce NP; Nov 17 2019 11:22AM EST (Author) Electronically signed by : Arturo Chavez MD; Nov 17 2019 12:15PM EST Name Value Range Interpretation Code Description Data Marisel rce(s) Supporting Document(s) ID Date Data Source [id number] 09/30/2019 01:51:00 PM EST [facility]Name: Sylvie RouseParesh: 1955Provider: Sania Pierce: 09/26/2019 Chief ComplaintLeft hip, back, and cervical neck pain resulting from workers comp injury that occurred on 10/11/1994 Chief Complaint 2NYSW VAS PAIN Established: MA completing section: tdolbear History of Present IllnessDo you have a Brace for your condition? Patient does not have a brace for their condition. Recent test/procedures: Patient was asked and denies having any tests since their last visit. Patient was asked and denies being seen by any Physicians since their last visit. At today's visit patient presents with their Self Patient is not currently working. The patient is being seen for a workers compensation follow-up. The workers compensation date of injury is 10-11-94. Pain Quality: (Neuropathic) burning Pain Quality: (Nociceptive) aching and sharp Timing: constant Palliation: heat and TENS Unit Exacerbating: No exacerbating factors are noted Pain Score: a current pain level of 6/10, a minimum pain level of 3/10 and a maximum pain level of 9/10. Condition type: The patient is being seen for a chronic condition. Dr. Diane Mckeon. PAIN LOCATION: the pain is located in the neck, radiates to the right shoulder, the pain is located in the low back and radiates to the left buttock and right hip. The etiology of this injury/condition is unknown. INJURY MECHANISM: The i njury resulted from no known physical event. PAST EVALUATION: The patient has been previously evaluated by the following specialty: Orthopedic evaluation by Diane Preston MD. REVIEW OF PAST DIAGNOSTICS: have included: MRI. PAST TREATMENT has included: CORTICOSTEROIDS (not effective), MUSCLE RELAXANTS (not effective), NON-OPIOID ANALGESICS (not effective) Includes Tylenol., NONSTEROIDAL ANTI-INFLAMMATORY drugs (not effective) Includes Ibuprofen and Naproxen., hip steroid injections (not effective), MANIPULATION/CHIROPRACTIC treatment (not effective), PHYSICAL THERAPY/HOME EXERCISE exercise (not effective), but ANTICONVULSANTS (effective) Includes Gabapentin., TENS unit (effective) . L5/S1 laminectomy- failed (effective). INTERVAL EVENTS: include . Patient to follow-up on left hip, back, and cervical neck pain resulting from a workers comp injury that occurred on 10/11/1994. Last in the office on 07/28/2019. Recently had imaging which showed some left hip lucency had lab work done and was found to not be an infection. And was to follow-up with Dr. Mckeon. Continues to have quite a bit of pain and is frustrated w/ her chronic pain. ASSOCIATED SYMPTOMS: include headache, muscle pain/spasm, radiating and mood affected, but no difficulty sleeping, no difficulty walking, no sexual dysfunction, no fecal incontinence, no extremity weakness, no urinary incontinence and no change in behavior. Review of SystemsROS was reviewed with patient; documented on established patient questionnaire dated 09/26/2019. I feel the ROS to be negative/normal other than . Patient maintains at today's visit there has been no change in his/her hematologic history. Active Problems 1. Chronic pain (338.29) (G89.29) 2. Left hip pain (719.45) (M25.552) 3. Lumbar radiculopathy (724.4) (M54.16) Allergies Amoxicillin TABS Rash; Recorded By: Jean Montano; 01/23/2019 2:37:50 PMDenied Adhesive Tape Recorded By: Jean Montano; 01/23/2019 2:37:50 PM Iodinated Contrast Media Recorded By: Jean Montano; 01/23/2019 2:37:50 PM Latex Recorded By: Jean Montano; 01/23/2019 2:37:50 PM Current Meds Amitriptyline HCl TABS;Therapy: (Recorded:23Jan2019) to Recorded Flexeril TABS;Therapy: (Recorded:[id number]) to Recorded Gabapentin 600 MG Oral Tablet; TAKE 1 TABLET 3 TIMES DAILY. MDD:3;Therapy: 23Jan2019 to (Evaluate:[id number]) Requested for: [id number]; LastRx:[id number] Ordered Melatonin TABS;Therapy: (Recorded:23Jan2019) to Recorded Multi-Vitamin TABS;Therapy: (Recorded:23Jan2019) to Recorded Naproxen 500 MG Oral Tablet;Therapy: (Recorded:23Jan2019) to Recorded Pepcid 20 MG Oral Tablet;Therapy: 28Jul2019 to Recorded Senokot TABS;Therapy: (Recorded:26Sep2019) to Recorded Tylenol PM Extra Strength 1000-50 MG/30ML Oral Liquid;Therapy: (Recorded:23Jan2019) to Recorded Vitamin D CAPS;Therapy: (Recorded:23Jan2019) to Recorded Past Medical History History of anemia (V12.3) (Z86.2) Denied: History of anticoagulant therapy History of arthritis (V13.4) (Z87.39) History of asthma (V12.69) (Z87.09) Denied: History of coagulation defect History of herpes zoster (V12.09) (Z86.19) History of hypotension (V12.59) (Z86.79) History of neck pain (V13.59) (Z87.39) Surgical History Denied: History of Cardioverter defibrillator insertion History of Cataract surgery History of Hip replacement History of Hysterectomy History of Knee surgery History of Lumbar laminectomy History of Nose surgery Denied: History of Permanent pacemaker insertion Family History Family history of arthritis (V17.7) (Z82.61) Family history of cardiac disorder (V17.49) (Z82.49) Family history of diabetes mellitus (V18.0) (Z83.3) Family history of hypertension (V17.49) (Z82.49) Family history of malignant neoplasm (V16.9) (Z80.9) Family history of cardiac disorder (V17.49) (Z82.49) Family history of hypertension (V17.49) (Z82.49) Family history of arthritis (V17.7) (Z82.61) Family history of arthritis (V17.7) (Z82.61) Social History Current non-drinker of alcohol (V49.89) (Z78.9) Disabled Never a smoker No illicit drug use VitalsVital Signs Recorded: 26Sep2019 10:40AM Height: 5 ft 4 inWeight: 136 lb BMI Calculated: 23.34BSA Calculated: 1.66Systolic: 131, SittingDiastolic: 81, SittingHeart Rate: 76Respiration: 16Height measured w/wo shoes: w/shoesPain Scale: 5 Physical ExamGeneral: The patient is a well nourished/well developed, female, with a medium build, who is in mild distress and appears stated age. Eyes: Lids are atraumatic, no lesions, sclerae are anicteric. Ears, Nose, Mouth, Throat: external ears and nose without trauma. Gait and Station: Gait was normal. Respiratory: Normal chest expansion and respiratory effort. Lungs are clear to auscultation bilaterally Cardiovascular: Extremities without peripheral edema, auscultation of heart reveals S1, S2 regular rate and rhythm, without murmur.Lumbosacral Spine: Surgical incision, well healed surgical scar.- Palpation/Tenderness: No SI, paraspinous, or sciatic notch tenderness. - ROM Flexion: was restricted, was painful. - ROM Extension: was restricted, was painful.Right Lower Extremity Motor:- Hip: 4/4 flexion, 5/5 extension- Knee: 5/5 flexion, 5/5 extension- Foot: 5/5 Plantar , 5/5 DorsiFlexionSpecial Tests: flip test was positiveLeft Lower Extremity Motor:- Hip: 5/5 flexion, 5/5 extension- Knee: 5/5 flexion, 5/5 extension- Foot: 5/5 Plantar , 5/5 DorsiFlexionSpecial Tests: flip test was negative and negative facet challengeNeurological:Sensation Left Lower: normalSensation Right Lower: normal. Skin: Warm, dry, acyanotic. Psychological: Alert and oriented to person, place and time. Mood and affect are pleasant and appropriate. Judgement intact. Insight normal without delusions or hallucinations. Denies suicidal/homicidal ideation. Assessment 1. Encounter for preventive health examination (V70.0) (Z00.00) 2. Chronic pain (338.29) ( G89.29) 3. Lumbar radiculopathy (724.4) (M54.16) 4. Left hip pain (719.45) (M25.552) Plan 1. Renew: Gabapentin 600 MG Oral Tablet; TAKE 1 TABLET 3 TIMES DAILY. MDD:3 2. Block (Transforaminal) ([facility]) Referral Procedure Procedure Status: Hold For - Scheduling Requested for: [id number] Type : WC Within GuidelinesIs patient taking a biologic? : NoIs your patient taking aspirin for cardiac or stroke prevention...? : NoIs patient taking Aspirin > 81 mg...? : NoIs your patient on an Anticoagulant -OR- have Coagulopathy...? : NoReminder: : Place order for Anticoag: Aspirin Products Transforam-InterlamSedation : YesLaterality : RTArea : LumbarBlock : TransforaminalProfessional Meat And Poultry Inspector needed for block? : NoFront Desk Reminder: : Schedule the Status Post BlockPt weight: SODS: </= 450 lbs. HODS: </= 400 lbs. ENTER WEIGHT: : 136IF PT has Thrombocytopenia are platelets >/= 100,000 ? : NAAre you ordering pyhsical therapy...? : NoDoes patient require a Sergey lift? : NoIs this an urgent request? : No - This is not an urgent request Medication:. There are no changes in current medications at this visit. Patient instructed to continue current regimen. The prescribed medications are medically necessary for pain management and rehabilitation. Treatment includes: PROCEDURE(S): - Nerve Block Plan: I am ordering a, RIGHT, LUMBAR, TRANSFORAMINAL EPIDURAL STEROID INJECTION. Definitive levels to be determined by the interventional physician based on fluoroscopic imaging and symptomatology at the time of the procedure., targeting the L5 S1 level and S1 level. under fluoroscopy with SEDATION. NERVE BLOCK: The material risks, benefits, alternatives have been discussed with the patient, including no treatment. They include, but are not limited to, bleeding, bruising, infection, damage to targeted and non-targeted tissue, increased pain, nerve injury or other reaction, if severe, could lead to CVA, arrhythmias or . The patient was given procedure instructions and educational material for this specific procedure at the time of the visit.- Bleeding Disorder: Patient denies having a bleeding disorder. - Anticoagulation therapy:. Patient denies current treatment with anti-coagulation therapy. THERAPIES: Therapy Treatment Plan: Deferred: All Therapies: Deferred: per patient request. FOLLOW UP: The patient should have a follow up visit 4 weeks post block. CONTINUE TREATMENT: La will continue with the following:. La is participating in a home exercise program and is encouraged to continue. Patient received instructional sheet of Core Stretching and Strengthening Exercises for the Lower Back at today's visit. - CLOSET ORGANIZER: The patient was counseled on the following: treatment plan and future treatment options. Discussion/SummaryPatient here today for follow-up of left hip, back, and cervical neck pain resulting from workers comp injury that occurred on 10/11/1994. Last in the office on 07/28/2019 and we discussed imaging which showed a left hip lucency, labs were obtained but no infection was found and she was instructed to speak with Dr. Mckeon her orthopedic surgeon. She has since done so and they do not believe it is her hip and it is more soft tissue related versus coming from her back. Patient underwent an L5-S1 lumbar intralaminar injection on 2018 which provided 80% relief for 2 weeks. At this point we'll proceed with a right-sided lumbar transforaminal injection targeting the L5-S1 and S1 as a lot of her pain is located in the posterior aspect of her right thigh and right hip. We will complete this with sedation and fluoroscopy. She will continue to utilize her gabapentin. Patient was provided education material, risks and benefits reviewed, patient verbalizes understanding and is in agreement with treatment plan. Patient will follow up four weeks after her injection to evaluate effectiveness of treatment plan. Work / School NotePATIENT: if you submit this to your employer as an out of work note please be aware this includes PHI (Protected Health Information). The incident described by the patient is a competent medical cause of this injury. The patient's complaints are consistent with the history of the injury/illness. The patient's history of the injury/illness is consistent with my objective findings. The patient is not working at this time. The incident described by the patient is a competent medical cause of this injury. The patient's complaints are consistent with the history of the injury/illness. The patient's history of the injury/illness is consistent with my objective findings. Patient is on permanent disability. Disability rating is 33 %. [employer] [facility] Disclaimer[facility] [employer] Disclaimer: This document was dictated and electronically signed using [employer] Speaking software. A reasonable attempt at proof reading has been made to minimize errors. Please call with any questions. Signatures Electronically signed by : Anahy Pierce NP; Sep 26 2019 11:17AM EST (Author) Electronically signed by : Sarah Elise MD; Sep 30 2019 1:50PM EST Name Value Range Interpretation Code Description Data Marisel rce(s) Supporting Document(s) Procedure Social History Code Duration Value Status Description Data Source(s ) Smoking 10/07/2020 12:00:00 AM EST Never Smoker completed Never S moker eCW1 ([facility]) Smoking 10/07/2020 12:00:00 AM EST Never Smoker completed Never S moker eCW1 ([facility]) Smoking 09/03/2020 12:00:00 AM EST Never Smoker completed Never S moker eCW1 ([facility]) Smoking 09/03/2020 12:00:00 AM EST Never Smoker completed Never S moker eCW1 ([facility]) Smoking 09/03/2020 12:00:00 AM EST Never Smoker completed Never S moker eCW1 ([facility]) Smoking 09/03/2020 12:00:00 AM EST Never Smoker completed Never S moker eCW1 ([facility]) Smoking 04/09/2020 12:00:00 AM EDT Never Smoker completed Never S moker eCW1 ([facility]) Smoking 04/09/2020 12:00:00 AM EDT Never Smoker completed Never S moker eCW1 ([facility]) Smoking 04/09/2020 12:00:00 AM EDT Never Smoker completed Never S moker eCW1 ([facility]) Smoking 04/09/2020 12:00:00 AM EDT Never Smoker completed Never S moker eCW1 ([facility]) Smoking 04/09/2020 12:00:00 AM EDT Never Smoker completed Never S moker eCW1 ([facility]) Smoking 04/09/2020 12:00:00 AM EDT Never Smoker completed Never S moker eCW1 ([facility]) Smoking 04/09/2020 12:00:00 AM EDT Never Smoker completed Never S moker eCW1 ([facility]) Smoking 03/30/2020 12:00:00 AM EDT Never Smoker completed Never S moker eCW1 ([facility]) Smoking 03/30/2020 12:00:00 AM EDT Never Smoker completed Never S moker eCW1 ([facility]) Smoking 02/10/2020 12:00:00 AM EDT Non Smoker completed Non Smoke r [facility] Smoking 02/06/2020 12:00:00 AM EDT Never Smoker completed Never S moker eCW1 ([facility]) Vital Signs ID Date Data Source UNK Name Value Range Interpretation Code Description Data Source(s) Diastolic blood pressure 64 mm[Hg] 64 mm[Hg] eCW1 ([facility]) Systolic blood pressure 118 mm[Hg] 118 mm[Hg] e CW1 ([facility]) Body temperature 97.4 [degF] 97.4 [degF] eCW1 ( [facility]) Respiratory rate 17 /min 17 /min eCW1 ([facility]) Heart rate 85 /min 85 /min eCW1 ([facility]) Body mass index (BMI) [Ratio] 23.54 kg/m2 23.54 kg/m2 W1 ([facility]) Body height 63.5 [in_i] 63.5 [in_i] eCW1 ([facility]) Body weight 135 [lb_av] 135 [lb_av] eCW1 ([facility]) Diastolic blood pressure 70 mm[Hg] 70 mm[Hg] eCW1 ([facility]) Systolic blood pressure 116 mm[Hg] 116 mm[Hg] e CW1 ([facility]) Body mass index (BMI) [Ratio] 23.82 kg/m2 23.82 kg/m2 W1 ([facility]) Body height 63.5 [in_i] 63.5 [in_i] eCW1 ([facility]) Body weight 136.6 [lb_av] 136.6 [lb_av] eCW1 ([facility]) Body weight 60.329 kg 60.329 kg MEDENT ([facility], ) [place] body weight 115 [lb_av] 115 [lb_av] MEDEN T ([facility]) Body mass index (BMI) [Ratio] 23.0 kg/m2 23.0 k g/m2 MEDENT ([facility], ) Body weight 133.00 [lb_av] 133.00 [lb_av] MEDEN T ([facility]) Body height 63.75 [in_i] 63.75 [in_i] [place] ([facility]) 5'3.75" Diastolic blood pressure 64 mm[Hg] 64 mm[Hg] [place] ([facility]) Systolic blood pressure 108 mm[Hg] 108 mm[Hg] M EDENT ([facility]) Body weight 58.968 kg 58.968 kg [place] ([facility]) [place] body weight 120 [lb_av] 120 [lb_av] [facility] ([facility]) Body mass index (BMI) [Ratio] 22.3 kg/m2 22.3 k g/m2 [place] ([facility]) Body weight 130.00 [lb_av] 130.00 [lb_av] [facility] ([facility]) Body height 64 [in_i] 64 [in_i] [place] ([facility]) 5'4" Diastolic blood pressure 70 mm[Hg] 70 mm[Hg] eCW1 ([facility]) Systolic blood pressure 110 mm[Hg] 110 mm[Hg] e CW1 ([facility]) Body temperature 98.3 [degF] 98.3 [degF] eCW1 ( [facility]) Respiratory rate 18 /min 18 /min eCW1 ([facility]) Heart rate 80 /min 80 /min eCW1 ([facility]) Body mass index (BMI) [Ratio] 23.36 kg/m2 23.36 kg/m2 eCW1 ([facility]) Body height 63.5 [in_i] 63.5 [in_i] eCW1 ([facility]) Body weight 134 [lb_av] 134 [lb_av] eCW1 ([facility]) Diastolic blood pressure 70 mm[Hg] 70 mm[Hg] eCW1 ([facility]) Systolic blood pressure 108 mm[Hg] 108 mm[Hg] e CW1 ([facility]) Body temperature 96.4 [degF] 96.4 [degF] eCW1 ( [facility]) Body mass index (BMI) [Ratio] 23.01 kg/m2 23.01 kg/m2 eCW1 ([facility]) Body height 63.5 [in_i] 63.5 [in_i] eCW1 ([facility]) Body weight 132.0 [lb_av] 132.0 [lb_av] eCW1 ([facility]) Diastolic blood pressure 56 mm[Hg] 56 mm[Hg] eCW1 ([facility]) Systolic blood pressure 123 mm[Hg] 123 mm[Hg] e CW1 ([facility]) Body temperature 97.3 [degF] 97.3 [degF] eCW1 ( [facility]) Respiratory rate 18 /min 18 /min eCW1 ([facility]) Heart rate 73 /min 73 /min eCW1 ([facility]) Body mass index (BMI) [Ratio] 23.85 kg/m2 23.85 kg/m2 eCW1 ([facility]) Body height 63.5 [in_i] 63.5 [in_i] eCW1 ([facility]) Body weight 136.8 [lb_av] 136.8 [lb_av] eCW1 ([facility]) Body mass index (BMI) [Ratio] 23.0 kg/m2 23.0 k g/m2 MEDENT ([facility] ) Body weight 130.00 [lb_av] 130.00 [lb_av] MEDEN T ([facility] ) Body height 63 [in_i] 63 [in_i] MEDENT ([facility] ) 5'3" Body temperature 97.0 [degF] 97.0 [degF] MEDENT ([facility] ) [place] body weight 120 [lb_av] 120 [lb_av] MEDEN T ([facility], ) Body height 64 [in_i] 64 [in_i] MEDENT ([facility], ) 5'4" Diastolic blood pressure 64 mm[Hg] 64 mm[Hg] eCW1 ([facility]) Systolic blood pressure 151 mm[Hg] 151 mm[Hg] e CW1 ([facility]) Body temperature 96.8 [degF] 96.8 [degF] eCW1 ( [facility]) Respiratory rate 18 /min 18 /min eCW1 ([facility]) Heart rate 69 /min 69 /min eCW1 ([facility]) Body mass index (BMI) [Ratio] 23.82 kg/m2 23.82 kg/m2 eCW1 ([facility]) Body height 63.5 [in_us] 63.5 [in_us] eCW1 ([facility]) Body weight Measured 136.6 [lb_av] 136.6 [lb_av ] eCW1 ([facility]) Diastolic blood pressure 63 mm[Hg] 63 mm[Hg] eCW1 ([facility]) Systolic blood pressure 108 mm[Hg] 108 mm[Hg] e CW1 ([facility]) Body temperature 97.2 [degF] 97.2 [degF] eCW1 ( [facility]) Respiratory rate 18 /min 18 /min eCW1 ([facility]) Heart rate 80 /min 80 /min eCW1 ([facility]) Body mass index (BMI) [Ratio] 23.36 kg/m2 23.36 kg/m2 eCW1 ([facility]) Body height 63.5 [in_us] 63.5 [in_us] eCW1 ([facility]) Body weight Measured 134.0 [lb_av] 134.0 [lb_av ] eCW1 ([facility]) Body mass index (BMI) [Ratio] 23.7 kg/m2 23.7 k g/m2 MEDENT ([facility], [facility]) Body height 63 [in_i] 63 [in_i] MEDENT ([facility], [facility]) 5'3" Body weight 134.00 [lb_av] 134.00 [lb_av] MEDEN T ([facility], [facility]) Body temperature 98.7 [degF] 98.7 [degF] MEDENT ([facility], [facility]) Oxygen saturation in Arterial blood by Pulse oximetry 99 % 99 % MEDENT ([facility], [facility]) Respiratory rate 20 /min 20 /min MEDENT ( [facility], [facility]) Heart rate 92 /min 92 /min MED[facility] ([facility]) Diastolic blood pressure 82 mm[Hg] 82 mm[Hg] MEDENT ([facility], [facility]) Systolic blood pressure 117 mm[Hg] 117 mm[Hg] M EDENT ([facility], [facility]) Diastolic blood pressure 62 mm[Hg] 62 mm[Hg] eCW1 ([facility]) Systolic blood pressure 118 mm[Hg] 118 mm[Hg] e CW1 ([facility]) Body temperature 97.8 [degF] 97.8 [degF] eCW1 ( [facility]) Respiratory rate 20 /min 20 /min eCW1 ([facility]) Heart rate 87 /min 87 /min eCW1 ([facility]) Body mass index (BMI) [Ratio] 23.33 kg/m2 23.33 kg/m2 W1 ([facility]) Body height 63.5 [in_us] 63.5 [in_us] eCW1 ([facility]) Body weight Measured 133.8 [lb_av] 133.8 [lb_av ] W1 ([facility]) Diastolic blood pressure 70 mm[Hg] 70 mm[Hg] eCW1 ([facility]) Systolic blood pressure 144 mm[Hg] 144 mm[Hg] e CW1 ([facility]) Body temperature 97.0 [degF] 97.0 [degF] eCW1 ( [facility]) Respiratory rate 17 /min 17 /min eCW1 ([facility]) Heart rate 73 /min 73 /min eCW1 ([facility]) Body mass index (BMI) [Ratio] 23.82 kg/m2 23.82 kg/m2 W1 ([facility]) Body height 63.5 [in_us] 63.5 [in_us] eCW1 ([facility]) Body weight Measured 136.6 [lb_av] 136.6 [lb_av ] eCW1 ([facility]) Diastolic blood pressure 56 mm[Hg] 56 mm[Hg] eCW1 ([facility]) Systolic blood pressure 120 mm[Hg] 120 mm[Hg] e CW1 ([facility]) Body temperature 97.1 [degF] 97.1 [degF] eCW1 ( [facility]) Respiratory rate 18 /min 18 /min eCW1 ([facility]) Heart rate 79 /min 79 /min eCW1 ([facility]) Body mass index (BMI) [Ratio] 23.57 kg/m2 23.57 kg/m2 eCW1 ([facility]) Body height 63.5 [in_us] 63.5 [in_us] eCW1 ([facility]) Body weight Measured 135.2 [lb_av] 135.2 [lb_av ] eCW1 ([facility]) Patient Treatment Plan of Care Planned Activity Planned Date Details Description Data Source (s) Famotidine 40 MG Oral Tablet [Pepcid] 09/03/2020 12:00:00 AM EST eCW1 ([facility]) Famotidine 40 MG Oral Tablet [Pepcid] 09/03/2020 12:00:00 AM EST eCW1 ([facility]) Famotidine 40 MG Oral Tablet [Pepcid] 09/03/2020 12:00:00 AM EST eCW1 ([facility]) Famotidine 40 MG Oral Tablet [Pepcid] 09/03/2020 12:00:00 AM EST eCW1 ([facility]) Ciprofloxacin 500 MG Oral Tablet 07/07/2020 12:00:00 AM EDT eCW1 ([facility]) Ciprofloxacin 500 MG Oral Tablet 07/07/2020 12:00:00 AM EDT eCW1 ([facility]) Oxycodone HCl 5 MG 06/22/2020 12:00:00 AM EDT eCW1 ([facility]) Acetaminophen 325 MG / Oxycodone Hydrochloride 5 MG Or al Tablet 06/22/2020 12:00:00 AM EDT eCW1 ([facility]) Oxycodone HCl 5 MG 06/22/2020 12:00:00 AM EDT eCW1 ([facility]) Acetaminophen 325 MG / Oxycodone Hydrochloride 5 MG Or al Tablet 06/22/2020 12:00:00 AM EDT eCW1 ([facility]) Oxycodone HCl 5 MG 06/22/2020 12:00:00 AM EDT eCW1 ([facility]) Acetaminophen 325 MG / Oxycodone Hydrochloride 5 MG Or al Tablet 06/22/2020 12:00:00 AM EDT eCW1 ([facility]) Oxycodone HCl 5 MG 06/22/2020 12:00:00 AM EDT eCW1 ([facility]) Acetaminophen 325 MG / Oxycodone Hydrochloride 5 MG Or al Tablet 06/22/2020 12:00:00 AM EDT eCW1 ([facility]) Sulfamethoxazole 800 MG / Trimethoprim 160 MG Oral Tab let 06/21/2020 12:00:00 AM EDT eCW1 ([facility]) Sulfamethoxazole 800 MG / Trimethoprim 160 MG Oral Tab let 06/21/2020 12:00:00 AM EDT eCW1 ([facility]) Sulfamethoxazole 800 MG / Trimethoprim 160 MG Oral Tab let 06/21/2020 12:00:00 AM EDT eCW1 ([facility]) Sulfamethoxazole 800 MG / Trimethoprim 160 MG Oral Tab let 06/21/2020 12:00:00 AM EDT eCW1 ([facility]) Omeprazole 20 MG Delayed Release Oral Capsule 12/12/2019 12:00:00 A M EDT eCW1 ([facility]) Cyclobenzaprine hydrochloride 5 MG Oral Tablet 09/24/2019 12:00:00 AM EST eCW1 ([facility])
--- NOTE | 2020-10-15 10:28 | ROOR ---
Patient Name: La Boo Procedure Date: 10/15/2020 10:07 AM Date of : 1955 Age: 65 Room: [facility] Gender: Female Note Status: Finalized Procedure: Colonoscopy Indications: Screening for colorectal malignant neoplasm Providers: Benito JANSEN MD Referring MD: [facility] [place] Requesting Provider: Medicines: Monitored Anesthesia Care Complications: No immediate complications. Procedure: Pre-Anesthesia Assessment: - The heart rate, respiratory rate, oxygen saturations, blood pressure, adequacy of pulmonary ventilation, and response to care were monitored throughout the procedure. The Colonoscope was introduced through the anus and advanced to the terminal ileum, with identification of the appendiceal orifice and IC valve. The colonoscopy was performed without difficulty. The patient tolerated the procedure well. The quality of the bowel preparation was good. Findings: The perianal and digital rectal examinations were normal. The entire colon appeared normal on direct and retroflexion views. Impression: - Small internal hemorrhoids. - The entire colon is normal on direct and retroflexion views. - No specimens collected. Recommendation: - Repeat colonoscopy in 10 years for screening purposes. Procedure Code(s): --- Professional --- 31038, Colonoscopy, flexible; diagnostic, including collection of specimen(s) by brushing or washing, when performed (separate procedure) Diagnosis Code(s): --- Professional --- Z12.11, Encounter for screening for malignant neoplasm of colon CPT copyright 2019 [employer]. All rights reserved. The codes documented in this report are preliminary and upon statistical assistant review may be revised to meet current compliance requirements. Benito Jansen MD Benito JANSEN MD 10/15/2020 10:28:01 AM Electronically signed by Benito JANSEN MD Number of Addenda: 0 Note Initiated On: 10/15/2020 10:07 AM Estimated Blood Loss: Estimated blood loss: none.
[2020-10-15 10:49] VITALS: BP 120/57
== END 2020-10-15 10:51 | disposition home or self-care (01) ==
LOC: M OPP 08:27
PROVIDERS: ATTEND Internal Medicine Gastroenterology
DX: Z12.11 Encounter for screening for malignant neoplasm of colon (principal); K64.8 Other hemorrhoids; K21.9 Gastro-esophageal reflux disease without esophagitis; D64.9 Anemia, unspecified; M19.90 Unspecified osteoarthritis, unspecified site; M79.7 Fibromyalgia; G47.30 Sleep apnea, unspecified; J44.9 Chronic obstructive pulmonary disease, unspecified; Z96.642 Presence of left artificial hip joint; Z88.0 Allergy status to penicillin; Z88.1 Allergy status to other antibiotic agents; Z88.2 Allergy status to sulfonamides; Z91.011 Allergy to milk products; Z91.018 Allergy to other foods; Z79.899 Other long term (current) drug therapy; Z85.828 Personal history of other malignant neoplasm of skin; Z80.3 Family history of malignant neoplasm of breast; Z80.7 Family history of other malignant neoplasms of lymphoid, hematopoietic and related tissues

== ENCOUNTER → 2020-10-23 | Outpatient (CLI) | payer MEDICARE ==
[~2020-10-23] MED LIST changes: -LIDOCAINE 2% 100MG/5ML SDV (FOR ANES.) As Ordered ONE; -NS 1,000 ML IV ONE; -propofoL 200 MG/20 ML VIAL As Ordered ONE
== END ==
LOC: M LABSMTC 08:41
PROVIDERS: ATTEND Anesthesiology
DX: Z20.822 Contact with and (suspected) exposure to COVID-19 (principal)

== ENCOUNTER → 2020-10-28 | Outpatient (CLI) | payer OTHER, MEDICARE ==
[~2020-10-28] MED LIST changes: +BUPIVACAINE HCL 0.25% 30ML VIAL As Ordered ONE; +ISOVUE-M 300 61% 15ML VIAL As Ordered ONE; +LIDOCAINE 1% SDV 30ML VIAL As Ordered ONE; +NORCO, ANEXSIA 5/325MG TABLET (HYDROcodone/ACETAMINOPHEN) As Ordered ONE; +TRIAMCINOLONE ACETONIDE SUSP 40 MG/ML VIAL (J3301) As Ordered ONE; +diazePAM 5MG TABLET As Ordered ONE
--- NOTE | 2020-10-28 12:46 | REP ---
INDICATION: PAIN. COMPARISON: None. TECHNIQUE: A single views. 179.1 seconds of fluoroscopy time is reported. FINDINGS: A single last image hold fluoroscopically obtained spot radiograph(s) of the cervical spine document(s) needle position(s) and contrast injection associated with injection procedure. IMPRESSION: Procedural imaging. <Electronically signed by Mohamud Jj > 10/28/20 [id number]
--- NOTE | 2020-10-30 00:35 | ECWPNPC ---
PATIENT NAME: ERNA GROVE : 1955 GENDER: FEMALE VISIT DATE: 10/28/2020 DISCHARGE DATE: 10/28/20 1245 VISIT LOCKED DATE TIME: PHYSICIAN: DIANA PRECIADO MD PHYSICIAN PAGER NO: ACTIVE RESOURCE: DIANA PRECIADO MD REASON FOR APPOINTMENT 1. LEFT THERAPEUTIC CERVICAL FACET BLOCK C3-C4, C4-C5,C5-C6 HISTORY OF PRESENT ILLNESS GENERAL: -. FALL RISK SCREENING: SCREENING :NO FALLS REPORTED IN THE LAST YEAR PAIN SCREENING: PATIENT HAS A COMPLAINT OF ACUTE OR CHRONIC PAIN :YES LOCATION OF PAIN:NECK INTENSITY OF PAIN (SCALE OF 1 TO 10):6 WHAT DOES YOUR PAIN FEEL LIKE:ACHING, SHARP, TENDER DURATION:CONSTANT, MAINLY DURING THE DAY PAIN IS INCREASED BY:ACTIVITIES PAIN IS DECREASED BY:OTHERS TENS UNIT TREATMENT/MEDICATIONS USED TO MANAGE PAIN:NSAIDS PAIN HAS INTERFERED WITH THE FOLLOWING:BATHING/DRESSING NURSING NOTE: -. PAIN CENTER INTAKE QUESTIONS: DO YOU HAVE A HISTORY OF MRSA? :NO DO YOU TAKE A BLOOD THINNERS? :NO DO YOU HAVE ANY BLEEDING DISORDERS? :NO ANY NEW NUMBNESS OR WEAKNESS IN YOUR LEGS OR ARMS? :NO ANY PACEMAKER,DEFIBRILLATOR, OR DORSAL COLUMN STIMULATOR? :NO DO YOU HAVE ANY RASHES OR OPEN SORES? :NO ARE YOU ALLERGIC TO IV DYE? :NO ARE YOU DIABETIC? :NO ANY NEW PROBLEMS WITH YOUR MEDICATIONS? :NO HAVE YOU RECEIVED A VACCINE IN THE PAST 30 DAYS? :NO DO YOU PLAN TO RECEIVE A VACCINE IN THE NEXT 21 DAYS? :NO DO YOU TAKE ANY IMMUNOSUPPRESSIVE MEDICATIONS? :NO ANY HISTORY OF SEIZURES? :NO ANY HISTORY OF CARDIAC ISSUES OR EVENTS? :NO DO YOU HAVE SLEEP APNEA? :YES DO YOU WEAR A CPAP?YES ANY RECENT HEAD INJURY? :NO DO YOU HAVE ANY NEW INFECTIONS? :NO IS THERE A CHANCE YOU COULD BE ? :NO ARE YOU BREAST FEEDING? :NO WHEN DID YOU LAST EAT? : 10/27/202199 WHEN DID YOU LAST DRINK? : 10/27/20744 WHAT DID YOU LAST DRINK? : AP[employer] JUICE NAME OF PERSON DRIVING YOU HOME? : - BROOKE DO YOU HAVE ANY OTHER QUESTIONS OR CONCERNS? : -DENIES CURRENT MEDICATIONS TAKING GABAPENTIN 600 MG TABLET ORALLY TWICE DAILY, NOTES: 10/28/20744 TAKING AMITRIPTYLINE HCL 25 MG TABLET ORALLY BEFORE BEDTIME, NOTES: 10/27/20 2200 TAKING COLACE CAPSULE 2 CAPSULE NEEDED ORALLY DIRECTED TAKING VITAMIN D 50 MCG (1999 UT) TABLET 1 TABLET ORALLY DAILY TAKING COMPLETE MULTIVITAMIN/MINERAL 1 CAP ORALLY DAILY TAKING PEPCID 40 MG TABLET 1 TABLET AT BEDTIME ORALLY ONCE A DAY NOT-TAKING SULFAMETHOXAZOLE-TRIMETHOPRIM 400-80 MG TABLET 1 TABLET ORALLY BID NOT-TAKING BACTRIM DS 800-160 MG TABLET 1 TABLET ORALLY TWICE A DAY NOT-TAKING NAPROXEN NOT-TAKING CIPROFLOXACIN HCL 500 MG TABLET 1 TABLET ORALLY EVERY 12 HRS MEDICATION LIST REVIEWED AND RECONCILED WITH THE PATIENT PAST MEDICAL HISTORY SLEEP APNEA L SHOULDER DYSTONIA CHRONIC NECK/BACK PAIN DUE TO OSTEOARTHRITIS OSTEOPENIA ASTHMA 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 CONSTIPATION PARTIAL COLLAPSED LUNG 2011 1.4% ASCVD 10 YEAR RISK (06/2015) GERD 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 ALLERGIES AMOXICILLIN: SMALL RASH ON TORSO AREA - ALLERGY CAFFEINE: NAUSEA, H/A - SIDE EFFECTS LACTOSE INTOLERATE: NAUSEA/VOMITING - SIDE EFFECTS SULFA (FOR ALLERGY USE ONLY): HIVES, RASH - ALLERGY FAMILY HISTORY FATHER: 52 YRS, NON HODGEKINS LYMPHOMA, DIAGNOSED WITH OTHER MALIGNANT NEOPLASM OF UNSPECIFIED SITE MOTHER: ALIVE 85 YRS, OSTEOPOROSIS, NO FRACTURES; OSTEOARTHRITIS, ANGINA, BORDERLINE HYPERTENSION, DIABETES, OBESE, OTHER MALIGNANT NEOPLASM OF UNSPECIFIED SITE SIBLINGS: ALIVE DAUGHTER(S): ALIVE MATERNAL GRAND MOTHER: COLON POLYPS MANY PATERNAL UNCLE: 2 HAD UNKNOWN CANCER PATERNAL AUNT: BONE TO BRAIN CANCER 6 BROTHER(S) , 1 SISTER(S) - HEALTHY. 2DAUGHTER(S) - HEALTHY. OLDER DAUGHTER WITH DEVELOPMENTAL PROBLEMS, JRC . 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 NO CHEMO, +RADIATION. NO COLON OR OVARIAN CANCER IN FAMILY. NO THYROID PROBLEMS IN FAMILY.\\\\\\\\NDAUGHTER WITH [place] [employer]. \\\\\\\\NBROTHER BORN WITH \\\\\\\\\\\\\\"HOLE IN HEART\\\\\\\\\\\\\\" AND VALVE REPLACEMENT. HAS HAD MULTIPLE HEART ATTACKS (1ST IN 40S)MOTHER - BILATERAL METS BREAST CANCERDENIES FAMILY HX OF MM. SOCIAL HISTORY GENERAL: TOBACCO USE ARE YOU A:NONSMOKER NEVER SMOKER LATEX QUESTIONNAIRE LATEX ALLERGY : HAVE YOU EVER DEVELOPED ANY TYPE OF REACTION AFTER HANDLING LATEX PRODUCTS SUCH RUBBER GLOVES, CONDOMS, DIAPHRAGMS, BALLOONS, SOCKS, OR UNDERWEAR?NO LATEX ALLERGY : HAVE YOU EVER DEVELOPED ANY TYPE OF REACTION DURING OR AFTER DENTAL APPOINTMENT, VAGINAL/RECTAL EXAMINATION, SURGICAL PROCEDURE, OR ANY OTHER EXPOSURE?NO LATEX RISK : HAVE YOU EVER HAD ANY DIFFICULTY BREATHING OR HIVES AFTER EATING OR HANDLING ANY FRUITS, OR VEGETABLES; SUCH KIWI, BANANAS, STONE FRUITS, OR CHESTNUTSNO LATEX RISK : DO YOU HAVE A PREVIOUS PERSONAL HISTORY OF MORE THAN NINE SURGERIES, SPINA BIFIDA, OR REPEATED CATHERIZATIONS? NO LATEX RISK : ARE YOU FREQUENTLY EXPOSED TO LATEX PRODUCTS IN YOUR OCCUPATION?NO DATE ASKED : 10/28/2020 ALCOHOL USE: NEVER. LUNG CANCER SCREENING SMOKING STATUS:NON SMOKER BMI CARE GOAL FOLLOW-UP BELOW NORMAL BMI FOLLOW-UPDIETARY EDUCATION FOR WEIGHT GAIN AT GOAL ALCOHOL SCREENING DID YOU HAVE A DRINK CONTAINING ALCOHOL IN THE PAST YEAR?NO POINTS0 INTERPRETATIONNEGATIVE RECREATIONAL DRUG USE DENIES. CAFFEINE CAFFEINE USE?NO SEXUAL HX HAD SEX IN THE LAST 12 MONTHS (VAGINAL, ORAL, OR ANAL)?NO HIV / HEP-C SCREENING HIV TEST OFFERED TO PATIENT:YES DATE OFFERED:03/19/2017 TEST ACCEPTED:NO HEP-C TEST OFFERED TO PATIENT:YES DATE OFFERED:03/19/2017 REASON:PATIENT DECLINED TEST ACCEPTED:NO REASON:PATIENT DECLINED ISLAM NO YAZIDISM BELIEFS THAT WOULD IMPACT HEALTH CARE. LANGUAGE CITIZEN OF [place]. EDUCATION LEVEL OF EDUCATION:PROFESSIONAL SCHOOLS/MASTERS/PHD NURSING SCHOOL LEARNING BARRIERS / SPECIAL NEEDS CHANGE FROM LAST VISIT?NO BARRIERS TO LEARNING?NO HEARING IMPAIRED?NO VISION IMPAIRED?YES COGNITIVELY IMPAIRED?NO :CORRECTIVE LENSES READINESS TO LEARN?YES LEARNING PREFERENCES?NO LEARNING CAPABILITIES PRESENT?YES EMOTIONAL BARRIERS?NO SPECIAL DEVICES?NO DERRICK WORKER WELL SERVICE NEEDED?NO DOMESTIC VIOLENCE NONE, NO SEXUAL ABUSE. 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 DIET: WELL BALANCED DIET, HIGH IN CALCIUM. UNABLE TO TAKE CA++ SUPPLEMENTS.. EXERCISE: NO REGULAR EXERCISE, WALKS TOLERATED. MARITAL STATUS: . OTHERS AT HOME: SPOUSE. TODAY'S VISIT NOTES 02/06/2020, PATIENT DESCRIBES PAIN : IT COMES AND GOES, SHARP , FROM 0-10, WHAT LEVEL IS YOUR PAIN TODAY? 4 , PRECIPITATING FACTORS MOVEMENT, USING ARMS FOR LIKE CARRYING GROCERIES OR REACHING ABOVE HER HEAD, ALLEVIATING FACTORS TENS UNIT, HEAT, ICE, IMPACT ON FUNCTION LIMITS HER ON WHAT SHE IS ABLE TO DO SUCH MOPPING, OR LIFTING ANYTHING HEAVY.. - HAS THE PATIENT BEEN EDUCATED REGARDING HIS/HER PLAN OF CARE?YES HAS THE PATIENT BEEN EDUCATED REGARDING PAIN, THE RISK FOR PAIN, THE IMPORTANCE OF EFFECTIVE PAIN MANAGEMENT, AND THE PAIN ASSESSMENT PROCESS?YES ADVANCE DIRECTIVE ADVANCE DIRECTIVE DISCUSSED WITH PATIENT:YES HCP IS [facility] VITAL SIGNS WT 135.0 LBS, HT 63.5 IN, BMI 23.54 INDEX, BP 124/58 MM HG, HR 73 /MIN, RR 18 /MIN, TEMP 98.0 F, OXYGEN SAT % 96%, SAFE IN ENV? (Y/N) YES, NA INITIALS AW 1013, REVIEWED BY: Gary MARINA RN BSN. EXAMINATION GENERAL EXAMINATION: THE PATIENT IS ALERT, ORIENTED TIMES THREE AND COOPERATIVE. LUNGS ARE CLEAR TO AUSCULTATION. HEART SHOWS REGULAR RHYTHM, NO MURMURS AND NO GALLOPS. ASSESSMENTS SPONDYLOSIS WITHOUT MYELOPATHY OR RADICULOPATHY, CERVICAL REGION - M47.812 (PRIMARY) TREATMENT SPONDYLOSIS WITHOUT MYELOPATHY OR RADICULOPATHY, CERVICAL REGION [facility] FACET BLOCK (PAIN)[id number] MEDICATION: VALIUM TAB 5MG ORALLY (DIAZEPAM)ESTELLA SILVA RN 10/28/2020 11:22:55 AM > VERIFIED. SALINE LOCKALFA MOORE 10/28/2020 11:26:14 AM - #22 SALINE LOCK STARTED IN LEFT HAND X 1 ATTEMPT BY THIS GAS MAIN AND LINE FITTER. SITE ASYMPTOMATIC, FLUSHES WELL. PATIENT TOLERATED WELL. COMPLETION OF PROCEDURAL VISIT WHEN MEETS CRITERIA MEDICATION: (PAIN) NORCO TABLET 5MG/325MG ORALLY (HYDROCODONE/ACETAMINOPHEN)ESTELLA SILVA RN 10/28/2020 11:23:14 AM > VERIFIED. OTHERS NOTES: PAT COMPLETED. PROCEDURES PAIN NURSING RECORD PROCEDURE IN ROOM 1137, PHYSICIAN IN ROOM 1200, START 1213, FINISH 1219, PHYSICIAN OUT OF ROOM 1220, OUT OF ROOM 1225, ECG NORMAL SINUS, PATIENT SHIELDED YES, SAFETY STRAP YES, PREP CHLOROPREP Addie SILVA RN, DRESSING TEGADERM DR. PRECIADO LOC: TONY MARINA 10/28/2020 11:40:47 PM > 1. ALERT, ORIENTED, LOC REMAINED AT BASELINE THROUGHOUT THE PROCEDURE RESP: TONY MARINA 10/28/2020 11:40:47 PM > 1. REGULAR, NO DYSPNEA COLOR: TONY MARINA 10/28/2020 11:40:47 PM > 1. PINK SKIN: TONY MARINA 10/28/2020 11:40:47 PM > 1. WARM, DRY POSITION: TONY MARINA 10/28/2020 11:40:47 PM > 3. LATERAL, RIGHT SIDE DOWN, FACING HOME SECURITY PROFESSIONAL. VITALS: TONY MARINA 10/28/2020 11:45:57 PM > 132/64, 58, 96% RA. TONY MARINA 10/28/2020 12:00:51 PM > 124/66, 62, 95% RA. TONY MARINA 10/28/2020 12:14:16 PM > 123/69, 62, 96% RA. TONY MARINA 10/28/2020 12:30:08 PM > POST PROCEDURE 137/70, 64, 97% RA. COMPLETION OF PROCEDURE APPOINTMENT: POST PAIN 11/24, DRESSING SITE DRY AND INTACT, IV N/A, GAIT STEADY, TEACHING COMPLETED, PATIENT ACKNOWLEDGES UNDERSTANDING YES, PROCEDURE APPOINTMENT COMPLETED AT BY: Gary MARINA RN AT 1245. PN CERVICAL FACET BLOCK LOW BILATERAL CERVICAL PRE PROCEDURE DIAGNOSIS CERVICAL SPONDYLOSIS POST PROCEDURE DIAGNOSIS CERVICAL SPONDYLOSIS PROCEDURE LEFT C3-C4, LEFT C4-C5, AND LEFT C5-C6 THERAPEUTIC CERVICAL FACET BLOCK SURGEON DR. DIANA PRECIADO MECHANICAL FACILITIES TECHNICIAN NONE ANESTHESIA LOCAL PRE PROCEDURE NOTE THE PATIENT HAS HISTORY OF CHRONIC CERVICAL PAIN. I EVALUATED THE PATIENT AND REVIEWED THE CHART. I WENT OVER THE RISKS, ALTERNATIVES, AND BENEFITS ASSOCIATED WITH THIS PROCEDURE. THE PATIENT WOULD LIKE TO PROCEED AND GIVE CONSENT TO PERFORMED THE PROCEDURE. THE PATIENT DENIES UNEXPLAINABLE WEIGHT LOSS, FEVER, CHILLS, OR NEW CHANGES IN URINARY OR BOWEL CONTROL. THE PATIENT TESTED NEGATIVE FOR COVID-19 DESCRIPTION OF PROCEDURE THE PATIENT WAS BROUGHT TO THE PROCEDURE ROOM AND PLACED IN THE RIGHT LATERAL DECUBITUS POSITION. THE CERVICOTHORACIC AREA WAS CLEANED WITH CHLORAPREP SOLUTION AND DRAPED ASEPTICALLY. THE PROCEDURE WAS DONE UNDER STERILE CONDITIONS. A TIMEOUT WAS PERFORMED WHERE THE CONSENTED SITE WAS VERIFIED WITH EVERYONE IN THE ROOM. UNDER FLUOROSCOPIC GUIDANCE, TARGET POINT WAS SELECTED AT THE LEFT C3-C4, LEFT C4-C5, LEFT C5-C6 CERVICAL FACET JOINT. TARGET POINTS WERE SELECTED AFTER LATERAL ROTATION AND TILT OF THE MAGNIFIER OF THE C-ARM. I CONFIRMED AGAIN THE SITE OF THE TARGET. LIDOCAINE 0.5% WAS USED TO NUMB THE SKIN AND THE SUBCUTANEOUS TISSUE BELOW IT. SPINAL NEEDLES, 22-GAUGE, WERE ADVANCED UNDER FLUOROSCOPIC GUIDANCE AND FOLLOWING PATIENT FEEDBACK UNTIL THE TARGETS WERE TOUCHED. THE POSITION OF THE NEEDLES WAS VERIFIED WITH AP AND LATERAL VIEWS. AFTER PROPER POSITION OF THE NEEDLES WAS ACHIEVED, ISOVUE-M DYE 30%, 0.1 ML, WAS INJECTED SHOWING SPREAD OF THE DYE. KENALOG 3 MG WAS INJECTED AT EACH SITE. THEN A SOLUTION OF 6 ML OF BUPIVACAINE 0.125% WAS USED TO FLUSH EACH SITE. THE MEDICATIONS WERE VERIFIED WITH THE NURSE. THERE WAS NO EVIDENCE OF BLOOD, PARESTHESIA OR CEREBROSPINAL FLUID DURING THE PROCEDURE. THE PATIENT WAS SENT TO THE RECOVERY ROOM. THE PATIENT WAS MOVING THE EXTREMITIES AND DOING WELL. THERE WERE NO COMPLICATIONS DURING THE PROCEDURE. ESTIMATED BLOOD LOSS WAS LESS THAN 5 ML. FLUOROSCOPY TIME WAS 2 MINUTES 59 SECONDS. POST PROCEDURE NOTE IF THE PAIN COMES BACK THE OPTION OF RADIOFREQUENCY. THERE IS A LIMIT ON THE AMOUNT OF THERAPEUTIC FACET BLOCKS WE CAN DO IN A YEAR. THE PATIENT WILL BE SEEN IN A FOLLOW UP IN THE NEXT FEW WEEKS. I AM LOOKING FOR LONG LASTING RELIEF FOR THE PATIENT WITH THIS INTERVENTION. INSTRUCTIONS WERE GIVEN, QUESTIONS WERE ANSWERED, AND THE PATIENT EXPRESSED UNDERSTANDING AND AGREES WITH THE PLAN. I, TONY MORROW, DOCUMENTED THE ABOVE INFORMATION ACTING A SCRIBE FOR DR. PRECIADO. I HAVE REVIEWED THE ABOVE DOCUMENT, WRITTEN BY TONY MORROW, TRAM DRIVER, AND I VERIFY THAT IT IS ACCURATE PN WORKMANS' COMP OPINION IN YOUR OPINION, WAS THE INCIDENT THAT THE PATIENT DESCRIBED THE COMPETENT MEDICAL CAUSE OF THIS INJURY/ILLNESS? YES ARE THE PATIENT'S COMPLAINTS CONSISTENT WITH HIS/HER HISTORY OF THE INJURY/ILLNESS? YES IS THE PATIENT'S HISTORY OF THE INJURY/ILLNESS CONSISTENT WITH YOUR OBJECTIVE FINDING? YES WHAT IS THE PERCENTAGE OF TEMPORARY IMPAIRMENT? TOTAL = 100% . IS THE PATIENT WORKING? NO . DOCTOR ON SITE: DIANA BANEGAS MD PROCEDURE CODES 05733 INJ PARAVERT F JNT C/T 1 LEV, [place]IFI[place]: [place] 29907 INJ PARAVERT F JNT C/T 2 LEV, [place]IFI[place]: [place] 14633 INJ PARAVERT F JNT C/T 3 LEV, MODIFIERS: LT DISPOSITION & COMMUNICATION FOLLOW UP FOLLOW UP WITH INSURANCE OFFICE SUPERVISOR (REASON: POST LEFT THERAPEUTIC CERVICAL FACET BLOCK C3-C4, C4-C5, C5-C6) ELECTRONICALLY SIGNED BY DIANA PRECIADO MD, MD ON 10/29/2020 AT 04:04 PM EST DISCLAIMER : THIS IS A VISIT SUMMARY EXTRACTED FROM THE [employer] CHART. IT IS NOT A COPY OF THE [employer] PROGRESS NOTE. NATANAEL
== END ==
LOC: M PAIN 10:00
PROVIDERS: ATTEND Anesthesiology
DX: M47.812 Spondylosis without myelopathy or radiculopathy, cervical region (principal); G47.30 Sleep apnea, unspecified; J45.909 Unspecified asthma, uncomplicated; M79.7 Fibromyalgia; K59.00 Constipation, unspecified; K21.9 Gastro-esophageal reflux disease without esophagitis; E73.9 Lactose intolerance, unspecified; Z85.828 Personal history of other malignant neoplasm of skin; Z79.899 Other long term (current) drug therapy; Z88.0 Allergy status to penicillin; Z88.2 Allergy status to sulfonamides; Z91.018 Allergy to other foods
CPT/HCPCS: 64490; 64491; 64492; J3301; Q9967

== ENCOUNTER → 2020-11-11 | Outpatient (CLI) | payer OTHER, MEDICARE ==
[~2020-11-11] MED LIST changes: -BUPIVACAINE HCL 0.25% 30ML VIAL As Ordered ONE; -ISOVUE-M 300 61% 15ML VIAL As Ordered ONE; -LIDOCAINE 1% SDV 30ML VIAL As Ordered ONE; -NORCO, ANEXSIA 5/325MG TABLET (HYDROcodone/ACETAMINOPHEN) As Ordered ONE; -TRIAMCINOLONE ACETONIDE SUSP 40 MG/ML VIAL (J3301) As Ordered ONE; -diazePAM 5MG TABLET As Ordered ONE
--- NOTE | 2020-11-16 04:00 | ECWPNPC ---
PATIENT NAME: ERNA GROVE : 1955 GENDER: FEMALE VISIT DATE: 11/11/2020 DISCHARGE DATE: 11/11/20 1006 VISIT LOCKED DATE TIME: PHYSICIAN: JOSE GUTIÉRREZ PHYSICIAN PAGER NO: ACTIVE RESOURCE: JOSE GUTIÉRREZ REASON FOR APPOINTMENT 1. POST LEFT THERAPEUTIC CERVICAL FACET BLOCK C3/4,C4/5,C5/6 HISTORY OF PRESENT ILLNESS DEPRESSION SCREENING: PHQ-2 (2015 EDITION) LITTLE INTEREST OR PLEASURE IN DOING THINGS?NOT AT ALL FEELING DOWN, DEPRESSED, OR HOPELESS?NOT AT ALL TOTAL SCORE0 GENERAL: HERE FOR POST PROCEDURE F/U.HAD LEFT C3/4,C4/5,C5/6 CFBT.REPORTING LESS PAIN THAT CONTINUES TODAY.-. FALL RISK SCREENING: SCREENING :NO FALLS REPORTED IN THE LAST YEAR PAIN SCREENING: PATIENT HAS A COMPLAINT OF ACUTE OR CHRONIC PAIN :YES LOCATION OF PAIN:NECK, LEFT SHOULDER INTENSITY OF PAIN (SCALE OF 1 TO 10):3 WHAT DOES YOUR PAIN FEEL LIKE:TENDER DURATION:CONTINOUS, CONSTANT, ALL DAY PAIN IS INCREASED BY:ACTIVITIES PAIN IS DECREASED BY:OTHERS HEAT OR ICE NURSING NOTE: -. PAIN CENTER INTAKE QUESTIONS: DO YOU HAVE A HISTORY OF MRSA? :NO DO YOU TAKE A BLOOD THINNERS? :NO DO YOU HAVE ANY BLEEDING DISORDERS? :NO ANY NEW NUMBNESS OR WEAKNESS IN YOUR LEGS OR ARMS? :NO ANY PACEMAKER,DEFIBRILLATOR, OR DORSAL COLUMN STIMULATOR? :NO DO YOU HAVE ANY RASHES OR OPEN SORES? :NO ARE YOU ALLERGIC TO IV DYE? :NO ARE YOU DIABETIC? :NO ANY NEW PROBLEMS WITH YOUR MEDICATIONS? :NO HAVE YOU RECEIVED A VACCINE IN THE PAST 30 DAYS? :NO DO YOU PLAN TO RECEIVE A VACCINE IN THE NEXT 21 DAYS? :NO DO YOU NEED ANY PRESCRIPTION? :NO DO YOU TAKE ANY IMMUNOSUPPRESSIVE MEDICATIONS? :NO IS THERE A CHANCE YOU COULD BE ? :NO ARE YOU BREAST FEEDING? :NO CURRENT MEDICATIONS TAKING GABAPENTIN 600 MG TABLET ORALLY TWICE DAILY TAKING AMITRIPTYLINE HCL 25 MG TABLET ORALLY BEFORE BEDTIME TAKING COLACE CAPSULE 2 CAPSULE NEEDED ORALLY DIRECTED TAKING VITAMIN D 50 MCG (2000 UT) TABLET 1 TABLET ORALLY DAILY TAKING COMPLETE MULTIVITAMIN/MINERAL 1 CAP ORALLY DAILY TAKING PEPCID 40 MG TABLET 1 TABLET AT BEDTIME ORALLY ONCE A DAY TAKING NAPROXEN 500 MG TABLET DELAYED RELEASE 1 TABLET ORALLY TWICE A DAY NOT-TAKING SULFAMETHOXAZOLE-TRIMETHOPRIM 400-80 MG TABLET 1 TABLET ORALLY BID NOT-TAKING BACTRIM DS 800-160 MG TABLET 1 TABLET ORALLY TWICE A DAY NOT-TAKING CIPROFLOXACIN HCL 500 MG TABLET 1 TABLET ORALLY EVERY 12 HRS MEDICATION LIST REVIEWED AND RECONCILED WITH THE PATIENT PAST MEDICAL HISTORY SLEEP APNEA L SHOULDER DYSTONIA CHRONIC NECK/BACK PAIN DUE TO OSTEOARTHRITIS OSTEOPENIA ASTHMA 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 CONSTIPATION PARTIAL COLLAPSED LUNG 2011 1.4% ASCVD 10 YEAR RISK (06/2015) GERD 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 ALLERGIES AMOXICILLIN: SMALL RASH ON TORSO AREA - ALLERGY CAFFEINE: NAUSEA, H/A - SIDE EFFECTS LACTOSE INTOLERATE: NAUSEA/VOMITING - SIDE EFFECTS SULFA (FOR ALLERGY USE ONLY): HIVES, RASH - ALLERGY SOCIAL HISTORY GENERAL: TOBACCO USE ARE YOU A:NONSMOKER NEVER SMOKER LATEX QUESTIONNAIRE LATEX ALLERGY : HAVE YOU EVER DEVELOPED ANY TYPE OF REACTION AFTER HANDLING LATEX PRODUCTS SUCH RUBBER GLOVES, CONDOMS, DIAPHRAGMS, BALLOONS, SOCKS, OR UNDERWEAR?NO LATEX ALLERGY : HAVE YOU EVER DEVELOPED ANY TYPE OF REACTION DURING OR AFTER DENTAL APPOINTMENT, VAGINAL/RECTAL EXAMINATION, SURGICAL PROCEDURE, OR ANY OTHER EXPOSURE?NO LATEX RISK : HAVE YOU EVER HAD ANY DIFFICULTY BREATHING OR HIVES AFTER EATING OR HANDLING ANY FRUITS, OR VEGETABLES; SUCH KIWI, BANANAS, STONE FRUITS, OR CHESTNUTSNO LATEX RISK : DO YOU HAVE A PREVIOUS PERSONAL HISTORY OF MORE THAN NINE SURGERIES, SPINA BIFIDA, OR REPEATED CATHERIZATIONS? NO LATEX RISK : ARE YOU FREQUENTLY EXPOSED TO LATEX PRODUCTS IN YOUR OCCUPATION?NO DATE ASKED : 11/11/2020 ALCOHOL USE: NEVER. LUNG CANCER SCREENING SMOKING STATUS:NON SMOKER BMI CARE GOAL FOLLOW-UP BELOW NORMAL BMI FOLLOW-UPDIETARY EDUCATION FOR WEIGHT GAIN AT GOAL ALCOHOL SCREENING DID YOU HAVE A DRINK CONTAINING ALCOHOL IN THE PAST YEAR?NO POINTS0 INTERPRETATIONNEGATIVE RECREATIONAL DRUG USE DENIES. CAFFEINE CAFFEINE USE?NO SEXUAL HX HAD SEX IN THE LAST 12 MONTHS (VAGINAL, ORAL, OR ANAL)?NO HIV / HEP-C SCREENING HIV TEST OFFERED TO PATIENT:YES DATE OFFERED:03/19/2017 TEST ACCEPTED:NO HEP-C TEST OFFERED TO PATIENT:YES DATE OFFERED:03/19/2017 REASON:PATIENT DECLINED TEST ACCEPTED:NO REASON:PATIENT DECLINED ANABAPTIST NO HINDUISM BELIEFS THAT WOULD IMPACT HEALTH CARE. LANGUAGE [place]. EDUCATION LEVEL OF EDUCATION:PROFESSIONAL SCHOOLS/MASTERS/PHD NURSING SCHOOL LEARNING BARRIERS / SPECIAL NEEDS CHANGE FROM LAST VISIT?NO BARRIERS TO LEARNING?NO HEARING IMPAIRED?NO VISION IMPAIRED?YES :CORRECTIVE LENSES COGNITIVELY IMPAIRED?NO READINESS TO LEARN?YES LEARNING PREFERENCES?NO LEARNING CAPABILITIES PRESENT?YES EMOTIONAL BARRIERS?NO SPECIAL DEVICES?NO FAMILY ASSESSMENT WORKER NEEDED?NO DOMESTIC VIOLENCE NONE, NO SEXUAL ABUSE. 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 DIET: WELL BALANCED DIET, HIGH IN CALCIUM. UNABLE TO TAKE CA++ SUPPLEMENTS.. EXERCISE: NO REGULAR EXERCISE, WALKS TOLERATED. MARITAL STATUS: . OTHERS AT HOME: SPOUSE. TODAY'S VISIT NOTES 02/06/2020, PATIENT DESCRIBES PAIN : IT COMES AND GOES, SHARP , FROM 0-10, WHAT LEVEL IS YOUR PAIN TODAY? 4 , PRECIPITATING FACTORS MOVEMENT, USING ARMS FOR LIKE CARRYING GROCERIES OR REACHING ABOVE HER HEAD, ALLEVIATING FACTORS TENS UNIT, HEAT, ICE, IMPACT ON FUNCTION LIMITS HER ON WHAT SHE IS ABLE TO DO SUCH MOPPING, OR LIFTING ANYTHING HEAVY.. - HAS THE PATIENT BEEN EDUCATED REGARDING HIS/HER PLAN OF CARE?YES HAS THE PATIENT BEEN EDUCATED REGARDING PAIN, THE RISK FOR PAIN, THE IMPORTANCE OF EFFECTIVE PAIN MANAGEMENT, AND THE PAIN ASSESSMENT PROCESS?YES ADVANCE DIRECTIVE ADVANCE DIRECTIVE DISCUSSED WITH PATIENT:YES HCP IS [facility] REVIEW OF SYSTEMS CONSTITUTIONAL: ANY RECENT FEVER NO . CHILLS NO . WEIGHT CHANGE OF UNKNOWN REASONS NO . GASTROENTEROLOGY: NEW UNEXPLAINABLE CHANGES IN BOWEL CONTROL NO . CONSTIPATION NO . GENITOURINARY: ANY NEW CHANGE IN BLADDER CONTROL? NO . NEUROLOGY: NEW ONSET DIZZINESS OR NEUROLOGICAL CHANGES NOT MENTIONED NO . NEW NUMBNESS OR PAIN PATTERNS NOT MENTIONED AND PERTINENT TO TODAY'S VISIT NO . CARDIOLOGY: NEW CHEST PRESSURE NO . PATIENT DENIES NO . RESPIRATORY: UNEXPLAINABLE COUGH NO . NEW SHORTNESS OF BREATH NO . VITAL SIGNS WT 134 LBS, HT 63.5 IN, BMI 23.36 INDEX, BP 111/58 MM HG, HR 68 /MIN, RR 18 /MIN, TEMP 98 F, OXYGEN SAT % 97%, SAFE IN ENV? (Y/N) YEST.UBALDO ORR. EXAMINATION GENERAL EXAMINATION: GENERALAWAKE,ALERT ,PLEASANT . PSYCHAFFECT NORMAL . LUNGS:LUNG CARDOZO ARE CLEAR TO AUSCULTATION BILATERALLY. GOOD MOVEMENT OF AIR . HEART:S1, S2 IN A REGULAR RATE AND RHYTHM. NO SIGNIFICANT MURMURS, RUBS OR GALLOPS NOTED . ASSESSMENTS SPONDYLOSIS WITHOUT MYELOPATHY OR RADICULOPATHY, CERVICAL REGION - M47.812 (PRIMARY) OTHER CHRONIC PAIN - G89.29 TREATMENT SPONDYLOSIS WITHOUT MYELOPATHY OR RADICULOPATHY, CERVICAL REGION NOTES: RECOMMEND GENTLE NECK STRETCHING/EXCERSISE 2X DAILY. OTHER CHRONIC PAIN PAIN PROCEDURE LOGDATE OF PROCEDURE1PROCEDURE:LEFT THERAPEUTIC CERVICAL FACET BLOCK C3-C4,C4-C5.C5-E7CTEWFN OF PRE SEDATEVALIUM 5MG, NORCO 5/325MGRESULT:MARKED IMPROVEMENT CONTINUES TODAY PROCEDURE CODES FA211 ESTABILISHED PATIENT [facility] CHARGE DISPOSITION & COMMUNICATION FOLLOW UP 3 MONTHS (REASON: NECK PAIN) ELECTRONICALLY SIGNED BY EMILY HOLLINGSWORTH ON 11/15/2020 AT 09:29 AM EST DISCLAIMER : THIS IS A VISIT SUMMARY EXTRACTED FROM THE [employer] CHART. IT IS NOT A COPY OF THE [employer] PROGRESS NOTE. NATANAEL
== END ==
LOC: M PAIN 09:30
PROVIDERS: ATTEND Nurse Practitioner Family
DX: M47.812 Spondylosis without myelopathy or radiculopathy, cervical region (principal); G89.29 Other chronic pain; G47.30 Sleep apnea, unspecified; J45.909 Unspecified asthma, uncomplicated; M79.7 Fibromyalgia; K21.9 Gastro-esophageal reflux disease without esophagitis; Z88.1 Allergy status to other antibiotic agents; Z88.2 Allergy status to sulfonamides; Z91.011 Allergy to milk products; Z91.018 Allergy to other foods; Z79.899 Other long term (current) drug therapy

== ENCOUNTER → 2020-12-24 | Outpatient (CLI) | payer OTHER | LOC: M LABSMTC 09:33 | PROVIDERS: ATTEND Anesthesiology Pain Medicine | DX: G89.29 Other chronic pain (principal) ==

== ENCOUNTER → 2020-12-28 | Outpatient (CLI) | payer OTHER | LOC: M LABSMTC 12:22 | PROVIDERS: ATTEND Anesthesiology Pain Medicine | DX: Z11.59 Encounter for screening for other viral diseases (principal); G89.29 Other chronic pain ==

== ENCOUNTER → 2021-01-21 | Outpatient (CLI) | payer OTHER ==
--- NOTE | 2021-01-21 08:41 | REP ---
INDICATION: PAIN COMPARISON: None. TECHNIQUE: AP, lateral, bilateral oblique views of the right elbow. FINDINGS: No acute fracture or dislocation is appreciated. Joint spaces and surrounding soft tissues appear normal. Lateral view demonstrates normal positioning to the anterior and posterior fat pads without evidence for effusion/hemarthrosis. No subcutaneous emphysema or foreign body identified. IMPRESSION: Normal age-appropriate right elbow radiographs. <Electronically signed by Blaine Prasad > 01/21/21 0851
== END ==
LOC: M SOG 08:14
PROVIDERS: ATTEND Orthopaedic Surgery Adult Reconstructive Orthopaedic Surgery
DX: M25.521 Pain in right elbow (principal)

== ENCOUNTER → 2021-02-08 | Outpatient (CLI) | payer OTHER, MEDICARE ==
--- NOTE | 2021-02-09 06:15 | ECWPNPC ---
PATIENT NAME: ERNA GROVE : 1955 GENDER: FEMALE VISIT DATE: 02/08/2021 DISCHARGE DATE: 02/08/21937 VISIT LOCKED DATE TIME: PHYSICIAN: JOSE GUTIÉRREZ PHYSICIAN PAGER NO: ACTIVE RESOURCE: JOSE GUTIÉRREZ REASON FOR APPOINTMENT 1. NECK PAIN HISTORY OF PRESENT ILLNESS GENERAL: HERE FOR FOLLOW-UP OF CHRONIC LEFT NECK PAIN. PAIN HAS BEGUN TO RETURN TO BASELINE. THIS IS A WORK RELATED INJURY. REPORTING INCREASE IN PAIN WITH USE OF HER ARMS. PAIN IS LEFT NECK AND CERVICAL WITH SOME RADIATION INTO LEFT UPPER BACK. DISCUSSED RADIOFREQUENCY PROCEDURE AND DIAGNOSTIC TESTING. -. FALL RISK SCREENING: SCREENING : NO FALLS REPORTED IN THE LAST YEAR. PAIN SCREENING: PATIENT HAS A COMPLAINT OF ACUTE OR CHRONIC PAIN :YES LOCATION OF PAIN:NECK INTENSITY OF PAIN (SCALE OF 1 TO 10):5 WHAT DOES YOUR PAIN FEEL LIKE:TENDER, SORE DURATION:CONTINOUS, CONSTANT, ONLY WITH SPECIFIC ACTIVITIES PAIN IS INCREASED BY:ACTIVITIES EVER WHEN SHOWER PAIN IS DECREASED BY:OTHERS ICE AND TENS UNITS NURSING NOTE: -. PAIN CENTER INTAKE QUESTIONS: DO YOU HAVE A HISTORY OF MRSA? :NO DO YOU TAKE A BLOOD THINNERS? :NO DO YOU HAVE ANY BLEEDING DISORDERS? :NO ANY NEW NUMBNESS OR WEAKNESS IN YOUR LEGS OR ARMS? :NO ANY PACEMAKER,DEFIBRILLATOR, OR DORSAL COLUMN STIMULATOR? :NO DO YOU HAVE ANY RASHES OR OPEN SORES? :NO ARE YOU ALLERGIC TO IV DYE? :NO ARE YOU DIABETIC? :NO ANY NEW PROBLEMS WITH YOUR MEDICATIONS? :NO HAVE YOU RECEIVED A VACCINE IN THE PAST 30 DAYS? :NO DO YOU PLAN TO RECEIVE A VACCINE IN THE NEXT 21 DAYS? :NO DO YOU NEED ANY PRESCRIPTION? :NO DO YOU TAKE ANY IMMUNOSUPPRESSIVE MEDICATIONS? :NO IS THERE A CHANCE YOU COULD BE ? :NO ARE YOU BREAST FEEDING? :NO CURRENT MEDICATIONS TAKING GABAPENTIN 600 MG TABLET ORALLY TWICE DAILY TAKING COLACE CAPSULE 2 CAPSULE NEEDED ORALLY DIRECTED TAKING VITAMIN D 50 MCG (2000 UT) TABLET 1 TABLET ORALLY DAILY TAKING COMPLETE MULTIVITAMIN/MINERAL 1 CAP ORALLY DAILY TAKING NAPROXEN 500 MG TABLET DELAYED RELEASE 1 TABLET ORALLY TWICE A DAY TAKING AMITRIPTYLINE HCL 25 MG TABLET 1 TABLET AT BEDTIME ORALLY BEFORE BEDTIME TAKING PEPCID 40 MG TABLET 1 TABLET AT BEDTIME ORALLY ONCE A DAY NOT-TAKING SULFAMETHOXAZOLE-TRIMETHOPRIM 400-80 MG TABLET 1 TABLET ORALLY BID NOT-TAKING BACTRIM DS 800-160 MG TABLET 1 TABLET ORALLY TWICE A DAY NOT-TAKING CIPROFLOXACIN HCL 500 MG TABLET 1 TABLET ORALLY EVERY 12 HRS MEDICATION LIST REVIEWED AND RECONCILED WITH THE PATIENT PAST MEDICAL HISTORY SLEEP APNEA L SHOULDER DYSTONIA CHRONIC NECK/BACK PAIN DUE TO OSTEOARTHRITIS OSTEOPENIA ASTHMA 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 CONSTIPATION PARTIAL COLLAPSED LUNG 2011 1.4% ASCVD 10 YEAR RISK (06/2015) GERD 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 ALLERGIES AMOXICILLIN: SMALL RASH ON TORSO AREA - ALLERGY CAFFEINE: NAUSEA, H/A - SIDE EFFECTS LACTOSE INTOLERATE: NAUSEA/VOMITING - SIDE EFFECTS SULFA (FOR ALLERGY USE ONLY): HIVES, RASH - ALLERGY SOCIAL HISTORY GENERAL: TOBACCO USE ARE YOU A:NONSMOKER NEVER SMOKER LATEX QUESTIONNAIRE LATEX ALLERGY : HAVE YOU EVER DEVELOPED ANY TYPE OF REACTION AFTER HANDLING LATEX PRODUCTS SUCH RUBBER GLOVES, CONDOMS, DIAPHRAGMS, BALLOONS, SOCKS, OR UNDERWEAR?NO LATEX ALLERGY : HAVE YOU EVER DEVELOPED ANY TYPE OF REACTION DURING OR AFTER DENTAL APPOINTMENT, VAGINAL/RECTAL EXAMINATION, SURGICAL PROCEDURE, OR ANY OTHER EXPOSURE?NO LATEX RISK : HAVE YOU EVER HAD ANY DIFFICULTY BREATHING OR HIVES AFTER EATING OR HANDLING ANY FRUITS, OR VEGETABLES; SUCH KIWI, BANANAS, STONE FRUITS, OR CHESTNUTSNO LATEX RISK : DO YOU HAVE A PREVIOUS PERSONAL HISTORY OF MORE THAN NINE SURGERIES, SPINA BIFIDA, OR REPEATED CATHERIZATIONS? NO LATEX RISK : ARE YOU FREQUENTLY EXPOSED TO LATEX PRODUCTS IN YOUR OCCUPATION?NO DATE ASKED : 02/08/2021 ALCOHOL USE: NEVER. LUNG CANCER SCREENING SMOKING STATUS:NON SMOKER BMI CARE GOAL FOLLOW-UP BELOW NORMAL BMI FOLLOW-UPDIETARY EDUCATION FOR WEIGHT GAIN AT GOAL ALCOHOL SCREENING DID YOU HAVE A DRINK CONTAINING ALCOHOL IN THE PAST YEAR?NO POINTS0 INTERPRETATIONNEGATIVE RECREATIONAL DRUG USE DENIES. CAFFEINE CAFFEINE USE?NO SEXUAL HX HAD SEX IN THE LAST 12 MONTHS (VAGINAL, ORAL, OR ANAL)?NO HIV / HEP-C SCREENING HIV TEST OFFERED TO PATIENT:YES DATE OFFERED:03/19/2017 TEST ACCEPTED:NO HEP-C TEST OFFERED TO PATIENT:YES DATE OFFERED:03/19/2017 REASON:PATIENT DECLINED TEST ACCEPTED:NO REASON:PATIENT DECLINED SABIANISM NO JAINISM BELIEFS THAT WOULD IMPACT HEALTH CARE. LANGUAGE ARGENTINE. 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 DIET: WELL BALANCED DIET, HIGH IN CALCIUM. UNABLE TO TAKE CA++ SUPPLEMENTS.. EXERCISE: NO REGULAR EXERCISE, WALKS TOLERATED. MARITAL STATUS: . OTHERS AT HOME: SPOUSE. TODAY'S VISIT NOTES 02/06/2020, PATIENT DESCRIBES PAIN : IT COMES AND GOES, SHARP , FROM 0-10, WHAT LEVEL IS YOUR PAIN TODAY? 4 , PRECIPITATING FACTORS MOVEMENT, USING ARMS FOR LIKE CARRYING GROCERIES OR REACHING ABOVE HER HEAD, ALLEVIATING FACTORS TENS UNIT, HEAT, ICE, IMPACT ON FUNCTION LIMITS HER ON WHAT SHE IS ABLE TO DO SUCH MOPPING, OR LIFTING ANYTHING HEAVY.. - HAS THE PATIENT BEEN EDUCATED REGARDING HIS/HER PLAN OF CARE?YES HAS THE PATIENT BEEN EDUCATED REGARDING PAIN, THE RISK FOR PAIN, THE IMPORTANCE OF EFFECTIVE PAIN MANAGEMENT, AND THE PAIN ASSESSMENT PROCESS?YES ADVANCE DIRECTIVE ADVANCE DIRECTIVE DISCUSSED WITH PATIENT:YES HCP IS [facility] REVIEW OF SYSTEMS CONSTITUTIONAL: ANY RECENT FEVER NO . CHILLS NO . WEIGHT CHANGE OF UNKNOWN REASONS NO . GASTROENTEROLOGY: NEW UNEXPLAINABLE CHANGES IN BOWEL CONTROL NO . CONSTIPATION NO . GENITOURINARY: ANY NEW CHANGE IN BLADDER CONTROL? NO . NEUROLOGY: NEW ONSET DIZZINESS OR NEUROLOGICAL CHANGES NOT MENTIONED NO . NEW NUMBNESS OR PAIN PATTERNS NOT MENTIONED AND PERTINENT TO TODAY'S VISIT NO . CARDIOLOGY: NEW CHEST PRESSURE NO . PATIENT DENIES NO . RESPIRATORY: UNEXPLAINABLE COUGH NO . NEW SHORTNESS OF BREATH NO . VITAL SIGNS WT 138.8 LBS, HT 63.5 IN, BMI 24.20 INDEX, BP 132/60 MM HG, HR 75 /MIN, RR 18 /MIN, TEMP 98.1 F, OXYGEN SAT % 97%, SAFE IN ENV? (Y/N) YES, NA INITIALS AW 0900T.UBALDO ORR. EXAMINATION GENERAL EXAMINATION: GENERAL AWAKE,ALERT ,PLEAASANT . PSYCH AFFECT NORMAL . LUNGS: LUNG CARDOZO ARE CLEAR TO AUSCULTATION BILATERALLY. GOOD MOVEMENT OF AIR . HEART: S1, S2 IN A REGULAR RATE AND RHYTHM. NO SIGNIFICANT MURMURS, RUBS OR GALLOPS NOTED . CERVICAL:TRIGGER POINTS:LEFT CERVICAL / TRAPEZIUS .PAIN IS AGGREVATED WITH ROJM NECK SPECIFIC POINT TENDERNESS OVER LEFT C3-4, C5 FOR 5, C5-6 WITH FACET LOADING.. DIAGNOSTIC TESTS REVIEWEDCERVICAL MRI 2018 . ASSESSMENTS SPONDYLOSIS WITHOUT MYELOPATHY OR RADICULOPATHY, CERVICAL REGION - M47.812 (PRIMARY) TREATMENT SPONDYLOSIS WITHOUT MYELOPATHY OR RADICULOPATHY, CERVICAL REGION SALINE LOCK (ORDERED FOR 02/15/2021) NOTES: LEFT DIAGNOSTIC CERVICAL FACET BLOCK C3-4,C4-5,C5-6 REVIEWED PRE PROCEDURE INFORMATION, PATIENT VERBALIZED UNDERSTANDING JOSE RAMON ZAMORA PROCEDURES PN WORKMANS' COMP OPINION IN YOUR OPINION, WAS THE INCIDENT THAT THE PATIENT DESCRIBED THE COMPETENT MEDICAL CAUSE OF THIS INJURY/ILLNESS? YES ARE THE PATIENT'S COMPLAINTS CONSISTENT WITH HIS/HER HISTORY OF THE INJURY/ILLNESS? YES IS THE PATIENT'S HISTORY OF THE INJURY/ILLNESS CONSISTENT WITH YOUR OBJECTIVE FINDING? YES WHAT IS THE PERCENTAGE OF TEMPORARY IMPAIRMENT? MODERATE TO MARKED = 66.7% IS THE PATIENT WORKING? NO DOCTOR ON SITE: DIANA BANEGAS MD PROCEDURE CODES FA211 ESTABILISHED PATIENT [facility] CHARGE DISPOSITION & COMMUNICATION FOLLOW UP POST PROCEDURE (REASON: LEFT DIAGNOSTIC CERVICAL FACET BLOCK C3-4,C4-5,C5-6) ELECTRONICALLY SIGNED BY EMILY HOLLINGSWORTH ON 02/08/2021 AT 02:11 PM EDT DISCLAIMER : THIS IS A VISIT SUMMARY EXTRACTED FROM THE [employer] CHART. IT IS NOT A COPY OF THE [employer] PROGRESS NOTE. NATANAEL
== END ==
LOC: M PAIN 09:00
PROVIDERS: ATTEND Nurse Practitioner Family
DX: M47.812 Spondylosis without myelopathy or radiculopathy, cervical region (principal); G47.30 Sleep apnea, unspecified; M85.80 Other specified disorders of bone density and structure, unspecified site; J45.909 Unspecified asthma, uncomplicated; M79.7 Fibromyalgia; K59.00 Constipation, unspecified; K21.9 Gastro-esophageal reflux disease without esophagitis; Z85.828 Personal history of other malignant neoplasm of skin; Z79.1 Long term (current) use of non-steroidal anti-inflammatories (NSAID); Z79.899 Other long term (current) drug therapy; Z88.0 Allergy status to penicillin; Z88.2 Allergy status to sulfonamides; Z88.8 Allergy status to other drugs, medicaments and biological substances; Z91.018 Allergy to other foods

== ENCOUNTER → 2021-03-11 | Outpatient (CLI) | payer OTHER, MEDICARE | LOC: M LABSMTC 09:38 | PROVIDERS: ATTEND Anesthesiology | DX: Z01.812 Encounter for preprocedural laboratory examination (principal); Z20.822 Contact with and (suspected) exposure to COVID-19 ==

== ENCOUNTER → 2021-03-16 | Outpatient (CLI) | payer OTHER ==
[~2021-03-16] MED LIST changes: +BUPIVACAINE HCL 0.25% 30ML VIAL As Ordered ONE; +ISOVUE-M 300 61% 15ML VIAL As Ordered ONE; +LIDOCAINE 1% SDV 30ML VIAL As Ordered ONE
--- NOTE | 2021-03-16 15:24 | REP ---
INDICATION: PAIN. COMPARISON: None. TECHNIQUE: Intraoperative fluoroscopic imaging using portable C-arm technique FINDINGS: Images demonstrate catheters and contrast injected via cervical facet joints. Total fluoroscopic time 45.9 seconds. IMPRESSION: Findings consistent with cervical facet block. <Electronically signed by Blaine Prasad > 03/16/21 [id number]
--- NOTE | 2021-03-18 03:20 | ECWPNPC ---
PATIENT NAME: ERNA GROVE : 1955 GENDER: FEMALE VISIT DATE: 03/16/2021 DISCHARGE DATE: 03/16/21 1543 VISIT LOCKED DATE TIME: PHYSICIAN: DIANA PRECIADO MD PHYSICIAN PAGER NO: ACTIVE RESOURCE: DIANA PRECIADO MD REASON FOR APPOINTMENT 1. LEFT DIAGNOSTIC CERVICAL FACET BLOCK C3-C4, C4-C5, C5-C6 HISTORY OF PRESENT ILLNESS GENERAL: -. FALL RISK SCREENING: SCREENING : NO FALLS REPORTED IN THE LAST YEAR. PAIN SCREENING: PATIENT HAS A COMPLAINT OF ACUTE OR CHRONIC PAIN :YES LOCATION OF PAIN:NECK, LEFT SHOULDER INTENSITY OF PAIN (SCALE OF 1 TO 10):6 WHAT DOES YOUR PAIN FEEL LIKE:BURNING DURATION:CONTINOUS, CONSTANT PAIN IS INCREASED BY:ACTIVITIES PAIN IS DECREASED BY:USE OF PAIN MEDICATIONS NURSING NOTE: -. PAIN CENTER INTAKE QUESTIONS: DO YOU HAVE A HISTORY OF MRSA? :NO DO YOU TAKE A BLOOD THINNERS? :NO DO YOU HAVE ANY BLEEDING DISORDERS? :NO ANY NEW NUMBNESS OR WEAKNESS IN YOUR LEGS OR ARMS? :NO ANY PACEMAKER,DEFIBRILLATOR, OR DORSAL COLUMN STIMULATOR? :NO DO YOU HAVE ANY RASHES OR OPEN SORES? :NO ARE YOU ALLERGIC TO IV DYE? :NO ARE YOU DIABETIC? :NO ANY NEW PROBLEMS WITH YOUR MEDICATIONS? :NO HAVE YOU RECEIVED A VACCINE IN THE PAST 30 DAYS? :NO DO YOU PLAN TO RECEIVE A VACCINE IN THE NEXT 21 DAYS? :NO DO YOU TAKE ANY IMMUNOSUPPRESSIVE MEDICATIONS? :NO ANY HISTORY OF SEIZURES? :NO ANY HISTORY OF CARDIAC ISSUES OR EVENTS? :NO DO YOU HAVE ANY KIDNEY OR LIVER DISEASE? :NO DO YOU HAVE SLEEP APNEA? :YES DO YOU WEAR A CPAP?YES ANY RECENT HEAD INJURY? :NO DO YOU HAVE ANY NEW INFECTIONS? :NO IS THERE A CHANCE YOU COULD BE ? :NO ARE YOU BREAST FEEDING? :NO WHEN DID YOU LAST EAT? : -03/16 0645 WHEN DID YOU LAST DRINK? : -03/16 11AM WHAT DID YOU LAST DRINK? : -TEA NAME OF PERSON DRIVING YOU HOME? : DO YOU HAVE ANY OTHER QUESTIONS OR CONCERNS? : - CURRENT MEDICATIONS TAKING GABAPENTIN 600 MG TABLET ORALLY TWICE DAILY TAKING COLACE CAPSULE 2 CAPSULE NEEDED ORALLY DIRECTED TAKING VITAMIN D 50 MCG (2000 UT) TABLET 1 TABLET ORALLY DAILY TAKING COMPLETE MULTIVITAMIN/MINERAL 1 CAP ORALLY DAILY TAKING NAPROXEN 500 MG TABLET DELAYED RELEASE 1 TABLET ORALLY TWICE A DAY TAKING AMITRIPTYLINE HCL 25 MG TABLET 1 TABLET AT BEDTIME ORALLY BEFORE BEDTIME TAKING PEPCID 40 MG TABLET 1 TABLET AT BEDTIME ORALLY ONCE A DAY TAKING MELATONIN 10 MG TABLET 1 CAPSULE AT BEDTIME NEEDED ORALLY NOT-TAKING SULFAMETHOXAZOLE-TRIMETHOPRIM 400-80 MG TABLET 1 TABLET ORALLY BID NOT-TAKING BACTRIM DS 800-160 MG TABLET 1 TABLET ORALLY TWICE A DAY NOT-TAKING CIPROFLOXACIN HCL 500 MG TABLET 1 TABLET ORALLY EVERY 12 HRS PAST MEDICAL HISTORY SLEEP APNEA L SHOULDER DYSTONIA CHRONIC NECK/BACK PAIN DUE TO OSTEOARTHRITIS OSTEOPENIA ASTHMA 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 CONSTIPATION PARTIAL COLLAPSED LUNG 2011 1.4% ASCVD 10 YEAR RISK (06/2015) GERD 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 ALLERGIES AMOXICILLIN: SMALL RASH ON TORSO AREA - ALLERGY CAFFEINE: NAUSEA, H/A - SIDE EFFECTS LACTOSE INTOLERATE: NAUSEA/VOMITING - SIDE EFFECTS SULFA (FOR ALLERGY USE ONLY): HIVES, RASH - ALLERGY SOCIAL HISTORY GENERAL: TOBACCO USE ARE YOU A:NONSMOKER NEVER SMOKER LATEX QUESTIONNAIRE LATEX ALLERGY : HAVE YOU EVER DEVELOPED ANY TYPE OF REACTION AFTER HANDLING LATEX PRODUCTS SUCH RUBBER GLOVES, CONDOMS, DIAPHRAGMS, BALLOONS, SOCKS, OR UNDERWEAR?NO LATEX ALLERGY : HAVE YOU EVER DEVELOPED ANY TYPE OF REACTION DURING OR AFTER DENTAL APPOINTMENT, VAGINAL/RECTAL EXAMINATION, SURGICAL PROCEDURE, OR ANY OTHER EXPOSURE?NO DATE ASKED : 03/03/2021 LATEX RISK : HAVE YOU EVER HAD ANY DIFFICULTY BREATHING OR HIVES AFTER EATING OR HANDLING ANY FRUITS, OR VEGETABLES; SUCH KIWI, BANANAS, STONE FRUITS, OR CHESTNUTSNO LATEX RISK : DO YOU HAVE A PREVIOUS PERSONAL HISTORY OF MORE THAN NINE SURGERIES, SPINA BIFIDA, OR REPEATED CATHERIZATIONS? NO LATEX RISK : ARE YOU FREQUENTLY EXPOSED TO LATEX PRODUCTS IN YOUR OCCUPATION?NO ALCOHOL USE: NEVER. LUNG CANCER SCREENING SMOKING STATUS:NON SMOKER BMI CARE GOAL FOLLOW-UP BELOW NORMAL BMI FOLLOW-UPDIETARY EDUCATION FOR WEIGHT GAIN AT GOAL ALCOHOL SCREENING DID YOU HAVE A DRINK CONTAINING ALCOHOL IN THE PAST YEAR?NO POINTS0 INTERPRETATIONNEGATIVE RECREATIONAL DRUG USE DENIES. CAFFEINE CAFFEINE USE?NO SEXUAL HX HAD SEX IN THE LAST 12 MONTHS (VAGINAL, ORAL, OR ANAL)?NO HIV / HEP-C SCREENING HIV TEST OFFERED TO PATIENT:YES DATE OFFERED:03/19/2017 TEST ACCEPTED:NO HEP-C TEST OFFERED TO PATIENT:YES DATE OFFERED:03/19/2017 REASON:PATIENT DECLINED TEST ACCEPTED:NO REASON:PATIENT DECLINED NONDENOMINATIONAL NO ADVENTISM BELIEFS THAT WOULD IMPACT HEALTH CARE. LANGUAGE FAROESE. 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 DIET: WELL BALANCED DIET, HIGH IN CALCIUM. UNABLE TO TAKE CA++ SUPPLEMENTS.. EXERCISE: NO REGULAR EXERCISE, WALKS TOLERATED. MARITAL STATUS: . OTHERS AT HOME: SPOUSE. TODAY'S VISIT NOTES 02/06/2020, PATIENT DESCRIBES PAIN : IT COMES AND GOES, SHARP , FROM 0-10, WHAT LEVEL IS YOUR PAIN TODAY? 4 , PRECIPITATING FACTORS MOVEMENT, USING ARMS FOR LIKE CARRYING GROCERIES OR REACHING ABOVE HER HEAD, ALLEVIATING FACTORS TENS UNIT, HEAT, ICE, IMPACT ON FUNCTION LIMITS HER ON WHAT SHE IS ABLE TO DO SUCH MOPPING, OR LIFTING ANYTHING HEAVY.. - HAS THE PATIENT BEEN EDUCATED REGARDING HIS/HER PLAN OF CARE?YES HAS THE PATIENT BEEN EDUCATED REGARDING PAIN, THE RISK FOR PAIN, THE IMPORTANCE OF EFFECTIVE PAIN MANAGEMENT, AND THE PAIN ASSESSMENT PROCESS?YES ADVANCE DIRECTIVE ADVANCE DIRECTIVE DISCUSSED WITH PATIENT:YES HCP IS [facility] VITAL SIGNS WT 137.4 LBS, HT 63.5 IN, BMI 23.95 INDEX, BP 127/60 MM HG, HR 69 /MIN, RR 18 /MIN, TEMP 98.2 F, OXYGEN SAT % 97%, SAFE IN ENV? (Y/N) YES, NA INITIALS , REVIEWED BY: HAMILTON RN. EXAMINATION GENERAL: THE PATIENT IS ALERT, ORIENTED TIMES THREE AND COOPERATIVE. LUNGS ARE CLEAR TO AUSCULTATION. HEART SHOWS REGULAR RHYTHM, NO MURMURS AND NO GALLOPS. ASSESSMENTS SPONDYLOSIS WITHOUT MYELOPATHY OR RADICULOPATHY, CERVICAL REGION - M47.812 (PRIMARY) TREATMENT SPONDYLOSIS WITHOUT MYELOPATHY OR RADICULOPATHY, CERVICAL REGION [facility] FACET BLOCK (PAIN)4804864 COMPLETION OF PROCEDURAL VISIT WHEN MEETS CRITERIA ALFA KWAN 03/16/2021 2:19:58 PM > #22 SL STARTED X 1 ATTEMPT BY THIS TANK FARM GAUGER IN RIGHT HAND. SITE ASYMPTOMATIC, PATIENT TOLERATED WELL. OTHERS NOTES: PAT DONE 03/11/21. EM. PROCEDURES PAIN NURSING RECORD PROCEDURE IN ROOM 1447, PHYSICIAN IN ROOM 1456, START 1507, FINISH 1512, PHYSICIAN OUT OF ROOM 1513, OUT OF ROOM 1523, ECG NORMAL SINUS, PATIENT SHIELDED YES, SAFETY STRAP YES, PREP CHLOROPREP Gary GOLDSTEIN RN, DRESSING TEGADERM DR. PRECIADO LOC: 1. ALERT, ORIENTED RESP: 1. REGULAR, NO DYSPNEA COLOR: 1. PINK SKIN: 1. WARM, DRY POSITION: 3. LATERAL LEFT SIDE UP VITALS: VANDA GOLDSTEIN 03/16/2021 2:50:38 PM > 136/68 HR 66 16 96% R/A, VANDA GOLDSTEIN 03/16/2021 3:05:18 PM > 140/60 HR 61 16 97% R/A , VANDA GOLDSTEIN 03/16/2021 3:30:12 PM > 143/65 HR 58 16 99% R/A D/C V/S COMPLETION OF PROCEDURE APPOINTMENT: POST PAIN 3, DRESSING SITE DRY AND INTACT, IV DISCONTINUED, SITE CLEAR, CATHETER INTACT, GAIT STEADY, TEACHING COMPLETED, PATIENT ACKNOWLEDGES UNDERSTANDING YES, PROCEDURE APPOINTMENT COMPLETED AT 1542 PN WORKMANS' COMP OPINION IN YOUR OPINION, WAS THE INCIDENT THAT THE PATIENT DESCRIBED THE COMPETENT MEDICAL CAUSE OF THIS INJURY/ILLNESS? YES ARE THE PATIENT'S COMPLAINTS CONSISTENT WITH HIS/HER HISTORY OF THE INJURY/ILLNESS? YES IS THE PATIENT'S HISTORY OF THE INJURY/ILLNESS CONSISTENT WITH YOUR OBJECTIVE FINDING? YES WHAT IS THE PERCENTAGE OF TEMPORARY IMPAIRMENT? TOTAL = 100% IS THE PATIENT WORKING? NO DOCTOR ON SITE: DIANA BANEGAS MD PRE PROCEDURE DIAGNOSIS CERVICAL SPONDYLOSIS POST PROCEDURE DIAGNOSIS CERVICAL SPONDYLOSIS PROCEDURE LEFT C3-C4, LEFT C4-C5 AND LEFT C5-C6 DIAGNOSTIC CERVICAL FACET BLOCK NUMBER [address] DIANA PRECIADO EXECUTIVE VP NONE ANESTHESIA LOCAL PRE PROCEDURE NOTE THE PATIENT HAS HISTORY OF CHRONIC CERVICAL PAIN. I EVALUATED THE PATIENT AND REVIEWED THE CHART. I WENT OVER THE RISKS, ALTERNATIVES, AND BENEFITS ASSOCIATED WITH THIS PROCEDURE. THE PATIENT WOULD LIKE TO PROCEED AND GIVE CONSENT TO PERFORMED THE PROCEDURE. AGREED WITH THE PATIENT, WE ARE DOING THIS PROCEDURE TO DETERMINE IF THE PATIENT IS A CANDIDATE FOR A RADIOFREQUENCY ABLATION OF THE FACETS JOINTS. THE PATIENT DENIES UNEXPLAINABLE WEIGHT LOSS, FEVER, CHILLS, OR NEW CHANGES IN URINARY OR BOWEL CONTROL. THE PATIENT IS COVID-19 NEGATIVE DESCRIPTION OF PROCEDURE THE PATIENT WAS BROUGHT TO THE PROCEDURE ROOM AND PLACED IN THE RIGHT LATERAL DECUBITUS POSITION. THE CERVICOTHORACIC AREA WAS CLEANED WITH CHLORAPREP SOLUTION AND DRAPED ASEPTICALLY. THE PROCEDURE WAS DONE UNDER STERILE CONDITIONS. A TIMEOUT WAS PERFORMED WHERE THE CONSENTED SITE WAS VERIFIED WITH EVERYONE IN THE ROOM. UNDER FLUOROSCOPIC GUIDANCE, TARGET POINTS WERE SELECTED AT THE MID AND LATERAL POINTS OF THE LEFT ARTICULAR PILLARS OF LEFT C3, LEFT C4, LEFT C5 AND LEFT C6 VERTEBRAL BODIES. TARGET POINTS WERE SELECTED AFTER LATERAL ROTATION AND TILT OF THE MAGNIFIER OF THE C-ARM. I CONFIRMED AGAIN THE SITE OF TARGET. LIDOCAINE 0.5% WAS USED TO NUMB THE SKIN AND THE SUBCUTANEOUS TISSUE BELOW IT. SPINAL NEEDLES, 22-GAUGE, WERE ADVANCED UNDER FLUOROSCOPIC GUIDANCE AND FOLLOWING PATIENT FEEDBACK UNTIL THE TARGETS WERE TOUCHED. THE POSITION OF THE NEEDLES WAS VERIFIED WITH AP AND LATERAL VIEWS. AFTER PROPER POSITION OF THE NEEDLES WAS ACHIEVED, ISOVUE-M DYE 30%, 0.2 ML, WAS INJECTED SHOWING SPREAD OF THE DYE. THEN A SOLUTION OF 0.25 ML OF BUPIVACAINE 0.25% WAS INJECTED AT EACH SITE. THE MEDICATION WAS VERIFIED WITH THE NURSE. THERE WAS NO EVIDENCE OF BLOOD, PARESTHESIA OR CEREBROSPINAL FLUID DURING THE PROCEDURE. THE PATIENT WAS SENT TO THE RECOVERY ROOM. THE PATIENT WAS MOVING THE EXTREMITIES AND DOING WELL. THERE WERE NO COMPLICATIONS DURING THE PROCEDURE. ESTIMATED BLOOD LOSS WAS LESS THAN 5 ML. FLUOROSCOPY TIME WAS 45 SECONDS POST PROCEDURE NOTE THE PATIENT WILL DOCUMENT PAIN LEVEL AND RESPONSE TO THIS PROCEDURE PER PAIN DIARY. THE PATIENT WILL BE SEEN IN A FOLLOW UP IN THE NEXT FEW WEEKS. INSTRUCTIONS WERE GIVEN, QUESTIONS WERE ANSWERED, AND THE PATIENT EXPRESSED UNDERSTANDING AND AGREES WITH THE PLAN. I, NEVIN FRAZIER, DOCUMENTED THE ABOVE INFORMATION ACTING A SCRIBE FOR DR. PRECIADO. I HAVE REVIEWED THE ABOVE DOCUMENT, WRITTEN BY NEVIN FRAZIER, PROVIDER RELATIONS CONSULTANT, AND I VERIFY THAT IT IS ACCURATE. PROCEDURE CODES 18065 INJ PARAVERT F JNT C/T 1 LEV, [place]IFI[place]: [place] [id number] INJ PARAVERT F JNT C/T 2 LEV, [place]IFI[place]: [place] [id number] INJ PARAVERT F JNT C/T 3 LEV, MODIFIERS: LT DISPOSITION & COMMUNICATION FOLLOW UP FOLLOW UP WITH MANAGER SERVICES (REASON: POST LEFT DIAGNOSTIC CERVICAL FACET BLOCK C3-C4, C4-C5, C5-C6) ELECTRONICALLY SIGNED BY DIANA PRECIADO MD, MD ON 03/17/2021 AT 05:04 PM EDT DISCLAIMER : THIS IS A VISIT SUMMARY EXTRACTED FROM THE [email or web address] CHART. IT IS NOT A COPY OF THE [employer] PROGRESS NOTE. MTDD
== END ==
LOC: M PAIN 13:20
PROVIDERS: ATTEND Anesthesiology
DX: M47.812 Spondylosis without myelopathy or radiculopathy, cervical region (principal); G47.30 Sleep apnea, unspecified; J45.909 Unspecified asthma, uncomplicated; M79.7 Fibromyalgia; K59.00 Constipation, unspecified; E73.9 Lactose intolerance, unspecified; K21.9 Gastro-esophageal reflux disease without esophagitis; Z85.828 Personal history of other malignant neoplasm of skin; Z86.010 Personal history of colon polyps; Z79.1 Long term (current) use of non-steroidal anti-inflammatories (NSAID); Z79.899 Other long term (current) drug therapy; Z88.0 Allergy status to penicillin; Z88.2 Allergy status to sulfonamides; Z91.018 Allergy to other foods
CPT/HCPCS: 64490; 64491; 64492; Q9967

== ENCOUNTER → 2021-03-25 | Outpatient (CLI) | payer OTHER ==
[~2021-03-25] MED LIST changes: -BUPIVACAINE HCL 0.25% 30ML VIAL As Ordered ONE; -ISOVUE-M 300 61% 15ML VIAL As Ordered ONE; -LIDOCAINE 1% SDV 30ML VIAL As Ordered ONE
--- NOTE | 2021-03-25 23:11 | ECWPNPC ---
PATIENT NAME: ERNA GROVE : 1955 GENDER: FEMALE VISIT DATE: 03/25/2021 DISCHARGE DATE: 03/25/21 1106 VISIT LOCKED DATE TIME: PHYSICIAN: JOSE GUTIÉRREZ PHYSICIAN PAGER NO: ACTIVE RESOURCE: JOSE GUTIÉRREZ REASON FOR APPOINTMENT 1. POST LEFT DIAGNOSTIC CERVICAL FACET BLOCK C3-C4, C4-C5, C5-C6 HISTORY OF PRESENT ILLNESS GENERAL: HERE FOR POSTPROCEDURE FOLLOW-UP. HAD LEFT C3-4, C4-5, C5-6 DIAGNOSTIC CERVICAL FACET BLOCK ON 03/16/2021. HOURLY PAIN DIARY IS REVIEWED. THIS IS SHOWING GREATER THAN 80% REDUCTION IN PAIN FOR 4 DAYS POST PROCEDURE THAN PAIN ABRUPTLY RETURNED TO BASELINE. PAIN IS LOCATED OVER THE CERVICAL AXIS AND RADIATES INTO THE LEFT NECK REGION. PAIN IS AGGRAVATED BY RANGE OF MOTION OF THE NECK. THIS IS A WORK-RELATED INJURY. -. FALL RISK SCREENING: SCREENING : NO FALLS REPORTED IN THE LAST YEAR. PAIN SCREENING: PATIENT HAS A COMPLAINT OF ACUTE OR CHRONIC PAIN :YES LOCATION OF PAIN:NECK INTENSITY OF PAIN (SCALE OF 1 TO 10):5 WHAT DOES YOUR PAIN FEEL LIKE:ACHING, TENDER, SORE DURATION:CONTINOUS, CONSTANT, ALL DAY PAIN IS INCREASED BY:ACTIVITIES PAIN IS DECREASED BY:OTHERS HEAT OR ICE AND TENS UNITS NURSING NOTE: -. PAIN CENTER INTAKE QUESTIONS: DO YOU HAVE A HISTORY OF MRSA? :NO DO YOU TAKE A BLOOD THINNERS? :NO DO YOU HAVE ANY BLEEDING DISORDERS? :NO ANY NEW NUMBNESS OR WEAKNESS IN YOUR LEGS OR ARMS? :NO ANY PACEMAKER,DEFIBRILLATOR, OR DORSAL COLUMN STIMULATOR? :NO DO YOU HAVE ANY RASHES OR OPEN SORES? :NO ARE YOU ALLERGIC TO IV DYE? :NO ARE YOU DIABETIC? :NO ANY NEW PROBLEMS WITH YOUR MEDICATIONS? :NO HAVE YOU RECEIVED A VACCINE IN THE PAST 30 DAYS? :NO DO YOU PLAN TO RECEIVE A VACCINE IN THE NEXT 21 DAYS? :NO DO YOU NEED ANY PRESCRIPTION? :NO DO YOU TAKE ANY IMMUNOSUPPRESSIVE MEDICATIONS? :NO IS THERE A CHANCE YOU COULD BE ? :NO ARE YOU BREAST FEEDING? :NO CURRENT MEDICATIONS TAKING GABAPENTIN 600 MG TABLET ORALLY TWICE DAILY TAKING COLACE CAPSULE 2 CAPSULE NEEDED ORALLY DIRECTED TAKING VITAMIN D 50 MCG (2000 UT) TABLET 1 TABLET ORALLY DAILY TAKING COMPLETE MULTIVITAMIN/MINERAL 1 CAP ORALLY DAILY TAKING NAPROXEN 500 MG TABLET DELAYED RELEASE 1 TABLET ORALLY TWICE A DAY TAKING AMITRIPTYLINE HCL 25 MG TABLET 1 TABLET AT BEDTIME ORALLY BEFORE BEDTIME TAKING PEPCID 40 MG TABLET 1 TABLET AT BEDTIME ORALLY ONCE A DAY TAKING MELATONIN 10 MG TABLET 1 CAPSULE AT BEDTIME NEEDED ORALLY NOT-TAKING SULFAMETHOXAZOLE-TRIMETHOPRIM 400-80 MG TABLET 1 TABLET ORALLY BID NOT-TAKING BACTRIM DS 800-160 MG TABLET 1 TABLET ORALLY TWICE A DAY NOT-TAKING CIPROFLOXACIN HCL 500 MG TABLET 1 TABLET ORALLY EVERY 12 HRS MEDICATION LIST REVIEWED AND RECONCILED WITH THE PATIENT PAST MEDICAL HISTORY SLEEP APNEA L SHOULDER DYSTONIA CHRONIC NECK/BACK PAIN DUE TO OSTEOARTHRITIS OSTEOPENIA ASTHMA 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 CONSTIPATION PARTIAL COLLAPSED LUNG 2011 1.4% ASCVD 10 YEAR RISK (06/2015) GERD 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 ALLERGIES AMOXICILLIN: SMALL RASH ON TORSO AREA - ALLERGY CAFFEINE: NAUSEA, H/A - SIDE EFFECTS LACTOSE INTOLERATE: NAUSEA/VOMITING - SIDE EFFECTS SULFA (FOR ALLERGY USE ONLY): HIVES, RASH - ALLERGY SOCIAL HISTORY GENERAL: TOBACCO USE ARE YOU A:NONSMOKER NEVER SMOKER LATEX QUESTIONNAIRE LATEX ALLERGY : HAVE YOU EVER DEVELOPED ANY TYPE OF REACTION AFTER HANDLING LATEX PRODUCTS SUCH RUBBER GLOVES, CONDOMS, DIAPHRAGMS, BALLOONS, SOCKS, OR UNDERWEAR?NO LATEX ALLERGY : HAVE YOU EVER DEVELOPED ANY TYPE OF REACTION DURING OR AFTER DENTAL APPOINTMENT, VAGINAL/RECTAL EXAMINATION, SURGICAL PROCEDURE, OR ANY OTHER EXPOSURE?NO LATEX RISK : HAVE YOU EVER HAD ANY DIFFICULTY BREATHING OR HIVES AFTER EATING OR HANDLING ANY FRUITS, OR VEGETABLES; SUCH KIWI, BANANAS, STONE FRUITS, OR CHESTNUTSNO LATEX RISK : DO YOU HAVE A PREVIOUS PERSONAL HISTORY OF MORE THAN NINE SURGERIES, SPINA BIFIDA, OR REPEATED CATHERIZATIONS? NO LATEX RISK : ARE YOU FREQUENTLY EXPOSED TO LATEX PRODUCTS IN YOUR OCCUPATION?NO DATE ASKED : 03/25/2021 ALCOHOL USE: NEVER. LUNG CANCER SCREENING SMOKING STATUS:NON SMOKER BMI CARE GOAL FOLLOW-UP BELOW NORMAL BMI FOLLOW-UPDIETARY EDUCATION FOR WEIGHT GAIN AT GOAL ALCOHOL SCREENING DID YOU HAVE A DRINK CONTAINING ALCOHOL IN THE PAST YEAR?NO POINTS0 INTERPRETATIONNEGATIVE RECREATIONAL DRUG USE DENIES. CAFFEINE CAFFEINE USE?NO SEXUAL HX HAD SEX IN THE LAST 12 MONTHS (VAGINAL, ORAL, OR ANAL)?NO HIV / HEP-C SCREENING HIV TEST OFFERED TO PATIENT:YES DATE OFFERED:03/19/2017 TEST ACCEPTED:NO HEP-C TEST OFFERED TO PATIENT:YES DATE OFFERED:03/19/2017 REASON:PATIENT DECLINED TEST ACCEPTED:NO REASON:PATIENT DECLINED ADVENTIST NO RESTORATIONISM BELIEFS THAT WOULD IMPACT HEALTH CARE. LANGUAGE MALIAN. 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 OCCUPATION: DISABLED DUE TO BACK INJURY AT [employer]. DIET: WELL BALANCED DIET, HIGH IN CALCIUM. UNABLE TO TAKE CA++ SUPPLEMENTS.. EXERCISE: NO REGULAR EXERCISE, WALKS TOLERATED. MARITAL STATUS: . OTHERS AT HOME: SPOUSE. TODAY'S VISIT NOTES 02/06/2020, PATIENT DESCRIBES PAIN : IT COMES AND GOES, SHARP , FROM 0-10, WHAT LEVEL IS YOUR PAIN TODAY? 4 , PRECIPITATING FACTORS MOVEMENT, USING ARMS FOR LIKE CARRYING GROCERIES OR REACHING ABOVE HER HEAD, ALLEVIATING FACTORS TENS UNIT, HEAT, ICE, IMPACT ON FUNCTION LIMITS HER ON WHAT SHE IS ABLE TO DO SUCH MOPPING, OR LIFTING ANYTHING HEAVY.. - HAS THE PATIENT BEEN EDUCATED REGARDING HIS/HER PLAN OF CARE?YES HAS THE PATIENT BEEN EDUCATED REGARDING PAIN, THE RISK FOR PAIN, THE IMPORTANCE OF EFFECTIVE PAIN MANAGEMENT, AND THE PAIN ASSESSMENT PROCESS?YES ADVANCE DIRECTIVE ADVANCE DIRECTIVE DISCUSSED WITH PATIENT:YES HCP IS [facility] REVIEW OF SYSTEMS CONSTITUTIONAL: ANY RECENT FEVER NO . CHILLS NO . WEIGHT CHANGE OF UNKNOWN REASONS NO . GASTROENTEROLOGY: NEW UNEXPLAINABLE CHANGES IN BOWEL CONTROL NO . CONSTIPATION NO . GENITOURINARY: ANY NEW CHANGE IN BLADDER CONTROL? NO . NEUROLOGY: NEW ONSET DIZZINESS OR NEUROLOGICAL CHANGES NOT MENTIONED NO . NEW NUMBNESS OR PAIN PATTERNS NOT MENTIONED AND PERTINENT TO TODAY'S VISIT NO . CARDIOLOGY: NEW CHEST PRESSURE NO . PATIENT DENIES NO . RESPIRATORY: UNEXPLAINABLE COUGH NO . NEW SHORTNESS OF BREATH NO . VITAL SIGNS WT 138.8 LBS, HT 63.5 IN, BMI 24.20 INDEX, BP 118/56 MM HG, HR 74 /MIN, RR 18 /MIN, TEMP 98.0 F, OXYGEN SAT % 95%, SAFE IN ENV? (Y/N) YES, NA INITIALS AW 1020T.UBALDO ZAMORA EXAMINATION GENERAL EXAMINATION: GENERAL AWAKE,ALERT ,PLEAASANT . PSYCH AFFECT NORMAL . LUNGS: LUNG CARDOZO ARE CLEAR TO AUSCULTATION BILATERALLY. GOOD MOVEMENT OF AIR . HEART: S1, S2 IN A REGULAR RATE AND RHYTHM. NO SIGNIFICANT MURMURS, RUBS OR GALLOPS NOTED . CERVICAL:TRIGGER POINTS:LEFT CERVICAL / TRAPEZIUS .PAIN IS AGGREVATED WITH ROJM NECK SPECIFIC POINT TENDERNESS OVER BILATERAL C3-4, C4-5, C5-6 WITH FACET LOADING.. DIAGNOSTIC TESTS REVIEWEDCERVICAL MRI 2018 . ASSESSMENTS OTHER CHRONIC PAIN - G89.29 (PRIMARY) SPONDYLOSIS WITHOUT MYELOPATHY OR RADICULOPATHY, CERVICAL REGION - M47.812 TREATMENT OTHER CHRONIC PAIN PAIN PROCEDURE LOGDATE OF PROCEDURE1PROCEDURE:LEFT DIAGNOSTIC CERVICAL FACET BLOCK #1 C3-C4,C4-C5,C5-M8UDNRSR OF PRE SEDATE0/0RESULT:GREATER THSN 80% REDUCTION IN PAIN X3 DAYS POST PROCEDURE NOTES: BILATERAL DIAGNOSTIC CERVICAL FACET BLOCK C3-4,C4-5,C5-6 #2 REVIEWED PRE PROCEDURE INFORMATION, PATIENT VERBALIZED UNDERSTANDING JOSE RAMON ZAMORA PROCEDURES PN WORKMANS' COMP OPINION IN YOUR OPINION, WAS THE INCIDENT THAT THE PATIENT DESCRIBED THE COMPETENT MEDICAL CAUSE OF THIS INJURY/ILLNESS? YES ARE THE PATIENT'S COMPLAINTS CONSISTENT WITH HIS/HER HISTORY OF THE INJURY/ILLNESS? YES IS THE PATIENT'S HISTORY OF THE INJURY/ILLNESS CONSISTENT WITH YOUR OBJECTIVE FINDING? YES WHAT IS THE PERCENTAGE OF TEMPORARY IMPAIRMENT? MODERATE TO MARKED = 66.7% IS THE PATIENT WORKING? NO DOCTOR ON SITE: DIANA BANEGAS MD PROCEDURE CODES FA211 ESTABILISHED PATIENT [facility] FACILITY CHARGE DISPOSITION & COMMUNICATION FOLLOW UP POSTPROCEDURE (REASON: BILATERAL DIAGNOSTIC CERVICAL FACET BLOCK C3-4,C4-5,C5-6 #2) ELECTRONICALLY SIGNED BY EMILY HOLLINGSWORTH ON 03/25/2021 AT 12:42 PM EDT DISCLAIMER : THIS IS A VISIT SUMMARY EXTRACTED FROM THE [email or web address] CHART. IT IS NOT A COPY OF THE [email or web address] PROGRESS NOTE. NATANAEL
== END ==
LOC: M PAIN 10:15
PROVIDERS: ATTEND Nurse Practitioner Family
DX: G89.29 Other chronic pain (principal); M47.812 Spondylosis without myelopathy or radiculopathy, cervical region; G47.30 Sleep apnea, unspecified; J45.909 Unspecified asthma, uncomplicated; M79.7 Fibromyalgia; K21.9 Gastro-esophageal reflux disease without esophagitis; Z88.1 Allergy status to other antibiotic agents; Z88.5 Allergy status to narcotic agent; Z91.011 Allergy to milk products; Z91.018 Allergy to other foods; Z79.899 Other long term (current) drug therapy

== ENCOUNTER 2021-04-14 08:24 | Outpatient (RCR) | payer MEDICARE ==
[~2021-04-14 08:24] MED LIST changes: +DOK1CAP4 PO; -DOK1CAP7 PO
== END 2021-04-16 ==
LOC: M PT 08:24
PROVIDERS: ATTEND Orthopaedic Surgery Adult Reconstructive Orthopaedic Surgery
DX: M77.11 Lateral epicondylitis, right elbow (principal)
CPT/HCPCS: 97032; 97110; 97140; 97162; G0283

== ENCOUNTER → 2021-04-20 | Outpatient (CLI) | payer MEDICARE ==
[~2021-04-20] MED LIST changes: -DOK1CAP4 PO; +DOK1CAP7 PO
== END ==
LOC: M LABSMTC 09:58
PROVIDERS: ATTEND Anesthesiology
DX: Z01.812 Encounter for preprocedural laboratory examination (principal); Z20.822 Contact with and (suspected) exposure to COVID-19

== ENCOUNTER 2021-04-21 08:07 | Outpatient (RCR) | payer MEDICARE ==
[~2021-04-21 08:07] MED LIST changes: +DOK1CAP4 PO; -DOK1CAP7 PO
== END 2021-05-17 ==
LOC: M PT 08:07
PROVIDERS: ATTEND Orthopaedic Surgery Adult Reconstructive Orthopaedic Surgery
DX: M77.11 Lateral epicondylitis, right elbow (principal)
CPT/HCPCS: 97032; 97110; 97140; G0283

== ENCOUNTER → 2021-04-25 | Outpatient (CLI) | payer OTHER ==
[~2021-04-25] MED LIST changes: +BUPIVACAINE HCL 0.25% 30ML VIAL As Ordered ONE; +ISOVUE-M 300 61% 15ML VIAL As Ordered ONE; +LIDOCAINE 1% SDV 30ML VIAL As Ordered ONE
--- NOTE | 2021-04-25 14:56 | REP ---
INDICATION: CERVICAL FACET BLOCK. COMPARISON: None. TECHNIQUE: Two views. 61.1 seconds of fluoroscopy time is reported. FINDINGS: A sequence of 2 last image hold fluoroscopically obtained spot radiograph(s) of the cervical spine document(s) needle position(s) and contrast injection associated with injection procedure. IMPRESSION: Procedural imaging. <Electronically signed by Mohamud Jj > 04/25/21 [id number]
== END ==
LOC: M PAIN 11:40
PROVIDERS: ATTEND Anesthesiology
DX: M47.812 Spondylosis without myelopathy or radiculopathy, cervical region (principal); G47.30 Sleep apnea, unspecified; J45.909 Unspecified asthma, uncomplicated; M79.7 Fibromyalgia; K21.9 Gastro-esophageal reflux disease without esophagitis; Z88.1 Allergy status to other antibiotic agents; Z88.2 Allergy status to sulfonamides; Z91.011 Allergy to milk products; Z91.018 Allergy to other foods; Z79.899 Other long term (current) drug therapy
CPT/HCPCS: 64490; 64491; 64492; Q9967

== ENCOUNTER → 2021-05-25 | Outpatient (CLI) | payer OTHER ==
[~2021-05-25] MED LIST changes: -BUPIVACAINE HCL 0.25% 30ML VIAL As Ordered ONE; -ISOVUE-M 300 61% 15ML VIAL As Ordered ONE; -LIDOCAINE 1% SDV 30ML VIAL As Ordered ONE
== END ==
LOC: M PAIN 10:00
PROVIDERS: ATTEND Anesthesiology
DX: G89.29 Other chronic pain (principal); M47.812 Spondylosis without myelopathy or radiculopathy, cervical region; G47.30 Sleep apnea, unspecified; G24.9 Dystonia, unspecified; M85.80 Other specified disorders of bone density and structure, unspecified site; J45.909 Unspecified asthma, uncomplicated; Z86.010 Personal history of colon polyps; M79.7 Fibromyalgia; K59.00 Constipation, unspecified; K21.9 Gastro-esophageal reflux disease without esophagitis; Z85.828 Personal history of other malignant neoplasm of skin; Z79.1 Long term (current) use of non-steroidal anti-inflammatories (NSAID); Z79.899 Other long term (current) drug therapy; Z88.0 Allergy status to penicillin; Z88.2 Allergy status to sulfonamides; E73.9 Lactose intolerance, unspecified; Z91.018 Allergy to other foods

== ENCOUNTER → 2021-05-31 | Outpatient (CLI) | payer MEDICARE ==
--- NOTE | 2021-05-31 14:52 | REPMRS ---
Patient History The patient states she had a clinical breast exam in May 2021. Family history of breast cancer at age 84 in niece, breast cancer at age 30 in mother. Took estrogen for 30 years. Patient states no breast complaints today. Patient has signed MRS History Sheet. Digital Woman Screen Mammo: May 31, 2021 - Exam #: [id number] Bilateral MLO and CC view(s) were taken. XCCL view(s) were taken of the left breast. Technologist: Omayra Wright, Technologist Prior study comparison: April 29, 2020, bilateral digital woman screen mammo performed at [facility]. April 17, 2019, bilateral digital woman screen mammo performed at [facility]. FINDINGS: The breast tissue is heterogeneously dense. This may lower the sensitivity of mammography. Screening. Digital screening (2D) mammography was performed bilaterally in the CC and MLO projections. Additionally, breast tomosynthesis (3D mammography) was performed bilaterally in the CC and MLO projections. Todays exam was compared to the prior exam/exams. By history, the patient has no complaints of a palpable breast abnormality or other significant breast complaints. The breasts are unchanged in size and shape. The Volpara volumetric breast density category is C, the breasts are heterogenously dense which may obscure small masses.There are no ellyn-soft tissue densities or spiculated masses. There is no internal architectural distortion. Once again, stable benign appearing calcifications are seen.There are no suspicious ellyn-calcific clusters. Skin thickening or nipple retraction is not present. IMPRESSION: BI-RADS Category 2- Benign Findings. There is no evidence of malignant alteration of the breasts. Followup examination recommended in one year. The Volpara volumetric breast density category is C, the breasts are heterogenously dense which may obscure small masses. This mammogram was read with the assistance of [employer],an FDA approved computer aided detection system for mammography. The lifetime Tyrer-Cuzick score is 5.8 % Negative x-ray reports should not delay surgical consultation if a dominant or clinically suspicious mass is present. Not all breast cancers can be identified by mammography. Therefore, we recommend that you continue to perform regular breast self-examination and physical examination and then promptly contact your physician of any concerns or changes. Adenosis and dense breasts may obscure an underlying neoplasm. Assessment: BI-RADS/ACR category 2 mammogram. Benign Findings. Recommendation Routine screening mammogram of both breasts in 1 year. Electronically Signed By: Mj Yanes DO 05/31/21 [id number]
== END ==
LOC: M WHC 13:12
PROVIDERS: ATTEND Nurse Practitioner Women's Health
DX: Z12.31 Encounter for screening mammogram for malignant neoplasm of breast (principal); Z80.3 Family history of malignant neoplasm of breast; Z90.710 Acquired absence of both cervix and uterus; Z90.722 Acquired absence of ovaries, bilateral; Z90.79 Acquired absence of other genital organ(s)

== ENCOUNTER → 2021-06-20 | Outpatient (REF) | payer MEDICARE | LOC: M SFHCPLAZ 13:38 | PROVIDERS: ATTEND Family Medicine | DX: E78.5 Hyperlipidemia, unspecified (principal); L65.9 Nonscarring hair loss, unspecified ==

== ENCOUNTER → 2021-06-22 | Outpatient (REF) | payer MEDICARE ==
[2021-06-22 14:02] LABS: CHOLESTEROL RISK RATIO 2.852 (<5); FREE T4 1.13 NG/DL (0.76-1.46); THYROID STIMULATING HORMONE 2.05 uIU/ML (0.358-3.740)
== END ==
LOC: M SFHCPLAZ 08:55 → M SFHCADAM 08:56
PROVIDERS: ATTEND Family Medicine
DX: E78.5 Hyperlipidemia, unspecified (principal); L65.9 Nonscarring hair loss, unspecified

== ENCOUNTER → 2021-07-28 | Outpatient (CLI) | payer MEDICARE, OTHER | LOC: M LABSMTC 09:40 | PROVIDERS: ATTEND Anesthesiology | DX: Z01.818 Encounter for other preprocedural examination (principal); Z11.52 Encounter for screening for COVID-19 ==

== ENCOUNTER → 2021-08-02 | Outpatient (CLI) | payer OTHER ==
[~2021-08-02] MED LIST changes: +BUPIVACAINE HCL 0.25% 30ML VIAL As Ordered ONE; +LIDOCAINE 1% SDV 30ML VIAL As Ordered ONE; +NORCO, ANEXSIA 5/325MG TABLET (HYDROcodone/ACETAMINOPHEN) As Ordered ONE; +dexameTHASONE 10MG/1ML VIAL PRES.FREE (J1100 PER 1MG) As Ordered ONE; +diazePAM 5MG TABLET As Ordered ONE; +diphenhydrAMINE 25MG CAP As Ordered ONE
--- NOTE | 2021-08-03 08:32 | REP ---
INDICATION: W/C LEFT CERVICAL COOL RADIOFREQUENCY C3-C4, C4-C5, C5-C6. COMPARISON: None. TECHNIQUE: Intraoperative fluoroscopic imaging using portable C-arm technique. FINDINGS: Catheters overlie multiple cervical facet joints consistent with radiofrequency facet block. Total fluoroscopic time 153.1 seconds. IMPRESSION: Images consistent with radiofrequency cervical block. <Electronically signed by Blaine Prasad > 08/03/21 0820
== END ==
LOC: M PAIN 13:00
PROVIDERS: ATTEND Anesthesiology
DX: M47.812 Spondylosis without myelopathy or radiculopathy, cervical region (principal); G47.30 Sleep apnea, unspecified; J45.909 Unspecified asthma, uncomplicated; M79.7 Fibromyalgia; Z88.1 Allergy status to other antibiotic agents; Z88.2 Allergy status to sulfonamides; Z91.011 Allergy to milk products; Z91.018 Allergy to other foods; Z79.899 Other long term (current) drug therapy
CPT/HCPCS: 64633; 64634; J1100

== ENCOUNTER → 2021-08-17 | Outpatient (CLI) | payer OTHER ==
[~2021-08-17] MED LIST changes: -BUPIVACAINE HCL 0.25% 30ML VIAL As Ordered ONE; -LIDOCAINE 1% SDV 30ML VIAL As Ordered ONE; -NORCO, ANEXSIA 5/325MG TABLET (HYDROcodone/ACETAMINOPHEN) As Ordered ONE; -dexameTHASONE 10MG/1ML VIAL PRES.FREE (J1100 PER 1MG) As Ordered ONE; -diazePAM 5MG TABLET As Ordered ONE; -diphenhydrAMINE 25MG CAP As Ordered ONE
== END ==
LOC: M PAIN 11:15
PROVIDERS: ATTEND Anesthesiology
DX: G89.29 Other chronic pain (principal); M47.812 Spondylosis without myelopathy or radiculopathy, cervical region; M54.12 Radiculopathy, cervical region; G47.30 Sleep apnea, unspecified; J45.909 Unspecified asthma, uncomplicated; M79.7 Fibromyalgia; K59.00 Constipation, unspecified; K21.9 Gastro-esophageal reflux disease without esophagitis; Z85.828 Personal history of other malignant neoplasm of skin; M85.80 Other specified disorders of bone density and structure, unspecified site; Z79.899 Other long term (current) drug therapy; Z88.0 Allergy status to penicillin; Z88.2 Allergy status to sulfonamides; Z88.8 Allergy status to other drugs, medicaments and biological substances; Z91.018 Allergy to other foods

== ENCOUNTER → 2021-09-21 | Outpatient (CLI) | payer MEDICARE | LOC: M PAIN 10:30 | PROVIDERS: ATTEND Nurse Practitioner Family | DX: M47.812 Spondylosis without myelopathy or radiculopathy, cervical region (principal); M54.12 Radiculopathy, cervical region; G47.30 Sleep apnea, unspecified; J45.909 Unspecified asthma, uncomplicated; M79.7 Fibromyalgia; Z88.1 Allergy status to other antibiotic agents; Z88.2 Allergy status to sulfonamides; Z88.8 Allergy status to other drugs, medicaments and biological substances; Z91.011 Allergy to milk products; Z91.040 Latex allergy status; Z79.899 Other long term (current) drug therapy ==

== ENCOUNTER → 2021-11-30 | Outpatient (CLI) | payer OTHER | LOC: M PAIN 10:45 | PROVIDERS: ATTEND Nurse Practitioner Family | DX: M47.812 Spondylosis without myelopathy or radiculopathy, cervical region (principal); G47.30 Sleep apnea, unspecified; J45.909 Unspecified asthma, uncomplicated; M79.7 Fibromyalgia; K59.00 Constipation, unspecified; K21.9 Gastro-esophageal reflux disease without esophagitis; Z85.828 Personal history of other malignant neoplasm of skin; Z79.899 Other long term (current) drug therapy; Z88.0 Allergy status to penicillin; Z88.2 Allergy status to sulfonamides; Z88.8 Allergy status to other drugs, medicaments and biological substances; E73.9 Lactose intolerance, unspecified; Z91.018 Allergy to other foods ==

== ENCOUNTER → 2022-01-09 | Outpatient (CLI) | payer OTHER | LOC: M PLAIMG 08:02 | PROVIDERS: ATTEND Nurse Practitioner Family | DX: M47.812 Spondylosis without myelopathy or radiculopathy, cervical region (principal); M25.78 Osteophyte, vertebrae ==

== ENCOUNTER → 2022-02-16 | Outpatient (CLI) | payer OTHER | LOC: M PAIN 10:00 | PROVIDERS: ATTEND Nurse Practitioner Family | DX: M50.10 Cervical disc disorder with radiculopathy, unspecified cervical region (principal); G47.30 Sleep apnea, unspecified; G24.9 Dystonia, unspecified; M85.80 Other specified disorders of bone density and structure, unspecified site; J45.909 Unspecified asthma, uncomplicated; M79.7 Fibromyalgia; K59.00 Constipation, unspecified; K21.9 Gastro-esophageal reflux disease without esophagitis; Z85.828 Personal history of other malignant neoplasm of skin; Z79.1 Long term (current) use of non-steroidal anti-inflammatories (NSAID); Z79.899 Other long term (current) drug therapy; Z88.0 Allergy status to penicillin; Z88.2 Allergy status to sulfonamides; Z88.8 Allergy status to other drugs, medicaments and biological substances; Z91.018 Allergy to other foods; E73.9 Lactose intolerance, unspecified ==

== ENCOUNTER → 2022-07-02 | Outpatient (CLI) | payer OTHER, MEDICARE | LOC: M LABSMTC 09:15 | PROVIDERS: ATTEND Anesthesiology | DX: Z01.812 Encounter for preprocedural laboratory examination (principal); Z11.52 Encounter for screening for COVID-19 ==

== ENCOUNTER → 2022-07-04 | Outpatient (CLI) | payer OTHER ==
[~2022-07-04] MED LIST changes: +ISOVUE-M 300 61% 15ML VIAL As Ordered ONE; +LIDOCAINE 1% SDV 30ML VIAL As Ordered ONE; +NORCO, ANEXSIA 5/325MG TABLET (HYDROcodone/ACETAMINOPHEN) As Ordered ONE; +diazePAM 5MG TABLET As Ordered ONE; +diphenhydrAMINE 25MG CAP As Ordered ONE; +methylPREDNISolone SUSP 40MG/ML 1ML VIAL (DEPO MEDROL) As Ordered ONE
== END ==
LOC: M PAIN 14:30
PROVIDERS: ATTEND Anesthesiology
DX: M50.10 Cervical disc disorder with radiculopathy, unspecified cervical region (principal); G47.30 Sleep apnea, unspecified; G24.9 Dystonia, unspecified; M85.80 Other specified disorders of bone density and structure, unspecified site; J45.909 Unspecified asthma, uncomplicated; M79.7 Fibromyalgia; K59.00 Constipation, unspecified; K21.9 Gastro-esophageal reflux disease without esophagitis; Z85.828 Personal history of other malignant neoplasm of skin; Z86.010 Personal history of colon polyps; Z96.642 Presence of left artificial hip joint; Z79.1 Long term (current) use of non-steroidal anti-inflammatories (NSAID); Z79.899 Other long term (current) drug therapy; Z88.0 Allergy status to penicillin; Z88.2 Allergy status to sulfonamides; Z88.8 Allergy status to other drugs, medicaments and biological substances; E73.9 Lactose intolerance, unspecified; Z91.018 Allergy to other foods
CPT/HCPCS: 62321; J1030; Q9967

== ENCOUNTER → 2022-08-16 | Outpatient (CLI) | payer OTHER ==
[~2022-08-16] MED LIST changes: -ISOVUE-M 300 61% 15ML VIAL As Ordered ONE; -LIDOCAINE 1% SDV 30ML VIAL As Ordered ONE; -NORCO, ANEXSIA 5/325MG TABLET (HYDROcodone/ACETAMINOPHEN) As Ordered ONE; -diazePAM 5MG TABLET As Ordered ONE; -diphenhydrAMINE 25MG CAP As Ordered ONE; -methylPREDNISolone SUSP 40MG/ML 1ML VIAL (DEPO MEDROL) As Ordered ONE
== END ==
LOC: M PAIN 11:30
PROVIDERS: ATTEND Anesthesiology
DX: G89.29 Other chronic pain (principal); M79.10 Myalgia, unspecified site; M54.2 Cervicalgia; M79.18 Myalgia, other site; G47.30 Sleep apnea, unspecified; G24.9 Dystonia, unspecified; M47.812 Spondylosis without myelopathy or radiculopathy, cervical region; M85.80 Other specified disorders of bone density and structure, unspecified site; J45.909 Unspecified asthma, uncomplicated; M79.7 Fibromyalgia; K59.00 Constipation, unspecified; K21.9 Gastro-esophageal reflux disease without esophagitis; Z85.828 Personal history of other malignant neoplasm of skin; Z79.1 Long term (current) use of non-steroidal anti-inflammatories (NSAID); Z79.899 Other long term (current) drug therapy; Z86.010 Personal history of colon polyps; Z88.0 Allergy status to penicillin; Z88.2 Allergy status to sulfonamides; E73.9 Lactose intolerance, unspecified; Z91.048 Other nonmedicinal substance allergy status

== ENCOUNTER → 2022-09-29 | Outpatient (CLI) | payer MEDICARE | LOC: M WHC 08:13 | PROVIDERS: ATTEND Nurse Practitioner Family | DX: Z12.31 Encounter for screening mammogram for malignant neoplasm of breast (principal); Z13.820 Encounter for screening for osteoporosis; M85.851 Other specified disorders of bone density and structure, right thigh ==

== ENCOUNTER → 2022-10-01 | Outpatient (CLI) | payer MEDICARE | LOC: M LABSMTC 10:56 | PROVIDERS: ATTEND Anesthesiology | DX: Z01.812 Encounter for preprocedural laboratory examination (principal); Z11.52 Encounter for screening for COVID-19 ==

== ENCOUNTER → 2022-10-03 | Outpatient (CLI) | payer OTHER, MEDICARE ==
[~2022-10-03] MED LIST changes: +BUPIVACAINE HCL 0.25% 10ML VIAL As Ordered ONE; +BUPIVACAINE HCL 0.25% 30ML VIAL As Ordered ONE; +NORCO, ANEXSIA 5/325MG TABLET (HYDROcodone/ACETAMINOPHEN) As Ordered ONE; +TRIAMCINOLONE ACETONIDE SUSP 40MG/ML 1ML VIAL As Ordered ONE; +diazePAM 5MG TABLET As Ordered ONE; +diphenhydrAMINE 25MG CAP As Ordered ONE
== END ==
LOC: M PAIN 15:30
PROVIDERS: ATTEND Anesthesiology
DX: M79.10 Myalgia, unspecified site (principal); G47.30 Sleep apnea, unspecified; G24.9 Dystonia, unspecified; M47.812 Spondylosis without myelopathy or radiculopathy, cervical region; M85.80 Other specified disorders of bone density and structure, unspecified site; J45.909 Unspecified asthma, uncomplicated; Z86.010 Personal history of colon polyps; M79.7 Fibromyalgia; K59.00 Constipation, unspecified; K21.9 Gastro-esophageal reflux disease without esophagitis; Z85.828 Personal history of other malignant neoplasm of skin; Z79.899 Other long term (current) drug therapy; Z88.0 Allergy status to penicillin; Z88.2 Allergy status to sulfonamides; Z88.8 Allergy status to other drugs, medicaments and biological substances; Z91.048 Other nonmedicinal substance allergy status; E73.9 Lactose intolerance, unspecified

== ENCOUNTER → 2022-10-19 | Outpatient (CLI) | payer OTHER, MEDICARE ==
[~2022-10-19] MED LIST changes: -BUPIVACAINE HCL 0.25% 10ML VIAL As Ordered ONE; -BUPIVACAINE HCL 0.25% 30ML VIAL As Ordered ONE; -MELA10TA3 PO; +MELA1TAB55 PO; -NORCO, ANEXSIA 5/325MG TABLET (HYDROcodone/ACETAMINOPHEN) As Ordered ONE; -TRIAMCINOLONE ACETONIDE SUSP 40MG/ML 1ML VIAL As Ordered ONE; -diazePAM 5MG TABLET As Ordered ONE; -diphenhydrAMINE 25MG CAP As Ordered ONE
== END ==
LOC: M PAIN 10:00
PROVIDERS: ATTEND Nurse Practitioner Family
DX: G89.29 Other chronic pain (principal); M79.18 Myalgia, other site; G47.30 Sleep apnea, unspecified; J45.909 Unspecified asthma, uncomplicated; M79.7 Fibromyalgia; Z96.652 Presence of left artificial knee joint; Z88.1 Allergy status to other antibiotic agents; Z88.2 Allergy status to sulfonamides; Z88.8 Allergy status to other drugs, medicaments and biological substances; Z91.011 Allergy to milk products; Z91.018 Allergy to other foods; Z79.899 Other long term (current) drug therapy

== ENCOUNTER → 2022-12-07 | Outpatient (CLI) | payer OTHER, MEDICARE | LOC: M LABSMTC 10:13 | PROVIDERS: ATTEND Anesthesiology | DX: Z01.812 Encounter for preprocedural laboratory examination (principal) ==

== ENCOUNTER → 2022-12-08 | Outpatient (REF) | payer MEDICARE | LOC: M SFHCPLAZ 09:37 | PROVIDERS: ATTEND Family Medicine | DX: Z53.20 Procedure and treatment not carried out because of patient's decision for unspecified reasons (principal) ==

== ENCOUNTER → 2022-12-11 | Outpatient (CLI) | payer OTHER ==
[~2022-12-11] MED LIST changes: +BOTOX THERAPEUTIC 100 UNIT VIAL IM ONE
== END ==
LOC: M PAIN 08:00
PROVIDERS: ATTEND Anesthesiology
DX: M79.18 Myalgia, other site (principal); G47.30 Sleep apnea, unspecified; M54.2 Cervicalgia; M85.80 Other specified disorders of bone density and structure, unspecified site; J45.909 Unspecified asthma, uncomplicated; M79.7 Fibromyalgia; K59.00 Constipation, unspecified; K21.9 Gastro-esophageal reflux disease without esophagitis; Z79.899 Other long term (current) drug therapy; Z88.0 Allergy status to penicillin; Z88.2 Allergy status to sulfonamides; Z88.8 Allergy status to other drugs, medicaments and biological substances; Z91.048 Other nonmedicinal substance allergy status
CPT/HCPCS: 20552; J0585

== ENCOUNTER → 2022-12-13 | Outpatient (REF) | payer OTHER ==
[~2022-12-13] MED LIST changes: -BOTOX THERAPEUTIC 100 UNIT VIAL IM ONE
[2022-12-13 14:36] LABS: CHOLESTEROL RISK RATIO 2.98 (<5); HDL CHOLESTEROL 64.3 MG/DL (>40); LDL CHOLESTEROL 117.1 MG/DL (<100); NON-HDL-C 127.7 MG/DL; TOTAL 25(OH) VITAMIN D 60.6 NG/ML (20.0-100.0)
== END ==
LOC: M SFHCPLAZ 07:11
PROVIDERS: ATTEND Family Medicine
DX: M85.851 Other specified disorders of bone density and structure, right thigh (principal); Z13.220 Encounter for screening for lipoid disorders

== ENCOUNTER → 2022-12-21 | Outpatient (CLI) | payer MEDICARE | LOC: M PAIN 13:00 | PROVIDERS: ATTEND Anesthesiology | DX: M79.18 Myalgia, other site (principal); G47.30 Sleep apnea, unspecified; J45.909 Unspecified asthma, uncomplicated; M79.7 Fibromyalgia; K21.9 Gastro-esophageal reflux disease without esophagitis; Z88.1 Allergy status to other antibiotic agents; Z88.2 Allergy status to sulfonamides; Z88.8 Allergy status to other drugs, medicaments and biological substances; Z91.013 Allergy to seafood; Z79.899 Other long term (current) drug therapy ==

== ENCOUNTER → 2023-03-07 | Outpatient (CLI) | payer MEDICARE ==
[~2023-03-07] MED LIST changes: -K-TA10TA2 PO; +POTA-165 PO
== END ==
LOC: M TMPAIN 14:45 → M PAIN 14:45
PROVIDERS: ATTEND Anesthesiology
DX: M79.10 Myalgia, unspecified site (principal); M79.18 Myalgia, other site; M54.2 Cervicalgia; M85.80 Other specified disorders of bone density and structure, unspecified site; J45.909 Unspecified asthma, uncomplicated; M79.7 Fibromyalgia; K59.00 Constipation, unspecified; K21.9 Gastro-esophageal reflux disease without esophagitis; Z85.828 Personal history of other malignant neoplasm of skin; Z79.1 Long term (current) use of non-steroidal anti-inflammatories (NSAID); Z79.899 Other long term (current) drug therapy; Z88.0 Allergy status to penicillin; Z88.2 Allergy status to sulfonamides; Z88.8 Allergy status to other drugs, medicaments and biological substances; E73.9 Lactose intolerance, unspecified

== ENCOUNTER → 2023-05-04 | Outpatient (CLI) | payer OTHER ==
[~2023-05-04] MED LIST changes: -AMIT25TA17 PO; +AMIT25TA19 PO; +BOTOX THERAPEUTIC 100 UNIT VIAL IM ONE
== END ==
LOC: M PAIN 08:00
PROVIDERS: ATTEND Anesthesiology
DX: M25.512 Pain in left shoulder (principal); M54.2 Cervicalgia; G47.30 Sleep apnea, unspecified; M85.80 Other specified disorders of bone density and structure, unspecified site; J45.909 Unspecified asthma, uncomplicated; M79.7 Fibromyalgia; K59.00 Constipation, unspecified; E73.9 Lactose intolerance, unspecified; K21.9 Gastro-esophageal reflux disease without esophagitis; Z85.828 Personal history of other malignant neoplasm of skin; Z79.1 Long term (current) use of non-steroidal anti-inflammatories (NSAID); Z79.899 Other long term (current) drug therapy; Z88.0 Allergy status to penicillin; Z88.2 Allergy status to sulfonamides; Z88.8 Allergy status to other drugs, medicaments and biological substances
CPT/HCPCS: 20552; J0585

== ENCOUNTER → 2023-05-23 | Outpatient (REF) | payer OTHER, MEDICARE ==
[~2023-05-23] MED LIST changes: -BOTOX THERAPEUTIC 100 UNIT VIAL IM ONE
[2023-05-23 14:26] LABS: HEMATOCRIT 32.2 % (36.0-47.0); HEMOGLOBIN 10.5 g/dl (12.0-15.5); MEAN CORPUSCULAR HEMOGLOBIN 30.1 pg (27.0-33.0); MEAN CORPUSCULAR HGB CONC 32.6 g/dl (32.0-36.5); MEAN CORPUSCULAR VOLUME 92.3 fl (80.0-96.0); PLATELET COUNT, AUTOMATED 257 10^3/uL (150-450); RED BLOOD COUNT 3.49 10^6/uL (4.00-5.40); WHITE BLOOD COUNT 4.8 10^3/uL (4.0-10.0)
== END ==
LOC: M LABDRWAD 12:30
PROVIDERS: ATTEND Student in an Organized Health Care Education/Training Program
DX: G47.33 Obstructive sleep apnea (adult) (pediatric) (principal)

== ENCOUNTER → 2023-06-14 | Outpatient (CLI) | payer MEDICARE, OTHER | LOC: M PAIN 11:00 | PROVIDERS: ATTEND Nurse Practitioner Family | DX: M25.512 Pain in left shoulder (principal); G89.29 Other chronic pain; M79.7 Fibromyalgia; Z96.642 Presence of left artificial hip joint; Z80.3 Family history of malignant neoplasm of breast; Z88.1 Allergy status to other antibiotic agents; Z88.2 Allergy status to sulfonamides; Z88.8 Allergy status to other drugs, medicaments and biological substances; Z91.011 Allergy to milk products; Z91.018 Allergy to other foods; Z79.899 Other long term (current) drug therapy ==

== ENCOUNTER → 2023-06-28 | Outpatient (CLI) | payer MEDICARE, OTHER ==
[2023-06-28 13:05] LABS: BASO % 0.8 % (0.0-1.0); EOS # 0.2 10^3/uL (0.0-0.5); EOS % 4.2 % (0.0-3.0); LYMPH # 1.5 10^3/uL (1.5-5.0); LYMPH % 30.7 % (24.0-44.0); MEAN CORPUSCULAR HEMOGLOBIN 29.7 pg (27.0-33.0); MEAN CORPUSCULAR HGB CONC 32.4 g/dl (32.0-36.5); MEAN CORPUSCULAR VOLUME 91.9 fl (80.0-96.0); MONO # 0.5 10^3/uL (0.0-0.8); MONO % 9.4 % (2.0-8.0); NEUTROPHILS # 2.6 10^3/uL (1.5-8.5); NEUTROPHILS % 54.3 % (36.0-66.0); PLATELET COUNT, AUTOMATED 251 10^3/uL (150-450); WHITE BLOOD COUNT 4.8 10^3/uL (4.0-10.0)
[2023-06-28 13:38] LABS: ALBUMIN 3.9 G/DL (3.2-5.2); ALKALINE PHOSPHATASE 59 U/L (46-116); ALT/SGPT 22 U/L (7.0-40); AST/SGOT 23 U/L (<34); BILIRUBIN,TOTAL 0.5 MG/DL (0.3-1.2); BLOOD UREA NITROGEN 13 MG/DL (9-23); CALCIUM LEVEL 9.9 MG/DL (8.3-10.6); CARBON DIOXIDE LEVEL 28 MMOL/L (20-31); CHLORIDE LEVEL 103 MMOL/L (98-107); CREATININE FOR GFR 0.89 MG/DL (0.55-1.30); FERRITIN 78.6 NG/ML (7.3-270.7); GLOMERULAR FILTRATION RATE > 60.0 (>45); GLUCOSE, FASTING 78 MG/DL (74-106); IRON (FE) 90 UG/DL (50-170); MAGNESIUM LEVEL 1.7 MG/DL (1.8-2.4); POTASSIUM SERUM 4.3 MMOL/L (3.5-5.1); SODIUM LEVEL 139 MMOL/L (136-145); TOTAL PROTEIN 7.3 G/DL (5.7-8.2)
[2023-06-28 13:39] LABS: THYROID STIMULATING HORMONE 1.748 uIU/ML (0.55-4.78)
[2023-06-28 13:40] LABS: FOLATE > 24.0 NG/ML (>5.4); VITAMIN B12 LEVEL 1654 PG/ML (211-911)
== END ==
LOC: M ADAMS 08:56
PROVIDERS: ATTEND Internal Medicine Cardiovascular Disease
DX: R00.2 Palpitations (principal); K21.9 Gastro-esophageal reflux disease without esophagitis; D64.9 Anemia, unspecified; R06.02 Shortness of breath

== ENCOUNTER → 2023-08-20 | Outpatient (CLI) | payer MEDICARE, OTHER | LOC: M PLAIMG 09:09 | PROVIDERS: ATTEND Student in an Organized Health Care Education/Training Program | DX: M25.872 Other specified joint disorders, left ankle and foot (principal); M19.072 Primary osteoarthritis, left ankle and foot; M25.472 Effusion, left ankle ==

== ENCOUNTER → 2023-10-01 | Outpatient (CLI) | payer OTHER | LOC: M PAIN 16:30 | PROVIDERS: ATTEND Nurse Practitioner Family | DX: M79.18 Myalgia, other site (principal); G89.29 Other chronic pain; M25.512 Pain in left shoulder; G24.8 Other dystonia; M54.2 Cervicalgia; K21.9 Gastro-esophageal reflux disease without esophagitis; E73.9 Lactose intolerance, unspecified; Z79.899 Other long term (current) drug therapy; Z88.0 Allergy status to penicillin; Z88.2 Allergy status to sulfonamides; Z88.8 Allergy status to other drugs, medicaments and biological substances ==

== ENCOUNTER → 2023-10-05 | Outpatient (CLI) | payer OTHER | LOC: M WHC 09:07 | PROVIDERS: ATTEND Student in an Organized Health Care Education/Training Program | DX: Z12.31 Encounter for screening mammogram for malignant neoplasm of breast (principal) ==

== ENCOUNTER → 2023-10-05 | Outpatient (CLI) | payer OTHER ==
[2023-10-05 10:44] LABS: BASO % 0.5 % (0.0-1.0); EOS # 0.1 10^3/uL (0.0-0.5); EOS % 2.8 % (0.0-3.0); HEMATOCRIT 34.5 % (36.0-47.0); HEMOGLOBIN 11.1 g/dl (12.0-15.5); LYMPH # 1.5 10^3/uL (1.5-5.0); LYMPH % 38.4 % (24.0-44.0); MEAN CORPUSCULAR HEMOGLOBIN 29.8 pg (27.0-33.0); MEAN CORPUSCULAR HGB CONC 32.2 g/dl (32.0-36.5); MEAN CORPUSCULAR VOLUME 92.7 fl (80.0-96.0); MONO # 0.5 10^3/uL (0.0-0.8); MONO % 11.5 % (2.0-8.0); NEUTROPHILS # 1.8 10^3/uL (1.5-8.5); NEUTROPHILS % 46.5 % (36.0-66.0); PLATELET COUNT, AUTOMATED 239 10^3/uL (150-450); RED BLOOD COUNT 3.72 10^6/uL (4.00-5.40); WHITE BLOOD COUNT 3.9 10^3/uL (4.0-10.0)
[2023-10-05 10:46] LABS: HEMOGLOBIN A1c 5.2 % (4.0-6.0)
[2023-10-05 10:57] LABS: BLOOD UREA NITROGEN 16 MG/DL (9-23); CALCIUM LEVEL 8.9 MG/DL (8.3-10.6); CARBON DIOXIDE LEVEL 29 MMOL/L (20-31); CHLORIDE LEVEL 105 MMOL/L (98-107); CHOLESTEROL LEVEL 190 MG/DL (<200); CREATININE FOR GFR 0.82 MG/DL (0.55-1.30); GLOMERULAR FILTRATION RATE > 60.0 (>45); GLUCOSE, FASTING 71 MG/DL (74-106); HDL CHOLESTEROL 59.3 MG/DL (>40); LDL CHOLESTEROL 111.3 MG/DL (<100); NON-HDL-C 130.7 MG/DL; POTASSIUM SERUM 3.9 MMOL/L (3.5-5.1); SODIUM LEVEL 139 MMOL/L (136-145); TRIGLYCERIDES LEVEL 97 MG/DL (<150)
[2023-10-05 11:00] LABS: THYROID STIMULATING HORMONE 1.502 uIU/ML (0.55-4.78)
== END ==
LOC: M PLALAB 08:47
PROVIDERS: ATTEND Student in an Organized Health Care Education/Training Program
DX: Z00.00 Encounter for general adult medical examination without abnormal findings (principal); Z79.899 Other long term (current) drug therapy

== ENCOUNTER → 2023-10-26 | Outpatient (CLI) | payer OTHER | LOC: M PAIN 09:15 | PROVIDERS: ATTEND Nurse Practitioner Family | DX: M79.18 Myalgia, other site (principal); G89.29 Other chronic pain; G47.30 Sleep apnea, unspecified; M54.2 Cervicalgia; K59.00 Constipation, unspecified; K21.9 Gastro-esophageal reflux disease without esophagitis; Z79.899 Other long term (current) drug therapy; Z88.0 Allergy status to penicillin; Z88.2 Allergy status to sulfonamides; Z88.8 Allergy status to other drugs, medicaments and biological substances; E73.9 Lactose intolerance, unspecified; Z91.048 Other nonmedicinal substance allergy status ==

== ENCOUNTER → 2023-11-28 | Outpatient (CLI) | payer OTHER | LOC: M CARPUL 07:33 | PROVIDERS: ATTEND Student in an Organized Health Care Education/Training Program | DX: R06.02 Shortness of breath (principal) ==

== ENCOUNTER → 2023-12-13 | Outpatient (CLI) | payer OTHER | LOC: M PAIN 11:30 | PROVIDERS: ATTEND Nurse Practitioner Family | DX: M79.10 Myalgia, unspecified site (principal); Z79.899 Other long term (current) drug therapy; Z88.0 Allergy status to penicillin; Z88.1 Allergy status to other antibiotic agents; Z88.2 Allergy status to sulfonamides; Z88.8 Allergy status to other drugs, medicaments and biological substances; Z91.011 Allergy to milk products; Z91.018 Allergy to other foods ==

== ENCOUNTER → 2024-02-05 | Outpatient (CLI) | payer OTHER ==
[~2024-02-05] MED LIST changes: +BOTOX THERAPEUTIC 100 UNIT VIAL IM ONE
== END ==
LOC: M PAIN 12:45
PROVIDERS: ATTEND Anesthesiology
DX: M79.12 Myalgia of auxiliary muscles, head and neck (principal); M79.18 Myalgia, other site; G89.29 Other chronic pain; G47.30 Sleep apnea, unspecified; M54.2 Cervicalgia; M85.80 Other specified disorders of bone density and structure, unspecified site; K59.00 Constipation, unspecified; K21.9 Gastro-esophageal reflux disease without esophagitis; Z79.899 Other long term (current) drug therapy; Z88.0 Allergy status to penicillin; Z88.2 Allergy status to sulfonamides; Z88.8 Allergy status to other drugs, medicaments and biological substances; E73.9 Lactose intolerance, unspecified
CPT/HCPCS: 20552; J0585

== ENCOUNTER → 2024-03-11 | Outpatient (CLI) | payer OTHER ==
[~2024-03-11] MED LIST changes: -BOTOX THERAPEUTIC 100 UNIT VIAL IM ONE
== END ==
LOC: M PAIN 10:00
PROVIDERS: ATTEND Nurse Practitioner Family
DX: M79.18 Myalgia, other site (principal); G89.29 Other chronic pain; G47.30 Sleep apnea, unspecified; M54.2 Cervicalgia; M85.80 Other specified disorders of bone density and structure, unspecified site; K59.00 Constipation, unspecified; K21.9 Gastro-esophageal reflux disease without esophagitis; Z79.899 Other long term (current) drug therapy; Z88.0 Allergy status to penicillin; Z88.1 Allergy status to other antibiotic agents; Z88.2 Allergy status to sulfonamides; Z88.8 Allergy status to other drugs, medicaments and biological substances; E73.9 Lactose intolerance, unspecified

== ENCOUNTER → 2024-05-08 | Outpatient (CLI) | payer OTHER ==
[~2024-05-08] MED LIST changes: +GABA-1490 PO; -GABA600T4 PO
== END ==
LOC: M PAIN 09:15
PROVIDERS: ATTEND Nurse Practitioner Family
DX: M79.18 Myalgia, other site (principal); G89.29 Other chronic pain; G47.30 Sleep apnea, unspecified; G24.9 Dystonia, unspecified; K59.00 Constipation, unspecified; K21.9 Gastro-esophageal reflux disease without esophagitis; Z79.899 Other long term (current) drug therapy; Z88.0 Allergy status to penicillin; Z88.2 Allergy status to sulfonamides; Z88.8 Allergy status to other drugs, medicaments and biological substances; Z91.018 Allergy to other foods; E73.9 Lactose intolerance, unspecified

== ENCOUNTER → 2024-06-13 | Outpatient (CLI) | payer OTHER ==
[~2024-06-13] MED LIST changes: +NAPR-1405 PO; -NAPR500T6 PO
== END ==
LOC: M PAIN 14:00
PROVIDERS: ATTEND Nurse Practitioner Family
DX: M79.18 Myalgia, other site (principal); G89.29 Other chronic pain; G47.30 Sleep apnea, unspecified; M85.80 Other specified disorders of bone density and structure, unspecified site; K59.00 Constipation, unspecified; K21.9 Gastro-esophageal reflux disease without esophagitis; G24.9 Dystonia, unspecified; Z88.0 Allergy status to penicillin; Z88.2 Allergy status to sulfonamides; Z88.8 Allergy status to other drugs, medicaments and biological substances; E73.9 Lactose intolerance, unspecified; Z91.018 Allergy to other foods

== ENCOUNTER → 2024-06-17 | Outpatient (CLI) | payer OTHER ==
[2024-06-17 10:46] LABS: BASO % 0.8 % (0.0-1.0); EOS # 0.1 10^3/uL (0.0-0.5); EOS % 2.5 % (0.0-3.0); HEMATOCRIT 33.7 % (36.0-47.0); HEMOGLOBIN 11.1 g/dl (12.0-15.5); LYMPH # 1.4 10^3/uL (1.5-5.0); LYMPH % 37.8 % (24.0-44.0); MEAN CORPUSCULAR HEMOGLOBIN 29.8 pg (27.0-33.0); MEAN CORPUSCULAR HGB CONC 32.9 g/dl (32.0-36.5); MEAN CORPUSCULAR VOLUME 90.6 fl (80.0-96.0); MONO # 0.3 10^3/uL (0.0-0.8); MONO % 9.2 % (2.0-8.0); NEUTROPHILS # 1.8 10^3/uL (1.5-8.5); NEUTROPHILS % 49.4 % (36.0-66.0); PLATELET COUNT, AUTOMATED 259 10^3/uL (150-450); RED BLOOD COUNT 3.72 10^6/uL (4.00-5.40); WHITE BLOOD COUNT 3.6 10^3/uL (4.0-10.0)
[2024-06-17 11:11] LABS: HEMOGLOBIN A1c 5.2 % (4.0-6.0)
[2024-06-17 11:13] LABS: BLOOD UREA NITROGEN 15 MG/DL (9-23); CALCIUM LEVEL 9.7 MG/DL (8.3-10.6); CARBON DIOXIDE LEVEL 30 MMOL/L (20-31); CHLORIDE LEVEL 106 MMOL/L (98-107); CREATININE FOR GFR 0.77 MG/DL (0.55-1.30); GLOMERULAR FILTRATION RATE > 60.0 (>45); GLUCOSE, FASTING 77 MG/DL (74-106); MAGNESIUM LEVEL 1.7 MG/DL (1.8-2.4); SODIUM LEVEL 140 MMOL/L (136-145)
== END ==
LOC: M WUC 08:38
PROVIDERS: ATTEND Student in an Organized Health Care Education/Training Program
DX: Z00.00 Encounter for general adult medical examination without abnormal findings (principal); Z13.1 Encounter for screening for diabetes mellitus; Z79.899 Other long term (current) drug therapy

== ENCOUNTER → 2024-07-17 | Outpatient (CLI) | payer OTHER ==
[~2024-07-17] MED LIST changes: +BOTOX THERAPEUTIC 100 UNIT VIAL IM ONE
== END ==
LOC: M PAIN 08:15
PROVIDERS: ATTEND Anesthesiology
DX: M79.12 Myalgia of auxiliary muscles, head and neck (principal); G89.29 Other chronic pain; M54.2 Cervicalgia; G47.30 Sleep apnea, unspecified; M85.80 Other specified disorders of bone density and structure, unspecified site; K59.00 Constipation, unspecified; K21.9 Gastro-esophageal reflux disease without esophagitis; Z79.899 Other long term (current) drug therapy; Z88.0 Allergy status to penicillin; Z88.8 Allergy status to other drugs, medicaments and biological substances; Z88.2 Allergy status to sulfonamides; E73.9 Lactose intolerance, unspecified; Z91.048 Other nonmedicinal substance allergy status
CPT/HCPCS: 20552; J0585

== ENCOUNTER → 2024-09-15 | Outpatient (CLI) | payer OTHER ==
[~2024-09-15] MED LIST changes: -BOTOX THERAPEUTIC 100 UNIT VIAL IM ONE
== END ==
LOC: M PAIN 09:00
PROVIDERS: ATTEND Nurse Practitioner Family
DX: M79.18 Myalgia, other site (principal); G89.29 Other chronic pain; G47.30 Sleep apnea, unspecified; M54.2 Cervicalgia; K21.9 Gastro-esophageal reflux disease without esophagitis; Z79.899 Other long term (current) drug therapy; Z88.0 Allergy status to penicillin; Z88.2 Allergy status to sulfonamides; Z88.8 Allergy status to other drugs, medicaments and biological substances; E73.9 Lactose intolerance, unspecified; Z91.048 Other nonmedicinal substance allergy status

== ENCOUNTER → 2024-10-06 | Outpatient (CLI) | payer MEDICARE | LOC: M WHC 08:59 | PROVIDERS: ATTEND Student in an Organized Health Care Education/Training Program | DX: Z12.31 Encounter for screening mammogram for malignant neoplasm of breast (principal); M85.89 Other specified disorders of bone density and structure, multiple sites ==

== ENCOUNTER → 2024-10-27 | Outpatient (CLI) | payer OTHER, MEDICARE | LOC: M PAIN 09:30 | PROVIDERS: ATTEND Nurse Practitioner Family | DX: M79.18 Myalgia, other site (principal); M54.2 Cervicalgia; G89.29 Other chronic pain; M25.512 Pain in left shoulder; K21.9 Gastro-esophageal reflux disease without esophagitis; K59.00 Constipation, unspecified; Z79.899 Other long term (current) drug therapy; Z88.0 Allergy status to penicillin; Z88.2 Allergy status to sulfonamides; Z88.8 Allergy status to other drugs, medicaments and biological substances ==

== ENCOUNTER → 2024-10-29 | Outpatient (CLI) | payer MEDICARE | LOC: M WUC 10:08 | PROVIDERS: ATTEND Student in an Organized Health Care Education/Training Program | DX: M25.522 Pain in left elbow (principal); M79.602 Pain in left arm ==

== ENCOUNTER → 2024-12-11 | Outpatient (CLI) | payer MEDICARE ==
[2024-12-11 13:11] LABS: BASO % 0.7 % (0.0-1.0); EOS # 0.2 10^3/uL (0.0-0.5); EOS % 4.7 % (0.0-3.0); HEMATOCRIT 37.2 % (36.0-47.0); HEMOGLOBIN 11.9 g/dl (12.0-15.5); LYMPH # 1.5 10^3/uL (1.5-5.0); LYMPH % 34.5 % (24.0-44.0); MEAN CORPUSCULAR HEMOGLOBIN 29.4 pg (27.0-33.0); MEAN CORPUSCULAR VOLUME 91.9 fl (80.0-96.0); MONO # 0.4 10^3/uL (0.0-0.8); MONO % 9.9 % (2.0-8.0); NEUTROPHILS # 2.2 10^3/uL (1.5-8.5); PLATELET COUNT, AUTOMATED 279 10^3/uL (150-450); RED BLOOD COUNT 4.05 10^6/uL (4.00-5.40); WHITE BLOOD COUNT 4.4 10^3/uL (4.0-10.0)
[2024-12-11 13:39] LABS: ALKALINE PHOSPHATASE 62 U/L (35-104); ALT/SGPT 18 U/L (7.0-40); AST/SGOT 23 U/L (<34); BILIRUBIN,TOTAL 0.3 MG/DL (0.3-1.2); BLOOD UREA NITROGEN 14 MG/DL (9-23); CALCIUM LEVEL 9.7 MG/DL (8.3-10.6); CARBON DIOXIDE LEVEL 31 MMOL/L (20-31); CHLORIDE LEVEL 102 MMOL/L (98-107); CHOLESTEROL LEVEL 194 MG/DL (<200); CHOLESTEROL RISK RATIO 2.91 (<5); CREATININE FOR GFR 0.81 MG/DL (0.55-1.30); GLOMERULAR FILTRATION RATE > 60.0 (>45); GLUCOSE, FASTING 83 MG/DL (74-106); HDL CHOLESTEROL 66.6 MG/DL (>40); LDL CHOLESTEROL 114.8 MG/DL (<100); MAGNESIUM LEVEL 1.9 MG/DL (1.8-2.4); NON-HDL-C 127.4 MG/DL; POTASSIUM SERUM 4.3 MMOL/L (3.5-5.1); SODIUM LEVEL 142 MMOL/L (136-145); TOTAL PROTEIN 7.7 G/DL (5.7-8.2); TRIGLYCERIDES LEVEL 63 MG/DL (<150)
== END ==
LOC: M WUC 08:04
PROVIDERS: ATTEND Student in an Organized Health Care Education/Training Program
DX: R12 Heartburn (principal); E78.2 Mixed hyperlipidemia; G47.33 Obstructive sleep apnea (adult) (pediatric); E83.42 Hypomagnesemia

== ENCOUNTER 2025-04-24 10:50 | Emergency (ER) | payer MEDICARE ==
[~2025-04-24] VITALS: Ht 160 cm; Wt 57.0 kg
[~2025-04-24 10:50] MED LIST changes: +LIDO1ADH93 TD; -LIDO5DIS41 TD
[2025-04-24 11:45] LABS: VENOUS BASE EXCESS 1.5 (-2.0-2.0); VENOUS HCO3 26.1 MMOL/L (23.0-27.0); VENOUS O2 SATURATION 94.5 % (60.0-80.0); VENOUS PARTIAL PRESSURE CO2 41.2 mmHg (38.0-50.0); VENOUS PARTIAL PRESSURE O2 72.2 mmHg (30.0-50.0); VENOUS PH 7.420 UNITS (7.330-7.430); VENOUS STANDARD HCO3 25.8 MMOL/L; VENOUS TOTAL CO2 27.4 MMOL/L (24.0-28.0)
[2025-04-24 11:51] LABS: BASO # 0.0 10^3/uL (0.0-0.2); BASO % 0.4 % (0.0-1.0); EOS # 0.0 10^3/uL (0.0-0.5); EOS % 0.3 % (0.0-3.0); LYMPH # 1.0 10^3/uL (1.5-5.0); LYMPH % 14.4 % (24.0-44.0); MONO # 0.4 10^3/uL (0.0-0.8); MONO % 5.9 % (2.0-8.0); NEUTROPHILS # 5.5 10^3/uL (1.5-8.5); NEUTROPHILS % 78.7 % (36.0-66.0); PLATELET COUNT, AUTOMATED 232 10^3/uL (150-450)
[2025-04-24 12:08] LABS: INR 1.01
[2025-04-24] MEDS: NS (Normal Saline) 0.9% 1,710 ML in IV 1 EA IV ONE (12:09)
[2025-04-24] MEDS: CEFEPIME HCL 2 GM in DEXTROSE 5% (D5W) ADV/MINI-BAG 50 ML IV ONE (12:09)
[2025-04-24 12:23] LABS: APPEARANCE, URINE HAZY (CLEAR); BACTERIA, URINE AUTO NEGATIVE (NEGATIVE); BILIRUBIN, URINE AUTO NEGATIVE (NEGATIVE); BLOOD, URINE BLOOD NEGATIVE (NEGATIVE); GLUCOSE, URINE (UA) AUTO NEGATIVE (NEGATIVE); KETONE, URINE AUTO NEGATIVE (NEGATIVE); LEUKOCYTE ESTERASE, URINE AUTO NEGATIVE (NEGATIVE); MUCUS, URINE SMALL (NEGATIVE); NITRITE, URINE AUTO NEGATIVE (NEGATIVE); PROTEIN, URINE AUTO 2+ mg/dL (NEGATIVE); RBC, URINE AUTO 1 /HPF (0-3); SPECIFIC GRAVITY URINE AUTO 1.026 (1.002-1.035); SQUAMOUS EPITHELIAL CELL UR AU 0 /HPF (0-6); UROBILINOGEN, URINE AUTO 0.2 mg/dL (0.0-2.0); WBC, URINE AUTO 1 /HPF (0-3)
[2025-04-24 12:51] LABS: C REACTIVE PROTEIN QUANTITATIV 4.1 MG/DL (<1.0)
[2025-04-24 12:58] LABS: ALT/SGPT 18.0 U/L (7.0-40); AST/SGOT 26.0 U/L (<34); CALCIUM LEVEL 9.2 MG/DL (8.3-10.6); CARBON DIOXIDE LEVEL 27.0 MMOL/L (20-31); CREATININE FOR GFR 1.14 MG/DL (0.55-1.30); GLOMERULAR FILTRATION RATE 52.8 (>45)
[2025-04-24 13:26] LABS: CHLORIDE LEVEL 101.0 MMOL/L (98-107); POTASSIUM SERUM 4.0 MMOL/L (3.5-5.1); SODIUM LEVEL 138.0 MMOL/L (136-145)
[2025-04-24] MEDS: ACETAMINOPHEN 325 MG TAB PO ONE (14:45)
[2025-04-24] MEDS ORDERED: NIRM1TAB13 PO (16:25)
[2025-04-24 16:30] VITALS: BP 107/56; TEMP 97.3; O2SAT 96
== END 2025-04-24 16:40 | disposition home or self-care (01) ==
LOC: M ED 10:50
DX: U07.1 COVID-19 (principal); G47.30 Sleep apnea, unspecified; E73.9 Lactose intolerance, unspecified; Z79.899 Other long term (current) drug therapy; Z88.0 Allergy status to penicillin; Z88.2 Allergy status to sulfonamides; Z91.018 Allergy to other foods
CPT/HCPCS: 71045; 80048; 80076; 81001; 82150; 82803; 83605; 84145; 85025; 85610; 85730; 86140; 86850; 86900; 86901; 87040; 87086; 87486; 87581; 87633; 87798; 93005; 93041; 94760; 96365; 96366; 99285; J0692

== ENCOUNTER 2025-05-28 16:26 | Emergency (ER) | payer MEDICARE ==
[~2025-05-28] VITALS: Ht 162.6 cm; Wt 60.9 kg
[~2025-05-28 16:26] MED LIST changes: +NIRM1TAB PO; -VITA500T17 PO; +VITA500T8 PO
[2025-05-28 17:34] LABS: BASO # 0.0 10^3/uL (0.0-0.2); BASO % 0.5 % (0.0-1.0); EOS # 0.2 10^3/uL (0.0-0.5); EOS % 2.6 % (0.0-3.0); LYMPH # 2.5 10^3/uL (1.5-5.0); LYMPH % 42.1 % (24.0-44.0); MONO # 0.6 10^3/uL (0.0-0.8); MONO % 10.4 % (2.0-8.0); NEUTROPHILS # 2.6 10^3/uL (1.5-8.5); NEUTROPHILS % 44.2 % (36.0-66.0); PLATELET COUNT, AUTOMATED 283 10^3/uL (150-450)
[2025-05-28 17:46] LABS: ALT/SGPT 21.0 U/L (7.0-40); AST/SGOT 41.0 U/L (<34); CALCIUM LEVEL 9.4 MG/DL (8.3-10.6); CARBON DIOXIDE LEVEL 26.0 MMOL/L (20-31); CHLORIDE LEVEL 102.0 MMOL/L (98-107); CREATININE FOR GFR 0.87 MG/DL (0.55-1.30); GLOMERULAR FILTRATION RATE 73.0 (>45); POTASSIUM SERUM 4.6 MMOL/L (3.5-5.1); SODIUM LEVEL 140.0 MMOL/L (136-145)
[2025-05-28] MEDS: IPRATROPIUM 0.5 MG/ALBUTEROL 2.5 MG INH SOL UD 3 ML NEB ONE (17:47)
[2025-05-28] MEDS ORDERED: IPRATROPIUM 0.5 MG/ALBUTEROL 2.5 MG INH SOL UD 3 ML NEB PRN (18:45)
[2025-05-28] MEDS ORDERED: PRED20TA PO (19:55)
[2025-05-28 20:15] VITALS: BP 112/56; TEMP 97.4; O2SAT 99
[2025-05-28] MEDS: ALBUTEROL 90 MCG/ACT 8 GM HFA INHALER INH STA (20:31)
== END 2025-05-28 20:30 | disposition home or self-care (01) ==
LOC: M ED 16:26 → EDBD 16:26 → M ED 20:30
DX: R09.89 Other specified symptoms and signs involving the circulatory and respiratory systems (principal); J45.909 Unspecified asthma, uncomplicated; G47.30 Sleep apnea, unspecified; E73.9 Lactose intolerance, unspecified; Z79.899 Other long term (current) drug therapy; Z88.0 Allergy status to penicillin; Z88.2 Allergy status to sulfonamides; Z91.018 Allergy to other foods
CPT/HCPCS: 71045; 71250; 80053; 85025; 94640; 96374; 99285; J2919

== ENCOUNTER → 2025-06-18 | Outpatient (CLI) | payer MEDICARE ==
[~2025-06-18] MED LIST changes: +PRED20TA PO
== END ==
LOC: M WUC 09:00
PROVIDERS: ATTEND Nurse Practitioner Adult Health
DX: R06.02 Shortness of breath (principal)

== ENCOUNTER → 2025-07-21 | Outpatient (CLI) | payer MEDICARE, OTHER ==
[2025-07-21 10:25] LABS: BASO # 0.0 10^3/uL (0.0-0.2); BASO % 0.4 % (0.0-1.0); EOS # 0.1 10^3/uL (0.0-0.5); EOS % 1.1 % (0.0-3.0); LYMPH # 1.0 10^3/uL (1.5-5.0); LYMPH % 11.7 % (24.0-44.0); MONO # 0.5 10^3/uL (0.0-0.8); MONO % 5.7 % (2.0-8.0); NEUTROPHILS # 6.8 10^3/uL (1.5-8.5); NEUTROPHILS % 80.7 % (36.0-66.0); PLATELET COUNT, AUTOMATED 298 10^3/uL (150-450)
[2025-07-21 10:52] LABS: MAGNESIUM LEVEL 1.6 MG/DL (1.8-2.4)
[2025-07-21 10:55] LABS: FREE T4 1.08 NG/DL (0.89-1.76)
== END ==
LOC: M LAB 09:31
PROVIDERS: ATTEND Physician Assistant
DX: R00.2 Palpitations (principal)

== ENCOUNTER → 2025-08-27 | Outpatient (CLI) | payer MEDICARE, OTHER | LOC: M WUC 09:35 | PROVIDERS: ATTEND Physician Assistant | DX: E83.42 Hypomagnesemia (principal) ==

== ENCOUNTER → 2025-08-31 | Outpatient (CLI) | payer OTHER, MEDICARE | LOC: M RAD 07:00 | PROVIDERS: ATTEND Nurse Practitioner Family | DX: M54.2 Cervicalgia (principal) ==

== ENCOUNTER → 2025-09-07 | Outpatient (CLI) | payer MEDICARE, OTHER ==
[2025-09-07 19:02] LABS: ALT/SGPT 17.0 U/L (7.0-40); AST/SGOT 28.0 U/L (<34); CALCIUM LEVEL 9.3 MG/DL (8.3-10.6); CARBON DIOXIDE LEVEL 30.0 MMOL/L (20-31); CHLORIDE LEVEL 101.0 MMOL/L (98-107); CHOLESTEROL LEVEL 187.0 MG/DL (<200); CHOLESTEROL RISK RATIO 3.14 (<5); CREATININE FOR GFR 0.98 MG/DL (0.55-1.30); GLOMERULAR FILTRATION RATE 63.3 (>45); IRON (FE) 53.0 UG/DL (50-170); LDL CHOLESTEROL 103.2 MG/DL (<100); MAGNESIUM LEVEL 2.0 MG/DL (1.8-2.4); NON-HDL-C 127.6 MG/DL; PERCENT SATURATION 17.8 % (13.2-45.0); POTASSIUM SERUM 4.3 MMOL/L (3.5-5.1); SODIUM LEVEL 140.0 MMOL/L (136-145); TRIGLYCERIDES LEVEL 122.0 MG/DL (<150)
== END ==
LOC: M WUC 15:40
PROVIDERS: ATTEND Student in an Organized Health Care Education/Training Program
DX: Z00.00 Encounter for general adult medical examination without abnormal findings (principal); E83.42 Hypomagnesemia; D64.9 Anemia, unspecified; Z79.899 Other long term (current) drug therapy

== ENCOUNTER → 2025-09-15 | Outpatient (CLI) | payer MEDICARE, OTHER | LOC: M CARPUL 06:27 | PROVIDERS: ATTEND Physician Assistant | DX: R94.31 Abnormal electrocardiogram [ECG] [EKG] (principal); R07.9 Chest pain, unspecified; R06.02 Shortness of breath | CPT/HCPCS: 78452; 93017; A9500; J2785 ==